=== PATIENT | male | born 1945 | race Caucasian/White ===

== ENCOUNTER 2017-06-04 15:58 | Observation (INO) | payer MEDICARE ==
[2017-06-04 16:47] LABS: BASOPHIL % 0.9 % (0.0-0.4); Basophil (Absolute #) 0.07 (0-0.4); Eosinophil % 4.4 % (0.00-5.0); Eosinophil (Absolute #) 0.35 (0-0.5); Granulocyte Absolute (ANC) 4.97 (1.4-6.9); Granulocytes % 62.7 % (36.0-66.0); Hematocrit 38.2 % (42-50); Hemoglobin 12.8 gm/dl (12.5-18.0); Lymphocyte (Absolute #) 1.68 (1.0-4.6); Lymphocytes % 21.2 % (24.0-44.0); Mean Cell Volume 93.2 fl (78-100); Mean Corpuscular Hemoglobin 31.2 pg (26-32); Mean Corpuscular Hgb Concent. 33.5 g/dl (32-36); Mean Platelet Volume 10.5 fl (6-9.5); Monocyte (Absolute #) 0.86 (0.0-1.3); Monocytes % 10.8 % (0.0-12.0); Platelet Count 234 K/mm3 (150-450); Red Cell Distribution Width 14.8 % (11.5-14.0); White Blood Count 7.9 K/mm3 (4.0-10.5)
--- NOTE | 2017-06-04 16:57 | XRAY ---
Indication: Left arm pain. Comparison: October 21, 2015. Portable chest unchanged again demonstrating chronic right base pleural-parenchymal opacity, CABG surgery, right-sided dual-lead pacemaker, and left sided Port-A-Cath. Remaining lungs clear. Heart is not enlarged for AP portable technique. Bony thorax intact again with mild osteopenia, degenerative changes, and old right rib fractures. Impression: Stable nonacute chest with chronic features.
[2017-06-04 17:18] LABS: ALBUMIN 3.8 g/dL (3.5-5.0); ALKALINE PHOSPHATASE 84 U/L (38-126); ANION GAP 14.5 MEQ/L (5-15); BLOOD UREA NITROGEN 22 mg/dL (9-20); CHLORIDE 104 mmol/L (98-107); Calcium 9.2 mg/dL (8.4-10.2); Carbon Dioxide 27 mmol/L (22-30); Glucose 102 mg/dL (74-106); Potassium 4.3 mmol/L (3.5-5.1); SGOT/AST 28 U/L (17-59); SGPT/ALT 18 U/L (0-50); SODIUM 141 mmol/L (137-145)
--- NOTE | 2017-06-04 17:52 | ERPHSYRPT ---
- History of Present Illness Time Seen by Provider: 06/04/17 16:18 Source: patient, family Patient Subjective Stated Complaint: PT states "I have had this ache in my left arm. It does not hurt now, but I have a really bad cardiac history. Triage Nursing Assessment: pt alert and oriented X 3, skin pwd. Pt ambulates with an upright steady gait, able to speak in clear full sentences. PT in no apparent respiratory distress. Physician History: CC: left arm pain Hx: 72 y/o patient of Dr Rogers who sees [facility] cardiology. He has hx of CABG, pacemaker, and cardiac stent remotely. Today around 11AM he noted left arm aching pain. No chest pain. No injury. It is now better, but he was worried about his heart so called Dr Rogers and came to ER for evaluation. No shortness of breath. He has some symptoms of deconditioning and does not exercise much. He had recent URI last week treated with abtx. He felt better upon arrival. He has felt tired and fatigue more than usual. Allergies/Adverse Reactions: No Known Drug Allergies Allergy (Unverified 01/27/14 19:37) Home Medications: Aspirin EC 325 mg [Ecotrin 325 MG] 325 mg PO DAILY 09/23/13 [History] Bethanechol Chloride [Urecholine] 50 mg PO TID 09/23/13 [History] Calcium Carbonate/Vitamin D2 [Calcium with Vit D Tablet] 1 tab PO DAILY [History] Dutasteride 0.5 MG [Avodart 0.5 MG] 0.5 mg PO DAILY 09/23/13 [History] Gabapentin 300 mg PO TID 09/23/13 [History] Mv-Mn/FA/Coq10/Lycopene/Lutein [Theragran-M Premier 50+ Caplet] 1 each PO DAILY 09/23/13 [History] Niacin 1,000 mg PO DAILY 09/23/13 [History] [place]-3 Fatty Acids/Vitamin E [Longs Fish Oil 1,000 mg Cap] 1,000 mg PO TID [History] Sertraline HCl 50 mg [Zoloft 50 mg Tablet] 50 mg PO DAILY 09/23/13 [History] Tamsulosin HCl 0.4 mg [Flomax 0.4 MG] 0.4 mg PO DAILY 09/23/13 [History] Ubidecarenone [Coenzyme Q10] 50 mg PO DAILY 09/23/13 [History] Hx Tetanus, Diphtheria Vaccination/Date Given: Yes Hx Influenza Vaccination/Date Given: Yes Hx Pneumococcal Vaccination/Date Given: No Immunizations Up to Date: Yes - Review of Systems Constitutional: Fatigue, Malaise, Weakness, No Fever, No Chills Eyes: No Symptoms Ears, Nose, & Throat: No Symptoms Respiratory: No Cough, No Dyspnea Cardiac: No Chest Pain, No Edema, No Syncope Abdominal/Gastrointestinal: No Abdominal Pain, No Nausea, No Vomiting Skin: No Rash Neurological: No Focal Weakness, No Headache, No Parasthesia All Other Systems: Reviewed and Negative - Past Medical History Pertinent Past Medical History: Yes Neurological History: No Pertinent History ENT History: No Pertinent History Cardiac History: Arrhythmia, Coronary Artery Disease Respiratory History: No Pertinent History Endocrine Medical History: No Pertinent History Musculoskeletal History: No Pertinent History GI Medical History: Colorectal Cancer, Hernia History: No Pertinent History Psycho-Social History: Depression Male Reproductive Disorders: Prostate Problems Other Medical History: PT WAS DIAGNOSED WITH RECTAL CANCER IN 2011. SURGERY ON MARCH 2012 WHERE HE HAD A BOWEL RESECTION ET ENDED UP WITH COLOSTOMY. Prostatic hypertrophy - Past Surgical History Past Surgical History: Yes Neuro Surgical History: No Pertinent History Cardiac: CABG, Cardiac Catheterization, Cardiac Stent Respiratory: No Pertinent History Gastrointestinal: Hernia Repair Genitourinary: No Pertinent History Musculoskeletal: No Pertinent History Male Surgical History: No Pertinent History Other Surgical History: 5 VESSEL CABG. COLON RESECTION. 2 HERNIA - Social History Smoking Status: Former smoker Exposure to second hand smoke: No Drug Use: none Patient Lives Alone: No - Nursing Vital Signs Nursing Vital Signs: Initial Vital Signs Temperature 98.3 F 06/04/17 16:12 Pulse Rate 56 L 06/04/17 16:12 Respiratory Rate 16 06/04/17 16:12 Blood Pressure 178/101 06/04/17 16:12 O2 Sat by Pulse Oximetry 97 06/04/17 16:12 Pain Scale Pain Intensity 0 - Physical Exam General Appearance: alert Eye Exam: PERRL/EOMI Ears, Nose, Throat Exam: normal ENT inspection, moist mucous membranes Neck Exam: normal inspection, non-tender, supple Respiratory Exam: normal breath sounds Cardiovascular Exam: bradycardia, irregular, No murmur Gastrointestinal/Abdomen Exam: soft, No tenderness, No distention Extremity Exam: No calf tenderness, No pedal edema Neurologic Exam: alert, oriented x 3, cooperative, sensation nml, No motor deficits Skin Exam: warm, dry, No rash SpO2 Interpretation: normal SpO2: 98 Oxygen Delivery: Room Air - Course Nursing assessment & vital signs reviewed: Yes EKG Interpreted by Me: RATE (60 pacemaker rhythm) - Radiology Exams cxr X-ray Interpretation: Teleradiologist Report (stable nonacute chest with chronic features) Ordered Tests: Active Orders 24 hr Category Date Time Status Dredge Lever Operator STAT Care 06/04/17 16:27 Active EKG-ER Only STAT Care 06/04/17 16:26 Active IV Insertion STAT Care 06/04/17 16:26 Active Pulse Oximetry (ED) STAT Care 06/04/17 16:26 Active CHEST 1 VIEW (PORTABLE) Stat Exams 06/04/17 16:26 Completed CBC W DIFF Stat Lab 06/04/17 16:47 Completed CMP Stat Lab 06/04/17 16:47 Completed TROPONIN Q3H Lab 06/04/17 16:47 Completed TROPONIN Q3H Lab 06/04/17 19:30 Ordered TROPONIN Q3H Lab 06/04/17 22:30 Ordered TROPONIN Q3H Lab 06/05/17 01:30 Ordered TROPONIN Q3H Lab 06/05/17 04:30 Ordered Lab/Rad Data: Laboratory Result Diagrams 06/04/17 16:47 06/04/17 16:47 Laboratory Results 06/04/17 06/04/17 06/04/17 Range/Units 16:47 16:47 16:47 WBC 7.9 (4.0-10.5) K/mm3 RBC 4.10 (4.1-5.6) M/mm3 Hgb 12.8 (12.5-18.0) gm/dl Hct 38.2 L (42-50) % MCV 93.2 (78-100) fl MCH 31.2 (26-32) pg MCHC 33.5 (32-36) g/dl RDW 14.8 H (11.5-14.0) % Plt Count 234 (150-450) K/mm3 MPV 10.5 H (6-9.5) fl Gran % 62.7 (36.0-66.0) % Eos # (Auto) 0.35 (0-0.5) Absolute Lymphs (auto) 1.68 (1.0-4.6) Absolute Monos (auto) 0.86 (0.0-1.3) Lymphocytes % 21.2 L (24.0-44.0) % Monocytes % 10.8 (0.0-12.0) % Eosinophils % 4.4 (0.00-5.0) % Basophils % 0.9 (0.0-0.4) % Absolute Granulocytes 4.97 (1.4-6.9) Basophils # 0.07 (0-0.4) Sodium 141 (137-145) mmol/L Potassium 4.3 (3.5-5.1) mmol/L Chloride 104 (98-107) mmol/L Carbon Dioxide 27 (22-30) mmol/L Anion Gap 14.5 (5-15) MEQ/L BUN 22 H (9-20) mg/dL Creatinine 0.90 (0.66-1.25) mg/dL Estimated GFR > 60.0 ML/MIN Glucose 102 (74-106) mg/dL Calcium 9.2 (8.4-10.2) mg/dL Total Bilirubin 0.30 (0.2-1.3) mg/dL AST 28 (17-59) U/L ALT 18 (0-50) U/L Alkaline Phosphatase 84 (38-126) U/L Troponin I < 0.012 (0.000-0.034) ng/mL Serum Total Protein 7.0 (6.3-8.2) g/dL Albumin 3.8 (3.5-5.0) g/dL - Progress Progress Note: 06/04/17 17:51 He took 2 full asa at home 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 Pain free here. Troponin negative. He has fairly strong hx. Heart Score 6. Paged Dr Rogers to discuss disposition. 06/04/17 18:[address] Moore who advised chest pain observation. Discussed with .: Kimberlee Will see patient in: hospital (observation) (Tele) Counseled pt/family regarding: lab results, diagnosis, need for follow-up, rad results - Departure Time of Disposition: 18:12 Departure Disposition: Observation (Tele Dr Rogers) Clinical Impression: Left arm pain, rule out ACS Condition: Stable Critical Care Time: No Referrals: STANLEY ROGERS MD [Primary Care Provider] -
[2017-06-04] MEDS ORDERED: Zofran 4 MG/2 ML VIAL IV PRN (20:06)
[2017-06-04] MEDS ORDERED: MILK OF MAGNESIA 30 ML PO PRN (20:06)
[2017-06-04] MEDS ORDERED: TYLENOL 325 MG PO PRN (20:06)
[2017-06-04] MEDS ORDERED: Senokot-S Tablet PO PRN (20:06)
[2017-06-04] MEDS ORDERED: MAALOX ES 30 ML UNIT DOSE PO PRN (20:06)
[2017-06-04] MEDS: Lopressor 25MG Tab PO SCH (22:30)
[2017-06-04] MEDS ORDERED: BABY ASPIRIN 81 MG CHEW PO SCH (22:30)
[2017-06-04] MEDS ORDERED: SYNTHROID 50 MCG PO SCH (22:30)
[2017-06-04] MEDS ORDERED: FISH OIL 1,000 MG CAPSULE PO SCH (22:30)
[2017-06-04] MEDS ORDERED: Calcium 500MG W/Vit D Tablet PO SCH (22:30)
[2017-06-04] MEDS ORDERED: ECOTRIN 81 MG PO ONE (22:30)
[2017-06-04] MEDS ORDERED: ZOLOFT 50 MG TABLET PO SCH (22:30)
[2017-06-04] MEDS: Zestril 10 MG PO SCH (22:48)
[2017-06-04] MEDS: Pepcid 20 MG PO SCH (22:49)
[2017-06-04] MEDS: NEURONTIN 300 MG PO SCH (22:49)
[2017-06-04] MEDS: Flomax 0.4 MG PO SCH (22:49)
[2017-06-04] MEDS: ELIQUIS 5 MG TABLET PO SCH (22:51)
[2017-06-04] MEDS ORDERED: ECOTRIN 81 MG PO SCH (23:00)
[2017-06-05 05:28] LABS: Risk Ratio 4.6
[2017-06-05] MEDS ORDERED: MEDICATION INTERVENTION MC SCH (07:15)
[2017-06-05] MEDS: Flomax 0.4 MG PO SCH (09:41)
[2017-06-05] MEDS: NEURONTIN 300 MG PO SCH (09:41)
[2017-06-05] MEDS: ELIQUIS 5 MG TABLET PO SCH (09:41)
[2017-06-05] MEDS: Pepcid 20 MG PO SCH (09:41)
[2017-06-05] MEDS ORDERED: FISH OIL 1,000 MG CAPSULE PO SCH (10:00)
[2017-06-05] MEDS ORDERED: BETHANECHOL CHLORIDE 50 MG PO SCH (10:00)
[2017-06-05] MEDS ORDERED: Ecotrin 325 MG PO SCH (10:00)
[2017-06-05] MEDS: Lopressor 25MG Tab PO SCH (11:00)
[2017-06-05] MEDS: Zestril 10 MG PO SCH (11:00)
[2017-06-05 11:05] VITALS: BP 123/76; PULSE 60; O2SAT 97
--- NOTE | 2017-06-05 11:50 | PCM.SSS ---
History of Present Illness - Chief Complaint Chief Complaint: Left arm pain, rule out ACS History of Present Illness: 72 y/o patient who sees [facility] cardiology. He has hx of CABG, pacemaker, and cardiac stent remotely. Today around 11AM he noted left arm aching pain. No chest pain. No injury. It is now better, but he was worried about his heart so called Dr Rogers and came to ER for evaluation. No shortness of breath. He has some symptoms of deconditioning and does not exercise much. He had recent URI last week treated with abtx. He felt better upon arrival. He has felt tired and fatigue more than usual - Review of Systems Constitutional: No Fever, No Chills Eyes: No Symptoms Ears, Nose, & Throat: No Symptoms Respiratory: No Cough, No Short Of Breath Cardiac: No Chest Pain, No Edema, No Syncope Abdominal/Gastrointestinal: No Abdominal Pain, No Nausea, No Vomiting, No Diarrhea Genitourinary Symptoms: No Dysuria Musculoskeletal: No Back Pain, No Neck Pain Skin: No Rash Neurological: No Dizziness, No Focal Weakness, No Sensory Changes Psychological: No Symptoms Endocrine: No Symptoms Hematologic/Lymphatic: No Symptoms Immunological/Allergic: No Symptoms Medications & Allergies Home Medications: Home Medication List Bethanechol Chloride [Urecholine] 50 mg PO TID 09/23/13 [History Confirmed 06/04] Calcium Carbonate/Vitamin D2 [Calcium with Vit D Tablet] 1 tab PO HS 09/23/13 [ History Confirmed 06/04/17] Gabapentin 300 mg PO TID 09/23/13 [History Confirmed 06/04/17] Sertraline HCl 50 mg [Zoloft 50 mg Tablet] 50 mg PO HS 09/23/13 [History Confirmed 06/04/17] Tamsulosin HCl 0.4 mg [Flomax 0.4 MG] 0.4 mg PO BID 09/23/13 [History Confirmed 06/04/17] Apixaban [Eliquis 5 mg Tablet] 5 mg PO BID 06/04/17 [History Confirmed 05/19] Aspirin EC 81 mg [Ecotrin 81 mg] 81 mg PO HS 06/04/17 [History Confirmed 06/04/17] Finasteride 5 mg PO HS 06/04/17 [History Confirmed 06/04/17] Fish Oil/Dha/Epa [Fish Oil 1,200 mg Fish Oil] 1 each PO BID 06/04/17 [History Confirmed 06/04/17] Levothyroxine Sodium 50 mcg PO HS 06/04/17 [History Confirmed 06/04/17] Ubidecarenone [Co Q-10] 100 mg PO HS 06/04/17 [History Confirmed 06/04/17] Lisinopril 10 mg [Zestril 10 MG] 10 mg PO DAILY #30 tablet 06/05/17 [Rx] Allergies/Adverse Reactions: Allergies Allergy/AdvReac Type Severity Reaction Status Date / Time No Known Drug Allergies Allergy Unverified 01/27/14 19:37 - Past Medical History Past Medical History: Yes Neurological History: No Pertinent History ENT History: No Pertinent History Cardiac History: Arrhythmia, Coronary Artery Disease Respiratory History: No Pertinent History Endocrine Medical History: No Pertinent History Musculoskelatal History: No Pertinent History GI Medical History: Colorectal Cancer, Hernia History: No Pertinent History Pyscho-Social History: Depression Male Reproductive Disorders: Prostate Problems Comment: PT WAS DIAGNOSED WITH RECTAL CANCER IN 2011. SURGERY ON MARCH 2012 WHERE HE HAD A BOWEL RESECTION ET ENDED UP WITH COLOSTOMY. Prostatic hypertrophy - Past Surgical History Past Surgical History: Yes Neuro Surgical History: No Pertinent History Cardiac History: CABG, Cardiac Catheterization, Cardiac Stent Respiratory Surgery: No Pertinent History GI Surgical History: Hernia Repair Genitourinary Surgical Hx: No Pertinent History Musculskeletal Surgical Hx: No Pertinent History, Joint Replacement Male Surgical History: No Pertinent History Other Surgical History: 5 VESSEL CABG. COLON RESECTION. 2 HERNIA. Right lower lobe of lung removed. Right hip replacement - Social History Smoking Status: Former smoker Exposure to second hand smoke: No Alcohol: Occasionally Drug Use: none - Physical Exam Vital Signs: Vital Signs - 24 hr Temp Pulse Resp BP Pulse Ox 06/05/17 11:04 97.8 F 60 20 123/76 97 06/05/17 08:00 97 06/05/17 07:26 98 F 68 20 112/62 98 06/05/17 04:00 97.9 F 60 16 109/65 95 06/05/17 00:00 98.1 F 61 17 141/88 95 06/04/17 20:19 97.8 F 63 16 185/100 96 06/04/17 18:13 98 06/04/17 17:39 97.8 F 62 16 144/97 98 06/04/17 16:42 98 06/04/17 16:12 98.3 F 56 L 16 178/101 97 General Appearance: no apparent distress, alert Neurologic Exam: alert, oriented x 3, cooperative, normal mood/affect, nml cerebellar function, nml station & gait, sensation nml, No motor deficits Eye Exam: PERRL/EOMI, eyes nml inspection Ears, Nose, Throat Exam: normal ENT inspection, TMs normal, pharynx normal, moist mucous membranes Neck Exam: normal inspection, non-tender, supple, full range of motion Respiratory Exam: normal breath sounds, lungs clear, No respiratory distress Cardiovascular Exam: regular rate/rhythm, normal heart sounds, normal peripheral pulses Gastrointestinal/Abdomen Exam: soft, normal bowel sounds, No tenderness, No mass Back Exam: normal inspection, normal range of motion, No CVA tenderness, No vertebral tenderness Extremity Exam: normal inspection, normal range of motion, pelvis stable Skin Exam: normal color, warm, dry, No rash Lymphatic Exam: No adenopathy Results - Labs Lab/Micro Results: Lab Results-Last 24 Hours 06/04/17 06/04/17 06/05/17 Range/Units 20:30 22:40 01:30 Troponin I < 0.012 < 0.012 < 0.012 (0.000-0.034) ng/mL Triglycerides (30-150) mg/dL Cholesterol (50-200) mg/dL LDL Cholesterol (30-100) mg/dL HDL Cholesterol (40-60) mg/dL Heart Disease Risk Ratio 06/05/17 06/05/17 Range/Units 04:50 04:50 Troponin I < 0.012 (0.000-0.034) ng/mL Triglycerides 109 (30-150) mg/dL Cholesterol 188 (50-200) mg/dL LDL Cholesterol 129 H (30-100) mg/dL HDL Cholesterol 41 (40-60) mg/dL Heart Disease Risk Ratio 4.6 - Other Procedures and Tests Respiratory Therapy 06/06/17 05:00 EKG ROUTINE 06/07/17 05:00 EKG ROUTINE 06/08/17 05:00 EKG ROUTINE Assessment/Plan (1) Chest pain of uncertain etiology Current Visit: Yes Status: Acute Code(s): R07.89 - OTHER CHEST PAIN (2) CAD (coronary artery disease) Current Visit: Yes Status: Chronic Qualifiers: Coronary Disease-Associated Artery/Lesion type: [place] artery Associated angina: with stable angina Code(s): I25.10 - ATHSCL HEART DISEASE OF [place] CORONARY ARTERY W/O ANG PCTRS (3) History of colon cancer Current Visit: Yes Status: Chronic Code(s): Z85.038 - PERSONAL HISTORY OF MALIGNANT NEOPLASM OF LARGE INTESTINE Hospital Summary - Hospital Course Hospital Course: Chief Complaint Diagnosis Left arm pain, rule out ACS Allergies Allergy/AdvReac Type Severity Reaction Status Date / Time No Known Drug Allergies Allergy Unverified 01/27/14 19:37 Vital Signs (Last 24 hours) Temp Pulse Resp BP Pulse Ox 06/05/17 11:04 97.8 F 60 20 123/76 97 06/05/17 08:00 97 06/05/17 07:26 98 F 68 20 112/62 98 06/05/17 04:00 97.9 F 60 16 109/65 95 06/05/17 00:00 98.1 F 61 17 141/88 95 06/04/17 20:19 97.8 F 63 16 185/100 96 06/04/17 18:13 98 06/04/17 17:39 97.8 F 62 16 144/97 98 06/04/17 16:42 98 06/04/17 16:12 98.3 F 56 L 16 178/101 97 Home Medications Medication Instructions Recorded Confirmed Last Taken Type Apixaban [Eliquis 5 mg 5 mg PO BID 06/04/17 06/04/17 06/04/17 07:00 History Tablet] Aspirin EC 81 mg [Ecotrin 81 81 mg PO HS 06/04/17 06/04/17 06/03/17 22:00 History mg] Finasteride [Finasteride] 5 mg PO HS 06/04/17 06/04/17 06/03/17 22:00 History Fish Oil/Dha/Epa [Fish Oil 1,200 1 each PO BID 06/04/17 06/04/17 06/04/17 07:00 History mg Fish Oil] Levothyroxine Sodium 50 mcg PO HS 06/04/17 06/04/17 06/03/17 22:00 History [Levothyroxine Sodium] Ubidecarenone [Co Q-10] 100 mg PO HS 06/04/17 06/04/17 06/03/17 22:00 History Current Medications Generic Name Dose Route Start Last Admin Trade Name Freq PRN Reason Stop Dose Admin Acetaminophen 650 mg 06/04/17 20:06 Tylenol 325 Mg PO 07/04/17 20:05 Q4H PRN PRN PAIN AND/OR FEVER Al Hydrox/Mg Hydrox/Simethicone 30 ml 06/04/17 20:06 Maalox Es 30 Ml Unit Dose PO 07/04/17 20:05 Q4H PRN PRN INDIGESTION Apixaban 5 mg 06/05/17 10:00 06/05/17 09:41 Eliquis 5 Mg Tablet PO 07/05/17 09:59 5 mg BID GARY Administration Aspirin 81 mg 06/04/17 23:00 06/04/17 22:50 Ecotrin 81 Mg PO 07/04/17 22:59 81 mg HS GARY Administration Calcium Carbonate 1 tab 06/04/17 22:30 06/04/17 22:49 Calcium 500mg W/Vit D Tablet PO 07/04/17 22:29 1 tab HS GARY Administration Famotidine 20 mg 06/04/17 22:00 06/05/17 09:41 Pepcid 20 Mg PO 07/04/17 21:59 20 mg BID GARY Administration Finasteride 5 mg 06/05/17 22:30 Proscar 5 Mg PO 07/05/17 22:29 HS GARY Fish Oil 1,000 mg 06/05/17 10:00 06/05/17 09:41 Fish Oil 1,000 Mg Capsule PO 07/05/17 09:59 1,000 mg BID GARY Administration Gabapentin 300 mg 06/04/17 22:30 06/05/17 09:41 Neurontin 300 Mg PO 07/04/17 22:29 300 mg TID GARY Administration Levothyroxine Sodium 50 mcg 06/04/17 22:30 06/04/17 22:49 Synthroid 50 Mcg PO 07/04/17 22:29 50 mcg HS GARY Administration Lisinopril 10 mg 06/04/17 22:00 06/05/17 11:00 Zestril 10 Mg PO 07/04/17 21:59 10 mg DAILY [facility] Administration Magnesium Hydroxide 30 - 60 ml 06/04/17 20:06 Milk Of Magnesia 30 Ml PO 07/04/17 20:05 QDP PRN CONSTIPATION Metoprolol Tartrate 25 mg 06/04/17 22:00 06/05/17 11:00 Lopressor 25mg Tab PO 07/04/17 21:59 Not Given DAILY [facility] Ondansetron HCl 4 mg 06/04/17 20:06 Zofran 4 Mg/2 Ml Vial IV 07/04/17 20:05 Q4H PRN PRN NAUSEA/VOMITING Senna/Docusate Sodium 2 udtab 06/04/17 20:06 Senokot-S Tablet PO 07/04/17 20:05 BID PRN PRN CONSTIPATION Sertraline HCl 50 mg 06/04/17 22:30 06/04/17 22:50 Zoloft 50 Mg Tablet PO 07/04/17 22:29 50 mg HS [facility] Administration Tamsulosin HCl 0.4 mg 06/04/17 22:30 06/05/17 09:41 Flomax 0.4 Mg PO 07/04/17 22:29 0.4 mg BID [facility] Administration Discontinued Medications Generic Name Dose Route Start Last Admin Trade Name Freq PRN Reason Stop Dose Admin Aspirin 325 mg 06/05/17 10:00 Ecotrin 325 Mg PO 07/05/17 09:59 DAILY [facility] Aspirin 81 mg 06/04/17 22:30 Baby Aspirin 81 Mg Chew PO 07/04/17 22:29 HS [facility] Aspirin Confirm 06/04/17 22:30 Ecotrin 81 Mg Administered 06/04/17 22:31 Dose 81 mg PO .STK-MED ONE Fish Oil 1,200 mg 06/04/17 22:30 06/04/17 23:52 Fish Oil 1,000 Mg Capsule PO 07/04/17 22:29 Not Given BID [facility] Intake & Output (Last 24 hours) 06/02/17 06/03/17 06/04/17 06/05/17 11:59 11:59 11:59 11:59 Intake Total 840 Output Total 825 Balance 15 Weight 89.6 kg Laboratory Results (Last 24 hours) 06/05/17 06/05/17 06/05/17 04:50 04:50 01:30 WBC RBC Hgb Hct MCV MCH MCHC RDW Plt Count MPV Gran % Eos # (Auto) Absolute Lymphs (auto) Absolute Monos (auto) Lymphocytes % Monocytes % Eosinophils % Basophils % Absolute Granulocytes Basophils # Sodium Potassium Chloride Carbon Dioxide Anion Gap BUN Creatinine Estimated GFR Glucose Calcium Total Bilirubin AST ALT Alkaline Phosphatase Troponin I < 0.012 < 0.012 Serum Total Protein Albumin Triglycerides 109 Cholesterol 188 LDL Cholesterol 129 H HDL Cholesterol 41 Heart Disease Risk Ratio 4.6 06/04/17 06/04/17 06/04/17 22:40 20:30 16:47 WBC RBC Hgb Hct MCV MCH MCHC RDW Plt Count MPV Gran % Eos # (Auto) Absolute Lymphs (auto) Absolute Monos (auto) Lymphocytes % Monocytes % Eosinophils % Basophils % Absolute Granulocytes Basophils # Sodium Potassium Chloride Carbon Dioxide Anion Gap BUN Creatinine Estimated GFR Glucose Calcium Total Bilirubin AST ALT Alkaline Phosphatase Troponin I < 0.012 < 0.012 < 0.012 Serum Total Protein Albumin Triglycerides Cholesterol LDL Cholesterol HDL Cholesterol Heart Disease Risk Ratio 06/04/17 06/04/17 16:47 16:47 WBC 7.9 RBC 4.10 Hgb 12.8 Hct 38.2 L MCV 93.2 MCH 31.2 MCHC 33.5 RDW 14.8 H Plt Count 234 MPV 10.5 H Gran % 62.7 Eos # (Auto) 0.35 Absolute Lymphs (auto) 1.68 Absolute Monos (auto) 0.86 Lymphocytes % 21.2 L Monocytes % 10.8 Eosinophils % 4.4 Basophils % 0.9 Absolute Granulocytes 4.97 Basophils # 0.07 Sodium 141 Potassium 4.3 Chloride 104 Carbon Dioxide 27 Anion Gap 14.5 BUN 22 H Creatinine 0.90 Estimated GFR > 60.0 Glucose 102 Calcium 9.2 Total Bilirubin 0.30 AST 28 ALT 18 Alkaline Phosphatase 84 Troponin I Serum Total Protein 7.0 Albumin 3.8 Triglycerides Cholesterol LDL Cholesterol HDL Cholesterol Heart Disease Risk Ratio Orders (Last 24 hours) Category Date Time Status Bedrest with BRP/BSC ROUTINE Activity 06/04/17 20:06 Active Call Admit Doctor for Orders ROUTINE Care 06/04/17 20:06 Active Balance Clerk STAT Care 06/04/17 16:27 Completed Code Status Order ROUTINE Care 06/04/17 20:06 Active EKG-ER Only STAT Care 06/04/17 16:26 Completed IV Care Q6H Care 06/04/17 20:06 Active IV Insertion STAT Care 06/04/17 16:26 Completed Implement Chest Pain Pathway ROUTINE Care 06/04/17 20:[address] in Observation ROUTINE Care 06/04/17 20:06 Active Pulse Oximetry (ED) STAT Care 06/04/17 16:26 Completed Gloria Pan ROUTINE Care 06/04/17 20:06 Active Telemetry ROUTINE Care 06/04/17 20:06 Active Weight,Daily 0600 Care 06/04/17 20:06 Active Cardiac Diet Diet 06/04/17 Dinner Active CHEST 1 VIEW (PORTABLE) Stat Exams 06/04/17 16:26 Completed CBC W DIFF Stat Lab 06/04/17 16:47 Completed CMP Stat Lab 06/04/17 16:47 Completed LIPID PROFILE AM.LAB Lab 06/05/17 04:50 Completed TROPONIN Q3H Lab 06/04/17 16:47 Completed TROPONIN Q3H Lab 06/04/17 20:30 Completed TROPONIN Q3H Lab 06/04/17 22:40 Completed TROPONIN Q3H Lab 06/05/17 01:30 Completed TROPONIN Q3H Lab 06/05/17 04:50 Completed Acetaminophen 325 mg [Tylenol 325 mg] Med 06/04/17 20:06 Active 650 mg PO Q4H PRN PRN Apixaban [Eliquis 5 mg Tablet] Med 06/05/17 10:00 Active 5 mg PO BID Aspirin 81 gm Chew [Baby Aspirin 81 mg Chew] Med 06/04/17 22:30 Discontinued 81 mg PO HS Aspirin EC 325 mg [Ecotrin 325 MG] Med 06/05/17 10:00 Discontinued 325 mg PO DAILY Aspirin EC 81 mg [Ecotrin 81 mg] Med 06/04/17 22:30 Discontinued 81 mg PO .STK-MED ONE Aspirin EC 81 mg [Ecotrin 81 mg] Med 06/04/17 23:00 Active 81 mg PO HS Calcium Carb/Vitamin D 500 mg* [Calcium 500MG W/Vit D Med 06/04/17 22:30 Active Tablet] 1 tab PO HS Famotidine 20 mg [Pepcid 20 MG] Med 06/04/17 22:00 Active 20 mg PO BID Finasteride 5 mg [Proscar 5 MG] Med 06/05/17 22:30 Active 5 mg PO HS Gabapentin 300 mg [Neurontin 300 mg] Med 06/04/17 22:30 Active 300 mg PO TID Levothyroxine Sodium 50 Mcg [Synthroid 50 Mcg] Med 06/04/17 22:30 Active 50 mcg PO HS Lisinopril 10 mg [Zestril 10 MG] Med 06/04/17 22:00 Active 10 mg PO DAILY Mag Hydrox/Al Hydrox/Simeth [Maalox Es 30 ml Unit Med 06/04/17 20:06 Active Dose] 30 ml PO Q4H PRN PRN Magnesium Hydroxide 30 ml [Milk of Magnesia 30 ml Med 06/04/17 20:06 Active ] 30 - 60 ml PO QDP PRN Medication Intervention Med 06/05/17 07:15 Active 1 each MC .RN TO CHECK WITH PT Metoprolol Tartrate 25 mg [Lopressor 25MG Tab] Med 06/04/17 22:00 Active 25 mg PO DAILY [place]-3 Fatty Acids/Fish Oil [Fish Oil 1,000 mg Med 06/05/17 10:00 Active Capsule] 1,000 mg PO BID [place]-3 Fatty Acids/Fish Oil [Fish Oil 1,000 mg Med 06/04/17 22:30 Discontinued Capsule] 1,200 mg PO BID Ondansetron HCl 4 mg/2 ml [Zofran 4 MG/2 ML VIAL] Med 06/04/17 20:06 Active 4 mg IV Q4H PRN PRN Senna/Docusate Sodium Tab [Senokot-S Tablet] Med 06/04/17 20:06 Active 2 udtab PO BID PRN PRN Sertraline HCl 50 mg [Zoloft 50 mg Tablet] Med 06/04/17 22:30 Active 50 mg PO HS Tamsulosin HCl 0.4 mg [Flomax 0.4 MG] Med 06/04/17 22:30 Active 0.4 mg PO BID EKG ROUTINE RT 06/05/17 00:23 Completed EKG ROUTINE RT 06/06/17 05:00 Active EKG ROUTINE RT 06/07/17 05:00 Active EKG ROUTINE RT 06/08/17 05:00 Active Pulse Oximetry Q4H RT 06/04/17 20:06 Active - Vitals & Intake/Output Vital Signs: Vital Signs Temperature 97.8 F 06/05/17 11:04 Pulse Rate 60 06/05/17 11:04 Respiratory Rate 20 06/05/17 11:04 Blood Pressure 123/76 06/05/17 11:04 O2 Sat by Pulse Oximetry 97 06/05/17 11:04 Intake & Output: Intake & Output 06/02/17 06/03/17 06/04/17 06/05/17 11:59 11:59 11:59 11:59 Intake Total 840 Output Total 825 Balance 15 Weight 89.6 kg - Lab Result Diagrams: 06/04/17 16:47 06/04/17 16:47 Lab Results-Last 24 Hrs: Lab Results-Last 24 Hours 06/04/17 06/04/17 06/05/17 Range/Units 20:30 22:40 01:30 Troponin I < 0.012 < 0.012 < 0.012 (0.000-0.034) ng/mL Triglycerides (30-150) mg/dL Cholesterol (50-200) mg/dL LDL Cholesterol (30-100) mg/dL HDL Cholesterol (40-60) mg/dL Heart Disease Risk Ratio 06/05/17 06/05/17 Range/Units 04:50 04:50 Troponin I < 0.012 (0.000-0.034) ng/mL Triglycerides 109 (30-150) mg/dL Cholesterol 188 (50-200) mg/dL LDL Cholesterol 129 H (30-100) mg/dL HDL Cholesterol 41 (40-60) mg/dL Heart Disease Risk Ratio 4.6 - Procedures and Test Procedures and Tests throughout Hospitalization: Therapy Orders & Screens 06/05/17 00:23 EKG ROUTINE Comment: Diagnosis: Left arm pain, rule out ACS 06/06/17 05:00 EKG ROUTINE Comment: Diagnosis: Left arm pain, rule out ACS 06/07/17 05:00 EKG ROUTINE Comment: Diagnosis: Left arm pain, rule out ACS 06/08/17 05:00 EKG ROUTINE Comment: Diagnosis: Left arm pain, rule out ACS - Discharge Discharge Date: 06/05/17 Disposition: Home, Self-Care Condition: Stable Prescriptions: New Lisinopril 10 mg [Zestril 10 MG] 10 mg PO DAILY #30 tablet Continue Calcium Carbonate/Vitamin D2 [Calcium with Vit D Tablet] 1 tab PO HS Bethanechol Chloride [Urecholine] 50 mg PO TID Gabapentin 300 mg PO TID Tamsulosin HCl 0.4 mg [Flomax 0.4 MG] 0.4 mg PO BID Sertraline HCl 50 mg [Zoloft 50 mg Tablet] 50 mg PO HS Apixaban [Eliquis 5 mg Tablet] 5 mg PO BID Finasteride 5 mg PO HS Levothyroxine Sodium 50 mcg PO HS Ubidecarenone [Co Q-10] 100 mg PO HS Aspirin EC 81 mg [Ecotrin 81 mg] 81 mg PO HS Fish Oil/Dha/Epa [Fish Oil 1,200 mg Fish Oil] 1 each PO BID Follow up with: STANLEY ROGERS MD [Primary Care Provider] - 1 Week
[2017-06-05] MEDS ORDERED: Proscar 5 MG PO SCH (22:30)
== END 2017-06-05 12:45 | disposition home or self-care (01) ==
LOC: ED 15:58 → MED SURG 19:59
PROVIDERS: ADMIT General Practice; ATTEND General Practice
DX: R07.89 Other chest pain (principal); I25.810 Atherosclerosis of coronary artery bypass graft(s) without angina pectoris; F32.9 Major depressive disorder, single episode, unspecified; Z95.0 Presence of cardiac pacemaker; Z79.01 Long term (current) use of anticoagulants; Z79.899 Other long term (current) drug therapy; Z85.038 Personal history of other malignant neoplasm of large intestine; Z90.49 Acquired absence of other specified parts of digestive tract
CPT/HCPCS: 36000; 36415; 71045; 80053; 80061; 83721; 84484; 85025; 93005; 93041; 93268; 99285; A9270-GY; G0378

== ENCOUNTER 2018-01-08 11:09 | Observation (INO) | payer MEDICARE ==
[2018-01-08] MEDS ORDERED: Sodium Chloride 0.9% 1000 ML 1,000 ML IV STA (11:56)
[2018-01-08 12:22] LABS: Hematocrit 41.5 % (42-50); Hemoglobin 13.6 gm/dl (12.5-18.0); Mean Cell Volume 88.7 fl (78-100); Mean Corpuscular Hemoglobin 29.1 pg (26-32); Mean Corpuscular Hgb Concent. 32.8 g/dl (32-36); Mean Platelet Volume 9.8 fl (6-9.5); Platelet Count 342 K/mm3 (150-450); Red Blood Count 4.68 M/mm3 (4.1-5.6); Red Cell Distribution Width 17.4 % (11.5-14.0); White Blood Count 4.1 K/mm3 (4.0-10.5)
[2018-01-08 12:49] LABS: ALBUMIN 4.7 g/dL (3.5-5.0); ANION GAP 20.3 MEQ/L (5-15); BILIRUBIN,TOTAL 0.9 mg/dL (0.2-1.3); Calcium 9.6 mg/dL (8.4-10.2); Creatinine 1 2.07 mg/dL (0.66-1.25); Potassium 3.5 mmol/L (3.5-5.1); Total Protein 8.4 g/dL (6.3-8.2)
[2018-01-08] MEDS: Sodium Chloride 0.9% 1000 ML 1,000 ML IV SCH (14:09)
--- NOTE | 2018-01-08 14:49 | XRAY ---
Indication: Possible obstruction. History colon cancer with colostomy. Multiple contiguous axial images obtained through the abdomen and pelvis without contrast as ordered. Comparison: November 13, 2011. Lung bases again demonstrates bilateral fibrosis/scarring. No new right posterior medial peripheral cystic changes. No infiltrate or effusion. Heart is not enlarged. Images through the abdomen slightly degraded by respiration artifact. Noncontrasted stomach unremarkable. New abnormal fluid distended small bowel loops up to 4 cm in diameter with asynchronous fluid leveling favoring partial small bowel obstruction, somewhere left mid abdomen. Distal jejunal and ileal bowel loops are decompressed with little bowel gas. New colon resection with left lower quadrant ostomy/mesh graft. Knuckle of small bowel slightly herniates through the ostomy abdominal wall defect. No free fluid/air. There remains 2 gallstones, largest 1.4 cm. Minimally enlarging 2.4 cm right mid renal cortical cyst, previously 1.5 cm. Remaining liver, pancreas, spleen, adrenal glands, kidneys, ureters, and bladder are unremarkable for noncontrast exam. Increasing mild scattered aortoiliac calcifications without AAA. Osseous structures demonstrate progressive worsening moderate/advanced L2-S1 degenerative disc disease. Interval total right hip arthroplasty. Impression: 1. New CT findings favoring small bowel obstruction as detailed. 2. Interval colon resection with new left lower quadrant ostomy/mesh graft. 3. Enlarging right renal cortical cyst. 4. Stable gallstones. CT DI 17.85
[2018-01-08 15:31] LABS: BAND 23 % (0.0-2.0); Eosinophil 2 % (0.00-3.0); Lymphocytes 42 % (24-44); Monocyte 2 % (0.0-12.0); Neutrophils 31 % (36.-66.); Total Cells Counted 100
[2018-01-08 15:32] LABS: ANISOCYTOSIS 2+; Platelet Estimate NORMAL (NORMAL); Poikilocytosis 1+; Toxic Granulation 2+
[2018-01-08] MEDS: FLAGYL 500 MG IVPB 500 MG/100 ML BAG IV SCH ×2 (17:04→21:49)
[2018-01-08 20:52] LABS: 027 TOX PROD PRESUMPTIVE NEGATIVE (NEGATIVE); TOXIGENIC C. DIFF ORG NEGATIVE (NEGATIVE)
[2018-01-09] MEDS: Sodium Chloride 0.9% 1000 ML 1,000 ML IV SCH (01:11)
[2018-01-09] MEDS: FLAGYL 500 MG IVPB 500 MG/100 ML BAG IV SCH (06:20)
[2018-01-09 07:36] VITALS: O2SAT 96
--- NOTE | 2018-01-09 07:57 | CONS ---
CONSULT DATE: 01/08/2018 The patient seen on a day when Dr. Crawford is occupational hygienist. HISTORY: The patient is a 72 year-old gentleman who has history of rectal cancer and ended up having resection in [place] and permanent endostomy left side of his abdomen. He had some nausea and vomiting for a couple of days. He was having diarrheal stools. The nausea and vomiting resolved. He got admitted by his medical doctor today for a CT scan that showed some fluid-filled bowel loops across the abdomen possible partial obstruction. He reports he is feeling much better today. No nausea or vomiting. He is having gas and liquidy stool out his ostomy. His abdomen is quite soft. No peritoneal signs. PAST MEDICAL HISTORY: As mentioned above he had the rectal cancer. He has some heart disease. PAST SURGICAL HISTORY: He had hernia repairs in the past. He had a coronary artery bypass graft, heart cath, cardiac stents, colonoscopy, pacemaker, right hip surgery as well as lobe surgery removed. He had resection for his rectal cancer and then permanent end colostomy. MEDICATIONS: He has been on famotidine, aspirin, gabapentin, fish oil, calcium, levothyroxine for some hypothyroidism, Tamsulosin, multivitamin, Zoloft, Atorvastatin, hydrocodone, ibuprofen. ALLERGIES: NKDA. FAMILY HISTORY: Leukemia, breast cancer. SOCIAL HISTORY: Former smoker quit a few years ago. REVIEW OF SYSTEMS: Twelve systems reviewed. Again, he had nausea, vomiting, diarrhea. His nausea and vomiting resolved. He reports he is more comfortable. No significant pain right now. No chest pain or palpitations. PHYSICAL EXAMINATION: GENERAL: No acute distress. HEENT: Sclera nonicteric. NECK: No JVD. CHEST: Equal excursion, nonlabored breathing. ABDOMEN: Soft, mild distention but no rebound, no guarding. Minimal tenderness. He has had a large amount of liquidy stool and gas in his ostomy. Again no rebound or guarding. EXTREMITIES: No significant edema. NEURO: Alert, moving extremities grossly symmetrically. No gross motor deficits noted. LAB DATA AND TESTS: Again CT scan showed some fluid-filled small bowel loops a little more decompressed distally, degenerative disc disease. He does have some gallstones that are unchanged from previous studies back in 2012. White blood cell count 4.1, hemoglobin 13.6. Lactic acid is normal. Liver function test unremarkable. IMPRESSION: Nausea and vomiting resolved. He has had some diarrheal episodes, some fluid-filled small bowel loops on CT scan could be anything from ileus, gastroenteritis, viral syndrome versus partial obstruction. Either way he said he is feeling better. He has had a large amount of liquidy stool and gas out his stoma. I recommend checking stool study for Clostridium difficile, ova and parasite to evaluate other etiology that might need other intervention. Otherwise no emergent surgical intervention necessary at this time as he is having quite a bit of stool out his ostomy, definitely no complete obstruction at this point. Hopefully this will continue to resolve on its own. As he reported he is feeling much better and denied any nausea or vomiting. He declined any NG tube at this time. Should he develop some recurrence, increasing distention, pain, recurrent nausea and vomiting could consider EGD compression but otherwise rest his bowels tonight, check some repeat films tomorrow. Dr. Perez will be here and can re-evaluate. Again, this patient is seen on Dr. Crawford's call day who asked that I come down and check on the patient. No emergent surgery necessary, continue conservative management, consider some empiric Cipro and Flagyl to treat his enteritis.
--- NOTE | 2018-01-09 08:39 | XRAY ---
Indication: Follow-up small bowel obstruction. Comparison: CT abdomen/pelvis one day earlier. 2 views of the abdomen demonstrates continued small bowel distention with asynchronous fluid leveling favoring obstruction again without free air. Stable gallstones, left lower quadrant ostomy, and left abdomen hernia mesh graft. Osseous structures intact again with osteopenia, degenerative changes, and right hip arthroplasty. Impression: Stable distal small bowel obstruction and gallstones.
[2018-01-09 11:42] VITALS: BP 125/75; PULSE 78
--- NOTE | 2018-01-09 12:39 | PCM.SSS ---
History of Present Illness - Chief Complaint Chief Complaint: ABDOMINAL PAIN nause and vomiting for 3 days History of Present Illness: see H&P - Review of Systems Constitutional: No Fever, No Chills Eyes: No Symptoms Ears, Nose, & Throat: No Symptoms Respiratory: No Cough, No Short Of Breath Cardiac: No Chest Pain, No Edema, No Syncope Abdominal/Gastrointestinal: Abdominal Pain, Nausea, Vomiting, No Diarrhea Genitourinary Symptoms: No Dysuria Musculoskeletal: No Back Pain, No Neck Pain Skin: No Rash Neurological: No Dizziness, No Focal Weakness, No Sensory Changes Psychological: No Symptoms Endocrine: No Symptoms Hematologic/Lymphatic: No Symptoms Immunological/Allergic: No Symptoms Medications & Allergies Home Medications: Home Medication List Calcium Carbonate/Vitamin D2 [Calcium with Vit D Tablet] 1 tab PO HS 09/23/13 [ History Confirmed 01/08/18] Gabapentin 300 mg PO TID 09/23/13 [History Confirmed 01/08/18] Sertraline HCl 50 mg [Zoloft 50 mg Tablet] 50 mg PO HS 09/23/13 [History Confirmed 01/08/18] Tamsulosin HCl 0.4 mg [Flomax 0.4 MG] 0.4 mg PO BID 09/23/13 [History Confirmed 01/08/18] Apixaban [Eliquis 5 mg Tablet] 5 mg PO BID 06/04/17 [History Confirmed 09/18] Fish Oil/Dha/Epa [Fish Oil 1,200 mg Fish Oil] 1 each PO BID 06/04/17 [History Confirmed 01/08/18] Levothyroxine Sodium 50 mcg PO HS 06/04/17 [History Confirmed 01/08/18] Aspirin EC 325 mg [Ecotrin 325 MG] 325 mg PO DAILY 01/08/18 [History Confirmed 01/08/18] Atorvastatin Calcium 10 mg PO DAILY 01/08/18 [History Confirmed 01/08/18] Famotidine 20 mg [Pepcid 20 MG] 20 mg PO DAILY 01/08/18 [History Confirmed 01/08/18] Ferrous Sulfate [Iron] 325 mg PO DAILY 01/08/18 [History Confirmed 01/08/18] Hydrocodone/Ibuprofen [Hydrocodone-Ibuprofen 10-200] 1 each PO TID 01/08/18 [ History Confirmed 01/08/18] Multivitamin [Multivitamins] 1 each PO DAILY 01/08/18 [History Confirmed ] Allergies/Adverse Reactions: Allergies Allergy/AdvReac Type Severity Reaction Status Date / Time No Known Drug Allergies Allergy Unverified 01/27/14 19:37 - Past Medical History Past Medical History: Yes Neurological History: Peripheral Neuropathy ENT History: No Pertinent History Cardiac History: Arrhythmia, Coronary Artery Disease, Hypertension Respiratory History: No Pertinent History Endocrine Medical History: No Pertinent History Musculoskelatal History: Arthritis GI Medical History: Colorectal Cancer, Hernia History: No Pertinent History Pyscho-Social History: Depression Male Reproductive Disorders: Prostate Problems Comment: Pacemaker - Past Surgical History Past Surgical History: Yes Neuro Surgical History: No Pertinent History Cardiac History: CABG, Cardiac Catheterization, Cardiac Stent Respiratory Surgery: No Pertinent History GI Surgical History: Hernia Repair Genitourinary Surgical Hx: No Pertinent History Musculskeletal Surgical Hx: Joint Replacement Male Surgical History: No Pertinent History Other Surgical History: 5 VESSEL CABG. COLON RESECTION. 2 HERNIA. Right lower lobe of lung removed. Right hip replacement\. COLO ANAL RESECTION, STAGE [address] LORENA BRENNER. LEFT KNEE REPLACEMENT. COLOSTOMY STOMA RPTURE REPAIR X 2 - Social History Smoking Status: Former smoker Exposure to second hand smoke: No Alcohol: Occasionally Drug Use: none - Physical Exam Vital Signs: Vital Signs - 24 hr Temp Pulse Resp BP Pulse Ox 01/09/18 11:42 97.2 F 78 18 125/75 96 01/09/18 07:35 97.1 F 76 18 128/72 96 01/09/18 03:53 98.1 F 64 18 120/66 95 01/09/18 00:00 98.4 F 58 L 18 97/56 94 L 01/08/18 19:54 97.4 F 84 18 97/55 94 L 01/08/18 16:00 98 F 79 18 107/73 95 01/08/18 12:55 97.8 F 94 H 20 124/81 95 General Appearance: no apparent distress, alert Neurologic Exam: alert, oriented x 3, cooperative, normal mood/affect, nml cerebellar function, nml station & gait, sensation nml, No motor deficits Eye Exam: PERRL/EOMI, eyes nml inspection Ears, Nose, Throat Exam: normal ENT inspection, TMs normal, pharynx normal, moist mucous membranes Neck Exam: normal inspection, non-tender, supple, full range of motion Respiratory Exam: normal breath sounds, lungs clear, No respiratory distress Cardiovascular Exam: regular rate/rhythm, normal heart sounds, normal peripheral pulses Gastrointestinal/Abdomen Exam: soft, normal bowel sounds, No tenderness, No mass Back Exam: normal inspection, normal range of motion, No CVA tenderness, No vertebral tenderness Extremity Exam: normal inspection, normal range of motion, pelvis stable Skin Exam: normal color, warm, dry, No rash Lymphatic Exam: No adenopathy Results - Labs Lab/Micro Results: Lab Results-Last 24 Hours 01/08/18 01/08/18 01/08/18 Range/Units 12:15 12:15 16:30 WBC 4.1 (4.0-10.5) K/mm3 RBC 4.68 (4.1-5.6) M/mm3 Hgb 13.6 (12.5-18.0) gm/dl Hct 41.5 L (42-50) % MCV 88.7 (78-100) fl MCH 29.1 (26-32) pg MCHC 32.8 (32-36) g/dl RDW 17.4 H (11.5-14.0) % Plt Count 342 (150-450) K/mm3 MPV 9.8 H (6-9.5) fl Segmented Neutrophils 31 L (36.-66.) % Band Neutrophils 23 H (0.0-2.0) % Lymphocytes (Manual) 42 (24-44) % Monocytes (Manual) 2 (0.0-12.0) % Eosinophils (Manual) 2 (0.00-3.0) % Toxic Granulation 2+ Platelet Estimate NORMAL (NORMAL) RBC Morphology ABNORMAL Poikilocytosis 1+ Anisocytosis 2+ Smear Path Review Sodium 138 (137-145) mmol/L Potassium 3.5 (3.5-5.1) mmol/L Chloride 99 (98-107) mmol/L Carbon Dioxide 22 (22-30) mmol/L Anion Gap 20.3 H (5-15) MEQ/L BUN 76 H (9-20) mg/dL Creatinine 2.07 H (0.66-1.25) mg/dL Estimated GFR 33.6 ML/MIN Glucose 132 H (74-106) mg/dL Calcium 9.6 (8.4-10.2) mg/dL Total Bilirubin 0.90 (0.2-1.3) mg/dL AST 30 (17-59) U/L ALT 23 (0-50) U/L Alkaline Phosphatase 108 (38-126) U/L Serum Total Protein 8.4 H (6.3-8.2) g/dL Albumin 4.7 (3.5-5.0) g/dL Amylase 52 (30-110) U/L Lipase 18 L (23-300) U/L Stl C. diff Tox B Gene NEGATIVE (NEGATIVE) C.difficile 027-NAP1-B1 PRESUMPTIVE NEGATIVE (NEGATIVE) - Radiology Impressions Radiology Exams & Impressions: Radiology Procedures Category Date Time Status ABDOMEN 2 VIEW Routine Exams 01/09/18 07:00 Completed ABDOMEN AND PELVIS W/0 CONTRAS [CT] Stat Exams 01/08/18 11:56 Completed Assessment/Plan (1) Paralytic ileus Current Visit: Yes Status: Acute Assessment & Plan: Last Vital Signs Temp 97.2 F 01/09/18 11:42 Pulse 78 01/09/18 11:42 Resp 18 01/09/18 11:42 BP 125/75 01/09/18 11:42 Pulse Ox 96 01/09/18 11:42 Allergies No Known Drug Allergies Allergy (Unverified 01/27/14 19:37) Active Medications Sodium Chloride (Sodium Chloride 0.9% 1000 Ml) 1,000 mls @ 100 mls/hr IV .Q10H GARY Stop: 02/07/18 11:59 Last Admin: 01/09/18 01:11 Dose: 100 mls/hr Metronidazole (Flagyl 500 Mg Ivpb) 500 mg in 100 mls @ 100 mls/hr IV Q8HT GARY Stop: 02/07/18 16:29 Last Admin: 01/09/18 06:20 Dose: 100 mls/hr Intake & Output 01/09/18 01/10/18 11:59 11:59 Intake Total 2446 480 Output Total 2100 700 Balance 346 -220 Weight 77 kg Orders 01/08/18 11:56 Code Status Order ROUTINE Place in Observation ROUTINE 01/08/18 12:00 NaCl 0.9% 1000 ml [Sodium Chloride 0.9% 1000 ML] 1,000 ml IV 100 mls/hr 01/08/18 15:10 Consult Surgery ROUTINE Lab Tests 01/08/18 01/08/18 01/08/18 12:15 12:15 16:30 WBC 4.1 RBC 4.68 Hgb 13.6 Hct 41.5 L MCV 88.7 MCH 29.1 MCHC 32.8 RDW 17.4 H Plt Count 342 MPV 9.8 H Segmented Neutrophils 31 L Band Neutrophils 23 H Lymphocytes (Manual) 42 Monocytes (Manual) 2 Eosinophils (Manual) 2 Toxic Granulation 2+ Platelet Estimate NORMAL RBC Morphology ABNORMAL Poikilocytosis 1+ Anisocytosis 2+ Smear Path Review Sodium 138 Potassium 3.5 Chloride 99 Carbon Dioxide 22 Anion Gap 20.3 H BUN 76 H Creatinine 2.07 H Estimated GFR 33.6 Glucose 132 H Calcium 9.6 Total Bilirubin 0.90 AST 30 ALT 23 Alkaline Phosphatase 108 Serum Total Protein 8.4 H Albumin 4.7 Amylase 52 Lipase 18 L Stl C. diff Tox B Gene NEGATIVE C.difficile 027-NAP1-B1 PRESUMPTIVE NEGATIVE Code(s): K56.0 - PARALYTIC ILEUS (2) Abdominal pain Current Visit: Yes Status: Resolved Onset Date: ~01/08/18 Qualifiers: Abdominal location: lower abdomen, unspecified Qualified Code(s): R10.30 - Lower abdominal pain, unspecified Code(s): R10.9 - UNSPECIFIED ABDOMINAL PAIN (3) Diarrhea Current Visit: Yes Status: Acute Onset Date: ~01/08/18 Qualifiers: Diarrhea type: unspecified type Qualified Code(s): R19.7 - Diarrhea, unspecified Code(s): R19.7 - DIARRHEA, UNSPECIFIED Hospital Summary - Hospital Course Hospital Course: Chief Complaint Diagnosis ABDOMINAL PAIN Allergies Allergy/AdvReac Type Severity Reaction Status Date / Time No Known Drug Allergies Allergy Unverified 01/27/14 19:37 Vital Signs (Last 24 hours) Temp Pulse Resp BP Pulse Ox 01/09/18 11:42 97.2 F 78 18 125/75 96 01/09/18 07:35 97.1 F 76 18 128/72 96 01/09/18 03:53 98.1 F 64 18 120/66 95 01/09/18 00:00 98.4 F 58 L 18 97/56 94 L 01/08/18 19:54 97.4 F 84 18 97/55 94 L 01/08/18 16:00 98 F 79 18 107/73 95 01/08/18 12:55 97.8 F 94 H 20 124/81 95 Home Medications Medication Instructions Recorded Confirmed Last Taken Type Aspirin EC 325 mg [Ecotrin 325 325 mg PO DAILY 01/08/18 01/08/18 01/08/18 History MG] Atorvastatin Calcium 10 mg PO DAILY 01/08/18 01/08/18 Unknown History Famotidine 20 mg [Pepcid 20 20 mg PO DAILY 01/08/18 01/08/18 01/08/18 History MG] Ferrous Sulfate [Iron] 325 mg PO DAILY 01/08/18 01/08/18 Unknown History Hydrocodone/Ibuprofen 1 each PO TID 01/08/18 01/08/18 Unknown History [Hydrocodone-Ibuprofen 10-200] Multivitamin [Multivitamins] 1 each PO DAILY 01/08/18 01/08/18 Unknown History Current Medications Generic Name Dose Route Start Last Admin Trade Name Rodney PRN Reason Stop Dose Admin Sodium Chloride 1,000 mls @ 100 mls/hr 01/08/18 12:00 01/09/18 01:11 Sodium Chloride 0.9% 1000 Ml IV 02/07/18 11:59 100 mls/hr .Q10H GARY Administration Metronidazole 500 mg in 100 mls @ 100 mls/hr 01/08/18 16:30 01/09/18 06:20 Flagyl 500 Mg Ivpb IV 02/07/18 16:29 100 mls/hr Q8HT GARY Administration Discontinued Medications Generic Name Dose Route Start Last Admin Trade Name Rodney PRN Reason Stop Dose Admin Sodium Chloride 1,000 mls @ 999 mls/hr 01/08/18 11:56 01/08/18 13:12 Sodium Chloride 0.9% 1000 Ml IV 01/08/18 12:56 999 mls/hr .Q1H1M STA Administration Intake & Output (Last 24 hours) 01/07/18 01/08/18 01/09/18 01/10/18 11:59 11:59 11:59 11:59 Intake Total 2446 480 Output Total 2100 700 Balance 346 -220 Weight 77 kg Laboratory Results (Last 24 hours) 01/08/18 01/08/18 01/08/18 16:30 12:15 12:15 WBC 4.1 RBC 4.68 Hgb 13.6 Hct 41.5 L MCV 88.7 MCH 29.1 MCHC 32.8 RDW 17.4 H Plt Count 342 MPV 9.8 H Segmented Neutrophils 31 L Band Neutrophils 23 H Lymphocytes (Manual) 42 Monocytes (Manual) 2 Eosinophils (Manual) 2 Toxic Granulation 2+ Platelet Estimate NORMAL RBC Morphology ABNORMAL Poikilocytosis 1+ Anisocytosis 2+ Smear Path Review Sodium 138 Potassium 3.5 Chloride 99 Carbon Dioxide 22 Anion Gap 20.3 H BUN 76 H Creatinine 2.07 H Estimated GFR 33.6 Glucose 132 H Calcium 9.6 Total Bilirubin 0.90 AST 30 ALT 23 Alkaline Phosphatase 108 Serum Total Protein 8.4 H Albumin 4.7 Amylase 52 Lipase 18 L Stl C. diff Tox B Gene NEGATIVE C.difficile 027-NAP1-B1 PRESUMPTIVE NEGATIVE Orders (Last 24 hours) Category Date Time Status Code Status Order ROUTINE Care 01/08/18 11:56 Active Miscellaneous Nursing Order ROUTINE Care 01/08/18 16:[address] in Observation ROUTINE Care 01/08/18 11:56 Active Consult Surgery ROUTINE Cons 01/08/18 15:10 Active NPO Diet 01/08/18 16:44 Completed Regular Diet Diet 01/09/18 Lunch Active ABDOMEN 2 VIEW Routine Exams 01/09/18 07:00 Completed ABDOMEN AND PELVIS W/0 CONTRAS [CT] Stat Exams 01/08/18 11:56 Completed AMYLASE Stat Lab 01/08/18 12:15 Completed CBC W DIFF Stat Lab 01/08/18 12:15 Completed CDIFF (INHOUSE) [C.Difficile by PCR] Urgent Lab 01/08/18 16:30 Completed CMP Stat Lab 01/08/18 12:15 Completed LIPASE Stat Lab 01/08/18 12:15 Completed Lactic Acid Stat Lab 01/08/18 11:56 Completed Manual Differential NC Stat Lab 01/08/18 12:15 Completed Pathologist Review Stat Lab 01/08/18 12:15 Completed Metronidazole 500 mg Premix [Flagyl 500 mg Ivpb] Med 01/08/18 16:30 Active 500 mg in 100 ml IV Q8HT NaCl 0.9% 1000 ml [Sodium Chloride 0.9% 1000 ML] 1,000 Med 01/08/18 12:00 Active ml IV 100 mls/hr NaCl 0.9% 1000 ml [Sodium Chloride 0.9% 1000 ML] 1,000 Med 01/08/18 11:56 Discontinued ml IV 999 mls/hr Patient Care Notes (Last 24 hours) 01/09/18 11:10 (created 01/09/18 11:22) Case Management Note by Shima Porter ROUNDED WITH DR. Fidencio MARIANO, DR. Fidencio MARIANO EVALUATED PT, REPORTS THAT PT MAY HAVE A REGULAR DIET, IF ABLE TO TOLERATE MAY DC HOME FROM SURGE[facility]. PT REPORTS THAT HE IS FEELING WELL TODAY, VERBALIZED UNDERSTANDING TO ALL INFORMATION PROVIDED BY DR. Fidencio MARIANO AND ABLE TO REPEAT INFORMATION BACK. Initialized on 01/09/18 11:22 - END OF NOTE 01/09/18 09:55 (created 01/09/18 10:58) Case Management Note by Shima Porter SPOKE WITH PT, REPORTS THAT HIS SURGEON FOR THE COLON SURGERY WAS IN [facility] IN,-- DR. CHIDI BRENNER. @ [facility]. Initialized on 01/09/18 10:58 - END OF NOTE 01/09/18 09:25 (created 01/09/18 10:56) Case Management Note by Shima Porter ATTEMPTED TO REACH DR. WARNER, SPOKE WITH OFFICE, REPORTS THAT HE IS IN SURGERY TODAY @ [facility]. REPORTS THAT HAMILTON MARIANO NUCLEAR CONTROL ROOM OPERATOR FOR COUNTS INCLUDE 234 BEDS AT THE [facility] TODAY, BUT DR. VINOD MARIANO BACK IN [facility]GERY [facility] HE MAY SEE PTS WHILE HE IS AT COUNTS INCLUDE 234 BEDS AT THE [facility]. WILL FOLLOW. Initialized on 01/09/18 10:56 - END OF NOTE 01/09/18 09:15 (created 01/09/18 10:56) Case Management Note by Shima Porter RESULTS OF ABD [address] ROGERS, WILL CALL TO DR. WARNER. Initialized on 01/09/18 10:56 - END OF NOTE 01/08/18 15:00 (created 01/08/18 15:14) Case Management Note by Shima Porter CALL TO DR. WARNER OFFICE, SPOKE WITH DR. WARNER NURSE. NURSE REPORTS THAT DR. WARNER WILL BE HERE SOON FOR ANOTHER PROCEDURE AND WILL SEE PT THEN. PROVIDED DR. WARNER NURSE WITH HX, LABS. Initialized on 01/08/18 15:14 - END OF NOTE 01/08/18 14:55 (created 01/08/18 15:24) Case Management Note by Shima Porter CALLED CT RESULTS TO DR. ROGERS N/O RECEIVED. Initialized on 01/08/18 15:24 - END OF NOTE 01/08/18 12:50 (created 01/08/18 12:55) Case Management Note by Shima Porter DR. ROUNDED AND EVALUATED, DISCUSSED DX AND PLAN OF CARE WITH PT/. BOTH VERBALIZED UNDERSTANDING AND ABLE TO REPEAT INFORMATION BACK. ALL QUESTIONS ANSWERED BY DR. ROGERS AT THIS TIME. PLAN FOR CT ABD/PELVIS AND ORDERS TO CALL RESULTS TO DR. ROGERS. PT/ IN AGREEMENT WITH PLAN OF CARE. DENIES ADDNL NEEDS AT PRESENT TIME. WILL CONTINUE TO FOLLOW AND ASSESS FOR ALL DC NEEDS. Initialized on 01/08/18 12:55 - END OF NOTE - Vitals & Intake/Output Vital Signs: Vital Signs Temperature 97.2 F 01/09/18 11:42 Pulse Rate 78 01/09/18 11:42 Respiratory Rate 18 01/09/18 11:42 Blood Pressure 125/75 01/09/18 11:42 O2 Sat by Pulse Oximetry 96 01/09/18 11:42 Intake & Output: Intake & Output 01/07/18 01/08/18 01/09/18 01/10/18 11:59 11:59 11:59 11:59 Intake Total 2446 480 Output Total 2100 700 Balance 346 -220 Weight 77 kg - Lab Result Diagrams: 01/08/18 12:15 01/08/18 12:15 Lab Results-Last 24 Hrs: Lab Results-Last 24 Hours 01/08/18 01/08/18 01/08/18 Range/Units 12:15 12:15 16:30 WBC 4.1 (4.0-10.5) K/mm3 RBC 4.68 (4.1-5.6) M/mm3 Hgb 13.6 (12.5-18.0) gm/dl Hct 41.5 L (42-50) % MCV 88.7 (78-100) fl MCH 29.1 (26-32) pg MCHC 32.8 (32-36) g/dl RDW 17.4 H (11.5-14.0) % Plt Count 342 (150-450) K/mm3 MPV 9.8 H (6-9.5) fl Segmented Neutrophils 31 L (36.-66.) % Band Neutrophils 23 H (0.0-2.0) % Lymphocytes (Manual) 42 (24-44) % Monocytes (Manual) 2 (0.0-12.0) % Eosinophils (Manual) 2 (0.00-3.0) % Toxic Granulation 2+ Platelet Estimate NORMAL (NORMAL) RBC Morphology ABNORMAL Poikilocytosis 1+ Anisocytosis 2+ Smear Path Review Sodium 138 (137-145) mmol/L Potassium 3.5 (3.5-5.1) mmol/L Chloride 99 (98-107) mmol/L Carbon Dioxide 22 (22-30) mmol/L Anion Gap 20.3 H (5-15) MEQ/L BUN 76 H (9-20) mg/dL Creatinine 2.07 H (0.66-1.25) mg/dL Estimated GFR 33.6 ML/MIN Glucose 132 H (74-106) mg/dL Calcium 9.6 (8.4-10.2) mg/dL Total Bilirubin 0.90 (0.2-1.3) mg/dL AST 30 (17-59) U/L ALT 23 (0-50) U/L Alkaline Phosphatase 108 (38-126) U/L Serum Total Protein 8.4 H (6.3-8.2) g/dL Albumin 4.7 (3.5-5.0) g/dL Amylase 52 (30-110) U/L Lipase 18 L (23-300) U/L Stl C. diff Tox B Gene NEGATIVE (NEGATIVE) C.difficile 027-NAP1-B1 PRESUMPTIVE NEGATIVE (NEGATIVE) - Radiology Exams Ordered Rad Exams-Entire Visit: Radiology Procedures Category Date Time Status ABDOMEN 2 VIEW Routine Exams 01/09/18 07:00 Completed ABDOMEN AND PELVIS W/0 CONTRAS [CT] Stat Exams 01/08/18 11:56 Completed - Discharge Discharge Date: 01/09/18 Disposition: Home, Self-Care Condition: Stable Prescriptions: Continue Calcium Carbonate/Vitamin D2 [Calcium with Vit D Tablet] 1 tab PO HS Gabapentin 300 mg PO TID Tamsulosin HCl 0.4 mg [Flomax 0.4 MG] 0.4 mg PO BID Sertraline HCl 50 mg [Zoloft 50 mg Tablet] 50 mg PO HS Apixaban [Eliquis 5 mg Tablet] 5 mg PO BID Levothyroxine Sodium 50 mcg PO HS Fish Oil/Dha/Epa [Fish Oil 1,200 mg Fish Oil] 1 each PO BID Hydrocodone/Ibuprofen [Hydrocodone-Ibuprofen 10-200] 1 each PO TID Atorvastatin Calcium 10 mg PO DAILY Ferrous Sulfate [Iron] 325 mg PO DAILY Famotidine 20 mg [Pepcid 20 MG] 20 mg PO DAILY Multivitamin [Multivitamins] 1 each PO DAILY Aspirin EC 325 mg [Ecotrin 325 MG] 325 mg PO DAILY Follow up with: STANLEY ROGERS MD [Primary Care Provider] - 1 Week
== END 2018-01-09 13:45 | disposition home or self-care (01) ==
LOC: MED SURG 11:47
PROVIDERS: ADMIT General Practice; ATTEND General Practice
DX: K56.0 Paralytic ileus (principal); I25.810 Atherosclerosis of coronary artery bypass graft(s) without angina pectoris; R10.30 Lower abdominal pain, unspecified; Z79.01 Long term (current) use of anticoagulants; Z79.899 Other long term (current) drug therapy; I10 Essential (primary) hypertension; F32.9 Major depressive disorder, single episode, unspecified; R19.7 Diarrhea, unspecified; E03.9 Hypothyroidism, unspecified; Z85.038 Personal history of other malignant neoplasm of large intestine; Z95.0 Presence of cardiac pacemaker; Z93.3 Colostomy status
CPT/HCPCS: 36415; 74021; 74176; 80053; 82150; 83605; 83690; 85025; 87493; G0378

== ENCOUNTER 2018-01-09 19:04 | Emergency (ER) | payer MEDICARE ==
[2018-01-09] MEDS ORDERED: Hydromorphone 1 mg/ml Ampule IV ONE ×2 (20:08→23:24)
[2018-01-09] MEDS ORDERED: Sodium Chloride 0.9% 1000 ML 1,000 ML IV STA (20:08)
[2018-01-09] MEDS ORDERED: MORPHINE SULFATE 4 MG INJ IV ONE (20:08)
--- NOTE | 2018-01-09 20:08 | ERPHSYRPT ---
- History of Present Illness Time Seen by Provider: 01/09/18 19:45 Historian: patient, family Patient Subjective Stated Complaint: abdominal pain that started at approx 1600 today. was released form the hospital today for SBO. was evaluated by surgeon and was released but was feeling good at discharge. ate a cheeseburger and al[place]ian fries prior to d/c Triage Nursing Assessment: alert and awake.. states severe pain in low abdomen that started at 1600.. was released from hospital earlier today. abdomen soft but painful to palpation. has a colostomy. states he needs to self cath. 5 11 Physician History: 72 y/o white male with h/o permanent colostomy secondary to resection for colon cancer in 2012, presents with recurrent n/v and abd pain. pt was discharged today at 1400 after a 24 hour hospital stay for nonoperative tx of a sbo. at time of discharge pts colostomy was putting out air. pt went home after he ate and thought to have tolerated hamburger and fries. a few hours later, at home, he began having abd distension, abd pain and vomiting. Timing/Duration: today Activities at Onset: other (ate hamburger and fries) Quality: cramping, pressure Abdominal Pain Onset Location: generalized abdomen Pain Radiation: periumbilical Severity of Pain-Max: moderate Severity of Pain-Current: mild Associated Symptoms: loss of appetite, nausea, vomiting, No chest pain, No diaphoresis, No diarrhea Previous symptoms: same symptoms as today Allergies/Adverse Reactions: No Known Drug Allergies Allergy (Unverified 01/09/18 19:30) Home Medications: Calcium Carbonate/Vitamin D2 [Calcium with Vit D Tablet] 1 tab PO HS 09/23/13 [ History] Gabapentin 300 mg PO TID 09/23/13 [History] Sertraline HCl 50 mg [Zoloft 50 mg Tablet] 50 mg PO HS 09/23/13 [History] Tamsulosin HCl 0.4 mg [Flomax 0.4 MG] 0.4 mg PO BID 09/23/13 [History] Apixaban [Eliquis 5 mg Tablet] 5 mg PO BID 06/04/17 [History] Fish Oil/Dha/Epa [Fish Oil 1,200 mg Fish Oil] 1 each PO BID 06/04/17 [History] Levothyroxine Sodium 50 mcg PO HS 06/04/17 [History] Aspirin EC 325 mg [Ecotrin 325 MG] 325 mg PO DAILY 01/08/18 [History] Atorvastatin Calcium 10 mg PO DAILY 01/08/18 [History] Famotidine 20 mg [Pepcid 20 MG] 20 mg PO DAILY 01/08/18 [History] Ferrous Sulfate [Iron] 325 mg PO DAILY 01/08/18 [History] Hydrocodone/Ibuprofen [Hydrocodone-Ibuprofen 10-200] 1 each PO TID 01/08/18 [ History] Multivitamin [Multivitamins] 1 each PO DAILY 01/08/18 [History] Hx Tetanus, Diphtheria Vaccination/Date Given: Yes Hx Influenza Vaccination/Date Given: Yes Hx Pneumococcal Vaccination/Date Given: No - Review of Systems Constitutional: No Symptoms Eyes: No Symptoms Ears, Nose, & Throat: No Symptoms Respiratory: No Symptoms, No Cough, No Dyspnea, No Stridor, No Wheezing Cardiac: No Symptoms, No Chest Pain, No Palpitations, No Syncope Abdominal/Gastrointestinal: Abdominal Pain, Nausea, Vomiting, No Diarrhea Genitourinary Symptoms: No Symptoms, No Dysuria, No Frequency, No Hematuria Musculoskeletal: No Symptoms Skin: No Symptoms Neurological: No Symptoms Psychological: No Symptoms Endocrine: No Symptoms Hematologic/Lymphatic: No Symptoms Immunological/Allergic: No Symptoms All Other Systems: Reviewed and Negative - Past Medical History Pertinent Past Medical History: Yes Neurological History: Peripheral Neuropathy ENT History: No Pertinent History Cardiac History: Arrhythmia, Coronary Artery Disease, Hypertension Respiratory History: No Pertinent History Endocrine Medical History: No Pertinent History Musculoskeletal History: Arthritis GI Medical History: Colorectal Cancer, Hernia History: No Pertinent History Psycho-Social History: Depression Male Reproductive Disorders: Prostate Problems Other Medical History: Pacemaker - Past Surgical History Past Surgical History: Yes Neuro Surgical History: No Pertinent History Cardiac: CABG, Cardiac Catheterization, Cardiac Stent Respiratory: No Pertinent History Gastrointestinal: Hernia Repair Genitourinary: No Pertinent History Musculoskeletal: Joint Replacement Male Surgical History: No Pertinent History Other Surgical History: 5 VESSEL CABG. COLON RESECTION. 2 HERNIA. Right lower lobe of lung removed. Right hip replacement\. COLO ANAL RESECTION, STAGE [address] LORENA BRENNER. LEFT KNEE REPLACEMENT. COLOSTOMY STOMA RPTURE REPAIR X 2 - Social History Smoking Status: Never smoker Exposure to second hand smoke: No Drug Use: none Patient Lives Alone: No - Nursing Vital Signs Nursing Vital Signs: Initial Vital Signs Temperature 97.8 F 01/09/18 19:20 Pulse Rate 92 H 01/09/18 19:20 Respiratory Rate 18 01/09/18 19:20 Blood Pressure 141/112 01/09/18 19:20 O2 Sat by Pulse Oximetry 97 01/09/18 19:20 Pain Scale Pain Intensity 6 - Physical Exam General Appearance: mild distress, alert, anxiety Eye Exam: PERRL/EOMI Ears, Nose, Throat Exam: normal ENT inspection, dry mucous membranes Neck Exam: normal inspection, non-tender, supple, full range of motion Respiratory Exam: normal breath sounds, lungs clear, airway intact, No chest tenderness, No respiratory distress, No accessory muscle use, No rhonchi, No wheezing, No stridor Cardiovascular Exam: regular rate/rhythm, normal heart sounds, normal peripheral pulses Gastrointestinal/Abdomen Exam: tenderness, distention, other (air in left lower quadrant ostomy bag. ostomy pink) Rectal Exam: not done Back Exam: normal inspection, normal range of motion, No CVA tenderness, No vertebral tenderness Extremity Exam: normal inspection, normal range of motion, pelvis stable Neurologic Exam: alert, oriented x 3, cooperative, lieutenant ballistics II-XII nml as tested Skin Exam: normal color, warm, dry Lymphatic Exam: No adenopathy SpO2 Interpretation: normal SpO2: 97 Oxygen Delivery: Room Air - Course Nursing assessment & vital signs reviewed: Yes Ordered Tests: Active Orders 24 hr Category Date Time Status IV Insertion STAT Care 01/09/18 20:08 Active NPO (ED) STAT Care 01/09/18 20:08 Active OBSTR/ACUTE ABDOMEN SERIES Stat Exams 01/09/18 20:55 Taken AMYLASE Stat Lab 01/09/18 20:20 Completed CBC W DIFF Stat Lab 01/09/18 20:20 Completed CMP Stat Lab 01/09/18 20:20 Completed LIPASE Stat Lab 01/09/18 20:20 Completed Lactic Acid Stat Lab 01/09/18 20:15 Completed UA W/RFX UR CULTURE Stat Lab 01/09/18 20:08 Uncollected Medication Summary Discontinued Medications Generic Name Dose Route Start Last Admin Trade Name Freq PRN Reason Stop Dose Admin Hydromorphone HCl 1 mg 01/09/18 20:08 01/09/18 20:54 Hydromorphone 1 Mg/Ml Ampule IV 01/09/18 20:09 1 mg STAT ONE Administration Hydromorphone HCl Confirm 01/09/18 20:31 Hydromorphone 1 Mg/Ml Ampule Administered 01/09/18 20:32 Dose 1 mg .ROUTE .STK-MED ONE Hydromorphone HCl 1 mg 01/09/18 23:24 01/09/18 23:31 Hydromorphone 1 Mg/Ml Ampule IV 01/09/18 23:25 1 mg STAT ONE Administration Hydromorphone HCl Confirm 01/09/18 23:29 Hydromorphone 1 Mg/Ml Ampule Administered 01/09/18 23:30 Dose 1 mg .ROUTE .STK-MED ONE Sodium Chloride 1,000 mls @ 999 mls/hr 01/09/18 20:08 01/09/18 20:54 Sodium Chloride 0.9% 1000 Ml IV 01/09/18 21:08 999 mls/hr .Q1H1M STA Administration Sodium Chloride Confirm 01/09/18 20:31 Sodium Chloride 0.9% 1000 Ml Administered 01/09/18 20:32 Dose 1,000 mls @ ud .ROUTE .STK-MED ONE Morphine Sulfate 4 mg 01/09/18 20:08 01/09/18 20:42 Morphine Sulfate 4 Mg Inj IV 01/09/18 20:09 Not Given STAT ONE Morphine Sulfate Confirm 01/09/18 20:31 Morphine Sulfate 4 Mg Inj Administered 01/09/18 20:32 Dose 4 mg .ROUTE .STK-MED ONE Ondansetron HCl 4 mg 01/09/18 20:33 01/09/18 20:39 Zofran 4 Mg/2 Ml Vial IV 01/09/18 20:34 4 mg STAT ONE Administration Ondansetron HCl Confirm 01/09/18 20:34 Zofran 4 Mg/2 Ml Vial Administered 01/09/18 20:35 Dose 4 mg .ROUTE .STK-MED ONE Ondansetron HCl 4 mg 01/09/18 23:24 01/09/18 23:32 Zofran 4 Mg/2 Ml Vial IV 01/09/18 23:25 4 mg STAT ONE Administration Ondansetron HCl Confirm 01/09/18 23:29 Zofran 4 Mg/2 Ml Vial Administered 01/09/18 23:30 Dose 4 mg .ROUTE .STK-MED ONE Lab/Rad Data: Laboratory Result Diagrams 01/09/18 20:20 01/09/18 20:20 Laboratory Results 01/09/18 01/09/18 01/09/18 Range/Units 20:20 20:20 20:15 WBC 6.3 (4.0-10.5) K/mm3 RBC 4.69 (4.1-5.6) M/mm3 Hgb 13.8 (12.5-18.0) gm/dl Hct 41.8 L (42-50) % MCV 89.1 (78-100) fl MCH 29.4 (26-32) pg MCHC 33.0 (32-36) g/dl RDW 16.9 H (11.5-14.0) % Plt Count 362 (150-450) K/mm3 MPV 10.1 H (6-9.5) fl Gran % 63.4 (36.0-66.0) % Eos # (Auto) 0.05 (0-0.5) Absolute Lymphs (auto) 0.99 L (1.0-4.6) Absolute Monos (auto) 1.24 (0.0-1.3) Lymphocytes % 15.8 L (24.0-44.0) % Monocytes % 19.8 H (0.0-12.0) % Eosinophils % 0.8 (0.00-5.0) % Basophils % 0.2 (0.0-0.4) % Absolute Granulocytes 3.97 (1.4-6.9) Basophils # 0.01 (0-0.4) Sodium 144 (137-145) mmol/L Potassium 4.1 (3.5-5.1) mmol/L Chloride 106 (98-107) mmol/L Carbon Dioxide 27 (22-30) mmol/L Anion Gap 15.3 H (5-15) MEQ/L BUN 54 H (9-20) mg/dL Creatinine 1.08 (0.66-1.25) mg/dL Estimated GFR > 60.0 ML/MIN Glucose 143 H (74-106) mg/dL Lactic Acid 1.4 (0.4-2.0) Calcium 9.7 (8.4-10.2) mg/dL Total Bilirubin 0.50 (0.2-1.3) mg/dL AST 26 (17-59) U/L ALT 20 (0-50) U/L Alkaline Phosphatase 102 (38-126) U/L Serum Total Protein 7.8 (6.3-8.2) g/dL Albumin 4.4 (3.5-5.0) g/dL Amylase 46 (30-110) U/L Lipase 14 L (23-300) U/L - Progress Progress: improved, re-examined Progress Note: 01/09/18 20:28 at [address] caballero. he wants me to contact pts colorectal surgeon , Dr. Kael Brenner at [facility], for transfer and further managment 01/09/18 23:[address] HOLDEN at [facility] covering for dr. Brenner. I reviewed pt hx, condition, lab and xray results with him. he will see pt in consult but asked me to contact [facility] transfer [place] [phone]. spoke to sivakumar at transfer center at [phone] . she is to contact hospitalist and will call back. either dr. ornelas or ethel will call back. she wants facesheet faxed to [phone] and upload appropriate xray images to [employer] 01/09/18 23:45 [id number] Apoorva Quiroz CLERICAL AIDE for DR. Liu/[facility] hospitalist group accepts pt in transfer. i reviewed pt hx, condition, lab and xray results with her. Counseled pt/family regarding: lab results, diagnosis, rad results - Departure Time of Disposition: 23:46 Departure Disposition: Transfer Clinical Impression: Bowel obstruction Condition: Stable Critical Care Time: No Referrals: STANLEY CABALLERO MD [Primary Care Provider] -
[2018-01-09 20:23] LABS: BASOPHIL % 0.2 % (0.0-0.4); Basophil (Absolute #) 0.01 (0-0.4); Eosinophil % 0.8 % (0.00-5.0); Eosinophil (Absolute #) 0.05 (0-0.5); Granulocyte Absolute (ANC) 3.97 (1.4-6.9); Granulocytes % 63.4 % (36.0-66.0); Hematocrit 41.8 % (42-50); Hemoglobin 13.8 gm/dl (12.5-18.0); Lymphocyte (Absolute #) 0.99 (1.0-4.6); Lymphocytes % 15.8 % (24.0-44.0); Mean Cell Volume 89.1 fl (78-100); Mean Corpuscular Hemoglobin 29.4 pg (26-32); Mean Platelet Volume 10.1 fl (6-9.5); Monocyte (Absolute #) 1.24 (0.0-1.3); Monocytes % 19.8 % (0.0-12.0); Platelet Count 362 K/mm3 (150-450); Red Blood Count 4.69 M/mm3 (4.1-5.6); Red Cell Distribution Width 16.9 % (11.5-14.0); White Blood Count 6.3 K/mm3 (4.0-10.5)
[2018-01-09] MEDS ORDERED: Sodium Chloride 0.9% 1000 ML 1,000 ML ONE (20:31)
[2018-01-09] MEDS ORDERED: MORPHINE SULFATE 4 MG INJ ONE (20:31)
[2018-01-09] MEDS ORDERED: Hydromorphone 1 mg/ml Ampule ONE ×2 (20:31→23:29)
[2018-01-09] MEDS ORDERED: Zofran 4 MG/2 ML VIAL IV ONE ×2 (20:33→23:24)
[2018-01-09] MEDS ORDERED: Zofran 4 MG/2 ML VIAL ONE ×2 (20:34→23:29)
[2018-01-09 20:47] LABS: ALBUMIN 4.4 g/dL (3.5-5.0); ALKALINE PHOSPHATASE 102 U/L (38-126); AMYLASE 46 U/L (30-110); ANION GAP 15.3 MEQ/L (5-15); BLOOD UREA NITROGEN 54 mg/dL (9-20); CHLORIDE 106 mmol/L (98-107); Calcium 9.7 mg/dL (8.4-10.2); Carbon Dioxide 27 mmol/L (22-30); Creatinine 1 1.08 mg/dL (0.66-1.25); Glucose 143 mg/dL (74-106); LIPASE 14 U/L (23-300); Potassium 4.1 mmol/L (3.5-5.1); SGOT/AST 26 U/L (17-59); SGPT/ALT 20 U/L (0-50); SODIUM 144 mmol/L (137-145); Total Protein 7.8 g/dL (6.3-8.2)
[2018-01-09 23:19] VITALS: BP 177/116; PULSE 87
[2018-01-09 23:20] VITALS: O2SAT 97
--- NOTE | 2018-01-10 09:03 | XRAY ---
Indication: Nausea and vomiting. Small bowel obstruction. Comparison: Abdomen exam taken earlier in the day and chest exam June 04, 2017. 2 views of the abdomen demonstrates increasing air distended small bowel loops up to 6 cm in diameter again with asynchronous fluid leveling favoring obstruction. No free air. Stable gallstones, left lower quadrant ostomy, and left abdomen hernia mesh graft. Osseous structures intact again with osteopenia, degenerative changes, and right hip arthroplasty. Single frontal chest remains clear again with chronic blunting of the right costophrenic angle. Heart is not enlarged again demonstrating CABG surgery, right-sided dual-lead pacemaker, and left Port-A-Cath. Bony thorax intact again with mild osteopenia and degenerative changes. Impression: 1. Interval worsening distal small bowel obstruction with stable gallstones. 2. Stable nonacute chest with chronic features.
== END 2018-01-10 00:36 | disposition short-term general hospital (02) ==
LOC: ED 19:04
DX: K56.609 Unspecified intestinal obstruction, unspecified as to partial versus complete obstruction (principal); R11.2 Nausea with vomiting, unspecified; Z93.3 Colostomy status; Z85.038 Personal history of other malignant neoplasm of large intestine; Z79.899 Other long term (current) drug therapy
CPT/HCPCS: 36000; 36415; 74022; 80053; 82150; 83605; 83690; 85025; 96360; 96365; 96374; 96375; 96376; 99285; J1170; J2270; J2405

== ENCOUNTER 2018-06-04 19:16 | Emergency (ER) | payer MEDICARE ==
[2018-06-04] MEDS ORDERED: TYLENOL 325 MG PO ONE (19:47)
[2018-06-04] MEDS ORDERED: Sodium Chloride 0.9% 1000 ML 1,000 ML IV STA ×3 (19:47→22:40)
[2018-06-04] MEDS ORDERED: TYLENOL 325 MG ONE (19:51)
[2018-06-04] MEDS ORDERED: Sodium Chloride 0.9% 1000 ML 1,000 ML ONE ×3 (19:53→22:41)
--- NOTE | 2018-06-04 19:55 | ERPHSYRPT ---
- History of Present Illness Time Seen by Provider: 06/04/18 19:50 Source: patient Exam Limitations: no limitations Patient Subjective Stated Complaint: freezing cold, shaking. headache earlier today. cough, non-prod. Triage Nursing Assessment: lungs clear, heart tones normal, no distress noted, colostomy bag in place with stoma pink and soft brown stool noted in bag. Physician History: 73-year-old white male with history of peripheral neuropathy, arrhythmia, coronary artery disease, high blood pressure, arthritis, colorectal cancer, depression, prostate problems, cardiac pacemaker. Patient arrives with complaint of feeling weak fever cold shaking chills symptoms since approximately an hour ago no vomiting denies shortness of breath no cough no pain Past medical history includes peripheral neuropathy, arrhythmia, coronary artery disease, high blood pressure, arthritis, colorectal cancer, hernia, depression, prostate problems, pacemaker Past surgical history includes CABG, colon resection, hernia, right lower lung removed, right hip replacement, coloanal reconstruction, stage IV cancer, left knee replacement, colostomy with stoma rupture Social history denies tobacco alcohol or illicit drug use. Timing/Duration: today (1 hour ago) Severity: moderate Modifying Factors: Improves With: nothing Associated Symptoms: diaphoresis, chills, fever, headaches, malaise, weakness, No nausea, No vomiting, No abdominal pain, No shortness of breath, No heartburn , No cough, No chest pain, No loss of appetite, No rash, No syncope, No seizure Allergies/Adverse Reactions: No Known Drug Allergies Allergy (Unverified 01/09/18 19:30) Home Medications: Calcium Carbonate/Vitamin D2 [Calcium with Vit D Tablet] 1 tab PO HS 09/23/13 [ History] Gabapentin 300 mg PO TID 09/23/13 [History] Sertraline HCl 50 mg [Zoloft 50 mg Tablet] 50 mg PO HS 09/23/13 [History] Tamsulosin HCl 0.4 mg [Flomax 0.4 MG] 0.4 mg PO BID 09/23/13 [History] Apixaban [Eliquis 5 mg Tablet] 5 mg PO BID 06/04/17 [History] Fish Oil/Dha/Epa [Fish Oil 1,200 mg Fish Oil] 1 each PO BID 06/04/17 [History] Levothyroxine Sodium 50 mcg PO HS 06/04/17 [History] Aspirin EC 325 mg [Ecotrin 325 MG] 325 mg PO DAILY 01/08/18 [History] Atorvastatin Calcium 10 mg PO DAILY 01/08/18 [History] Famotidine 20 mg [Pepcid 20 MG] 20 mg PO DAILY 01/08/18 [History] Ferrous Sulfate [Iron] 325 mg PO DAILY 01/08/18 [History] Hydrocodone/Ibuprofen [Hydrocodone-Ibuprofen 10-200] 1 each PO TID 01/08/18 [ History] Multivitamin [Multivitamins] 1 each PO DAILY 01/08/18 [History] Hx Tetanus, Diphtheria Vaccination/Date Given: Yes Hx Influenza Vaccination/Date Given: Yes (nov, 2017) Hx Pneumococcal Vaccination/Date Given: Yes (unknown) Immunizations Up to Date: Yes - Review of Systems Constitutional: Fever, Chills, Fatigue, Malaise, No Lethargy, No Night Sweats, No Weakness, No Weight Loss Eyes: No Symptoms Ears, Nose, & Throat: No Symptoms Respiratory: No Cough, No Dyspnea Cardiac: No Chest Pain, No Edema, No Syncope Abdominal/Gastrointestinal: No Abdominal Pain, No Nausea, No Vomiting, No Diarrhea Genitourinary Symptoms: No Dysuria Musculoskeletal: No Back Pain, No Neck Pain Skin: No Rash Neurological: Headache, No Dizziness, No Focal Weakness, No Sensory Changes Psychological: No Symptoms Endocrine: No Symptoms All Other Systems: Reviewed and Negative - Past Medical History Pertinent Past Medical History: Yes Neurological History: No Pertinent History ENT History: No Pertinent History Cardiac History: Coronary Artery Disease, High Cholesterol Respiratory History: No Pertinent History Endocrine Medical History: Hypothyroidism Musculoskeletal History: Arthritis GI Medical History: Colorectal Cancer, Hernia History: No Pertinent History Psycho-Social History: Depression Male Reproductive Disorders: Prostate Problems Other Medical History: Pacemaker - Past Surgical History Past Surgical History: Yes Neuro Surgical History: No Pertinent History Cardiac: CABG, Cardiac Catheterization, Cardiac Stent Respiratory: No Pertinent History Gastrointestinal: Hernia Repair Genitourinary: No Pertinent History Musculoskeletal: Joint Replacement Male Surgical History: No Pertinent History Other Surgical History: 5 VESSEL CABG. COLON RESECTION with colostomy, repair to 2 lower bowel blockages. 2 HERNIA. Right lower lobe of lung removed. Right hip replacement. COLO ANAL RESECTION, STAGE [address] LORENA BRENNER. LEFT KNEE REPLACEMENT. COLOSTOMY STOMA RPTURE REPAIR X 2 - Social History Smoking Status: Former smoker Exposure to second hand smoke: No Drug Use: none Patient Lives Alone: No - Nursing Vital Signs Nursing Vital Signs: Initial Vital Signs Temperature 102.4 F 06/04/18 19:25 Pulse Rate 74 06/04/18 19:25 Respiratory Rate 22 06/04/18 19:25 Blood Pressure 135/65 06/04/18 19:25 O2 Sat by Pulse Oximetry 96 06/04/18 19:25 Pain Scale Pain Intensity 0 - Physical Exam General Appearance: mild distress Eye Exam: PERRL/EOMI, eyes nml inspection Ears, Nose, Throat Exam: normal ENT inspection, TMs normal, pharynx normal, moist mucous membranes Neck Exam: normal inspection, non-tender, supple, full range of motion Respiratory Exam: normal breath sounds, lungs clear, No respiratory distress Cardiovascular Exam: regular rate/rhythm, normal heart sounds, normal peripheral pulses, capillary refill <2 sec Gastrointestinal/Abdomen Exam: soft, normal bowel sounds, other (colostomy in place), No tenderness, No mass Back Exam: normal inspection, normal range of motion, No CVA tenderness, No vertebral tenderness Extremity Exam: normal inspection, normal range of motion, pelvis stable Neurologic Exam: alert, oriented x 3, cooperative, clinical support nurse II-XII nml as tested, normal mood/affect, nml cerebellar function, nml station & gait, sensation nml, No motor deficits Skin Exam: normal color, warm, dry, No rash Lymphatic Exam: No adenopathy SpO2 Interpretation: normal (96%) SpO2: 96 - Course Nursing assessment & vital signs reviewed: Yes EKG Interpreted by Me: RATE (84 bpm), NORMAL AXIS, Other (EKG: Paced rhythm with unde sinus rhythm normal axis no acute ST or T wave changes) - Radiology Exams Chest X-ray Interpretation: Interpreted by me (chest x-ray: Pacer in place right chest otherwise no acute disease noted) Ordered Tests: Active Orders 24 hr Category Date Time Status EKG-ER Only STAT Care 06/04/18 19:47 Active IV Insertion STAT Care 06/04/18 19:47 Active CHEST 1 VIEW (PORTABLE) Stat Exams 06/04/18 19:48 Taken AMYLASE Stat Lab 06/04/18 19:45 Completed BLOOD CULTURE Stat Lab 06/04/18 20:15 Received CBC W DIFF Stat Lab 06/04/18 19:45 Completed CMP Stat Lab 06/04/18 19:45 Completed CULTURE,URINE Stat Lab 06/04/18 21:22 Received LIPASE Stat Lab 06/04/18 19:45 Completed Lactic Acid Stat Lab 06/04/18 19:47 Completed Lactic Acid Stat Lab 06/04/18 22:38 Completed UA W/RFX UR CULTURE Stat Lab 06/04/18 21:22 Completed Medication Summary Generic Name Dose Route Start Last Admin Trade Name Freq PRN Reason Stop Dose Admin Sodium Chloride 1,000 mls @ 999 mls/hr 06/04/18 22:40 06/04/18 22:41 Sodium Chloride 0.9% 1000 Ml IV 06/04/18 23:40 999 mls/hr .Q1H1M STA Administration Discontinued Medications Generic Name Dose Route Start Last Admin Trade Name Freq PRN Reason Stop Dose Admin Acetaminophen 975 mg 06/04/18 19:47 06/04/18 19:55 Tylenol 325 Mg PO 06/04/18 19:48 975 mg STAT ONE Administration Acetaminophen Confirm 06/04/18 19:51 Tylenol 325 Mg Administered 06/04/18 19:52 Dose 975 mg .ROUTE .STK-MED ONE Sodium Chloride 1,000 mls @ 999 mls/hr 06/04/18 19:47 06/04/18 19:55 Sodium Chloride 0.9% 1000 Ml IV 06/04/18 20:47 999 mls/hr .Q1H1M STA Administration Sodium Chloride Confirm 06/04/18 19:53 Sodium Chloride 0.9% 1000 Ml Administered 06/04/18 19:54 Dose 1,000 mls @ ud .ROUTE .STK-MED ONE Sodium Chloride 1,000 mls @ 999 mls/hr 06/04/18 21:28 06/04/18 21:29 Sodium Chloride 0.9% 1000 Ml IV 06/04/18 22:28 999 mls/hr .Q1H1M STA Administration Sodium Chloride Confirm 06/04/18 21:27 Sodium Chloride 0.9% 1000 Ml Administered 06/04/18 21:28 Dose 1,000 mls @ ud .ROUTE .STK-MED ONE Ceftriaxone Sodium/Dextrose 1 g in 50 mls @ 100 mls/hr 06/04/18 21:38 22:13 Rocephin 1 Gm-D5w 50 Ml Bag IV 06/04/18 22:07 100 ml/hr STAT STA 100 mls/hr Administration Ceftriaxone Sodium/Dextrose Confirm 06/04/18 22:12 Rocephin 1 Gm-D5w 50 Ml Bag Administered 06/04/18 22:13 Dose 1 g in 50 mls @ ud IV .STK-MED ONE Sodium Chloride Confirm 06/04/18 22:41 Sodium Chloride 0.9% 1000 Ml Administered 06/04/18 22:42 Dose 1,000 mls @ ud .ROUTE .STK-MED ONE Lab/Rad Data: Laboratory Result Diagrams 06/04/18 19:45 06/04/18 19:45 Laboratory Results 06/04/18 06/04/18 06/04/18 Range/Units 22:38 21:22 20:00 WBC (4.0-10.5) K/mm3 RBC (4.1-5.6) M/mm3 Hgb (12.5-18.0) gm/dl Hct (42-50) % MCV (78-100) fl MCH (26-32) pg MCHC (32-36) g/dl RDW (11.5-14.0) % Plt Count (150-450) K/mm3 MPV (6-9.5) fl Gran % (36.0-66.0) % Eos # (Auto) (0-0.5) Absolute Lymphs (auto) (1.0-4.6) Absolute Monos (auto) (0.0-1.3) Lymphocytes % (24.0-44.0) % Monocytes % (0.0-12.0) % Eosinophils % (0.00-5.0) % Basophils % (0.0-0.4) % Absolute Granulocytes (1.4-6.9) Basophils # (0-0.4) Sodium (137-145) mmol/L Potassium (3.5-5.1) mmol/L Chloride (98-107) mmol/L Carbon Dioxide (22-30) mmol/L Anion Gap (5-15) MEQ/L BUN (9-20) mg/dL Creatinine (0.66-1.25) mg/dL Estimated GFR ML/MIN Glucose (74-106) mg/dL Lactic Acid 1.4 (0.4-2.0) Calcium (8.4-10.2) mg/dL Total Bilirubin (0.2-1.3) mg/dL AST (17-59) U/L ALT (0-50) U/L Alkaline Phosphatase (38-126) U/L Serum Total Protein (6.3-8.2) g/dL Albumin (3.5-5.0) g/dL Amylase (30-110) U/L Lipase (23-300) U/L Urine Color YELLOW (YELLOW) Urine Appearance SLIGHTLY CLOUDY (CLEAR) Urine pH 5.0 (5-6) Ur Specific [place] 1.015 (1.005-1.025) Urine Protein NEGATIVE (Negative) Urine Ketones NEGATIVE (NEGATIVE) Urine Blood SMALL (0-5) Rajeev/ul Urine Nitrite NEGATIVE (NEGATIVE) Urine Bilirubin NEGATIVE (NEGATIVE) Urine Urobilinogen NEGATIVE (0-1) mg/dL Ur Leukocyte Esterase TRACE (NEGATIVE) Urine WBC (Auto) 16-25 (0-5) /HPF Urine RBC (Auto) 0-2 (0-2) /HPF U Epithel Cells (Auto) NONE (FEW) /HPF Urine Bacteria (Auto) RARE (NEGATIVE) /HPF Urine Mucus (Auto) SLIGHT (NEGATIVE) /HPF Urine Culture Reflexed YES (NO) Urine Glucose NEGATIVE (NEGATIVE) mg/dL Influenza Type A Ag NEGATIVE (NEGATIVE) Influenza Type B Ag NEGATIVE (NEGATIVE) RSV (PCR) NEGATIVE (Negative) Group A Strep Antibody NEGATIVE (NEGATIVE) 06/04/18 06/04/18 06/04/18 Range/Units 19:47 19:45 19:45 WBC 10.6 H (4.0-10.5) K/mm3 RBC 4.12 (4.1-5.6) M/mm3 Hgb 12.2 L (12.5-18.0) gm/dl Hct 38.1 L (42-50) % MCV 92.5 (78-100) fl MCH 29.6 (26-32) pg MCHC 32.0 (32-36) g/dl RDW 15.0 H (11.5-14.0) % Plt Count 307 (150-450) K/mm3 MPV 10.0 H (6-9.5) fl Gran % 95.8 H (36.0-66.0) % Eos # (Auto) 0.03 (0-0.5) Absolute Lymphs (auto) 0.29 L (1.0-4.6) Absolute Monos (auto) 0.12 (0.0-1.3) Lymphocytes % 2.7 L (24.0-44.0) % Monocytes % 1.1 (0.0-12.0) % Eosinophils % 0.3 (0.00-5.0) % Basophils % 0.1 (0.0-0.4) % Absolute Granulocytes 10.17 H (1.4-6.9) Basophils # 0.01 (0-0.4) Sodium 138 (137-145) mmol/L Potassium 3.8 (3.5-5.1) mmol/L Chloride 102 (98-107) mmol/L Carbon Dioxide 26 (22-30) mmol/L Anion Gap 13.0 (5-15) MEQ/L BUN 28 H (9-20) mg/dL Creatinine 1.06 (0.66-1.25) mg/dL Estimated GFR > 60.0 ML/MIN Glucose 157 H (74-106) mg/dL Lactic Acid 2.8 H (0.4-2.0) Calcium 9.5 (8.4-10.2) mg/dL Total Bilirubin 0.60 (0.2-1.3) mg/dL AST 80 H (17-59) U/L ALT 47 (0-50) U/L Alkaline Phosphatase 155 H (38-126) U/L Serum Total Protein 7.5 (6.3-8.2) g/dL Albumin 3.8 (3.5-5.0) g/dL Amylase 52 (30-110) U/L Lipase 11 L (23-300) U/L Urine Color (YELLOW) Urine Appearance (CLEAR) Urine pH (5-6) Ur Specific [place] (1.005-1.025) Urine Protein (Negative) Urine Ketones (NEGATIVE) Urine Blood (0-5) Rajeev/ul Urine Nitrite (NEGATIVE) Urine Bilirubin (NEGATIVE) Urine Urobilinogen (0-1) mg/dL Ur Leukocyte Esterase (NEGATIVE) Urine WBC (Auto) (0-5) /HPF Urine RBC (Auto) (0-2) /HPF U Epithel Cells (Auto) (FEW) /HPF Urine Bacteria (Auto) (NEGATIVE) /HPF Urine Mucus (Auto) (NEGATIVE) /HPF Urine Culture Reflexed (NO) Urine Glucose (NEGATIVE) mg/dL Influenza Type A Ag (NEGATIVE) Influenza Type B Ag (NEGATIVE) RSV (PCR) (Negative) Group A Strep Antibody (NEGATIVE) - Progress Progress: improved Progress Note: 06/04/18 23:17 This is a 73-year-old white male with history of peripheral neuropathy, arrhythmia, coronary disease, high blood pressure, arthritis, colorectal cancer , depression, prostate problems and a pacemaker Patient arrives with complaint of chills which were shaking fever symptoms since approximately hour and half prior to arrival. Patient was noted to have a temperature of 102 on arrival. Patient was alert oriented he did not have any focal symptoms. Patient's lungs were clear heart was regular Abdomen was nontender. Patient with good perfusion to all extremities. Patient's EKG paced rhythm with underlying sinus rhythm [address] or T wave changes patient's lactate was elevated at 2.8 Patient's chest x-ray pacer in place right chest no infiltrates or congestive heart failure noted no pneumothorax Patient's labs CBC White blood cell 10.6 hemoglobin 12.2 hematocrit 38.1 platelets 307 Patient's chemistry sodium 138 potassium 3.8 chloride 102 bicarbonate 26 BUN 28 creatinine 1.06 glucose 157 amylase and lipase within normal limits. Patient did have 10-25 white cells per high-power field Despite patient's elevated lactate he did not appear to be septic however he was given IV normal saline bolus total of 2400 mL (30 mL/kg) patient was given 950 mg orally. And Rocephin 1 g IV. Patient is much improved patient with a blood pressure 105/55 with saturation 95 % heart rate 90. Patient with good perfusion all extremities he is in improved condition he is asking to go home. I've discussed the patient's case with Dr. Mohan. He feels that the patient can be sent home Will place him on Bactrim DS one orally twice a day for 10 days he is to drink plenty of fluids. Tylenol every 4 hours as needed for fever. He is to follow-up with Dr. Mohan on Saturday. Will give patient a work slip for tomorrow. He is to return for acute distress or for severe symptoms. Or for any problems. - Departure Departure Disposition: Home Clinical Impression: Urinary tract infection Qualifiers: Urinary tract infection type: site unspecified Hematuria presence: without hematuria Qualified Code(s): N39.0 - Urinary tract infection, site not specified Fever Qualifiers: Fever type: unspecified Qualified Code(s): R50.9 - Fever, unspecified Condition: Fair Critical Care Time: No Referrals: [facility] [LOCATION] - Instructions: Fever, Adult (DC) Additional Instructions: Return home. Plenty of fluids, rest. Tylenol every 4 hours as needed for temperature greater than 100.5. Bactrim DS as prescribed. Follow-up with Dr. Mohan Saturday. Return for acute distress or for severe symptoms or for any problems. Prescriptions: Smz/Tmp Ds Tablet [Bactrim Ds Tablet] 1 tab PO BID #20 tablet
[2018-06-04 20:00] LABS: Lactic Acid 2.8 (0.4-2.0)
[2018-06-04 20:25] LABS: BASOPHIL % 0.1 % (0.0-0.4); Basophil (Absolute #) 0.01 (0-0.4); Eosinophil % 0.3 % (0.00-5.0); Eosinophil (Absolute #) 0.03 (0-0.5); Granulocyte Absolute (ANC) 10.17 (1.4-6.9); Granulocytes % 95.8 % (36.0-66.0); Hematocrit 38.1 % (42-50); Hemoglobin 12.2 gm/dl (12.5-18.0); Lymphocyte (Absolute #) 0.29 (1.0-4.6); Lymphocytes % 2.7 % (24.0-44.0); Mean Cell Volume 92.5 fl (78-100); Mean Corpuscular Hemoglobin 29.6 pg (26-32); Monocyte (Absolute #) 0.12 (0.0-1.3); Monocytes % 1.1 % (0.0-12.0); Platelet Count 307 K/mm3 (150-450); Red Blood Count 4.12 M/mm3 (4.1-5.6); White Blood Count 10.6 K/mm3 (4.0-10.5)
[2018-06-04 20:37] LABS: ALBUMIN 3.8 g/dL (3.5-5.0); ALKALINE PHOSPHATASE 155 U/L (38-126); AMYLASE 52 U/L (30-110); BLOOD UREA NITROGEN 28 mg/dL (9-20); CHLORIDE 102 mmol/L (98-107); Calcium 9.5 mg/dL (8.4-10.2); Carbon Dioxide 26 mmol/L (22-30); Creatinine 1 1.06 mg/dL (0.66-1.25); Glucose 157 mg/dL (74-106); LIPASE 11 U/L (23-300); Potassium 3.8 mmol/L (3.5-5.1); SGOT/AST 80 U/L (17-59); SGPT/ALT 47 U/L (0-50); SODIUM 138 mmol/L (137-145); Total Protein 7.5 g/dL (6.3-8.2)
[2018-06-04 20:55] LABS: Group A Strep NEGATIVE (NEGATIVE); INFLUENZA A NEGATIVE (NEGATIVE); INFLUENZA B NEGATIVE (NEGATIVE); RESPIRATORY SYNCTIAL VIRUS NEGATIVE (Negative)
[2018-06-04] MEDS ORDERED: ROCEPHIN 1 Gm-D5w 50 ml Bag** 1 G/50 ML IVPB IV STA (21:38)
[2018-06-04 22:02] LABS: Appearance SLIGHTLY CLOUDY (CLEAR); Bacteria RARE /HPF (NEGATIVE); Bilirubin NEGATIVE (NEGATIVE); Blood SMALL Ery/ul (0-5); Glucose NEGATIVE (NEGATIVE); Ketones NEGATIVE (NEGATIVE); Leukocyte Esterase TRACE (NEGATIVE); Mucus SLIGHT /HPF (NEGATIVE); Nitrite NEGATIVE (NEGATIVE); Protein,Urine Dip NEGATIVE (Negative); RBC 0-2 /HPF (0-2); Specific Gravity 1.015 (1.005-1.025); Urobilinogen NEGATIVE mg/dL (0-1)
[2018-06-04] MEDS ORDERED: ROCEPHIN 1 Gm-D5w 50 ml Bag** 1 G/50 ML IVPB IV ONE (22:12)
[2018-06-04 23:48] VITALS: BP 106/55; PULSE 86; O2SAT 95
[2018-06-05 02:49] LABS: Slide Review 1 YES
--- NOTE | 2018-06-05 08:53 | XRAY ---
Indication: Chest pain. Comparison: January 09, 2018. Portable chest demonstrates chronic right hemidiaphragm elevation with right costophrenic angle blunting. No focal infiltrate, consolidation, or large effusion. Heart is not enlarged again with right-sided dual-lead pacemaker and left Port-A-Cath. Bony thorax intact again with osteopenia and degenerative changes. Impression: Nonacute chest with chronic features.
== END 2018-06-04 23:54 | disposition home or self-care (01) ==
LOC: ED 19:16
DX: N39.0 Urinary tract infection, site not specified (principal); R50.9 Fever, unspecified; G62.9 Polyneuropathy, unspecified; I25.810 Atherosclerosis of coronary artery bypass graft(s) without angina pectoris; I10 Essential (primary) hypertension; Z85.038 Personal history of other malignant neoplasm of large intestine; F32.9 Major depressive disorder, single episode, unspecified; Z95.0 Presence of cardiac pacemaker; E78.00 Pure hypercholesterolemia, unspecified; Z79.899 Other long term (current) drug therapy; I25.10 Atherosclerotic heart disease of native coronary artery without angina pectoris; M19.90 Unspecified osteoarthritis, unspecified site; R05 Cough
CPT/HCPCS: 36000; 36415; 71045; 80053; 81001; 82150; 83605; 83690; 85025; 87040; 87077; 87086; 87186; 87631; 87651; 93005; 96360; 96361; 96365; 99285; J0696; A9270-GY

== ENCOUNTER 2018-06-19 16:59 | Observation (INO) | payer MEDICARE ==
[2018-06-19] MEDS ORDERED: Phenergan 25 MG INJ IV PRN (18:13)
[2018-06-19] MEDS ORDERED: Sodium Chloride 0.9% 1000 ML 1,000 ML IV STA (18:13)
[2018-06-19] MEDS ORDERED: TYLENOL 325 MG PO PRN (18:13)
--- NOTE | 2018-06-19 18:16 | PCM.HP.ADD ---
Addendum to History & Physical - History & Physical Addendum Addendum to History & Physical: This certifies that the History & Physical in the electronic chart reflects the current health status of the patient. If there are changes in the H&P these changes/exceptions are listed as follows.
[2018-06-19 19:12] LABS: ANION GAP 17.4 MEQ/L (5-15); BILIRUBIN,TOTAL 0.6 mg/dL (0.2-1.3); Calcium 9.6 mg/dL (8.4-10.2); Creatinine 1 1.79 mg/dL (0.66-1.25); Potassium 3.8 mmol/L (3.5-5.1); Total Protein 7.8 g/dL (6.3-8.2)
[2018-06-19 19:13] LABS: BILIRUBIN,TOTAL 0.7 mg/dL (0.2-1.3); Direct Bilirubin 0.2 mg/dL (0.0-0.4); Total Protein 7.9 g/dL (6.3-8.2)
[2018-06-19 19:32] LABS: BASOPHIL % 0.2 % (0.0-0.4); Basophil (Absolute #) 0.01 (0-0.4); Eosinophil % 0.2 % (0.00-5.0); Eosinophil (Absolute #) 0.01 (0-0.5); Granulocytes % 81.8 % (36.0-66.0); Hematocrit 36.3 % (42-50); Hemoglobin 11.9 gm/dl (12.5-18.0); Lymphocyte (Absolute #) 0.63 (1.0-4.6); Lymphocytes % 9.6 % (24.0-44.0); Mean Cell Volume 90.1 fl (78-100); Mean Corpuscular Hemoglobin 29.5 pg (26-32); Mean Corpuscular Hgb Concent. 32.8 g/dl (32-36); Mean Platelet Volume 9.9 fl (6-9.5); Monocyte (Absolute #) 0.54 (0.0-1.3); Monocytes % 8.2 % (0.0-12.0); Platelet Count 296 K/mm3 (150-450); Red Blood Count 4.03 M/mm3 (4.1-5.6); Red Cell Distribution Width 15.2 % (11.5-14.0); White Blood Count 6.6 K/mm3 (4.0-10.5)
[2018-06-19] MEDS ORDERED: Sodium Chloride 0.9% 1000 ML 1,000 ML ONE (20:34)
[2018-06-19] MEDS: Sodium Chloride 0.9% 1000 ML 1,000 ML IV SCH (20:38)
[2018-06-19] MEDS: NEURONTIN 300 MG PO SCH (21:22)
[2018-06-19] MEDS ORDERED: ELAVIL 10 MG PO SCH (22:00)
[2018-06-19] MEDS ORDERED: Abilify 10 MG PO SCH (22:00)
[2018-06-19] MEDS ORDERED: NAPROSYN 375 MG PO SCH (22:00)
[2018-06-19] MEDS ORDERED: ZOLOFT 50 MG TABLET PO SCH (22:00)
[2018-06-19] MEDS ORDERED: SYNTHROID 50 MCG PO SCH (22:00)
[2018-06-19] MEDS ORDERED: NAPROSYN 375 MG PO PRN (22:01)
[2018-06-20] MEDS ORDERED: Sodium Chloride 0.9% 1000 ML 1,000 ML ONE (03:37)
[2018-06-20] MEDS: Sodium Chloride 0.9% 1000 ML 1,000 ML IV SCH ×2 (05:48→15:47)
[2018-06-20] MEDS ORDERED: MEDICATION INTERVENTION MC SCH (07:30)
--- NOTE | 2018-06-20 08:51 | XRAY ---
Indication: Abdominal pain. History stage IV colorectal carcinoma. Multiple contiguous axial images obtained through the abdomen and pelvis without contrast as ordered. Comparison: January 08, 2018. Lung bases demonstrate stable bilateral fibrosis/scarring and right posterior medial subpleural cystic changes. No infiltrate or effusion. Heart is not enlarged. Right total hip arthroplasty with prosthesis producing beam artifact again limits this level. Again there has been colectomy with left lower quadrant ostomy/mesh graft. Noncontrasted stomach unremarkable. Small bowel loops are again fluid distended slightly less than before up to 3.5 cm with synchronous fluid leveling, ileus versus enteritis. Partial or mild obstruction not completely excluded. New bowel anastomosis at the level of the pelvic inlet appears intact. No free fluid/air. Gallbladder again distended with 2 gallstones. Stable bilateral renal cysts. Remaining liver, pancreas, spleen, adrenal glands, kidneys, ureters, and bladder appear unremarkable for noncontrast exam. Stable mild aortoiliac calcifications without AAA. Osseous structures intact again with moderate degenerative changes throughout the spine and old right lower rib fractures. Impression: 1. Fluid distended bowel loops with fluid leveling as detailed, ileus versus enteritis. Partial/mild obstruction not completely excluded in the right clinical setting. 2. Again colectomy with left lower quadrant ostomy/mesh graft. 3. Stable gallstones and bilateral renal cysts. CT DI 17.08
[2018-06-20] MEDS ORDERED: BUMEX 1 MG PO SCH (10:00)
[2018-06-20] MEDS ORDERED: THERAGRAN MULTIVITAMIN PO SCH (10:00)
[2018-06-20] MEDS ORDERED: NON-FORMULARY ITEM (Multivitamin [Multivitamins] 1 EACH) PO SCH (10:00)
[2018-06-20] MEDS ORDERED: Ecotrin 325 MG PO SCH (10:00)
[2018-06-20] MEDS ORDERED: FISH OIL PO SCH (10:00)
[2018-06-20] MEDS ORDERED: Zocor 10MG PO SCH (10:00)
[2018-06-20] MEDS ORDERED: Pepcid 20 MG PO SCH (10:00)
[2018-06-20] MEDS ORDERED: FISH OIL 1,000 MG CAPSULE PO SCH (10:00)
[2018-06-20] MEDS ORDERED: EPA PO SCH (10:00)
[2018-06-20] MEDS ORDERED: Flomax 0.4 MG PO SCH (10:00)
[2018-06-20] MEDS ORDERED: FEOSOL 325 MG PO SCH (10:00)
[2018-06-20] MEDS ORDERED: DHA PO SCH (10:00)
[2018-06-20] MEDS: NEURONTIN 300 MG PO SCH (10:18)
[2018-06-20 11:22] LABS: Appearance CLOUDY (CLEAR); Bacteria PACKED /HPF (NEGATIVE); Bilirubin NEGATIVE (NEGATIVE); Blood MODERATE Ery/ul (0-5); Glucose NEGATIVE (NEGATIVE); Ketones TRACE (NEGATIVE); Leukocyte Esterase MODERATE (NEGATIVE); Mucus MANY /HPF (NEGATIVE); Nitrite POSITIVE (NEGATIVE); Non-Squamous Epithelial Cells RARE /HPF (FEW); Protein,Urine Dip NEGATIVE (Negative); Urobilinogen NEGATIVE mg/dL (0-1); WBC 51-100 /HPF (0-5)
--- NOTE | 2018-06-20 13:45 | PCM.NOTE ---
Date and Time: 06/20/18 1332 Subjective Assessment: doing better - Review of Systems Constitutional: No Fever, No Chills Eyes: No Symptoms Ears, Nose, & Throat: No Symptoms Respiratory: No Cough, No Short Of Breath Cardiac: No Chest Pain, No Edema, No Syncope Abdominal/Gastrointestinal: No Abdominal Pain, No Nausea, No Vomiting, No Diarrhea Genitourinary Symptoms: No Dysuria Musculoskeletal: No Back Pain, No Neck Pain Skin: No Rash Neurological: No Dizziness, No Focal Weakness, No Sensory Changes Psychological: No Symptoms Endocrine: No Symptoms Hematologic/Lymphatic: No Symptoms Immunological/Allergic: No Symptoms Objective Exam General Appearance: no apparent distress, alert Neurologic Exam: alert, oriented x 3, cooperative, normal mood/affect, nml cerebellar function, sensation nml, No motor deficits Skin Exam: normal color, warm, dry Eye Exam: PERRL, EOMI, eyes nml inspection Ears, Nose, Throat Exam: normal ENT inspection, pharynx normal, moist mucous membranes Neck Exam: normal inspection, non-tender, supple, full range of motion Respiratory Exam: normal breath sounds, lungs clear, No respiratory distress Cardiovascular Exam: regular rate/rhythm, normal heart sounds Gastrointestinal/Abdomen Exam: soft, No tenderness, No mass Extremity Exam: normal inspection, normal range of motion Back Exam: normal inspection, normal range of motion, No CVA tenderness, No vertebral tenderness Male Genitalia Exam: deferred Rectal Exam: deferred OBJECTIVE DATA Vital Signs: Vital Signs - 24 hr Temp Pulse Resp BP Pulse Ox 06/20/18 11:00 98.5 F 81 18 118/70 95 06/20/18 07:00 99.2 F 77 18 109/64 94 L 06/20/18 03:00 98.5 F 70 17 97/59 95 06/19/18 23:00 98.5 F 68 16 106/70 95 06/19/18 19:49 97.9 F 69 20 102/56 92 L 06/19/18 17:45 97.9 F 69 20 102/56 92 L 06/19/18 17:18 97.9 F 69 20 102/56 92 L Pain Assessment - Last Documented Pain Intensity 4 [facility] Intake and Output: Intake & Output 06/18/18 06/19/18 06/20/18 06/21/18 11:59 11:59 11:59 11:59 Intake Total 5226 109 Balance 2124 240 Weight 73.5 kg Lab Results: Lab Results-Last 24 Hours 06/19/18 06/19/18 06/19/18 Range/Units 17:40 17:40 17:40 WBC (4.0-10.5) K/mm3 RBC (4.1-5.6) M/mm3 Hgb (12.5-18.0) gm/dl Hct (42-50) % MCV (78-100) fl MCH (26-32) pg MCHC (32-36) g/dl RDW (11.5-14.0) % Plt Count (150-450) K/mm3 MPV (6-9.5) fl Gran % (36.0-66.0) % Eos # (Auto) (0-0.5) Absolute Lymphs (auto) (1.0-4.6) Absolute Monos (auto) (0.0-1.3) Lymphocytes % (24.0-44.0) % Monocytes % (0.0-12.0) % Eosinophils % (0.00-5.0) % Basophils % (0.0-0.4) % Absolute Granulocytes (1.4-6.9) Basophils # (0-0.4) Sodium 135 L (137-145) mmol/L Potassium 3.8 (3.5-5.1) mmol/L Chloride 100 (98-107) mmol/L Carbon Dioxide 21 L (22-30) mmol/L Anion Gap 17.4 H (5-15) MEQ/L BUN 37 H (9-20) mg/dL Creatinine 1.79 H (0.66-1.25) mg/dL Estimated GFR 39.7 ML/MIN Glucose 93 (74-106) mg/dL Lactic Acid (0.4-2.0) Calcium 9.6 (8.4-10.2) mg/dL Total Bilirubin 0.70 0.60 (0.2-1.3) mg/dL Direct Bilirubin 0.2 (0.0-0.4) mg/dL AST 62 H 61 H (17-59) U/L ALT 51 H 51 H (0-50) U/L Alkaline Phosphatase 109 110 (38-126) U/L Troponin I 0.019 (0.000-0.034) ng/mL Serum Total Protein 7.9 7.8 (6.3-8.2) g/dL Albumin 4.0 4.0 (3.5-5.0) g/dL Amylase 74 (30-110) U/L Lipase 17 L (23-300) U/L Urine Color (YELLOW) Urine Appearance (CLEAR) Urine pH (5-6) Ur Specific [place] (1.005-1.025) Urine Protein (Negative) Urine Ketones (NEGATIVE) Urine Blood (0-5) Rajeev/ul Urine Nitrite (NEGATIVE) Urine Bilirubin (NEGATIVE) Urine Urobilinogen (0-1) mg/dL Ur Leukocyte Esterase (NEGATIVE) Urine WBC (Auto) (0-5) /HPF Urine RBC (Auto) (0-2) /HPF U Hyaline Cast (Auto) (0-2) /LPF U Epithel Cells (Auto) (FEW) /HPF Urine Bacteria (Auto) (NEGATIVE) /HPF U Non-Squamous Epi Cells (FEW) /HPF Unidentified Crystals (NEGATIVE) /HPF Other Casts (Auto) (NEGATIVE) /LPF Urine Mucus (Auto) (NEGATIVE) /HPF Urine Culture Reflexed (NO) Urine Glucose (NEGATIVE) mg/dL 06/19/18 06/19/18 06/20/18 Range/Units 19:20 21:04 11:00 WBC 6.6 (4.0-10.5) K/mm3 RBC 4.03 L (4.1-5.6) M/mm3 Hgb 11.9 L (12.5-18.0) gm/dl Hct 36.3 L (42-50) % MCV 90.1 (78-100) fl MCH 29.5 (26-32) pg MCHC 32.8 (32-36) g/dl RDW 15.2 H (11.5-14.0) % Plt Count 296 (150-450) K/mm3 MPV 9.9 H (6-9.5) fl Gran % 81.8 H (36.0-66.0) % Eos # (Auto) 0.01 (0-0.5) Absolute Lymphs (auto) 0.63 L (1.0-4.6) Absolute Monos (auto) 0.54 (0.0-1.3) Lymphocytes % 9.6 L (24.0-44.0) % Monocytes % 8.2 (0.0-12.0) % Eosinophils % 0.2 (0.00-5.0) % Basophils % 0.2 (0.0-0.4) % Absolute Granulocytes 5.40 (1.4-6.9) Basophils # 0.01 (0-0.4) Sodium (137-145) mmol/L Potassium (3.5-5.1) mmol/L Chloride (98-107) mmol/L Carbon Dioxide (22-30) mmol/L Anion Gap (5-15) MEQ/L BUN (9-20) mg/dL Creatinine (0.66-1.25) mg/dL Estimated GFR ML/MIN Glucose (74-106) mg/dL Lactic Acid 0.8 (0.4-2.0) Calcium (8.4-10.2) mg/dL Total Bilirubin (0.2-1.3) mg/dL Direct Bilirubin (0.0-0.4) mg/dL AST (17-59) U/L ALT (0-50) U/L Alkaline Phosphatase (38-126) U/L Troponin I (0.000-0.034) ng/mL Serum Total Protein (6.3-8.2) g/dL Albumin (3.5-5.0) g/dL Amylase (30-110) U/L Lipase (23-300) U/L Urine Color [place] (YELLOW) Urine Appearance CLOUDY (CLEAR) Urine pH 5.0 (5-6) Ur Specific [place] 1.020 (1.005-1.025) Urine Protein NEGATIVE (Negative) Urine Ketones TRACE (NEGATIVE) Urine Blood MODERATE (0-5) Rajeev/ul Urine Nitrite POSITIVE (NEGATIVE) Urine Bilirubin NEGATIVE (NEGATIVE) Urine Urobilinogen NEGATIVE (0-1) mg/dL Ur Leukocyte Esterase MODERATE (NEGATIVE) Urine WBC (Auto) 51-100 (0-5) /HPF Urine RBC (Auto) 16-25 (0-2) /HPF U Hyaline Cast (Auto) 11-25 (0-2) /LPF U Epithel Cells (Auto) NONE (FEW) /HPF Urine Bacteria (Auto) PACKED (NEGATIVE) /HPF U Non-Squamous Epi Cells RARE (FEW) /HPF Unidentified Crystals 2-5 (NEGATIVE) /HPF Other Casts (Auto) 5-10 (NEGATIVE) /LPF Urine Mucus (Auto) MANY (NEGATIVE) /HPF Urine Culture Reflexed YES (NO) Urine Glucose NEGATIVE (NEGATIVE) mg/dL Radiology Exams: Radiology Procedures Category Date Time Status ABDOMEN AND PELVIS W/0 CONTRAS [CT] Stat Exams 06/19/18 18:13 Completed Assessment/Plan (1) Urinary tract infection Current Visit: Yes Status: Acute Qualifiers: Urinary tract infection type: acute pyelonephritis Qualified Code(s): N10 - Acute pyelonephritis Code(s): N39.0 - URINARY TRACT INFECTION, SITE NOT SPECIFIED (2) Paralytic ileus Current Visit: No Status: Acute Assessment & Plan: improving Code(s): K56.0 - PARALYTIC ILEUS (3) History of colon cancer Current Visit: No Status: Chronic Code(s): Z85.038 - PERSONAL HISTORY OF MALIGNANT NEOPLASM OF LARGE INTESTINE (4) Abdominal pain Current Visit: No Status: Resolved Onset Date: ~01/08/18 Qualifiers: Abdominal location: generalized Qualified Code(s): R10.84 - Generalized abdominal pain Code(s): R10.9 - UNSPECIFIED ABDOMINAL PAIN (5) Cholecystitis Current Visit: Yes Status: Acute Assessment & Plan: Dr Steve Perez on surgery consult. Code(s): K81.9 - CHOLECYSTITIS, UNSPECIFIED
[2018-06-20] MEDS ORDERED: Levaquin 250MG/50ML D5W 250 MG/50 ML BAG IV SCH (14:15)
[2018-06-20 16:18] LABS: 027 TOX PROD PRESUMPTIVE NEGATIVE (NEGATIVE); TOXIGENIC C. DIFF ORG NEGATIVE (NEGATIVE)
[2018-06-20 19:14] VITALS: BP 97/57; PULSE 60; O2SAT 97
[2018-06-20] MEDS ORDERED: SUVOREXANT 10 MG PO SCH (22:00)
[2018-06-20] MEDS ORDERED: VIT D PO SCH (22:00)
[2018-06-20] MEDS ORDERED: VITAMIN D2 PO SCH (22:00)
[2018-06-20] MEDS ORDERED: Calcium 500MG W/Vit D Tablet PO SCH (22:00)
[2018-06-20] MEDS ORDERED: CALCIUM CARBONATE PO SCH (22:00)
--- NOTE | 2018-06-21 19:13 | PCM.DS ---
Discharge Summary Date of Admission: 06/19/18 17:00 Admitting Physician: STANLEY ROGERS Consults: Consults on Case 06/20/18 09:00 Consult Surgery ROUTINE Primary Care Provider: STANLEY ROGERS Allergies Allergies No Known Drug Allergies Allergy (Unverified 01/09/18 19:30) Hospital Summary - Hospital Course Hospital Course: Chief Complaint Diagnosis Abdominal Pain Allergies Allergy/AdvReac Type Severity Reaction Status Date / Time No Known Drug Allergies Allergy Unverified 01/09/18 19:30 Home Medications Medication Instructions Recorded Confirmed Last Taken Type ARIPiprazole [Aripiprazole] 10 mg PO HS 06/19/18 06/19/18 06/17/18 History Amitriptyline HCl 10 mg PO HS 06/19/18 06/19/18 06/17/18 History Atorvastatin Calcium 10 mg PO DAILY 06/19/18 06/19/18 06/17/18 History Bumetanide 1 mg [Bumex 1 mg] 1 mg PO DAILY 06/19/18 06/19/18 06/17/18 History Suvorexant [Belsomra] 10 mg PO HS 06/19/18 06/19/18 06/17/18 History Current Medications Discontinued Medications Generic Name Dose Route Start Last Admin Trade Name Freq PRN Reason Stop Dose Admin Acetaminophen 650 mg 06/19/18 18:13 06/19/18 21:29 Tylenol 325 Mg PO 07/19/18 18:12 650 mg Q4H PRN PRN Administration PAIN AND/OR FEVER Amitriptyline HCl 10 mg 06/19/18 22:00 06/19/18 21:23 Elavil 10 Mg PO 07/19/18 21:59 10 mg HS GARY Administration Aripiprazole 10 mg 06/19/18 22:00 06/19/18 21:23 Abilify 10 Mg PO 07/19/18 21:59 10 mg HS GARY Administration Aspirin 325 mg 06/20/18 10:00 Ecotrin 325 Mg PO 07/20/18 09:59 DAILY GARY Bumetanide 1 mg 06/20/18 10:00 06/20/18 10:18 Bumex 1 Mg PO 07/20/18 09:59 1 mg DAILY GARY Administration Calcium Carbonate 1 tab 06/20/18 22:00 Calcium 500mg W/Vit D Tablet PO 07/20/18 21:59 HS GARY Famotidine 20 mg 06/20/18 10:00 06/20/18 10:18 Pepcid 20 Mg PO 07/20/18 09:59 20 mg DAILY GARY Administration Ferrous Sulfate 325 mg 06/20/18 10:00 06/20/18 10:18 Feosol 325 Mg PO 07/20/18 09:59 325 mg DAILY GARY Administration Fish Oil 1,000 mg 06/20/18 10:00 06/20/18 10:18 Fish Oil 1,000 Mg Capsule PO 07/20/18 09:59 1,000 mg BID GARY Administration Gabapentin 300 mg 06/19/18 22:00 06/20/18 10:18 Neurontin 300 Mg PO 07/19/18 21:59 300 mg BID GARY Administration Heparin Sodium (Beef Lung) 500 units 06/20/18 19:53 06/20/18 20:17 Heparin Lock Flush 100 Units/Ml 5ml Syringe PORT FLUSH 07/20/18 19:52 500 units PRN PRN Administration IV PORT FLUSH Heparin Sodium (Beef Lung) Confirm 06/20/18 20:08 Heparin Lock Flush 100 Units/Ml 5ml Syringe Administered 06/20/18 20:09 Dose 500 units .ROUTE .STK-MED ONE Sodium Chloride 1,000 mls @ 999 mls/hr 06/19/18 18:13 06/19/18 19:28 Sodium Chloride 0.9% 1000 Ml IV 06/19/18 19:13 999 mls/hr .Q1H1M STA Administration Sodium Chloride 1,000 mls @ 100 mls/hr 06/19/18 18:15 06/20/18 15:47 Sodium Chloride 0.9% 1000 Ml IV 07/19/18 18:14 100 mls/hr .Q10H GARY Administration Sodium Chloride Confirm 06/19/18 20:34 Sodium Chloride 0.9% 1000 Ml Administered 06/19/18 20:35 Dose 1,000 mls @ ud .ROUTE .STK-MED ONE Sodium Chloride Confirm 06/20/18 03:37 Sodium Chloride 0.9% 1000 Ml Administered 06/20/18 03:38 Dose 1,000 mls @ ud .ROUTE .STK-MED ONE Levofloxacin/Dextrose 250 mg in 50 mls @ 50 mls/hr 06/20/18 14:15 06/20/18 15 :48 Levaquin 250mg/50ml D5w IV 07/20/18 14:14 50 mls/hr Q24H10 GARY Administration Levothyroxine Sodium 50 mcg 06/19/18 22:00 06/19/18 21:23 Synthroid 50 Mcg PO 07/19/18 21:59 50 mcg HS GARY Administration Miscellaneous Information 1 each 06/20/18 07:30 Medication Intervention 07/20/18 07:29 .RN TO CHECK WITH PT [facility] Multivitamins Therapeutic 1 tab 06/20/18 10:00 06/20/18 10:18 Theragran Multivitamin PO 07/20/18 09:59 1 tab DAILY GARY Administration Naproxen 375 mg 06/19/18 22:00 Naprosyn 375 Mg PO 07/19/18 21:59 BID GARY Naproxen 375 mg 06/19/18 22:01 06/20/18 07:44 Naprosyn 375 Mg PO 07/19/18 21:59 375 mg BID PRN PRN Administration PAIN Promethazine HCl 12.5 mg 06/19/18 18:13 Phenergan 25 Mg Inj IV 07/19/18 18:12 Q4H PRN PRN NAUSEA/VOMITING Sertraline HCl 50 mg 06/19/18 22:00 06/19/18 21:24 Zoloft 50 Mg Tablet PO 07/19/18 21:59 50 mg HS GARY Administration Simvastatin 10 mg 06/20/18 10:00 06/20/18 10:18 Zocor 10mg PO 07/20/18 09:59 10 mg DAILY GARY Administration Tamsulosin HCl 0.4 mg 06/20/18 10:00 06/20/18 10:18 Flomax 0.4 Mg PO 07/20/18 09:59 0.4 mg DAILY GARY Administration Intake & Output (Last 24 hours) 06/19/18 06/20/18 06/21/18 06/22/18 11:59 11:59 11:59 11:59 Intake Total 2125 480 Output Total 200 Balance 2125 280 Weight 73.5 kg Microbiology Results (Last 24 hours) 06/20/18 11:00 Urine, Void Urine Culture - Preliminary GRAM NEGATIVE ID AND SENSITIVITY PENDING 06/20/18 15:05 Stool Stool Culture - Pending Orders (Last 24 hours) Category Date Time Status Calcium Carb/Vitamin D 500 mg* [Calcium 500MG W/Vit D Med 06/20/18 22:00 Discontinued Tablet] 1 tab PO HS Heparin Flush 500 units/5 ml [Heparin Lock Flush 100 Med 06/20/18 20:08 Discontinued Units/ml 5ml Syringe] 500 units .ROUTE .STK-MED ONE Heparin Flush 500 units/5 ml [Heparin Lock Flush 100 Med 06/20/18 19:53 Discontinued Units/ml 5ml Syringe] 500 units PORT FLUSH PRN PRN Patient Care Notes (Last 24 hours) 06/20/18 19:29 Nursing Note by Erasto Shabazz Pt c/o wanting to go home if Dr Perez was not coming to see him bc he was told he would be here around 1800. Dr Rogers called here, I informed him of pt concern. He ordered to DC pt, Dr Rogers will talk to Dr Agapito Tidwell from [facility] in [place]- surgeon who the pt knows and who he would like to f/u with. Dr Rogers ordered pt to go home on full liquid diet and advance as tolerated. Called Dr Perez answering service to page him to inform him he does not need to come see pt Dr Chon Perez called back and informed he said ok Initialized on 06/20/18 19:29 - END OF NOTE - Vitals & Intake/Output Vital Signs: Vital Signs Temperature 97.9 F 06/20/18 19:00 Pulse Rate 60 06/20/18 19:00 Respiratory Rate 16 06/20/18 19:00 Blood Pressure 97/57 06/20/18 19:00 O2 Sat by Pulse Oximetry 97 06/20/18 19:00 Intake & Output: Intake & Output 06/19/18 06/20/18 06/21/18 06/22/18 11:59 11:59 11:59 11:59 Intake Total 2125 480 Output Total 200 Balance 2125 280 Weight 73.5 kg - Lab Result Diagrams: 06/19/18 19:20 06/19/18 17:40 Micro Results-Entire Visit: Microbiology 06/20/18 11:00 Urine Culture - Preliminary Urine, Void GRAM NEGATIVE ID AND SENSITIVITY PENDING - Radiology Exams Ordered Rad Exams-Entire Visit: Radiology Procedures Category Date Time Status ABDOMEN AND PELVIS W/0 CONTRAS [CT] Stat Exams 06/19/18 18:13 Completed Discharge Exam General Appearance: no apparent distress, alert Neurologic Exam: alert, oriented x 3, cooperative, normal mood/affect, nml cerebellar function, sensation nml, No motor deficits Skin Exam: normal color, warm, dry Eye Exam: PERRL, EOMI, eyes nml inspection Ears, Nose, Throat Exam: normal ENT inspection, pharynx normal, moist mucous membranes Neck Exam: normal inspection, non-tender, supple, full range of motion Respiratory Exam: normal breath sounds, lungs clear, No respiratory distress Cardiovascular Exam: regular rate/rhythm, normal heart sounds Gastrointestinal/Abdomen Exam: soft, No tenderness, No mass Extremity Exam: normal inspection, normal range of motion Back Exam: normal inspection, normal range of motion, No CVA tenderness, No vertebral tenderness Male Genitalia Exam: deferred Rectal Exam: deferred Final Diagnosis/Problem List - Final Discharge Diagnosis/Problem (1) Urinary tract infection Status: Acute Code(s): N39.0 - URINARY TRACT INFECTION, SITE NOT SPECIFIED (2) Paralytic ileus Status: Resolved Code(s): K56.0 - PARALYTIC ILEUS (3) History of colon cancer Status: Chronic Code(s): Z85.038 - PERSONAL HISTORY OF MALIGNANT NEOPLASM OF LARGE INTESTINE (4) Abdominal pain Status: Resolved Onset Date: ~01/08/18 Code(s): R10.9 - UNSPECIFIED ABDOMINAL PAIN (5) Cholecystitis Status: Chronic Code(s): K81.9 - CHOLECYSTITIS, UNSPECIFIED - Discharge Discharge Date: 06/20/18 Disposition: Home, Self-Care Condition: Good Prescriptions: No Action Calcium Carbonate/Vitamin D2 [Calcium with Vit D Tablet] 1 tab PO HS Gabapentin 300 mg PO BID Tamsulosin HCl 0.4 mg [Flomax 0.4 MG] 0.4 mg PO DAILY Sertraline HCl 50 mg [Zoloft 50 mg Tablet] 50 mg PO HS Levothyroxine Sodium 50 mcg PO HS Fish Oil/Dha/Epa [Fish Oil 1,200 mg Fish Oil] 1 each PO BID Ferrous Sulfate [Iron] 325 mg PO DAILY Famotidine 20 mg [Pepcid 20 MG] 20 mg PO DAILY Multivitamin [Multivitamins] 1 each PO DAILY Aspirin EC 325 mg [Ecotrin 325 MG] 325 mg PO DAILY Suvorexant [Belsomra] 10 mg PO HS Bumetanide 1 mg [Bumex 1 mg] 1 mg PO DAILY Atorvastatin Calcium 10 mg PO DAILY Amitriptyline HCl 10 mg PO HS ARIPiprazole [Aripiprazole] 10 mg PO HS Instructions: Diarrhea in Adolescents and Adults, Full Liquid Diet Follow up with: STANLEY ROGERS MD [Primary Care Provider] - 06/26/18 3:00 pm (at [facility])
== END 2018-06-20 21:44 | disposition home or self-care (01) ==
LOC: MED SURG 17:00
PROVIDERS: ADMIT General Practice; ATTEND General Practice
DX: N39.0 Urinary tract infection, site not specified (principal); K56.0 Paralytic ileus; Z85.038 Personal history of other malignant neoplasm of large intestine; R10.9 Unspecified abdominal pain; K81.9 Cholecystitis, unspecified; Z79.899 Other long term (current) drug therapy
CPT/HCPCS: 36415; 74176; 80053; 80076; 81001; 82150; 83605; 83690; 84484; 85025; 87045; 87046; 87077; 87086; 87186; 87335; 87493; G0378; J1642; J1956; A9270-GY

== ENCOUNTER 2018-08-05 14:12 | Observation (INO) | payer MEDICARE ==
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
[2018-08-05] MEDS ORDERED: Sodium Chloride 0.9% 1000 ML 1,000 ML IV SCH ×2 (14:45→16:55)
[2018-08-05 15:00] LABS: Lactic Acid 1.9 (0.4-2.0)
[2018-08-05 15:05] LABS: Hematocrit 36.1 % (42-50); Hemoglobin 11.8 gm/dl (12.5-18.0); Mean Cell Volume 91.2 fl (78-100); Mean Corpuscular Hgb Concent. 32.7 g/dl (32-36); Mean Platelet Volume 10.1 fl (6-9.5); Platelet Count 264 K/mm3 (150-450); Red Blood Count 3.96 M/mm3 (4.1-5.6); Red Cell Distribution Width 15.8 % (11.5-14.0); White Blood Count 6.7 K/mm3 (4.0-10.5)
[2018-08-05 15:08] LABS: Mean Corpuscular Hemoglobin 29.7 pg (26-32)
[2018-08-05 15:10] LABS: ALBUMIN 3.8 g/dL (3.5-5.0); ALKALINE PHOSPHATASE 104 U/L (38-126); ANION GAP 15.4 MEQ/L (5-15); BLOOD UREA NITROGEN 36 mg/dL (9-20); CHLORIDE 104 mmol/L (98-107); Calcium 9.3 mg/dL (8.4-10.2); Carbon Dioxide 26 mmol/L (22-30); Creatinine 1 0.96 mg/dL (0.66-1.25); Glucose 96 mg/dL (74-106); SGOT/AST 47 U/L (17-59); SGPT/ALT 36 U/L (0-50); SODIUM 142 mmol/L (137-145); Total Protein 7.5 g/dL (6.3-8.2)
--- NOTE | 2018-08-05 15:25 | XRAY ---
Indication: Hypersomnolence. Weakness. Multiple contiguous axial images obtained through the head without contrast. Comparison: None Age-appropriate global atrophy and minimal periventricular degenerative micro-ischemia bilaterally. No acute intracranial hemorrhage, abnormal extra-axial fluid collection, or mass effect. Fourth ventricle is midline without hydrocephalus. Bony calvarium intact. Visualized paranasal sinuses and mastoid air cells are clear. Impression: Normal aging brain including atrophy and degenerative micro-ischemia. No acute intracranial abnormalities. CT DI 69.90
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
[2018-08-05 15:59] LABS: Appearance CLEAR (CLEAR); Bacteria MODERATE /HPF (NEGATIVE); Bilirubin NEGATIVE (NEGATIVE); Blood NEGATIVE Ery/ul (0-5); Glucose NEGATIVE (NEGATIVE); Ketones NEGATIVE (NEGATIVE); Leukocyte Esterase TRACE (NEGATIVE); Nitrite POSITIVE (NEGATIVE); Protein,Urine Dip NEGATIVE (Negative); Urobilinogen NEGATIVE mg/dL (0-1)
[2018-08-05 16:09] LABS: Eosinophil 3 % (0.00-3.0); Granulocyte Absolute (ANC) 3.95 (1.4-6.9); Lymphocytes 31 % (24-44); Monocyte 7 % (0.0-12.0); Neutrophils 59 % (36.-66.); Platelet Estimate NORMAL (NORMAL); Total Cells Counted 100
[2018-08-05 16:10] LABS: VBG BASE EXCESS 3.9 (-2.0-2.0); VBG CARBOXYHEMOGLOBIN 2.4 % T HGB (0.0-6.9); VBG HCO3- 29.2 meq/L (22-28); VBG HEMOGLOBIN 11.7; VBG O2 SATURATION 61.5 (95-100); VBG POTASSIUM 3.5 (3.5-5.1); VBG pH 7.41 (7.32-7.42)
[2018-08-05] MEDS: ROCEPHIN 1 Gm-D5w 50 ml Bag** 1 G/50 ML IVPB IV SCH (19:35)
[2018-08-05] MEDS: ELIQUIS 2.5 MG TABLET PO SCH (21:21)
[2018-08-05] MEDS: NEURONTIN 300 MG PO SCH (21:21)
[2018-08-05] MEDS ORDERED: Calcium 500MG W/Vit D Tablet PO SCH (22:00)
[2018-08-05] MEDS ORDERED: SYNTHROID 50 MCG PO SCH (22:00)
[2018-08-05] MEDS ORDERED: FISH OIL 1,000 MG CAPSULE PO SCH (22:00)
[2018-08-05] MEDS ORDERED: Abilify 10 MG PO SCH (22:00)
[2018-08-05] MEDS ORDERED: ELAVIL 10 MG PO SCH (22:00)
[2018-08-06 05:59] LABS: Hematocrit 35.1 % (42-50); Hemoglobin 11.5 gm/dl (12.5-18.0); Mean Cell Volume 91.9 fl (78-100); Mean Corpuscular Hemoglobin 30.1 pg (26-32); Mean Corpuscular Hgb Concent. 32.8 g/dl (32-36); Mean Platelet Volume 9.9 fl (6-9.5); Platelet Count 253 K/mm3 (150-450); Red Blood Count 3.82 M/mm3 (4.1-5.6); Red Cell Distribution Width 15.9 % (11.5-14.0); White Blood Count 13.9 K/mm3 (4.0-10.5)
[2018-08-06 06:22] LABS: ALBUMIN 3.2 g/dL (3.5-5.0); ALKALINE PHOSPHATASE 103 U/L (38-126); ANION GAP 12.5 MEQ/L (5-15); BLOOD UREA NITROGEN 31 mg/dL (9-20); CHLORIDE 108 mmol/L (98-107); Calcium 9.1 mg/dL (8.4-10.2); Carbon Dioxide 25 mmol/L (22-30); Creatinine 1 0.94 mg/dL (0.66-1.25); Glucose 99 mg/dL (74-106); Potassium 3.8 mmol/L (3.5-5.1); SGOT/AST 31 U/L (17-59); SGPT/ALT 29 U/L (0-50); SODIUM 142 mmol/L (137-145); Total Protein 6.5 g/dL (6.3-8.2)
[2018-08-06] MEDS: NEURONTIN 300 MG PO SCH (09:26)
[2018-08-06] MEDS: ROCEPHIN 1 Gm-D5w 50 ml Bag** 1 G/50 ML IVPB IV SCH (09:26)
[2018-08-06] MEDS: ELIQUIS 2.5 MG TABLET PO SCH (09:27)
[2018-08-06] MEDS ORDERED: ECOTRIN 81 MG PO SCH (10:00)
[2018-08-06] MEDS ORDERED: THERAGRAN MULTIVITAMIN PO SCH (10:00)
[2018-08-06] MEDS ORDERED: Proscar 5 MG PO SCH (10:00)
[2018-08-06] MEDS ORDERED: Flomax 0.4 MG PO SCH (10:00)
[2018-08-06] MEDS ORDERED: NON-FORMULARY ITEM (Multivitamin [Multivitamins] 1 EACH) PO SCH (10:00)
[2018-08-06] MEDS ORDERED: BUMEX 1 MG PO SCH (10:00)
[2018-08-06] MEDS ORDERED: ZOLOFT 50 MG TABLET PO SCH (10:00)
[2018-08-06] MEDS ORDERED: FISH OIL 1,000 MG CAPSULE PO SCH (10:00)
[2018-08-06] MEDS ORDERED: Zocor 10MG PO SCH (10:00)
[2018-08-06 10:47] LABS: BAND 2 % (0.0-2.0); Eosinophil 1 % (0.00-3.0); Lymphocytes 7 % (24-44); Monocyte 3 % (0.0-12.0); Neutrophils 87 % (36.-66.); Platelet Estimate NORMAL (NORMAL); Total Cells Counted 100; Toxic Granulation 1+
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
--- NOTE | 2018-08-06 13:21 | PCM.DS ---
Discharge Summary Date of Admission: 08/05/18 16:50 Admitting Physician: STANLEY ROGERS Primary Care Provider: STANLEY ROGERS Allergies Allergies No Known Drug Allergies Allergy (Verified 08/05/18 14:22) Hospital Summary - Hospital Course Hospital Course: Chief Complaint Diagnosis uncontrolable somnulance Allergies Allergy/AdvReac Type Severity Reaction Status Date / Time No Known Drug Allergies Allergy Verified 08/05/18 14:22 Vital Signs (Last 24 hours) Temp Pulse Resp BP Pulse Ox 08/06/18 07:58 98.2 F 86 18 131/66 93 L 08/06/18 06:40 93 L 08/06/18 03:55 98.1 F 74 21 145/83 95 08/06/18 00:00 98.1 F 59 L 18 151/79 96 08/05/18 20:26 96 08/05/18 20:00 97.4 F 70 18 114/61 97 08/05/18 19:49 97 08/05/18 17:37 98.0 F 62 16 157/78 97 08/05/18 17:28 97 08/05/18 16:55 97 08/05/18 16:30 98.2 F 53 L 16 137/72 98 08/05/18 15:17 98.2 F 72 16 110/69 98 08/05/18 14:13 98.8 F 70 16 106/76 97 Home Medications Medication Instructions Recorded Confirmed Last Taken Type Apixaban [Eliquis] 5 mg PO BID 08/05/18 08/05/18 08/05/18 History Aspirin EC 81 mg [Ecotrin 81 81 mg PO DAILY 08/05/18 08/05/18 08/05/18 History mg] Finasteride 5 mg PO DAILY 08/05/18 08/05/18 08/05/18 History Current Medications Generic Name Dose Route Start Last Admin Trade Name Freq PRN Reason Stop Dose Admin Amitriptyline HCl 10 mg 08/05/18 22:00 08/05/18 21:21 Elavil 10 Mg PO 09/04/18 21:59 10 mg HS GARY Administration Apixaban 5 mg 08/05/18 22:00 08/06/18 09:27 Eliquis 2.5 Mg Tablet PO 09/04/18 21:59 5 mg BID GARY Administration Aripiprazole 10 mg 08/05/18 22:00 08/05/18 21:21 Abilify 10 Mg PO 09/04/18 21:59 10 mg HS GARY Administration Aspirin 81 mg 08/06/18 10:00 08/06/18 09:26 Ecotrin 81 Mg PO 09/05/18 09:59 81 mg DAILY GARY Administration Bumetanide 1 mg 08/06/18 10:00 08/06/18 09:26 Bumex 1 Mg PO 09/05/18 09:59 1 mg DAILY GARY Administration Calcium Carbonate 1 tab 08/05/18 22:00 08/05/18 21:21 Calcium 500mg W/Vit D Tablet PO 09/04/18 21:59 1 tab HS GARY Administration Finasteride 5 mg 08/06/18 10:00 08/06/18 09:27 Proscar 5 Mg PO 09/05/18 09:59 5 mg DAILY GARY Administration Fish Oil 1,000 mg 08/06/18 10:00 08/06/18 09:26 Fish Oil 1,000 Mg Capsule PO 09/05/18 09:59 1,000 mg BID GARY Administration Gabapentin 300 mg 08/05/18 22:00 08/06/18 09:26 Neurontin 300 Mg PO 09/04/18 21:59 300 mg BID GARY Administration Sodium Chloride 1,000 mls @ 100 mls/hr 08/05/18 16:55 08/06/18 02:24 Sodium Chloride 0.9% 1000 Ml IV 09/04/18 16:54 100 mls/hr .Q10H GARY Administration Ceftriaxone Sodium/Dextrose 1 g in 50 mls @ 100 mls/hr 08/05/18 18:30 09:26 Rocephin 1 Gm-D5w 50 Ml Bag IV 09/04/18 18:29 100 mls/hr Q24H10 GARY Administration Levothyroxine Sodium 50 mcg 08/05/18 22:00 08/05/18 21:21 Synthroid 50 Mcg PO 09/04/18 21:59 50 mcg HS GARY Administration Multivitamins Therapeutic 1 tab 08/06/18 10:00 08/06/18 09:27 Theragran Multivitamin PO 09/05/18 09:59 1 tab DAILY GARY Administration Sertraline HCl 50 mg 08/06/18 10:00 08/06/18 09:27 Zoloft 50 Mg Tablet PO 09/05/18 09:59 50 mg DAILY GARY Administration Simvastatin 10 mg 08/06/18 10:00 08/06/18 09:27 Zocor 10mg PO 09/05/18 09:59 10 mg DAILY GARY Administration Tamsulosin HCl 0.4 mg 08/06/18 10:00 08/06/18 09:27 Flomax 0.4 Mg PO 09/05/18 09:59 0.4 mg DAILY GARY Administration Discontinued Medications Generic Name Dose Route Start Last Admin Trade Name Bhargavq PRN Reason Stop Dose Admin Fish Oil 1,200 mg 08/05/18 22:00 08/05/18 21:22 Fish Oil 1,000 Mg Capsule PO 09/04/18 21:59 1,000 mg DAILY GARY Administration Sodium Chloride 1,000 mls @ 100 mls/hr 08/05/18 14:45 08/05/18 15:12 Sodium Chloride 0.9% 1000 Ml IV 09/04/18 14:44 100 mls/hr .Q10H GARY Administration Intake & Output (Last 24 hours) 08/04/18 08/05/18 08/06/18 08/07/18 11:59 11:59 11:59 11:59 Intake Total 2845 240 Balance 2845 240 Weight 79.4 kg Microbiology Results (Last 24 hours) 08/05/18 15:30 Catherized Urine Culture - Preliminary GRAM NEGATIVE ID AND SENSITIVITY PENDING Laboratory Results (Last 24 hours) 08/06/18 08/06/18 08/05/18 05:28 05:28 15:30 WBC 13.9 H RBC 3.82 L Hgb 11.5 L Hct 35.1 L MCV 91.9 MCH 30.1 MCHC 32.8 RDW 15.9 H Plt Count 253 MPV 9.9 H Absolute Granulocytes Segmented Neutrophils 87 H Band Neutrophils 2 Lymphocytes (Manual) 7 L Monocytes (Manual) 3 Eosinophils (Manual) 1 Toxic Granulation 1+ Platelet Estimate NORMAL RBC Morphology NORMAL pO2/FiO2 Ratio VBG pH VBG pCO2 at Pat Temp VBG pO2 at Pat Temp VBG HCO3 VBG O2 Sat (Javi) VBG Base Excess VBG Hemoglobin VBG Carboxyhemoglobin POC Potassium Sodium 142 Potassium 3.8 Chloride 108 H Carbon Dioxide 25 Anion Gap 12.5 BUN 31 H Creatinine 0.94 Estimated GFR > 60.0 Glucose 99 Lactic Acid Calcium 9.1 Total Bilirubin 0.40 AST 31 ALT 29 Alkaline Phosphatase 103 Troponin I Serum Total Protein 6.5 Albumin 3.2 L Urine Color YELLOW Urine Appearance CLEAR Urine pH 5.0 Ur Specific [place] 1.010 Urine Protein NEGATIVE Urine Ketones NEGATIVE Urine Blood NEGATIVE Urine Nitrite POSITIVE Urine Bilirubin NEGATIVE Urine Urobilinogen NEGATIVE Ur Leukocyte Esterase TRACE Urine WBC (Auto) 11-15 Urine RBC (Auto) NONE U Epithel Cells (Auto) NONE Urine Bacteria (Auto) MODERATE Urine Culture Reflexed ORDERED SEPARATELY Urine Glucose NEGATIVE 08/05/18 08/05/18 08/05/18 15:27 14:57 14:57 WBC RBC Hgb Hct MCV MCH MCHC RDW Plt Count MPV Absolute Granulocytes Segmented Neutrophils Band Neutrophils Lymphocytes (Manual) Monocytes (Manual) Eosinophils (Manual) Toxic Granulation Platelet Estimate RBC Morphology pO2/FiO2 Ratio 21.0 VBG pH 7.41 VBG pCO2 at Pat Temp 46 VBG pO2 at Pat Temp 29 VBG HCO3 29.2 H* VBG O2 Sat (Javi) 61.5 L VBG Base Excess 3.9 H VBG Hemoglobin 11.7 VBG Carboxyhemoglobin 2.4 POC Potassium 3.5 Sodium 142 Potassium 4.0 Chloride 104 Carbon Dioxide 26 Anion Gap 15.4 H BUN 36 H Creatinine 0.96 Estimated GFR > 60.0 Glucose 96 Lactic Acid Calcium 9.3 Total Bilirubin 0.60 AST 47 ALT 36 Alkaline Phosphatase 104 Troponin I < 0.012 Serum Total Protein 7.5 Albumin 3.8 Urine Color Urine Appearance Urine pH Ur Specific [place] Urine Protein Urine Ketones Urine Blood Urine Nitrite Urine Bilirubin Urine Urobilinogen Ur Leukocyte Esterase Urine WBC (Auto) Urine RBC (Auto) U Epithel Cells (Auto) Urine Bacteria (Auto) Urine Culture Reflexed Urine Glucose 08/05/18 08/05/18 14:57 14:50 WBC 6.7 RBC 3.96 L Hgb 11.8 L Hct 36.1 L MCV 91.2 MCH 29.7 MCHC 32.7 RDW 15.8 H Plt Count 264 MPV 10.1 H Absolute Granulocytes 3.95 Segmented Neutrophils 59 Band Neutrophils Lymphocytes (Manual) 31 Monocytes (Manual) 7 Eosinophils (Manual) 3 Toxic Granulation Platelet Estimate NORMAL RBC Morphology NORMAL pO2/FiO2 Ratio VBG pH VBG pCO2 at Pat Temp VBG pO2 at Pat Temp VBG HCO3 VBG O2 Sat (Javi) VBG Base Excess VBG Hemoglobin VBG Carboxyhemoglobin POC Potassium Sodium Potassium Chloride Carbon Dioxide Anion Gap BUN Creatinine Estimated GFR Glucose Lactic Acid 1.9 Calcium Total Bilirubin AST ALT Alkaline Phosphatase Troponin I Serum Total Protein Albumin Urine Color Urine Appearance Urine pH Ur Specific [place] Urine Protein Urine Ketones Urine Blood Urine Nitrite Urine Bilirubin Urine Urobilinogen Ur Leukocyte Esterase Urine WBC (Auto) Urine RBC (Auto) U Epithel Cells (Auto) Urine Bacteria (Auto) Urine Culture Reflexed Urine Glucose Orders (Last 24 hours) Category Date Time Status Bedrest with BRP/BSC ROUTINE Activity 08/05/18 16:55 Active Accucheck STAT Care 08/05/18 14:35 Completed Call Admit Doctor for Orders ON ADMISSION Care 08/05/18 16:55 Active Code Status Order ROUTINE Care 08/05/18 16:55 Active EKG-ER Only STAT Care 08/05/18 14:34 Completed IV Care Q6H Care 08/05/18 16:55 Active IV Insertion STAT Care 08/05/18 14:34 Completed Neuro Checks Q4H Care 08/05/18 16:[address] in Observation ROUTINE Care 08/05/18 16:55 Active Telemetry q6h Care 08/05/18 16:55 Active Weight,Daily 0600 Care 08/05/18 16:55 Active Regular Diet Diet 08/05/18 Dinner Active CHEST 1 VIEW (PORTABLE) Stat Exams 08/05/18 14:34 Completed HEAD WITHOUT CONTRAST [CT] Stat Exams 08/05/18 14:36 Completed CBC W DIFF AM.LAB Lab 08/06/18 05:28 Completed CBC W DIFF Stat Lab 08/05/18 14:57 Completed CMP AM.LAB Lab 08/06/18 05:28 Completed CMP Stat Lab 08/05/18 14:57 Completed CULTURE,URINE Stat Lab 08/05/18 15:30 Results Lactic Acid Stat Lab 08/05/18 14:50 Completed Manual Differential NC Routine Lab 08/06/18 05:28 Completed Manual Differential NC Stat Lab 08/05/18 14:57 Completed TROPONIN Q3H Lab 08/05/18 14:57 Completed UA W/RFX UR CULTURE Stat Lab 08/05/18 15:30 Completed VENOUS BLOOD GAS Stat Lab 08/05/18 15:27 Completed Amitriptyline HCl 10 mg [Elavil 10 mg] Med 08/05/18 22:00 Active 10 mg PO HS Apixaban [Eliquis 2.5 mg Tablet] Med 08/05/18 22:00 Active 5 mg PO BID Aripiprazole 10 mg [Abilify 10 MG] Med 08/05/18 22:00 Active 10 mg PO HS Aspirin EC 81 mg [Ecotrin 81 mg] Med 08/06/18 10:00 Active 81 mg PO DAILY Bumetanide 1 mg [Bumex 1 mg] Med 08/06/18 10:00 Active 1 mg PO DAILY Calcium Carb/Vitamin D 500 mg* [Calcium 500MG W/Vit D Med 08/05/18 22:00 Active Tablet] 1 tab PO HS Ceftriaxone 1 GM/50 ML PREMIX* [ROCEPHIN 1 Gm-D5w 50 ml Med 08/05/18 18:30 Active Bag] 1 g in 50 ml IV Q24H10 Finasteride 5 mg [Proscar 5 MG] Med 08/06/18 10:00 Active 5 mg PO DAILY Gabapentin 300 mg [Neurontin 300 mg] Med 08/05/18 22:00 Active 300 mg PO BID Levothyroxine Sodium 50 Mcg [Synthroid 50 Mcg] Med 08/05/18 22:00 Active 50 mcg PO HS Multivitamins,Therapeutic Tab* [Theragran Multivitamin* Med 08/06/18 10:00 Active ] 1 tab PO DAILY NaCl 0.9% 1000 ml [Sodium Chloride 0.9% 1000 ML] 1,000 Med 08/05/18 14:45 Discontinued ml IV 100 mls/hr NaCl 0.9% 1000 ml [Sodium Chloride 0.9% 1000 ML] 1,000 Med 08/05/18 16:55 Active ml IV 100 mls/hr [place]-3 Fatty Acids/Fish Oil [Fish Oil 1,000 mg Med 08/06/18 10:00 Active Capsule] 1,000 mg PO BID [place]-3 Fatty Acids/Fish Oil [Fish Oil 1,000 mg Med 08/05/18 22:00 Discontinued Capsule] 1,200 mg PO DAILY Sertraline HCl 50 mg [Zoloft 50 mg Tablet] Med 08/06/18 10:00 Active 50 mg PO DAILY Simvastatin 10 mg [Zocor 10MG] Med 08/06/18 10:00 Active 10 mg PO DAILY Tamsulosin HCl 0.4 mg [Flomax 0.4 MG] Med 08/06/18 10:00 Active 0.4 mg PO DAILY Pulse Oximetry CONTINUOUS RT 08/05/18 16:55 Active - Vitals & Intake/Output Vital Signs: Vital Signs Temperature 98.2 F 08/06/18 07:58 Pulse Rate 86 08/06/18 07:58 Respiratory Rate 18 08/06/18 07:58 Blood Pressure 131/66 08/06/18 07:58 O2 Sat by Pulse Oximetry 93 L 08/06/18 07:58 Intake & Output: Intake & Output 08/04/18 08/05/18 08/06/18 08/07/18 11:59 11:59 11:59 11:59 Intake Total 2845 240 Balance 2845 240 Weight 79.4 kg - Lab Result Diagrams: 08/06/18 05:28 08/06/18 05:28 Lab Results-Last 24 Hrs: Lab Results-Last 24 Hours 08/05/18 08/05/18 08/05/18 Range/Units 14:50 14:57 14:57 WBC 6.7 (4.0-10.5) K/mm3 RBC 3.96 L (4.1-5.6) M/mm3 Hgb 11.8 L (12.5-18.0) gm/dl Hct 36.1 L (42-50) % MCV 91.2 (78-100) fl MCH 29.7 (26-32) pg MCHC 32.7 (32-36) g/dl RDW 15.8 H (11.5-14.0) % Plt Count 264 (150-450) K/mm3 MPV 10.1 H (6-9.5) fl Absolute Granulocytes 3.95 (1.4-6.9) Segmented Neutrophils 59 (36.-66.) % Band Neutrophils (0.0-2.0) % Lymphocytes (Manual) 31 (24-44) % Monocytes (Manual) 7 (0.0-12.0) % Eosinophils (Manual) 3 (0.00-3.0) % Toxic Granulation Platelet Estimate NORMAL (NORMAL) RBC Morphology NORMAL pO2/FiO2 Ratio % VBG pH (7.32-7.42) VBG pCO2 at Pat Temp (42-55) mm/Hg VBG pO2 at Pat Temp (25-40) mm/Hg VBG HCO3 (22-28) meq/L VBG O2 Sat (Javi) (95-100) VBG Base Excess (-2.0-2.0) VBG Hemoglobin VBG Carboxyhemoglobin (0.0-6.9) % T HGB POC Potassium (3.5-5.1) Sodium 142 (137-145) mmol/L Potassium 4.0 (3.5-5.1) mmol/L Chloride 104 (98-107) mmol/L Carbon Dioxide 26 (22-30) mmol/L Anion Gap 15.4 H (5-15) MEQ/L BUN 36 H (9-20) mg/dL Creatinine 0.96 (0.66-1.25) mg/dL Estimated GFR > 60.0 ML/MIN Glucose 96 (74-106) mg/dL Lactic Acid 1.9 (0.4-2.0) Calcium 9.3 (8.4-10.2) mg/dL Total Bilirubin 0.60 (0.2-1.3) mg/dL AST 47 (17-59) U/L ALT 36 (0-50) U/L Alkaline Phosphatase 104 (38-126) U/L Troponin I (0.000-0.034) ng/mL Serum Total Protein 7.5 (6.3-8.2) g/dL Albumin 3.8 (3.5-5.0) g/dL Urine Color (YELLOW) Urine Appearance (CLEAR) Urine pH (5-6) Ur Specific [place] (1.005-1.025) Urine Protein (Negative) Urine Ketones (NEGATIVE) Urine Blood (0-5) Rajeev/ul Urine Nitrite (NEGATIVE) Urine Bilirubin (NEGATIVE) Urine Urobilinogen (0-1) mg/dL Ur Leukocyte Esterase (NEGATIVE) Urine WBC (Auto) (0-5) /HPF Urine RBC (Auto) (0-2) /HPF U Epithel Cells (Auto) (FEW) /HPF Urine Bacteria (Auto) (NEGATIVE) /HPF Urine Culture Reflexed (NO) Urine Glucose (NEGATIVE) mg/dL 08/05/18 08/05/18 08/05/18 Range/Units 14:57 15:27 15:30 WBC (4.0-10.5) K/mm3 RBC (4.1-5.6) M/mm3 Hgb (12.5-18.0) gm/dl Hct (42-50) % MCV (78-100) fl MCH (26-32) pg MCHC (32-36) g/dl RDW (11.5-14.0) % Plt Count (150-450) K/mm3 MPV (6-9.5) fl Absolute Granulocytes (1.4-6.9) Segmented Neutrophils (36.-66.) % Band Neutrophils (0.0-2.0) % Lymphocytes (Manual) (24-44) % Monocytes (Manual) (0.0-12.0) % Eosinophils (Manual) (0.00-3.0) % Toxic Granulation Platelet Estimate (NORMAL) RBC Morphology pO2/FiO2 Ratio 21.0 % VBG pH 7.41 (7.32-7.42) VBG pCO2 at Pat Temp 46 (42-55) mm/Hg VBG pO2 at Pat Temp 29 (25-40) mm/Hg VBG HCO3 29.2 H* (22-28) meq/L VBG O2 Sat (Javi) 61.5 L (95-100) VBG Base Excess 3.9 H (-2.0-2.0) VBG Hemoglobin 11.7 VBG Carboxyhemoglobin 2.4 (0.0-6.9) % T HGB POC Potassium 3.5 (3.5-5.1) Sodium (137-145) mmol/L Potassium (3.5-5.1) mmol/L Chloride (98-107) mmol/L Carbon Dioxide (22-30) mmol/L Anion Gap (5-15) MEQ/L BUN (9-20) mg/dL Creatinine (0.66-1.25) mg/dL Estimated GFR ML/MIN Glucose (74-106) mg/dL Lactic Acid (0.4-2.0) Calcium (8.4-10.2) mg/dL Total Bilirubin (0.2-1.3) mg/dL AST (17-59) U/L ALT (0-50) U/L Alkaline Phosphatase (38-126) U/L Troponin I < 0.012 (0.000-0.034) ng/mL Serum Total Protein (6.3-8.2) g/dL Albumin (3.5-5.0) g/dL Urine Color YELLOW (YELLOW) Urine Appearance CLEAR (CLEAR) Urine pH 5.0 (5-6) Ur Specific [place] 1.010 (1.005-1.025) Urine Protein NEGATIVE (Negative) Urine Ketones NEGATIVE (NEGATIVE) Urine Blood NEGATIVE (0-5) Rajeev/ul Urine Nitrite POSITIVE (NEGATIVE) Urine Bilirubin NEGATIVE (NEGATIVE) Urine Urobilinogen NEGATIVE (0-1) mg/dL Ur Leukocyte Esterase TRACE (NEGATIVE) Urine WBC (Auto) 11-15 (0-5) /HPF Urine RBC (Auto) NONE (0-2) /HPF U Epithel Cells (Auto) NONE (FEW) /HPF Urine Bacteria (Auto) MODERATE (NEGATIVE) /HPF Urine Culture Reflexed ORDERED SEPARATELY (NO) Urine Glucose NEGATIVE (NEGATIVE) mg/dL 08/06/18 08/06/18 Range/Units 05:28 05:28 WBC 13.9 H (4.0-10.5) K/mm3 RBC 3.82 L (4.1-5.6) M/mm3 Hgb 11.5 L (12.5-18.0) gm/dl Hct 35.1 L (42-50) % MCV 91.9 (78-100) fl MCH 30.1 (26-32) pg MCHC 32.8 (32-36) g/dl RDW 15.9 H (11.5-14.0) % Plt Count 253 (150-450) K/mm3 MPV 9.9 H (6-9.5) fl Absolute Granulocytes (1.4-6.9) Segmented Neutrophils 87 H (36.-66.) % Band Neutrophils 2 (0.0-2.0) % Lymphocytes (Manual) 7 L (24-44) % Monocytes (Manual) 3 (0.0-12.0) % Eosinophils (Manual) 1 (0.00-3.0) % Toxic Granulation 1+ Platelet Estimate NORMAL (NORMAL) RBC Morphology NORMAL pO2/FiO2 Ratio % VBG pH (7.32-7.42) VBG pCO2 at Pat Temp (42-55) mm/Hg VBG pO2 at Pat Temp (25-40) mm/Hg VBG HCO3 (22-28) meq/L VBG O2 Sat (Javi) (95-100) VBG Base Excess (-2.0-2.0) VBG Hemoglobin VBG Carboxyhemoglobin (0.0-6.9) % T HGB POC Potassium (3.5-5.1) Sodium 142 (137-145) mmol/L Potassium 3.8 (3.5-5.1) mmol/L Chloride 108 H (98-107) mmol/L Carbon Dioxide 25 (22-30) mmol/L Anion Gap 12.5 (5-15) MEQ/L BUN 31 H (9-20) mg/dL Creatinine 0.94 (0.66-1.25) mg/dL Estimated GFR > 60.0 ML/MIN Glucose 99 (74-106) mg/dL Lactic Acid (0.4-2.0) Calcium 9.1 (8.4-10.2) mg/dL Total Bilirubin 0.40 (0.2-1.3) mg/dL AST 31 (17-59) U/L ALT 29 (0-50) U/L Alkaline Phosphatase 103 (38-126) U/L Troponin I (0.000-0.034) ng/mL Serum Total Protein 6.5 (6.3-8.2) g/dL Albumin 3.2 L (3.5-5.0) g/dL Urine Color (YELLOW) Urine Appearance (CLEAR) Urine pH (5-6) Ur Specific [place] (1.005-1.025) Urine Protein (Negative) Urine Ketones (NEGATIVE) Urine Blood (0-5) Rajeev/ul Urine Nitrite (NEGATIVE) Urine Bilirubin (NEGATIVE) Urine Urobilinogen (0-1) mg/dL Ur Leukocyte Esterase (NEGATIVE) Urine WBC (Auto) (0-5) /HPF Urine RBC (Auto) (0-2) /HPF U Epithel Cells (Auto) (FEW) /HPF Urine Bacteria (Auto) (NEGATIVE) /HPF Urine Culture Reflexed (NO) Urine Glucose (NEGATIVE) mg/dL Micro Results-Entire Visit: Microbiology 08/05/18 15:30 Urine Culture - Preliminary Catherized GRAM NEGATIVE ID AND SENSITIVITY PENDING - Radiology Exams Ordered Rad Exams-Entire Visit: Radiology Procedures Category Date Time Status CHEST 1 VIEW (PORTABLE) Stat Exams 08/05/18 14:34 Completed HEAD WITHOUT CONTRAST [CT] Stat Exams 08/05/18 14:36 Completed Discharge Exam General Appearance: no apparent distress, alert Neurologic Exam: alert, oriented x 3, cooperative, normal mood/affect, nml cerebellar function, sensation nml, No motor deficits Eye Exam: PERRL, EOMI, eyes nml inspection Ears, Nose, Throat Exam: normal ENT inspection, pharynx normal, moist mucous membranes Neck Exam: normal inspection, non-tender, supple, full range of motion Respiratory Exam: normal breath sounds, lungs clear, No respiratory distress Cardiovascular Exam: regular rate/rhythm, normal heart sounds Gastrointestinal/Abdomen Exam: soft, No tenderness, No mass Male Genitalia Exam: deferred Rectal Exam: deferred Back Exam: normal inspection, normal range of motion, No CVA tenderness, No vertebral tenderness Extremity Exam: normal inspection, normal range of motion Skin Exam: normal color, warm, dry Final Diagnosis/Problem List - Final Discharge Diagnosis/Problem (1) Uncontrolled daytime somnolence Current Visit: Yes Status: Chronic Code(s): R40.0 - SOMNOLENCE (2) Urinary tract infection Current Visit: Yes Status: Acute Assessment & Plan: Medication Report Amitriptyline HCl (Elavil 10 Mg) 10 mg PO HS [facility] Stop: 09/04/18 21:59 Last Admin: 08/05/18 21:21 Dose: 10 mg Apixaban (Eliquis 2.5 Mg Tablet) 5 mg PO BID GARY Stop: 09/04/18 21:59 Last Admin: 08/06/18 09:27 Dose: 5 mg Aripiprazole (Abilify 10 Mg) 10 mg PO HS GARY Stop: 09/04/18 21:59 Last Admin: 08/05/18 21:21 Dose: 10 mg Aspirin (Ecotrin 81 Mg) 81 mg PO DAILY GARY Stop: 09/05/18 09:59 Last Admin: 08/06/18 09:26 Dose: 81 mg Bumetanide (Bumex 1 Mg) 1 mg PO DAILY GARY Stop: 09/05/18 09:59 Last Admin: 08/06/18 09:26 Dose: 1 mg Calcium Carbonate (Calcium 500mg W/Vit D Tablet) 1 tab PO HS GARY Stop: 09/04/18 21:59 Last Admin: 08/05/18 21:21 Dose: 1 tab Finasteride (Proscar 5 Mg) 5 mg PO DAILY GARY Stop: 09/05/18 09:59 Last Admin: 08/06/18 09:27 Dose: 5 mg Fish Oil (Fish Oil 1,000 Mg Capsule) 1,000 mg PO BID GARY Stop: 09/05/18 09:59 Last Admin: 08/06/18 09:26 Dose: 1,000 mg Gabapentin (Neurontin 300 Mg) 300 mg PO BID GARY Stop: 09/04/18 21:59 Last Admin: 08/06/18 09:26 Dose: 300 mg Sodium Chloride (Sodium Chloride 0.9% 1000 Ml) 1,000 mls @ 100 mls/hr IV .Q10H GARY Stop: 09/04/18 16:54 Last Admin: 08/06/18 02:24 Dose: 100 mls/hr Infusion/Titration Document 08/06/18 02:24 LB (Rec: 08/06/18 02:24 LB [id number]) Dosing & Rate IV Rate 100 Increase/Decrease Started Cumulative Dose Not Applicable IV Intake Container Volume 1,000 Volume Adjustment/Waste 0 Ceftriaxone Sodium/Dextrose (Rocephin 1 Gm-D5w 50 Ml Bag) 1 g in 50 mls @ 100 mls/hr IV Q24H10 GARY Stop: 09/04/18 18:29 Last Admin: 08/06/18 09:26 Dose: 100 mls/hr Levothyroxine Sodium (Synthroid 50 Mcg) 50 mcg PO HS GARY Stop: 09/04/18 21:59 Last Admin: 08/05/18 21:21 Dose: 50 mcg Multivitamins Therapeutic (Theragran Multivitamin) 1 tab PO DAILY GARY Stop: 09/05/18 09:59 Last Admin: 08/06/18 09:27 Dose: 1 tab Sertraline HCl (Zoloft 50 Mg Tablet) 50 mg PO DAILY [facility] Stop: 09/05/18 09:59 Last Admin: 08/06/18 09:27 Dose: 50 mg Simvastatin (Zocor 10mg) 10 mg PO DAILY [facility] Stop: 09/05/18 09:59 Last Admin: 08/06/18 09:27 Dose: 10 mg Tamsulosin HCl (Flomax 0.4 Mg) 0.4 mg PO DAILY GARY Stop: 09/05/18 09:59 Last Admin: 08/06/18 09:27 Dose: 0.4 mg Discontinued Medications Fish Oil (Fish Oil 1,000 Mg Capsule) 1,200 mg PO DAILY [facility] Stop: 09/04/18 21:59 Last Admin: 08/05/18 21:22 Dose: 1,000 mg Sodium Chloride (Sodium Chloride 0.9% 1000 Ml) 1,000 mls @ 100 mls/hr IV .Q10H [facility] Stop: 09/04/18 14:44 Last Admin: 08/05/18 15:12 Dose: 100 mls/hr Med Admininistration (IV,IVP) Document 08/05/18 15:12 NARGIS (Rec: 08/05/18 15:13 NARGIS [id number]) Type of Administration Initial IV Push Yes Infusion/Titration Document 08/05/18 15:12 NARGIS (Rec: 08/05/18 15:13 NARGIS [id number]) Dosing & Rate IV Rate 100 Increase/Decrease Started Cumulative Dose Not Applicable IV Intake Container Volume 1,000 Volume Adjustment/Waste 0 Code(s): N39.0 - URINARY TRACT INFECTION, SITE NOT SPECIFIED (3) CAD (coronary artery disease) Current Visit: No Status: Chronic Code(s): I25.10 - ATHSCL HEART DISEASE OF [place] CORONARY ARTERY W/O ANG PCTRS - Discharge Discharge Date: 08/06/18 Disposition: Home, Self-Care Condition: Stable Prescriptions: New Ciprofloxacin [Cipro 500 MG] 0 mg PO BIDAC #20 tablet Continue Calcium Carbonate/Vitamin D2 [Calcium with Vit D Tablet] 1 tab PO HS Gabapentin 300 mg PO BID Tamsulosin HCl 0.4 mg [Flomax 0.4 MG] 0.4 mg PO DAILY Sertraline HCl 50 mg [Zoloft 50 mg Tablet] 50 mg PO DAILY Levothyroxine Sodium 50 mcg PO HS Fish Oil/Dha/Epa [Fish Oil 1,200 mg Fish Oil] 1 each PO BID Multivitamin [Multivitamins] 1 each PO DAILY Bumetanide 1 mg [Bumex 1 mg] 1 mg PO DAILY Atorvastatin Calcium 10 mg PO DAILY Amitriptyline HCl 10 mg PO HS ARIPiprazole [Aripiprazole] 10 mg PO HS Aspirin EC 81 mg [Ecotrin 81 mg] 81 mg PO DAILY Finasteride 5 mg PO DAILY Apixaban [Eliquis] 5 mg PO BID Follow up with: STANLEY ROGERS MD [Primary Care Provider] - 1 Week
[2018-08-06 13:45] VITALS: BP 116/71; PULSE 79; O2SAT 94
== END 2018-08-06 14:10 | disposition home or self-care (01) ==
LOC: ED 14:12 → MED SURG 16:50
PROVIDERS: ADMIT General Practice; ATTEND General Practice
DX: R40.0 Somnolence (principal); N39.0 Urinary tract infection, site not specified; I25.10 Atherosclerotic heart disease of native coronary artery without angina pectoris; E03.9 Hypothyroidism, unspecified; E78.00 Pure hypercholesterolemia, unspecified; Z79.899 Other long term (current) drug therapy; Z79.01 Long term (current) use of anticoagulants; Z95.0 Presence of cardiac pacemaker; Z85.038 Personal history of other malignant neoplasm of large intestine; Z95.1 Presence of aortocoronary bypass graft
CPT/HCPCS: 36000; 36415; 70450; 71045; 80053; 81001; 82805; 82962; 83605; 84484; 85025; 87077; 87086; 87186; 93005; 93268; 94762; 96360; 99285; G0378; 96374; J0696; A9270-GY

== ENCOUNTER 2021-09-02 12:31 | Emergency (ER) | payer MEDICARE ==
[2021-09-02 12:49] VITALS: BP 109/70; PULSE 68; O2SAT 95
[2021-09-02] MEDS ORDERED: KEFLEX 500 MG PO ONE (13:17)
[2021-09-02] MEDS ORDERED: KEFLEX 500 MG ONE (13:19)
--- NOTE | 2021-09-02 13:23 | ERPHSYRPT ---
- History of Present Illness Time Seen by Provider: 09/02/21 12:34 Source: patient Exam Limitations: no limitations Patient Subjective Stated Complaint: pt cut left pointer finger with plant trimming gracie yesterday afternoon Triage Nursing Assessment: Pt brought to the ER by his , robert devine, denies pain at this time, 2 cm laceration to left 2nd finger pad, not bleeding at this time Physician History: 76-year-old up-to-date with tetanus on Eliquis right-handed dominant male presented in the ER with laceration left index finger distal phalanx yesterday while trimming plants. There was bleeding initially but stopped with applying pressure on. It still have little oozing since yesterday and mild dull aching pain with palpation. No difficulty movements at distal interphalangeal joint but does have arthritis with some deformity which is chronically there. Timing/Duration: yesterday, sudden Quality: painful Severity: mild Location: hands Possible Causes: other Allergies/Adverse Reactions: No Known Drug Allergies Allergy (Verified 09/02/21 12:49) Home Medications: Calcium Carbonate/Vitamin D2 [Calcium with Vit D Tablet] 1 tab PO HS 09/23/13 [History] Gabapentin 300 mg PO BID 09/23/13 [History] Sertraline HCl 50 mg [Zoloft 50 mg Tablet] 50 mg PO DAILY 09/23/13 [History] Tamsulosin HCl 0.4 mg [Flomax 0.4 MG] 0.4 mg PO DAILY 09/23/13 [History] Fish Oil/Dha/Epa [Fish Oil 1,200 mg Fish Oil] 1 each PO BID 06/04/17 [History] Levothyroxine Sodium 50 mcg PO HS 06/04/17 [History] Multivitamin [Multivitamins] 1 each PO DAILY 01/08/18 [History] ARIPiprazole [Aripiprazole] 10 mg PO HS 06/19/18 [History] Amitriptyline HCl 10 mg PO HS 06/19/18 [History] Atorvastatin Calcium 10 mg PO DAILY 06/19/18 [History] Bumetanide 1 mg [Bumex 1 mg] 1 mg PO DAILY 06/19/18 [History] Apixaban [Eliquis] 5 mg PO BID 08/05/18 [History] Finasteride 5 mg PO DAILY 08/05/18 [History] Hx Tetanus, Diphtheria Vaccination/Date Given: No Hx Influenza Vaccination/Date Given: Yes Hx Pneumococcal Vaccination/Date Given: No Travel Risk - International Travel Have you traveled outside of the country in past 3 weeks: No - Coronavirus Screening Are you exhibiting any of the following symptoms?: No Close contact with a COVID-19 positive Pt in past 14-21 Days: No - Vaccine Status Have you recieved a Covid-19 vaccination: Yes [employer]: Moderna - Vaccination Dates Date of 2cond Vaccination (if applicable): 05/2020 - Review of Systems Constitutional: No Symptoms Ears, Nose, & Throat: No Symptoms Respiratory: No Symptoms Cardiac: No Symptoms Musculoskeletal: Injury Skin: Skin Lesions Neurological: No Symptoms Endocrine: No Symptoms Hematologic/Lymphatic: No Symptoms Immunological/Allergic: No Symptoms - Past Medical History Pertinent Past Medical History: Yes Neurological History: Peripheral Neuropathy ENT History: No Pertinent History Cardiac History: Coronary Artery Disease Respiratory History: No Pertinent History Endocrine Medical History: Hypothyroidism Musculoskeletal History: Arthritis GI Medical History: Colorectal Cancer, Hernia History: Other Psycho-Social History: Depression Male Reproductive Disorders: Prostate Problems Other Medical History: Colorectal cancer - Past Surgical History Past Surgical History: Yes Neuro Surgical History: No Pertinent History Cardiac: CABG, Cardiac Catheterization, Cardiac Stent Respiratory: No Pertinent History Gastrointestinal: Hernia Repair Genitourinary: No Pertinent History Musculoskeletal: Joint Replacement Male Surgical History: No Pertinent History Other Surgical History: 5 VESSEL CABG. COLON RESECTION with colostomy, repair to 2 lower bowel blockages. 2 HERNIA. Right lower lobe of lung removed. Right hip replacement. COLO ANAL RESECTION, STAGE [address] LORENA BRENNER. LEFT KNEE REPLACEMENT. COLOSTOMY STOMA RPTURE REPAIR X 2 - Social History Smoking Status: Former smoker Exposure to second hand smoke: No Drug Use: none Patient Lives Alone: No - Nursing Vital Signs Nursing Vital Signs: Initial Vital Signs Temperature 98.0 F 09/02/21 12:38 Pulse Rate 68 09/02/21 12:38 Blood Pressure 109/70 09/02/21 12:38 O2 Sat by Pulse Oximetry 95 09/02/21 12:38 Pain Scale Pain Intensity 0 - Physical Exam General Appearance: no apparent distress, alert Eye Exam: PERRL/EOMI Neck Exam: normal inspection Respiratory Exam: normal breath sounds, lungs clear Cardiovascular Exam: regular rate/rhythm, normal heart sounds Extremity Exam: lacerations (6 3.5 cm superficial laceration with minimal oozing left index distal phalanx lateral aspect oblique.), swelling, tenderness Neurologic Exam: alert, oriented x 3, cooperative Skin Exam: normal color SpO2 Interpretation: normal SpO2: 95 O2 Delivery: Room Air Procedures - Laceration/Wound Repair Left Finger Time of Procedure: 13:20 Wound Location: Left Wound Length (cm): 3.5 Wound's Depth, Shape: superficial Wound Explored: clean Irrigated: Yes Hibiclens Prep: Yes Wound Repaired With: Steri-strips, Dermabond Sterile Dressing Applied?: Yes - Progress Progress: improved Progress Note: 09/02/21 13:21 Since patient is on Eliquis and still have some oozing, Dermabond Steri-Strips applied. We will give him a short course of antibiotics. Outpatient follow-up. Discussed signs symptoms of worsening needing return to ER which he seems understanding. Counseled pt/family regarding: diagnosis, need for follow-up - Departure Departure Disposition: Home Clinical Impression: Finger laceration Condition: Stable Critical Care Time: No Referrals: STANLEY ROGERS MD [Primary Care Provider] - Follow Up with PCP/3 days Instructions: Laceration Repair With Glue (DC) Additional Instructions: Keep it clean. Tylenol as needed for pain. Follow-up with primary care for reevaluation. Return to ER for increasing pain swelling redness discharge/fever chills etc. Prescriptions: Cephalexin Mh 500 mg [Keflex 500 mg] 500 mg PO TID #14 cap
== END 2021-09-02 13:32 | disposition home or self-care (01) ==
LOC: ED 12:31
DX: S61.211A Laceration without foreign body of left index finger without damage to nail, initial encounter (principal); W27.1XXA Contact with garden tool, initial encounter; Y93.H2 Activity, gardening and landscaping; Z79.01 Long term (current) use of anticoagulants; Z79.899 Other long term (current) drug therapy
CPT/HCPCS: 12002; 99281; A9270-GY

== ENCOUNTER 2021-11-03 15:42 | Observation (INO) | payer MEDICARE ==
--- NOTE | 2021-11-03 16:01 | XRAY ---
Indication: Patient states "not feeling right." Stroke. Multiple contiguous axial images obtained through the head without contrast. Comparison: May 27, 2020 Again age-appropriate global atrophy and mild periventricular degenerative micro-ischemia bilaterally. No acute intracranial hemorrhage, abnormal extra-axial fluid collection, or mass effect. Fourth ventricle is midline without hydrocephalus. Bony calvarium intact. Minimal mucosal thickening both ethmoid sinuses. Remaining visualized paranasal sinuses and mastoid air cells are clear. Impression: Continued nonacute senile brain. Minimal paranasal sinus disease.
--- NOTE | 2021-11-03 16:07 | XRAY ---
Indication: Patient states "not feeling right." Lethargy and gait issues. Comparison: August 05, 2018 Portable chest unchanged again hyperinflated with chronic right hemidiaphragm elevation, right costophrenic angle blunting, CABG, right pacemaker, and left Port-A-Cath. Heart not enlarged. Bony thorax intact again with osteopenia and degenerative changes. No new/acute findings.
[2021-11-03 16:18] LABS: Absolute Neutrophil Ct (ANC) 4.99 x10^3/uL (1.4-6.9); Basophil (Absolute #) 0.11 x10^3/uL (0-0.4); Hematocrit 36.6 % (42-50); Hemoglobin 11.8 g/dL (12.5-18.0); Lymphocyte (Absolute #) 1.22 x10^3/uL (1.0-4.6); Lymphocytes % 16.4 % (24.0-44.0); Mean Cell Volume 94.8 fL (78-100); Mean Corpuscular Hemoglobin 30.6 pg (26-32); Mean Corpuscular Hgb Concent. 32.2 g/dL (32-36); Mean Platelet Volume 9.9 fL (7.5-11.0); Monocyte (Absolute #) 0.79 x10^3/uL (0.0-1.3); Monocytes % 10.6 % (0.0-12.0); Neutrophil % 67.2 % (36.0-66.0); Platelet Count 258 x10^3/uL (150-450); Red Blood Count 3.86 x10^6/uL (4.1-5.6); Red Cell Distribution Width 14.6 % (11.5-14.0); White Blood Count 7.4 x10^3/uL (4.0-10.5)
--- NOTE | 2021-11-03 16:29 | ERPHSYRPT ---
- History of Present Illness Time Seen by Provider: 11/03/21 15:48 Source: patient, family, EMS, other () Exam Limitations: no limitations Physician History: 76-year-old male with multiple medical problems including colon cancer status post chemoradiation, permanent colostomy, coronary artery disease status post CABG, pacemaker placement, hypertension, hyperlipidemia, neuropathy presented in the ER from primary care office with strokelike symptoms. Patient reports he woke up this morning, has not been acting himself, slow and concentrating thinking and remembering routines, getting wobbly with ambulation despite using cane, generalized weakness without any focal numbness or tingling and some visual disturbance. This has been going on since morning. Also questionable confusion. Denies any chest pain palpitations or shortness of breath. No fever chills reported. Timing/Duration: today, constant, sudden Severity: mild, moderate Character of Deficits: general (difuse), vision problems Deficits: off balance Baseline/Normal Cognition: alert oriented x 3 Current Cognition: alert oriented x 3 Baseline Gait: uses cane Associated Symptoms: confusion, fatigue, weakness, trouble walking, vision changes, No loss of consciousness, No vomiting, No slurred speech Allergies/Adverse Reactions: No Known Drug Allergies Allergy (Verified 11/03/21 16:23) Home Medications: Gabapentin 300 mg PO BID 09/23/13 [History] Sertraline HCl 50 mg [Zoloft 50 mg Tablet] 50 mg PO DAILY 09/23/13 [History] Tamsulosin HCl 0.4 mg [Flomax 0.4 MG] 0.4 mg PO BID 09/23/13 [History] Fish Oil/Dha/Epa [Fish Oil 1,200 mg Fish Oil] 1 each PO BID 06/04/17 [History] Levothyroxine Sodium 50 mcg PO HS 06/04/17 [History] Multivitamin [Multivitamins] 1 each PO DAILY 01/08/18 [History] Atorvastatin Calcium 20 mg PO DAILY 06/19/18 [History] Finasteride 5 mg PO DAILY 08/05/18 [History] Apixaban [Eliquis 5 mg Tablet] 5 mg PO BID 11/03/21 [History] Losartan Potassium 50 mg [Cozaar 50 MG] 50 mg PO DAILY 11/03/21 [History] Trazodone HCl 50 mg [Desyrel 50 mg] 100 mg PO HS 11/03/21 [History] Hx Tetanus, Diphtheria Vaccination/Date Given: No Hx Influenza Vaccination/Date Given: Yes Hx Pneumococcal Vaccination/Date Given: No Travel Risk - Vaccine Status Have you recieved a Covid-19 vaccination: Yes Carriage Feeder: Moderna - Vaccination Dates Date of 2cond Vaccination (if applicable): 05/2020 - Review of Systems Constitutional: Fatigue, Weakness Eyes: No Symptoms Ears, Nose, & Throat: No Symptoms Respiratory: No Symptoms Cardiac: No Symptoms Abdominal/Gastrointestinal: No Symptoms Genitourinary Symptoms: No Symptoms Musculoskeletal: No Symptoms Skin: No Symptoms Neurological: Gait Changes Psychological: No Symptoms Endocrine: No Symptoms Hematologic/Lymphatic: No Symptoms Immunological/Allergic: No Symptoms - Past Medical History Pertinent Past Medical History: Yes Neurological History: Peripheral Neuropathy ENT History: No Pertinent History Cardiac History: Coronary Artery Disease Respiratory History: No Pertinent History Endocrine Medical History: Hypothyroidism Musculoskeletal History: Arthritis GI Medical History: Colorectal Cancer, Hernia History: Other Psycho-Social History: Depression Male Reproductive Disorders: Prostate Problems Other Medical History: Colorectal cancer - Past Surgical History Past Surgical History: Yes Neuro Surgical History: No Pertinent History Cardiac: CABG, Cardiac Catheterization, Cardiac Stent Respiratory: No Pertinent History Gastrointestinal: Hernia Repair Genitourinary: No Pertinent History Musculoskeletal: Joint Replacement Male Surgical History: No Pertinent History Other Surgical History: 5 VESSEL CABG. COLON RESECTION with colostomy, repair to 2 lower bowel blockages. 2 HERNIA. Right lower lobe of lung removed. Right hip replacement. COLO ANAL RESECTION, STAGE [address] LORENA BRENNER. LEFT KNEE REPLACEMENT. COLOSTOMY STOMA RPTURE REPAIR X 2 - Social History Smoking Status: Former smoker Exposure to second hand smoke: No Drug Use: none Patient Lives Alone: No - Nursing Vital Signs Nursing Vital Signs: Initial Vital Signs Temperature 97.5 F 11/03/21 16:02 Blood Pressure 77/42 11/03/21 16:02 Pain Scale Pain Intensity 0 - Asha Coma Scale Best Eye Response (Asha): (4) open spontaneously Best Verbal Response (Kanab): (5) oriented Best Motor Response (Asha): (6) obeys commands [place] Total: 15 - Physical Exam General Appearance: no apparent distress, alert, anxiety Eye Exam: bilateral eye: normal inspection, PERRL, EOMI Ears, Nose, Throat Exam: normal ENT inspection, TMs normal, pharynx normal, moist mucous membranes Neck Exam: normal inspection, non-tender, supple, full range of motion Respiratory: normal breath sounds, lungs clear Cardiovascular: regular rate/rhythm, normal heart sounds Gastrointestinal: soft, normal bowel sounds, other (Colostomy bag well applied), No tenderness Back Exam: normal inspection, normal range of motion Extremity Exam: normal inspection, normal range of motion Mental Status: alert, oriented x 3, 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 Exam: normal hearing, normal speech, PERRL Coordination/Gait: normal finger to nose, normal cerebellar function Motor/Sensory: no motor deficit, no sensory deficit, no pronator drift, negative Babinski's sign DTR: bicep (R): 2+, bicep (L): 2+, knee (R): 2+, knee (L): 2+ Skin Exam: normal color SpO2 Interpretation: normal SpO2: 97 O2 Delivery: Room Air Ordered Tests: Active Orders 24 hr Category Date Time Status EKG-ER Only STAT Care 11/03/21 15:49 Active IV Insertion STAT Care 11/03/21 15:49 Active NPO (ED) STAT Care 11/03/21 15:49 Active POCT Glucose Check STAT Care 11/03/21 15:49 Active cath [Cath for Specimen-Straight] STAT Care 11/03/21 17:41 Active Tele-Health Consult ROUTINE Cons 11/03/21 18:38 Active CHEST 1 VIEW (PORTABLE) Stat Exams 11/03/21 15:49 Completed HEAD WITHOUT CONTRAST [CT] Stat Exams 11/03/21 15:43 Completed BLOOD CULTURE Stat Lab 11/03/21 17:35 Received CBC W DIFF Stat Lab 11/03/21 16:15 Completed CMP Stat Lab 11/03/21 16:15 Completed CULTURE,URINE Stat Lab 11/03/21 17:41 Received Lactic Acid Routine Lab 11/03/21 19:40 Completed Lactic Acid Stat Lab 11/03/21 17:03 Completed POCT GLUCOSE Stat Lab 11/03/21 16:11 Completed PROCALCITONIN Stat Lab 11/03/21 17:25 Completed PROTIME WITH INR Stat Lab 11/03/21 16:15 Completed PTT Stat Lab 11/03/21 16:15 Completed TROPONIN Q3H Lab 11/03/21 16:15 Completed TROPONIN Q3H Lab 11/03/21 19:50 Received TROPONIN Q3H Lab 11/03/21 22:00 Ordered TROPONIN Q3H Lab 11/04/21 01:00 Ordered UA W/RFX CULTURE Stat Lab 11/03/21 17:41 Completed Transfer Order Routine Transfer 11/03/21 Ordered Medication Summary Generic Name Dose Route Start Last Admin Trade Name Freq PRN Reason Stop Dose Admin Sodium Chloride 1,000 mls @ 100 mls/hr 11/03/21 16:00 11/03/21 18:09 Sodium Chloride 0.9% 1000 Ml IV 12/03/21 15:59 Infused .Q10H GARY Infusion Discontinued Medications Generic Name Dose Route Start Last Admin Trade Name Freq PRN Reason Stop Dose Admin Sodium Chloride 1,000 mls @ 999 mls/hr 11/03/21 18:16 11/03/21 19:20 Sodium Chloride 0.9% 1000 Ml IV 11/03/21 19:16 Infused .Q1H1M STA Infusion Ceftriaxone Sodium/Dextrose 2 g in 50 mls @ 100 mls/hr 11/03/21 19:30 11/03/21 19:35 Rocephin 2 Gm-D5w 50ml Bag IV 11/03/21 19:59 100 ml/hr STAT STA 100 mls/hr Administration Ceftriaxone Sodium/Dextrose Confirm 11/03/21 19:34 Rocephin 2 Gm-D5w 50ml Bag Administered 11/03/21 19:35 Dose 2 g in 50 mls @ ud IV .K-MED ONE Lab/Rad Data: Laboratory Result Diagrams 11/03/21 16:15 11/03/21 16:15 Laboratory Results 11/03/21 11/03/21 11/03/21 Range/Units 19:40 18:22 17:41 WBC (4.0-10.5) x10^3/uL RBC (4.1-5.6) x10^6/uL Hgb (12.5-18.0) g/dL Hct (42-50) % MCV (78-100) fL MCH (26-32) pg MCHC (32-36) g/dL RDW (11.5-14.0) % Plt Count (150-450) x10^3/uL MPV (7.5-11.0) fL Gran % (36.0-66.0) % Immature Gran % (Auto) (0.00-0.4) % Nucleat RBC Rel Count (0.00-0.1) % Eos # (Auto) (0-0.5) x10^3/uL Immature Gran # (Auto) (0.00-0.03) x10^3u/L Absolute Lymphs (auto) (1.0-4.6) x10^3/uL Absolute Monos (auto) (0.0-1.3) x10^3/uL Absolute Nucleated RBC (0.00-0.01) x10^3u/L Lymphocytes % (24.0-44.0) % Monocytes % (0.0-12.0) % Eosinophils % (0.00-5.0) % Basophils % (0.0-0.4) % Absolute Granulocytes (1.4-6.9) x10^3/uL Basophils # (0-0.4) x10^3/uL PT (9.4-12.5) SECONDS INR (0.8-3.0) APTT (25.1-36.5) SECONDS Sodium (137-145) mmol/L Potassium (3.5-5.1) mmol/L Chloride (98-107) mmol/L Carbon Dioxide (22-30) mmol/L Anion Gap (5-15) MEQ/L BUN (9-20) mg/dL Creatinine (0.66-1.25) mg/dL Estimated GFR ML/MIN Glucose (74-106) mg/dL POC Glucometer (74 to 106) mg/dL Lactic Acid 1.0 (0.4-2.0) Calcium (8.4-10.2) mg/dL Total Bilirubin (0.2-1.3) mg/dL AST (17-59) U/L ALT (0-50) U/L Alkaline Phosphatase (38-126) U/L Troponin I (0.000-0.034) ng/mL Serum Total Protein (6.3-8.2) g/dL Albumin (3.5-5.0) g/dL Procalcitonin (0.030-0.080) ng/mL Urinalys Dipstick Clnc MAIN LAB Urine Color YELLOW (YELLOW) Urine Appearance SLIGHTLY CLOUDY (CLEAR) Urine pH 5.5 (5-6) Ur Specific [place] >=1.030 (1.005-1.025) POC Urine Protein Conf NEGATIVE (Negative) Urine Ketones TRACE (NEGATIVE) Urine Nitrite NEGATIVE (NEGATIVE) Urine Bilirubin NEGATIVE (NEGATIVE) Urine Urobilinogen 0.2 (0-1) mg/dL Urine Leukocytes SMALL (NEGATIVE) Urine WBC (Auto) 16-25 (0-5) /HPF Urine RBC (Auto) 3-5 (0-2) /HPF U Hyaline Cast (Auto) 3-5 (0-2) /LPF U Epithel Cells (Auto) RARE (FEW) /HPF Urine Bacteria (Auto) FEW (NEGATIVE) /HPF Urine RBC NEGATIVE (0-5) Rajeev/ul Urine Mucus (Auto) SLIGHT (NEGATIVE) /HPF Ur Culture Indicated? YES Urine Glucose NEGATIVE (NEGATIVE) mg/dL Influenza Type A Ag NEGATIVE (NEGATIVE) Influenza Type B Ag NEGATIVE (NEGATIVE) RSV (PCR) NEGATIVE (Negative) SARS-CoV-2 (PCR) NEGATIVE (NEGATIVE) 11/03/21 11/03/21 11/03/21 Range/Units 17:25 17:03 16:15 WBC (4.0-10.5) x10^3/uL RBC (4.1-5.6) x10^6/uL Hgb (12.5-18.0) g/dL Hct (42-50) % MCV (78-100) fL MCH (26-32) pg MCHC (32-36) g/dL RDW (11.5-14.0) % Plt Count (150-450) x10^3/uL MPV (7.5-11.0) fL Gran % (36.0-66.0) % Immature Gran % (Auto) (0.00-0.4) % Nucleat RBC Rel Count (0.00-0.1) % Eos # (Auto) (0-0.5) x10^3/uL Immature Gran # (Auto) (0.00-0.03) x10^3u/L Absolute Lymphs (auto) (1.0-4.6) x10^3/uL Absolute Monos (auto) (0.0-1.3) x10^3/uL Absolute Nucleated RBC (0.00-0.01) x10^3u/L Lymphocytes % (24.0-44.0) % Monocytes % (0.0-12.0) % Eosinophils % (0.00-5.0) % Basophils % (0.0-0.4) % Absolute Granulocytes (1.4-6.9) x10^3/uL Basophils # (0-0.4) x10^3/uL PT (9.4-12.5) SECONDS INR (0.8-3.0) APTT (25.1-36.5) SECONDS Sodium (137-145) mmol/L Potassium (3.5-5.1) mmol/L Chloride (98-107) mmol/L Carbon Dioxide (22-30) mmol/L Anion Gap (5-15) MEQ/L BUN (9-20) mg/dL Creatinine (0.66-1.25) mg/dL Estimated GFR ML/MIN Glucose (74-106) mg/dL POC Glucometer (74 to 106) mg/dL Lactic Acid 3.0 H (0.4-2.0) Calcium (8.4-10.2) mg/dL Total Bilirubin (0.2-1.3) mg/dL AST (17-59) U/L ALT (0-50) U/L Alkaline Phosphatase (38-126) U/L Troponin I 0.012 (0.000-0.034) ng/mL Serum Total Protein (6.3-8.2) g/dL Albumin (3.5-5.0) g/dL Procalcitonin 0.063 (0.030-0.080) ng/mL Urinalys Dipstick Clnc Urine Color (YELLOW) Urine Appearance (CLEAR) Urine pH (5-6) Ur Specific [place] (1.005-1.025) POC Urine Protein Conf (Negative) Urine Ketones (NEGATIVE) Urine Nitrite (NEGATIVE) Urine Bilirubin (NEGATIVE) Urine Urobilinogen (0-1) mg/dL Urine Leukocytes (NEGATIVE) Urine WBC (Auto) (0-5) /HPF Urine RBC (Auto) (0-2) /HPF U Hyaline Cast (Auto) (0-2) /LPF U Epithel Cells (Auto) (FEW) /HPF Urine Bacteria (Auto) (NEGATIVE) /HPF Urine RBC (0-5) Rajeev/ul Urine Mucus (Auto) (NEGATIVE) /HPF Ur Culture Indicated? Urine Glucose (NEGATIVE) mg/dL Influenza Type A Ag (NEGATIVE) Influenza Type B Ag (NEGATIVE) RSV (PCR) (Negative) SARS-CoV-2 (PCR) (NEGATIVE) 11/03/21 11/03/21 11/03/21 Range/Units 16:15 16:15 16:15 WBC 7.4 (4.0-10.5) x10^3/uL RBC 3.86 L (4.1-5.6) x10^6/uL Hgb 11.8 L (12.5-18.0) g/dL Hct 36.6 L (42-50) % MCV 94.8 (78-100) fL MCH 30.6 (26-32) pg MCHC 32.2 (32-36) g/dL RDW 14.6 H (11.5-14.0) % Plt Count 258 (150-450) x10^3/uL MPV 9.9 (7.5-11.0) fL Gran % 67.2 H (36.0-66.0) % Immature Gran % (Auto) 0.3 (0.00-0.4) % Nucleat RBC Rel Count 0.0 (0.00-0.1) % Eos # (Auto) 0.30 (0-0.5) x10^3/uL Immature Gran # (Auto) 0.02 (0.00-0.03) x10^3u/L Absolute Lymphs (auto) 1.22 (1.0-4.6) x10^3/uL Absolute Monos (auto) 0.79 (0.0-1.3) x10^3/uL Absolute Nucleated RBC 0.00 (0.00-0.01) x10^3u/L Lymphocytes % 16.4 L (24.0-44.0) % Monocytes % 10.6 (0.0-12.0) % Eosinophils % 4.0 (0.00-5.0) % Basophils % 1.5 (0.0-0.4) % Absolute Granulocytes 4.99 (1.4-6.9) x10^3/uL Basophils # 0.11 (0-0.4) x10^3/uL PT 11.4 (9.4-12.5) SECONDS INR 1.08 (0.8-3.0) APTT 26.5 (25.1-36.5) SECONDS Sodium 139 (137-145) mmol/L Potassium 4.0 (3.5-5.1) mmol/L Chloride 105 (98-107) mmol/L Carbon Dioxide 22 (22-30) mmol/L Anion Gap 16.5 H (5-15) MEQ/L BUN 33 H (9-20) mg/dL Creatinine 1.78 H (0.66-1.25) mg/dL Estimated GFR 39.6 ML/MIN Glucose 81 (74-106) mg/dL POC Glucometer (74 to 106) mg/dL Lactic Acid (0.4-2.0) Calcium 8.9 (8.4-10.2) mg/dL Total Bilirubin 0.80 (0.2-1.3) mg/dL AST 29 (17-59) U/L ALT 11 (0-50) U/L Alkaline Phosphatase 80 (38-126) U/L Troponin I (0.000-0.034) ng/mL Serum Total Protein 7.1 (6.3-8.2) g/dL Albumin 3.8 (3.5-5.0) g/dL Procalcitonin (0.030-0.080) ng/mL Urinalys Dipstick Clnc Urine Color (YELLOW) Urine Appearance (CLEAR) Urine pH (5-6) Ur Specific [place] (1.005-1.025) POC Urine Protein Conf (Negative) Urine Ketones (NEGATIVE) Urine Nitrite (NEGATIVE) Urine Bilirubin (NEGATIVE) Urine Urobilinogen (0-1) mg/dL Urine Leukocytes (NEGATIVE) Urine WBC (Auto) (0-5) /HPF Urine RBC (Auto) (0-2) /HPF U Hyaline Cast (Auto) (0-2) /LPF U Epithel Cells (Auto) (FEW) /HPF Urine Bacteria (Auto) (NEGATIVE) /HPF Urine RBC (0-5) Rajeev/ul Urine Mucus (Auto) (NEGATIVE) /HPF Ur Culture Indicated? Urine Glucose (NEGATIVE) mg/dL Influenza Type A Ag (NEGATIVE) Influenza Type B Ag (NEGATIVE) RSV (PCR) (Negative) SARS-CoV-2 (PCR) (NEGATIVE) 11/03/21 Range/Units 16:11 WBC (4.0-10.5) x10^3/uL RBC (4.1-5.6) x10^6/uL Hgb (12.5-18.0) g/dL Hct (42-50) % MCV (78-100) fL MCH (26-32) pg MCHC (32-36) g/dL RDW (11.5-14.0) % Plt Count (150-450) x10^3/uL MPV (7.5-11.0) fL Gran % (36.0-66.0) % Immature Gran % (Auto) (0.00-0.4) % Nucleat RBC Rel Count (0.00-0.1) % Eos # (Auto) (0-0.5) x10^3/uL Immature Gran # (Auto) (0.00-0.03) x10^3u/L Absolute Lymphs (auto) (1.0-4.6) x10^3/uL Absolute Monos (auto) (0.0-1.3) x10^3/uL Absolute Nucleated RBC (0.00-0.01) x10^3u/L Lymphocytes % (24.0-44.0) % Monocytes % (0.0-12.0) % Eosinophils % (0.00-5.0) % Basophils % (0.0-0.4) % Absolute Granulocytes (1.4-6.9) x10^3/uL Basophils # (0-0.4) x10^3/uL PT (9.4-12.5) SECONDS INR (0.8-3.0) APTT (25.1-36.5) SECONDS Sodium (137-145) mmol/L Potassium (3.5-5.1) mmol/L Chloride (98-107) mmol/L Carbon Dioxide (22-30) mmol/L Anion Gap (5-15) MEQ/L BUN (9-20) mg/dL Creatinine (0.66-1.25) mg/dL Estimated GFR ML/MIN Glucose (74-106) mg/dL POC Glucometer 79 (74 to 106) mg/dL Lactic Acid (0.4-2.0) Calcium (8.4-10.2) mg/dL Total Bilirubin (0.2-1.3) mg/dL AST (17-59) U/L ALT (0-50) U/L Alkaline Phosphatase (38-126) U/L Troponin I (0.000-0.034) ng/mL Serum Total Protein (6.3-8.2) g/dL Albumin (3.5-5.0) g/dL Procalcitonin (0.030-0.080) ng/mL Urinalys Dipstick Clnc Urine Color (YELLOW) Urine Appearance (CLEAR) Urine pH (5-6) Ur Specific [place] (1.005-1.025) POC Urine Protein Conf (Negative) Urine Ketones (NEGATIVE) Urine Nitrite (NEGATIVE) Urine Bilirubin (NEGATIVE) Urine Urobilinogen (0-1) mg/dL Urine Leukocytes (NEGATIVE) Urine WBC (Auto) (0-5) /HPF Urine RBC (Auto) (0-2) /HPF U Hyaline Cast (Auto) (0-2) /LPF U Epithel Cells (Auto) (FEW) /HPF Urine Bacteria (Auto) (NEGATIVE) /HPF Urine RBC (0-5) Rajeev/ul Urine Mucus (Auto) (NEGATIVE) /HPF Ur Culture Indicated? Urine Glucose (NEGATIVE) mg/dL Influenza Type A Ag (NEGATIVE) Influenza Type B Ag (NEGATIVE) RSV (PCR) (Negative) SARS-CoV-2 (PCR) (NEGATIVE) - Progress Progress: improved, re-examined Progress Note: 11/03/21 20:01 76-year-old is evaluated for strokelike symptoms with brain fogginess, not feeling himself with staggering gait. Patient was hypotensive on presentation in the ER, given fluid bolus x2 and blood pressure improved in 130s. Patient is feeling much better. He still have wide-based gait with ataxia more on the left as compared to right. CT head is negative. Has normal white count, chemistries consistent with dehydration and mild worsening of CKD. Does have UTI and given a dose of Rocephin. [facility] neurology consult is obtained, recommended obtaining MRI. No MRI services are available over the weekend, discussed with patient about transfer to facility with MRI services and he does not want to go. Patient rather prefer to stay in here overnight and will have MRI done outpatient on Saturday. I have discussed with and he also recommended keeping him in here and he is well familiar with the patient and we will plan on doing MRI early next week. Discussed with Dr.: Angel, Other (Dr. Baker [facility] neurology) Counseled pt/family regarding: lab results, diagnosis, rad results - Departure Departure Disposition: Observation Clinical Impression: Stroke-like symptoms, Urinary tract infection, Hypotension, SHAKILA (acute kidney injury) Condition: Stable Critical Care Time: Yes Critical Care Time(excluding separately billable procedures): Critical 30-74 mins Referrals: STANLEY ROGERS MD [Primary Care Provider] - Follow up/PCP as directed
[2021-11-03 16:36] LABS: INR 1.08 (0.8-3.0); PROTIME 11.4 SECONDS (9.4-12.5); PTT 26.5 SECONDS (25.1-36.5)
[2021-11-03 16:58] LABS: ALBUMIN 3.8 g/dL (3.5-5.0); ANION GAP 16.5 MEQ/L (5-15); BILIRUBIN,TOTAL 0.8 mg/dL (0.2-1.3); Calcium 8.9 mg/dL (8.4-10.2); Creatinine 1 1.78 mg/dL (0.66-1.25); EST GLOMERULAR FILTRATION RATE 39.6 ML/MIN; Total Protein 7.1 g/dL (6.3-8.2)
[2021-11-03] MEDS: Sodium Chloride 0.9% 1000 ML 1,000 ML IV SCH ×2 (17:08→21:10)
[2021-11-03] MEDS ORDERED: Sodium Chloride 0.9% 1000 ML 1,000 ML IV STA (18:16)
[2021-11-03 18:31] LABS: Bacteria FEW /HPF (NEGATIVE); Epithelial Cells RARE /HPF (FEW); Mucus SLIGHT /HPF (NEGATIVE)
[2021-11-03 18:34] LABS: Appearance SLIGHTLY CLOUDY (CLEAR); Bilirubin NEGATIVE (NEGATIVE); Glucose NEGATIVE (NEGATIVE); Ketones TRACE (NEGATIVE); Specific Gravity >=1.030 (1.005-1.025)
[2021-11-03 18:35] LABS: Dipstick done @ ? MAIN LAB; Nitrite NEGATIVE (NEGATIVE); Ph 5.5 (5-6); Protein,Urine Dip NEGATIVE (Negative); RBC NEGATIVE Ery/ul (0-5); Urine Cultured Indicated? YES; Urobilinogen 0.2 mg/dL (0-1)
[2021-11-03 19:17] LABS: INFLUENZA A NEGATIVE (NEGATIVE); INFLUENZA B NEGATIVE (NEGATIVE); RESPIRATORY SYNCTIAL VIRUS NEGATIVE (Negative); SARS-CoV-2 Xpert Express NEGATIVE (NEGATIVE)
[2021-11-03] MEDS ORDERED: ROCEPHIN 2 Gm-D5w 50ML BAG** 2 G/50 ML IVPB IV STA (19:30)
[2021-11-03] MEDS ORDERED: ROCEPHIN 2 Gm-D5w 50ML BAG** 2 G/50 ML IVPB IV ONE (19:34)
[2021-11-03] MEDS ORDERED: Zofran 4 MG/2 ML VIAL IV PRN (20:08)
[2021-11-03] MEDS ORDERED: TYLENOL 325 MG PO PRN (20:08)
[2021-11-03] MEDS ORDERED: DUONEB 0.5-3 MG/3 ml Neb IH PRN (20:08)
[2021-11-03] MEDS: Pepcid 20 MG VIAL IV SCH (22:00)
[2021-11-03] MEDS ORDERED: DESYREL 50 MG PO SCH (22:00)
[2021-11-03] MEDS ORDERED: SYNTHROID 50 MCG PO SCH (22:00)
[2021-11-03] MEDS: ELIQUIS 2.5 MG TABLET PO SCH (22:00)
[2021-11-03] MEDS: Flomax 0.4 MG PO SCH (22:00)
[2021-11-03] MEDS: NEURONTIN PO SCH (22:00)
[2021-11-04] MEDS ORDERED: Sodium Chloride 0.9% 1000 ML 1,000 ML ONE ×2 (05:38→06:54)
[2021-11-04] MEDS: Sodium Chloride 0.9% 1000 ML 1,000 ML IV SCH (05:41)
[2021-11-04 06:27] LABS: Absolute Neutrophil Ct (ANC) 2.82 x10^3/uL (1.4-6.9); Eosinophil (Absolute #) 0.39 x10^3/uL (0-0.5); Hematocrit 34.9 % (42-50); Hemoglobin 10.7 g/dL (12.5-18.0); Lymphocyte (Absolute #) 1.54 x10^3/uL (1.0-4.6); Lymphocytes % 27.6 % (24.0-44.0); Mean Cell Volume 97.5 fL (78-100); Mean Corpuscular Hemoglobin 29.9 pg (26-32); Mean Corpuscular Hgb Concent. 30.7 g/dL (32-36); Mean Platelet Volume 10.1 fL (7.5-11.0); Monocyte (Absolute #) 0.71 x10^3/uL (0.0-1.3); Monocytes % 12.7 % (0.0-12.0); Neutrophil % 50.5 % (36.0-66.0); Platelet Count 214 x10^3/uL (150-450); Red Blood Count 3.58 x10^6/uL (4.1-5.6); Red Cell Distribution Width 14.6 % (11.5-14.0); White Blood Count 5.6 x10^3/uL (4.0-10.5)
[2021-11-04 06:38] LABS: BILIRUBIN,TOTAL 0.3 mg/dL (0.2-1.3); Calcium 8.2 mg/dL (8.4-10.2); Creatinine 1 1.37 mg/dL (0.66-1.25); EST GLOMERULAR FILTRATION RATE 53.6 ML/MIN; Potassium 4.3 mmol/L (3.5-5.1); Total Protein 5.9 g/dL (6.3-8.2)
[2021-11-04] MEDS: Flomax 0.4 MG PO SCH (09:31)
[2021-11-04] MEDS: NEURONTIN PO SCH (09:31)
[2021-11-04] MEDS: ELIQUIS 2.5 MG TABLET PO SCH (09:31)
[2021-11-04] MEDS: Pepcid 20 MG VIAL IV SCH (09:31)
[2021-11-04] MEDS ORDERED: Cozaar 50 MG PO SCH (10:00)
[2021-11-04] MEDS ORDERED: NON-FORMULARY ITEM (Atorvastatin Calcium [Atorvastatin Calcium] 20 MG Tablet) PO SCH (10:00)
[2021-11-04] MEDS ORDERED: ZOLOFT 50 MG TABLET PO SCH (10:00)
[2021-11-04 12:05] VITALS: BP 135/90; PULSE 66; O2SAT 95
--- NOTE | 2021-11-04 13:10 | PCM.SSS ---
History of Present Illness - Chief Complaint Chief Complaint: weakness, unsteady gait for 6-8 hours History of Present Illness: is a 76 year old male.ith multiple medical problems including colon cancer status post chemoradiation, permanent colostomy, coronary artery disease status post CABG, pacemaker placement, hypertension, hyperlipidemia, neuropathy presented in the ER from primary care office with stroke like symptoms. Patient reports he woke up this morning, has not been acting himself, slow and concentrating thinking and remembering routines, getting wobbly with ambulation despite using cane, generalized weakness without any focal numbness or tingling and some visual disturbance. This has been going on since morning. Also questionable confusion. Denies any chest pain palpitations or shortness of breath. No fever chills reported. Timing/Duration: today, constant, sudden Severity: mild, moderate Character of Deficits: general (difuse), vision problems Deficits: off balance Baseline/Normal Cognition: alert oriented x 3 Current Cognition: alert oriented x 3 Baseline Gait: uses cane Associated Symptoms: confusion, fatigue, weakness, trouble walking, vision efren nges, No loss of consciousness, No vomiting, No slurred speech - Review of Systems Constitutional: Lethargy, Weakness, No Fever, No Chills Eyes: No Symptoms Ears, Nose, & Throat: No Symptoms Respiratory: No Cough, No Short Of Breath Cardiac: No Chest Pain, No Edema, No Syncope Abdominal/Gastrointestinal: No Abdominal Pain, No Nausea, No Vomiting, No Diarrhea Genitourinary Symptoms: No Dysuria Musculoskeletal: No Back Pain, No Neck Pain Skin: No Rash Neurological: Gait Changes, Lethargy, No Dizziness, No Focal Weakness, No Sensory Changes Psychological: No Symptoms Endocrine: No Symptoms Hematologic/Lymphatic: No Symptoms Immunological/Allergic: No Symptoms Medications & Allergies Home Medications: Home Medication List Gabapentin 300 mg PO BID 09/23/13 [History Confirmed 11/03/21] Sertraline HCl 50 mg [Zoloft 50 mg Tablet] 50 mg PO DAILY 09/23/13 [History Confirmed 11/03/21] Tamsulosin HCl 0.4 mg [Flomax 0.4 MG] 0.4 mg PO BID 09/23/13 [History Confirmed 11/03/21] Levothyroxine Sodium 50 mcg PO HS 06/04/17 [History Confirmed 11/03/21] Atorvastatin Calcium 20 mg PO DAILY 06/19/18 [History Confirmed 11/03/21] Apixaban [Eliquis 5 mg Tablet] 5 mg PO BID 11/03/21 [History Confirmed 11/03/21] Cyanocobalamin 1000 Mcg/ml [Cyanocobalamin B-12 1000 MCG/ML] 1,000 mcg IJ UD 11/03/21 [History Confirmed 11/03/21] Losartan Potassium 50 mg [Cozaar 50 MG] 50 mg PO DAILY 11/03/21 [History Confirmed 11/03/21] Trazodone HCl 50 mg [Desyrel 50 mg] 100 mg PO HS 11/03/21 [History Confirmed 11/03/21] Cephalexin Mh 500 mg [Keflex 500 mg] 500 mg PO Q6H 10 Days #40 cap 11/04/21 [Rx] Allergies/Adverse Reactions: Allergies Allergy/AdvReac Type Severity Reaction Status Date / Time No Known Drug Allergies Allergy Verified 11/03/21 16:23 - Past Medical History Past Medical History: Yes Neurological History: Peripheral Neuropathy ENT History: No Pertinent History Cardiac History: Coronary Artery Disease, High Cholesterol Respiratory History: Lung Cancer Endocrine Medical History: Hypothyroidism Musculoskelatal History: Arthritis, Fractures GI Medical History: Colorectal Cancer, Hernia History: Renal Disease, Other Pyscho-Social History: Depression Male Reproductive Disorders: Prostate Problems Comment: self caths 2-3 times a day - Past Surgical History Past Surgical History: Yes Neuro Surgical History: No Pertinent History Cardiac History: CABG, Cardiac Catheterization, Cardiac Stent, Pacemaker Respiratory Surgery: Lobectomy GI Surgical History: Colon Resection, Hernia Repair Genitourinary Surgical Hx: No Pertinent History Musculskeletal Surgical Hx: Joint Replacement Male Surgical History: No Pertinent History Other Surgical History: 5 VESSEL CABG. COLON RESECTION with colostomy, repair to 2 lower bowel blockages. 2 HERNIA. Right lower lobe of lung removed. Right hip replacement. COLO ANAL RESECTION, STAGE [address] LORENA BRENNER. LEFT KNEE REPLACEMENT. COLOSTOMY STOMA RPTURE REPAIR X 2 - Social History Smoking Status: Former smoker Exposure to second hand smoke: No Alcohol: Rarely Drug Use: none - Physical Exam Vital Signs: Vital Signs - 24 hr Temp Pulse Resp BP BP Pulse Ox 11/04/21 12:00 97.1 F 66 16 135/90 95 11/04/21 07:42 97.5 F 69 18 158/93 94 L 11/04/21 04:00 97.3 F 61 18 131/72 95 11/04/21 00:00 97.1 F 60 24 125/63 95 11/03/21 20:40 96.9 F 64 20 130/61 95 11/03/21 20:03 97 11/03/21 19:00 60 16 121/77 95 11/03/21 18:00 68 18 81/46 97 11/03/21 17:00 70 16 90/49 96 11/03/21 16:02 97.5 F 77/42 General Appearance: no apparent distress, alert Neurologic Exam: alert, oriented x 3, cooperative, normal mood/affect, sensation nml, confusion, abnormal gait, No motor deficits Eye Exam: PERRL/EOMI, eyes nml inspection Ears, Nose, Throat Exam: normal ENT inspection, TMs normal, pharynx normal, moist mucous membranes Neck Exam: normal inspection, non-tender, supple, full range of motion Respiratory Exam: normal breath sounds, lungs clear, No respiratory distress Cardiovascular Exam: regular rate/rhythm, normal heart sounds, normal peripheral pulses Gastrointestinal/Abdomen Exam: soft, normal bowel sounds, No tenderness, No mass Back Exam: normal inspection, normal range of motion, No CVA tenderness, No vertebral tenderness Extremity Exam: normal inspection, normal range of motion, pelvis stable Skin Exam: normal color, warm, dry, No rash Lymphatic Exam: No adenopathy Results - Labs Lab/Micro Results: Lab Results-Last 24 Hours 11/03/21 11/03/21 11/03/21 Range/Units 16:11 16:15 16:15 WBC 7.4 (4.0-10.5) x10^3/uL RBC 3.86 L (4.1-5.6) x10^6/uL Hgb 11.8 L (12.5-18.0) g/dL Hct 36.6 L (42-50) % MCV 94.8 (78-100) fL MCH 30.6 (26-32) pg MCHC 32.2 (32-36) g/dL RDW 14.6 H (11.5-14.0) % Plt Count 258 (150-450) x10^3/uL MPV 9.9 (7.5-11.0) fL Gran % 67.2 H (36.0-66.0) % Immature Gran % (Auto) 0.3 (0.00-0.4) % Nucleat RBC Rel Count 0.0 (0.00-0.1) % Eos # (Auto) 0.30 (0-0.5) x10^3/uL Immature Gran # (Auto) 0.02 (0.00-0.03) x10^3u/L Absolute Lymphs (auto) 1.22 (1.0-4.6) x10^3/uL Absolute Monos (auto) 0.79 (0.0-1.3) x10^3/uL Absolute Nucleated RBC 0.00 (0.00-0.01) x10^3u/L Lymphocytes % 16.4 L (24.0-44.0) % Monocytes % 10.6 (0.0-12.0) % Eosinophils % 4.0 (0.00-5.0) % Basophils % 1.5 (0.0-0.4) % Absolute Granulocytes 4.99 (1.4-6.9) x10^3/uL Basophils # 0.11 (0-0.4) x10^3/uL PT (9.4-12.5) SECONDS INR (0.8-3.0) APTT (25.1-36.5) SECONDS Sodium 139 (137-145) mmol/L Potassium 4.0 (3.5-5.1) mmol/L Chloride 105 (98-107) mmol/L Carbon Dioxide 22 (22-30) mmol/L Anion Gap 16.5 H (5-15) MEQ/L BUN 33 H (9-20) mg/dL Creatinine 1.78 H (0.66-1.25) mg/dL Estimated GFR 39.6 ML/MIN Glucose 81 (74-106) mg/dL POC Glucometer 79 (74 to 106) mg/dL Lactic Acid (0.4-2.0) Calcium 8.9 (8.4-10.2) mg/dL Total Bilirubin 0.80 (0.2-1.3) mg/dL AST 29 (17-59) U/L ALT 11 (0-50) U/L Alkaline Phosphatase 80 (38-126) U/L Troponin I (0.000-0.034) ng/mL Serum Total Protein 7.1 (6.3-8.2) g/dL Albumin 3.8 (3.5-5.0) g/dL Procalcitonin (0.030-0.080) ng/mL Urinalys Dipstick Clnc Urine Color (YELLOW) Urine Appearance (CLEAR) Urine pH (5-6) Ur Specific Elbert (1.005-1.025) POC Urine Protein Conf (Negative) Urine Ketones (NEGATIVE) Urine Nitrite (NEGATIVE) Urine Bilirubin (NEGATIVE) Urine Urobilinogen (0-1) mg/dL Urine Leukocytes (NEGATIVE) Urine WBC (Auto) (0-5) /HPF Urine RBC (Auto) (0-2) /HPF U Hyaline Cast (Auto) (0-2) /LPF U Epithel Cells (Auto) (FEW) /HPF Urine Bacteria (Auto) (NEGATIVE) /HPF Urine RBC (0-5) Rajeev/ul Urine Mucus (Auto) (NEGATIVE) /HPF Ur Culture Indicated? Urine Glucose (NEGATIVE) mg/dL Influenza Type A Ag (NEGATIVE) Influenza Type B Ag (NEGATIVE) RSV (PCR) (Negative) SARS-CoV-2 (PCR) (NEGATIVE) 11/03/21 11/03/21 11/03/21 Range/Units 16:15 16:15 17:03 WBC (4.0-10.5) x10^3/uL RBC (4.1-5.6) x10^6/uL Hgb (12.5-18.0) g/dL Hct (42-50) % MCV (78-100) fL MCH (26-32) pg MCHC (32-36) g/dL RDW (11.5-14.0) % Plt Count (150-450) x10^3/uL MPV (7.5-11.0) fL Gran % (36.0-66.0) % Immature Gran % (Auto) (0.00-0.4) % Nucleat RBC Rel Count (0.00-0.1) % Eos # (Auto) (0-0.5) x10^3/uL Immature Gran # (Auto) (0.00-0.03) x10^3u/L Absolute Lymphs (auto) (1.0-4.6) x10^3/uL Absolute Monos (auto) (0.0-1.3) x10^3/uL Absolute Nucleated RBC (0.00-0.01) x10^3u/L Lymphocytes % (24.0-44.0) % Monocytes % (0.0-12.0) % Eosinophils % (0.00-5.0) % Basophils % (0.0-0.4) % Absolute Granulocytes (1.4-6.9) x10^3/uL Basophils # (0-0.4) x10^3/uL PT 11.4 (9.4-12.5) SECONDS INR 1.08 (0.8-3.0) APTT 26.5 (25.1-36.5) SECONDS Sodium (137-145) mmol/L Potassium (3.5-5.1) mmol/L Chloride (98-107) mmol/L Carbon Dioxide (22-30) mmol/L Anion Gap (5-15) MEQ/L BUN (9-20) mg/dL Creatinine (0.66-1.25) mg/dL Estimated GFR ML/MIN Glucose (74-106) mg/dL POC Glucometer (74 to 106) mg/dL Lactic Acid 3.0 H (0.4-2.0) Calcium (8.4-10.2) mg/dL Total Bilirubin (0.2-1.3) mg/dL AST (17-59) U/L ALT (0-50) U/L Alkaline Phosphatase (38-126) U/L Troponin I 0.012 (0.000-0.034) ng/mL Serum Total Protein (6.3-8.2) g/dL Albumin (3.5-5.0) g/dL Procalcitonin (0.030-0.080) ng/mL Urinalys Dipstick Clnc Urine Color (YELLOW) Urine Appearance (CLEAR) Urine pH (5-6) Ur Specific Elbert (1.005-1.025) POC Urine Protein Conf (Negative) Urine Ketones (NEGATIVE) Urine Nitrite (NEGATIVE) Urine Bilirubin (NEGATIVE) Urine Urobilinogen (0-1) mg/dL Urine Leukocytes (NEGATIVE) Urine WBC (Auto) (0-5) /HPF Urine RBC (Auto) (0-2) /HPF U Hyaline Cast (Auto) (0-2) /LPF U Epithel Cells (Auto) (FEW) /HPF Urine Bacteria (Auto) (NEGATIVE) /HPF Urine RBC (0-5) Rajeev/ul Urine Mucus (Auto) (NEGATIVE) /HPF Ur Culture Indicated? Urine Glucose (NEGATIVE) mg/dL Influenza Type A Ag (NEGATIVE) Influenza Type B Ag (NEGATIVE) RSV (PCR) (Negative) SARS-CoV-2 (PCR) (NEGATIVE) 11/03/21 11/03/21 11/03/21 Range/Units 17:25 17:41 18:22 WBC (4.0-10.5) x10^3/uL RBC (4.1-5.6) x10^6/uL Hgb (12.5-18.0) g/dL Hct (42-50) % MCV (78-100) fL MCH (26-32) pg MCHC (32-36) g/dL RDW (11.5-14.0) % Plt Count (150-450) x10^3/uL MPV (7.5-11.0) fL Gran % (36.0-66.0) % Immature Gran % (Auto) (0.00-0.4) % Nucleat RBC Rel Count (0.00-0.1) % Eos # (Auto) (0-0.5) x10^3/uL Immature Gran # (Auto) (0.00-0.03) x10^3u/L Absolute Lymphs (auto) (1.0-4.6) x10^3/uL Absolute Monos (auto) (0.0-1.3) x10^3/uL Absolute Nucleated RBC (0.00-0.01) x10^3u/L Lymphocytes % (24.0-44.0) % Monocytes % (0.0-12.0) % Eosinophils % (0.00-5.0) % Basophils % (0.0-0.4) % Absolute Granulocytes (1.4-6.9) x10^3/uL Basophils # (0-0.4) x10^3/uL PT (9.4-12.5) SECONDS INR (0.8-3.0) APTT (25.1-36.5) SECONDS Sodium (137-145) mmol/L Potassium (3.5-5.1) mmol/L Chloride (98-107) mmol/L Carbon Dioxide (22-30) mmol/L Anion Gap (5-15) MEQ/L BUN (9-20) mg/dL Creatinine (0.66-1.25) mg/dL Estimated GFR ML/MIN Glucose (74-106) mg/dL POC Glucometer (74 to 106) mg/dL Lactic Acid (0.4-2.0) Calcium (8.4-10.2) mg/dL Total Bilirubin (0.2-1.3) mg/dL AST (17-59) U/L ALT (0-50) U/L Alkaline Phosphatase (38-126) U/L Troponin I (0.000-0.034) ng/mL Serum Total Protein (6.3-8.2) g/dL Albumin (3.5-5.0) g/dL Procalcitonin 0.063 (0.030-0.080) ng/mL Urinalys Dipstick Clnc MAIN LAB Urine Color YELLOW (YELLOW) Urine Appearance SLIGHTLY CLOUDY (CLEAR) Urine pH 5.5 (5-6) Ur Specific Elbert >=1.030 (1.005-1.025) POC Urine Protein Conf NEGATIVE (Negative) Urine Ketones TRACE (NEGATIVE) Urine Nitrite NEGATIVE (NEGATIVE) Urine Bilirubin NEGATIVE (NEGATIVE) Urine Urobilinogen 0.2 (0-1) mg/dL Urine Leukocytes SMALL (NEGATIVE) Urine WBC (Auto) 16-25 (0-5) /HPF Urine RBC (Auto) 3-5 (0-2) /HPF U Hyaline Cast (Auto) 3-5 (0-2) /LPF U Epithel Cells (Auto) RARE (FEW) /HPF Urine Bacteria (Auto) FEW (NEGATIVE) /HPF Urine RBC NEGATIVE (0-5) Rajeev/ul Urine Mucus (Auto) SLIGHT (NEGATIVE) /HPF Ur Culture Indicated? YES Urine Glucose NEGATIVE (NEGATIVE) mg/dL Influenza Type A Ag NEGATIVE (NEGATIVE) Influenza Type B Ag NEGATIVE (NEGATIVE) RSV (PCR) NEGATIVE (Negative) SARS-CoV-2 (PCR) NEGATIVE (NEGATIVE) 11/03/21 11/03/21 11/03/21 Range/Units 19:40 19:50 23:10 WBC (4.0-10.5) x10^3/uL RBC (4.1-5.6) x10^6/uL Hgb (12.5-18.0) g/dL Hct (42-50) % MCV (78-100) fL MCH (26-32) pg MCHC (32-36) g/dL RDW (11.5-14.0) % Plt Count (150-450) x10^3/uL MPV (7.5-11.0) fL Gran % (36.0-66.0) % Immature Gran % (Auto) (0.00-0.4) % Nucleat RBC Rel Count (0.00-0.1) % Eos # (Auto) (0-0.5) x10^3/uL Immature Gran # (Auto) (0.00-0.03) x10^3u/L Absolute Lymphs (auto) (1.0-4.6) x10^3/uL Absolute Monos (auto) (0.0-1.3) x10^3/uL Absolute Nucleated RBC (0.00-0.01) x10^3u/L Lymphocytes % (24.0-44.0) % Monocytes % (0.0-12.0) % Eosinophils % (0.00-5.0) % Basophils % (0.0-0.4) % Absolute Granulocytes (1.4-6.9) x10^3/uL Basophils # (0-0.4) x10^3/uL PT (9.4-12.5) SECONDS INR (0.8-3.0) APTT (25.1-36.5) SECONDS Sodium (137-145) mmol/L Potassium (3.5-5.1) mmol/L Chloride (98-107) mmol/L Carbon Dioxide (22-30) mmol/L Anion Gap (5-15) MEQ/L BUN (9-20) mg/dL Creatinine (0.66-1.25) mg/dL Estimated GFR ML/MIN Glucose (74-106) mg/dL POC Glucometer (74 to 106) mg/dL Lactic Acid 1.0 (0.4-2.0) Calcium (8.4-10.2) mg/dL Total Bilirubin (0.2-1.3) mg/dL AST (17-59) U/L ALT (0-50) U/L Alkaline Phosphatase (38-126) U/L Troponin I < 0.012 < 0.012 (0.000-0.034) ng/mL Serum Total Protein (6.3-8.2) g/dL Albumin (3.5-5.0) g/dL Procalcitonin (0.030-0.080) ng/mL Urinalys Dipstick Clnc Urine Color (YELLOW) Urine Appearance (CLEAR) Urine pH (5-6) Ur Specific Elbert (1.005-1.025) POC Urine Protein Conf (Negative) Urine Ketones (NEGATIVE) Urine Nitrite (NEGATIVE) Urine Bilirubin (NEGATIVE) Urine Urobilinogen (0-1) mg/dL Urine Leukocytes (NEGATIVE) Urine WBC (Auto) (0-5) /HPF Urine RBC (Auto) (0-2) /HPF U Hyaline Cast (Auto) (0-2) /LPF U Epithel Cells (Auto) (FEW) /HPF Urine Bacteria (Auto) (NEGATIVE) /HPF Urine RBC (0-5) Rajeev/ul Urine Mucus (Auto) (NEGATIVE) /HPF Ur Culture Indicated? Urine Glucose (NEGATIVE) mg/dL Influenza Type A Ag (NEGATIVE) Influenza Type B Ag (NEGATIVE) RSV (PCR) (Negative) SARS-CoV-2 (PCR) (NEGATIVE) 11/04/21 11/04/21 Range/Units 05:43 05:43 WBC 5.6 (4.0-10.5) x10^3/uL RBC 3.58 L (4.1-5.6) x10^6/uL Hgb 10.7 L (12.5-18.0) g/dL Hct 34.9 L (42-50) % MCV 97.5 (78-100) fL MCH 29.9 (26-32) pg MCHC 30.7 L (32-36) g/dL RDW 14.6 H (11.5-14.0) % Plt Count 214 (150-450) x10^3/uL MPV 10.1 (7.5-11.0) fL Gran % 50.5 (36.0-66.0) % Immature Gran % (Auto) 0.4 (0.00-0.4) % Nucleat RBC Rel Count 0.0 (0.00-0.1) % Eos # (Auto) 0.39 (0-0.5) x10^3/uL Immature Gran # (Auto) 0.02 (0.00-0.03) x10^3u/L Absolute Lymphs (auto) 1.54 (1.0-4.6) x10^3/uL Absolute Monos (auto) 0.71 (0.0-1.3) x10^3/uL Absolute Nucleated RBC 0.00 (0.00-0.01) x10^3u/L Lymphocytes % 27.6 (24.0-44.0) % Monocytes % 12.7 H (0.0-12.0) % Eosinophils % 7.0 H (0.00-5.0) % Basophils % 1.8 (0.0-0.4) % Absolute Granulocytes 2.82 (1.4-6.9) x10^3/uL Basophils # 0.10 (0-0.4) x10^3/uL PT (9.4-12.5) SECONDS INR (0.8-3.0) APTT (25.1-36.5) SECONDS Sodium 139 (137-145) mmol/L Potassium 4.3 (3.5-5.1) mmol/L Chloride 112 H (98-107) mmol/L Carbon Dioxide 23 (22-30) mmol/L Anion Gap 9.0 (5-15) MEQ/L BUN 28 H (9-20) mg/dL Creatinine 1.37 H (0.66-1.25) mg/dL Estimated GFR 53.6 ML/MIN Glucose 85 (74-106) mg/dL POC Glucometer (74 to 106) mg/dL Lactic Acid (0.4-2.0) Calcium 8.2 L (8.4-10.2) mg/dL Total Bilirubin 0.30 (0.2-1.3) mg/dL AST 21 (17-59) U/L ALT 10 (0-50) U/L Alkaline Phosphatase 86 (38-126) U/L Troponin I (0.000-0.034) ng/mL Serum Total Protein 5.9 L (6.3-8.2) g/dL Albumin 3.0 L (3.5-5.0) g/dL Procalcitonin (0.030-0.080) ng/mL Urinalys Dipstick Clnc Urine Color (YELLOW) Urine Appearance (CLEAR) Urine pH (5-6) Ur Specific Elbert (1.005-1.025) POC Urine Protein Conf (Negative) Urine Ketones (NEGATIVE) Urine Nitrite (NEGATIVE) Urine Bilirubin (NEGATIVE) Urine Urobilinogen (0-1) mg/dL Urine Leukocytes (NEGATIVE) Urine WBC (Auto) (0-5) /HPF Urine RBC (Auto) (0-2) /HPF U Hyaline Cast (Auto) (0-2) /LPF U Epithel Cells (Auto) (FEW) /HPF Urine Bacteria (Auto) (NEGATIVE) /HPF Urine RBC (0-5) Rajeev/ul Urine Mucus (Auto) (NEGATIVE) /HPF Ur Culture Indicated? Urine Glucose (NEGATIVE) mg/dL Influenza Type A Ag (NEGATIVE) Influenza Type B Ag (NEGATIVE) RSV (PCR) (Negative) SARS-CoV-2 (PCR) (NEGATIVE) Accuchecks Date 11/03/21 Time 16:18 - Radiology Impressions Radiology Exams & Impressions: Radiology Procedures Category Date Time Status CHEST 1 VIEW (PORTABLE) Stat Exams 11/03/21 15:49 Completed HEAD WITHOUT CONTRAST [CT] Stat Exams 11/03/21 15:43 Completed RAD/CHEST 1 VIEW (PORTABLE) Indication: Patient states "not feeling right." Lethargy and gait issues. Comparison: August 05, 2018 Portable chest unchanged again hyperinflated with chronic right hemidiaphragm elevation, right costophrenic angle blunting, CABG, right pacemaker, and left Port-A-Cath. Heart not enlarged. Bony thorax intact again with osteopenia and degenerative changes. No new/acute findings. CT/HEAD WITHOUT CONTRAST Indication: Patient states "not feeling right." Stroke. Multiple contiguous axial images obtained through the head without contrast. Comparison: May 27, 2020 Again age-appropriate global atrophy and mild periventricular degenerative micro-ischemia bilaterally. No acute intracranial hemorrhage, abnormal extra-axial fluid collection, or mass effect. Fourth ventricle is midline without hydrocephalus. Bony calvarium intact. Minimal mucosal thickening both ethmoid sinuses. Remaining visualized paranasal sinuses and mastoid air cells are clear. Impression: Continued nonacute senile brain. Minimal paranasal sinus disease. Assessment/Plan (1) SHAKILA (acute kidney injury) Status: Resolved Code(s): N17.9 - ACUTE KIDNEY FAILURE, UNSPECIFIED (2) Stroke-like symptoms Status: Resolved Code(s): R29.90 - UNSPECIFIED SYMPTOMS AND SIGNS INVOLVING THE NERVOUS SYSTEM (3) Urinary tract infection Status: Acute Qualifiers: Urinary tract infection type: site unspecified Hematuria presence: without hematuria Qualified Code(s): N39.0 - Urinary tract infection, site not specified Code(s): N39.0 - URINARY TRACT INFECTION, SITE NOT SPECIFIED (4) CAD (coronary artery disease) Status: Chronic Code(s): I25.10 - ATHSCL HEART DISEASE OF [place] CORONARY ARTERY W/O [facility] Summary - Hospital Course Hospital Course: Chief Complaint Diagnosis UTI, SHAKILA, dehydration Allergies Allergy/AdvReac Type Severity Reaction Status Date / Time No Known Drug Allergies Allergy Verified 11/03/21 16:23 Vital Signs (Last 24 hours) Temp Pulse Resp BP BP Pulse Ox 11/04/21 12:00 97.1 F 66 16 135/90 95 11/04/21 07:42 97.5 F 69 18 158/93 94 L 11/04/21 04:00 97.3 F 61 18 131/72 95 11/04/21 00:00 97.1 F 60 24 125/63 95 11/03/21 20:40 96.9 F 64 20 130/61 95 11/03/21 20:03 97 11/03/21 19:00 60 16 121/77 95 11/03/21 18:00 68 18 81/46 97 11/03/21 17:00 70 16 90/49 96 11/03/21 16:02 97.5 F 77/42 Home Medications Medication Instructions Recorded Confirmed Last Taken Type Apixaban [Eliquis 5 mg 5 mg PO BID 11/03/21 11/03/21 11/03/21 History Tablet] Cyanocobalamin 1000 Mcg/ml 1,000 mcg IJ UD 11/03/21 11/03/21 Unknown History [Cyanocobalamin B-12 1000 MCG/ML] Losartan Potassium 50 mg 50 mg PO DAILY 11/03/21 11/03/21 11/03/21 History [Cozaar 50 MG] Trazodone HCl 50 mg [Desyrel 50 100 mg PO HS 11/03/21 11/03/21 11/02/21 History mg] Cephalexin Mh 500 mg [Keflex 500 500 mg PO Q6H 10 Days #40 cap 11/04/21 Unknown Rx mg] Current Medications Discontinued Medications Generic Name Dose Route Start Last Admin Trade Name Freq PRN Reason Stop Dose Admin Acetaminophen 650 mg 11/03/21 20:08 Acetaminophen 325 Mg Tablet PO 12/03/21 20:07 Q4H PRN PRN PAIN AND/OR FEVER Albuterol/Ipratropium 3 ml 11/03/21 20:08 Ipratropium/Albuterol Sulfate 3 Ml Ampul.Neb IH 12/03/21 20:07 Q4HPRN PRN SHORTNESS OF BREATH/WHEEZING Apixaban 5 mg 11/03/21 22:00 11/04/21 09:31 Apixaban 2.5 Mg Tablet PO 12/03/21 21:59 5 mg BID GARY Administration Cyanocobalamin 1,000 mcg 11/25/21 08:45 Cyanocobalamin 1000 Mcg/Ml Vial IJ 12/25/21 08:44 Q30D GARY Famotidine 20 mg 11/03/21 22:00 11/04/21 09:31 Famotidine 20 Mg/1 Vial IV 12/03/21 21:59 20 mg Q12HT GARY Administration Gabapentin 300 mg 11/03/21 22:00 11/04/21 09:31 Gabapentin 300 Mg Capsule PO 12/03/21 21:59 300 mg BID GARY Administration Sodium Chloride 1,000 mls @ 100 mls/hr 11/03/21 16:00 11/04/21 05:41 Sodium Chloride 0.9% 1000 Ml IV 12/03/21 15:59 100 mls/hr .Q10H GARY Administration Sodium Chloride 1,000 mls @ 999 mls/hr 11/03/21 18:16 11/03/21 19:20 Sodium Chloride 0.9% 1000 Ml IV 11/03/21 19:16 Infused .Q1H1M STA Infusion Ceftriaxone Sodium/Dextrose 2 g in 50 mls @ 100 mls/hr 11/03/21 19:30 11/03/21 19:35 Rocephin 2 Gm-D5w 50ml Bag IV 11/03/21 19:59 100 ml/hr STAT STA 100 mls/hr Administration Ceftriaxone Sodium/Dextrose Confirm 11/03/21 19:34 Rocephin 2 Gm-D5w 50ml Bag Administered 11/03/21 19:35 Dose 2 g in 50 mls @ ud IV .STK-MED ONE Ceftriaxone Sodium/Dextrose 1 g in 50 mls @ 100 mls/hr 11/04/21 22:00 Rocephin 1 Gm-D5w 50 Ml Bag IV 11/07/21 21:59 Q24H22 GARY Sodium Chloride Confirm 11/04/21 05:38 Sodium Chloride 0.9% 1000 Ml Administered 11/04/21 05:39 Dose 1,000 mls @ ud .ROUTE .STK-MED ONE Sodium Chloride Confirm 11/04/21 06:54 Sodium Chloride 0.9% 1000 Ml Administered 11/04/21 06:55 Dose 1,000 mls @ ud .ROUTE .STK-MED ONE Levothyroxine Sodium 50 mcg 11/03/21 22:00 11/03/21 22:25 Levothyroxine Sodium 50 Mcg Tablet PO 12/03/21 21:59 50 mcg HS GARY Administration Losartan Potassium 50 mg 11/04/21 10:00 11/04/21 09:31 Losartan Potassium 50 Mg Tablet PO 12/04/21 09:59 50 mg DAILY GARY Administration Ondansetron HCl 4 mg 11/03/21 20:08 Ondansetron Hcl 4 Mg/2 Ml Vial IV 12/03/21 20:07 Q6H PRN PRN NAUSEA/VOMITING Sertraline HCl 50 mg 11/04/21 10:00 11/04/21 09:31 Sertraline Hcl 50 Mg Tab PO 12/04/21 09:59 50 mg DAILY GARY Administration Simvastatin 20 mg 11/04/21 22:00 Simvastatin 20 Mg Tablet PO 12/04/21 21:59 HS GARY Tamsulosin HCl 0.4 mg 11/03/21 22:00 11/04/21 09:31 Tamsulosin Hcl 0.4 Mg Cap PO 12/03/21 21:59 0.4 mg BID GARY Administration Trazodone HCl 100 mg 11/03/21 22:00 11/03/21 22:01 Trazodone Hcl 50 Mg Tablet PO 12/03/21 21:59 100 mg HS GRAY Administration Intake & Output (Last 24 hours) 11/02/21 11/03/21 11/04/21 11/05/21 11:59 11:59 11:59 11:59 Intake Total 1585 Balance 1585 Weight 85.9 kg Microbiology Results (Last 24 hours) 11/03/21 17:41 Clean Catch Midstream Urine Culture - Pending 11/03/21 17:35 Blood Blood Culture Gram Stain - Pending 11/03/21 17:35 Blood Blood Culture - Pending 11/03/21 17:25 Blood Blood Culture Gram Stain - Pending 11/03/21 17:25 Blood Blood Culture - Pending Laboratory Results (Last 24 hours) 11/04/21 11/04/21 11/03/21 05:43 05:43 23:10 WBC 5.6 RBC 3.58 L Hgb 10.7 L Hct 34.9 L MCV 97.5 MCH 29.9 MCHC 30.7 L RDW 14.6 H Plt Count 214 MPV 10.1 Gran % 50.5 Immature Gran % (Auto) 0.4 Nucleat RBC Rel Count 0.0 Eos # (Auto) 0.39 Immature Gran # (Auto) 0.02 Absolute Lymphs (auto) 1.54 Absolute Monos (auto) 0.71 Absolute Nucleated RBC 0.00 Lymphocytes % 27.6 Monocytes % 12.7 H Eosinophils % 7.0 H Basophils % 1.8 Absolute Granulocytes 2.82 Basophils # 0.10 PT INR APTT Sodium 139 Potassium 4.3 Chloride 112 H Carbon Dioxide 23 Anion Gap 9.0 BUN 28 H Creatinine 1.37 H Estimated GFR 53.6 Glucose 85 POC Glucometer Lactic Acid Calcium 8.2 L Total Bilirubin 0.30 AST 21 ALT 10 Alkaline Phosphatase 86 Troponin I < 0.012 Serum Total Protein 5.9 L Albumin 3.0 L Procalcitonin Urinalys Dipstick Clnc Urine Color Urine Appearance Urine pH Ur Specific Elbert POC Urine Protein Conf Urine Ketones Urine Nitrite Urine Bilirubin Urine Urobilinogen Urine Leukocytes Urine WBC (Auto) Urine RBC (Auto) U Hyaline Cast (Auto) U Epithel Cells (Auto) Urine Bacteria (Auto) Urine RBC Urine Mucus (Auto) Ur Culture Indicated? Urine Glucose Influenza Type A Ag Influenza Type B Ag RSV (PCR) SARS-CoV-2 (PCR) 11/03/21 11/03/21 11/03/21 19:50 19:40 18:22 WBC RBC Hgb Hct MCV MCH MCHC RDW Plt Count MPV Gran % Immature Gran % (Auto) Nucleat RBC Rel Count Eos # (Auto) Immature Gran # (Auto) Absolute Lymphs (auto) Absolute Monos (auto) Absolute Nucleated RBC Lymphocytes % Monocytes % Eosinophils % Basophils % Absolute Granulocytes Basophils # PT INR APTT Sodium Potassium Chloride Carbon Dioxide Anion Gap BUN Creatinine Estimated GFR Glucose POC Glucometer Lactic Acid 1.0 Calcium Total Bilirubin AST ALT Alkaline Phosphatase Troponin I < 0.012 Serum Total Protein Albumin Procalcitonin Urinalys Dipstick Clnc Urine Color Urine Appearance Urine pH Ur Specific Elbert POC Urine Protein Conf Urine Ketones Urine Nitrite Urine Bilirubin Urine Urobilinogen Urine Leukocytes Urine WBC (Auto) Urine RBC (Auto) U Hyaline Cast (Auto) U Epithel Cells (Auto) Urine Bacteria (Auto) Urine RBC Urine Mucus (Auto) Ur Culture Indicated? Urine Glucose Influenza Type A Ag NEGATIVE Influenza Type B Ag NEGATIVE RSV (PCR) NEGATIVE SARS-CoV-2 (PCR) NEGATIVE 11/03/21 11/03/21 11/03/21 17:41 17:25 17:03 WBC RBC Hgb Hct MCV MCH MCHC RDW Plt Count MPV Gran % Immature Gran % (Auto) Nucleat RBC Rel Count Eos # (Auto) Immature Gran # (Auto) Absolute Lymphs (auto) Absolute Monos (auto) Absolute Nucleated RBC Lymphocytes % Monocytes % Eosinophils % Basophils % Absolute Granulocytes Basophils # PT INR APTT Sodium Potassium Chloride Carbon Dioxide Anion Gap BUN Creatinine Estimated GFR Glucose POC Glucometer Lactic Acid 3.0 H Calcium Total Bilirubin AST ALT Alkaline Phosphatase Troponin I Serum Total Protein Albumin Procalcitonin 0.063 Urinalys Dipstick Clnc MAIN LAB Urine Color YELLOW Urine Appearance SLIGHTLY CLOUDY Urine pH 5.5 Ur Specific Elbert >=1.030 POC Urine Protein Conf NEGATIVE Urine Ketones TRACE Urine Nitrite NEGATIVE Urine Bilirubin NEGATIVE Urine Urobilinogen 0.2 Urine Leukocytes SMALL Urine WBC (Auto) 16-25 Urine RBC (Auto) 3-5 U Hyaline Cast (Auto) 3-5 U Epithel Cells (Auto) RARE Urine Bacteria (Auto) FEW Urine RBC NEGATIVE Urine Mucus (Auto) SLIGHT Ur Culture Indicated? YES Urine Glucose NEGATIVE Influenza Type A Ag Influenza Type B Ag RSV (PCR) SARS-CoV-2 (PCR) 11/03/21 11/03/21 11/03/21 16:15 16:15 16:15 WBC RBC Hgb Hct MCV MCH MCHC RDW Plt Count MPV Gran % Immature Gran % (Auto) Nucleat RBC Rel Count Eos # (Auto) Immature Gran # (Auto) Absolute Lymphs (auto) Absolute Monos (auto) Absolute Nucleated RBC Lymphocytes % Monocytes % Eosinophils % Basophils % Absolute Granulocytes Basophils # PT 11.4 INR 1.08 APTT 26.5 Sodium 139 Potassium 4.0 Chloride 105 Carbon Dioxide 22 Anion Gap 16.5 H BUN 33 H Creatinine 1.78 H Estimated GFR 39.6 Glucose 81 POC Glucometer Lactic Acid Calcium 8.9 Total Bilirubin 0.80 AST 29 ALT 11 Alkaline Phosphatase 80 Troponin I 0.012 Serum Total Protein 7.1 Albumin 3.8 Procalcitonin Urinalys Dipstick Clnc Urine Color Urine Appearance Urine pH Ur Specific Elbert POC Urine Protein Conf Urine Ketones Urine Nitrite Urine Bilirubin Urine Urobilinogen Urine Leukocytes Urine WBC (Auto) Urine RBC (Auto) U Hyaline Cast (Auto) U Epithel Cells (Auto) Urine Bacteria (Auto) Urine RBC Urine Mucus (Auto) Ur Culture Indicated? Urine Glucose Influenza Type A Ag Influenza Type B Ag RSV (PCR) SARS-CoV-2 (PCR) 11/03/21 11/03/21 16:15 16:11 WBC 7.4 RBC 3.86 L Hgb 11.8 L Hct 36.6 L MCV 94.8 MCH 30.6 MCHC 32.2 RDW 14.6 H Plt Count 258 MPV 9.9 Gran % 67.2 H Immature Gran % (Auto) 0.3 Nucleat RBC Rel Count 0.0 Eos # (Auto) 0.30 Immature Gran # (Auto) 0.02 Absolute Lymphs (auto) 1.22 Absolute Monos (auto) 0.79 Absolute Nucleated RBC 0.00 Lymphocytes % 16.4 L Monocytes % 10.6 Eosinophils % 4.0 Basophils % 1.5 Absolute Granulocytes 4.99 Basophils # 0.11 PT INR APTT Sodium Potassium Chloride Carbon Dioxide Anion Gap BUN Creatinine Estimated GFR Glucose POC Glucometer 79 Lactic Acid Calcium Total Bilirubin AST ALT Alkaline Phosphatase Troponin I Serum Total Protein Albumin Procalcitonin Urinalys Dipstick Clnc Urine Color Urine Appearance Urine pH Ur Specific Elbert POC Urine Protein Conf Urine Ketones Urine Nitrite Urine Bilirubin Urine Urobilinogen Urine Leukocytes Urine WBC (Auto) Urine RBC (Auto) U Hyaline Cast (Auto) U Epithel Cells (Auto) Urine Bacteria (Auto) Urine RBC Urine Mucus (Auto) Ur Culture Indicated? Urine Glucose Influenza Type A Ag Influenza Type B Ag RSV (PCR) SARS-CoV-2 (PCR) Orders (Last 24 hours) Category Date Time Status Bedrest ROUTINE Activity 11/03/21 20:08 Completed Up With Assistance ROUTINE Activity 11/03/21 20:08 Completed Code Status Order ROUTINE Care 11/03/21 20:08 Completed EKG-ER Only STAT Care 11/03/21 15:49 Completed Fall Protocol Q1H Care 11/03/21 20:08 Completed IV Care Q6H Care 11/03/21 20:08 Completed IV Insertion STAT Care 11/03/21 15:49 Completed NPO (ED) STAT Care 11/03/21 15:49 Completed Neuro Checks Q2H Care 11/03/21 20:08 Completed POCT Glucose Check STAT Care 11/03/21 15:[address] in Observation ROUTINE Care 11/03/21 20:08 Completed Sim Morgan, Apply ROUTINE Care 11/03/21 20:08 Completed Weight,Daily 0600 Care 11/03/21 20:08 Completed cath [Cath for Specimen-Straight] STAT Care 11/03/21 17:41 Completed Tele-Health Consult ROUTINE Cons 11/03/21 18:38 Completed Heart-Healthy Diet Diet 11/04/21 Breakfast Completed Nutritional Admission Screen ONCE Diet 11/03/21 20:55 Completed Discharge Routine Discharge 11/04/21 Ordered CHEST 1 VIEW (PORTABLE) Stat Exams 11/03/21 15:49 Completed HEAD WITHOUT CONTRAST [CT] Stat Exams 11/03/21 15:43 Completed BLOOD CULTURE Stat Lab 11/03/21 17:35 Received CBC W DIFF AM.LAB Lab 11/04/21 05:43 Completed CBC W DIFF Stat Lab 11/03/21 16:15 Completed CMP AM.LAB Lab 11/04/21 05:43 Completed CMP Stat Lab 11/03/21 16:15 Completed COVID/FLU/RSV Panel Stat Lab 11/03/21 18:22 Completed CULTURE,URINE Stat Lab 11/03/21 17:41 Received Lactic Acid Routine Lab 11/03/21 19:40 Completed Lactic Acid Stat Lab 11/03/21 17:03 Completed POCT GLUCOSE Stat Lab 11/03/21 16:11 Completed PROCALCITONIN Stat Lab 11/03/21 17:25 Completed PROTIME WITH INR Stat Lab 11/03/21 16:15 Completed PTT Stat Lab 11/03/21 16:15 Completed TROPONIN Q3H Lab 11/03/21 16:15 Completed TROPONIN Q3H Lab 11/03/21 19:50 Completed TROPONIN Q3H Lab 11/03/21 23:10 Completed UA W/RFX CULTURE Stat Lab 11/03/21 17:41 Completed Acetaminophen 325 mg [Tylenol 325 mg] Med 11/03/21 20:08 Discontinued 650 mg PO Q4H PRN PRN Albuterol/Ipratropium 3ml Neb* [DUONEB 0.5-3 MG/3 ml Med 11/03/21 20:08 Discontinued Neb] 3 ml IH Q4HPRN PRN Apixaban [Eliquis 2.5 mg Tablet] Med 11/03/21 22:00 Discontinued 5 mg PO BID Ceftriaxone 1 GM/50 ML PREMIX* [ROCEPHIN 1 Gm-D5w 50 ml Med 11/04/21 22:00 Discontinued Bag] 1 g in 50 ml IV Q24H22 Ceftriaxone 2 GM/50 ML PREMIX* [ROCEPHIN 2 Gm-D5w 50ML Med 11/03/21 19:30 Discontinued BAG] 2 g in 50 ml IV STAT Ceftriaxone 2 GM/50 ML PREMIX* [ROCEPHIN 2 Gm-D5w 50ML Med 11/03/21 19:34 Discontinued BAG] 2 g in 50 ml IV UD Cyanocobalamin 1000 Mcg/ml [Cyanocobalamin B-12 1000 Med 11/25/21 08:45 Discontinued MCG/ML] 1,000 mcg IJ Q30D Famotidine 20 mg Vial [Pepcid 20 MG VIAL] Med 11/03/21 22:00 Discontinued 20 mg IV Q12HT Gabapentin [Neurontin ] Med 11/03/21 22:00 Discontinued 300 mg PO BID Levothyroxine Sodium 50 Mcg [Synthroid 50 Mcg] Med 11/03/21 22:00 Discontinued 50 mcg PO HS Losartan Potassium 50 mg [Cozaar 50 MG] Med 11/04/21 10:00 Discontinued 50 mg PO DAILY NaCl 0.9% 1000 ml [Sodium Chloride 0.9% 1000 ML] 1,000 Med 11/04/21 05:38 Discontinued ml .ROUTE UD NaCl 0.9% 1000 ml [Sodium Chloride 0.9% 1000 ML] 1,000 Med 11/04/21 06:54 Discontinued ml .ROUTE UD NaCl 0.9% 1000 ml [Sodium Chloride 0.9% 1000 ML] 1,000 Med 11/03/21 16:00 Discontinued ml IV 100 mls/hr NaCl 0.9% 1000 ml [Sodium Chloride 0.9% 1000 ML] 1,000 Med 11/03/21 18:16 Discontinued ml IV 999 mls/hr Ondansetron HCl 4 mg/2 ml [Zofran 4 MG/2 ML VIAL] Med 11/03/21 20:08 Discontinued 4 mg IV Q6H PRN PRN Sertraline HCl 50 mg [Zoloft 50 mg Tablet] Med 11/04/21 10:00 Discontinued 50 mg PO DAILY Simvastatin 20Mg [Zocor 20Mg] Med 11/04/21 22:00 Discontinued 20 mg PO HS Tamsulosin HCl 0.4 mg [Flomax 0.4 MG] Med 11/03/21 22:00 Discontinued 0.4 mg PO BID Trazodone HCl 50 mg [Desyrel 50 mg] Med 11/03/21 22:00 Discontinued 100 mg PO HS Patient Care Notes (Last 24 hours) 11/04/21 11:45 (created 11/04/21 12:04) Nursing Note by Elisa Ch ambulated in [place] down to cafeteria, tolerated well. Initialized on 11/04/21 12:04 - END OF NOTE last 24 hours events noted. labs and radiological data reviewed. All pertinent diagnosis and treatment paln d/w patient and his son. - Vitals & Intake/Output Vital Signs: Vital Signs Temperature 97.1 F 11/04/21 12:00 Pulse Rate 66 11/04/21 12:00 Respiratory Rate 16 11/04/21 12:00 Blood Pressure 135/90 11/04/21 12:00 O2 Sat by Pulse Oximetry 95 11/04/21 12:00 Intake & Output: Intake & Output 11/02/21 11/03/21 11/04/21 11/05/21 11:59 11:59 11:59 11:59 Intake Total 1585 Balance 1585 Weight 85.9 kg - Lab Result Diagrams: 11/04/21 05:43 11/04/21 05:43 Lab Results-Last 24 Hrs: Lab Results-Last 24 Hours 11/03/21 11/03/21 11/03/21 Range/Units 16:11 16:15 16:15 WBC 7.4 (4.0-10.5) x10^3/uL RBC 3.86 L (4.1-5.6) x10^6/uL Hgb 11.8 L (12.5-18.0) g/dL Hct 36.6 L (42-50) % MCV 94.8 (78-100) fL MCH 30.6 (26-32) pg MCHC 32.2 (32-36) g/dL RDW 14.6 H (11.5-14.0) % Plt Count 258 (150-450) x10^3/uL MPV 9.9 (7.5-11.0) fL Gran % 67.2 H (36.0-66.0) % Immature Gran % (Auto) 0.3 (0.00-0.4) % Nucleat RBC Rel Count 0.0 (0.00-0.1) % Eos # (Auto) 0.30 (0-0.5) x10^3/uL Immature Gran # (Auto) 0.02 (0.00-0.03) x10^3u/L Absolute Lymphs (auto) 1.22 (1.0-4.6) x10^3/uL Absolute Monos (auto) 0.79 (0.0-1.3) x10^3/uL Absolute Nucleated RBC 0.00 (0.00-0.01) x10^3u/L Lymphocytes % 16.4 L (24.0-44.0) % Monocytes % 10.6 (0.0-12.0) % Eosinophils % 4.0 (0.00-5.0) % Basophils % 1.5 (0.0-0.4) % Absolute Granulocytes 4.99 (1.4-6.9) x10^3/uL Basophils # 0.11 (0-0.4) x10^3/uL PT (9.4-12.5) SECONDS INR (0.8-3.0) APTT (25.1-36.5) SECONDS Sodium 139 (137-145) mmol/L Potassium 4.0 (3.5-5.1) mmol/L Chloride 105 (98-107) mmol/L Carbon Dioxide 22 (22-30) mmol/L Anion Gap 16.5 H (5-15) MEQ/L BUN 33 H (9-20) mg/dL Creatinine 1.78 H (0.66-1.25) mg/dL Estimated GFR 39.6 ML/MIN Glucose 81 (74-106) mg/dL POC Glucometer 79 (74 to 106) mg/dL Lactic Acid (0.4-2.0) Calcium 8.9 (8.4-10.2) mg/dL Total Bilirubin 0.80 (0.2-1.3) mg/dL AST 29 (17-59) U/L ALT 11 (0-50) U/L Alkaline Phosphatase 80 (38-126) U/L Troponin I (0.000-0.034) ng/mL Serum Total Protein 7.1 (6.3-8.2) g/dL Albumin 3.8 (3.5-5.0) g/dL Procalcitonin (0.030-0.080) ng/mL Urinalys Dipstick Clnc Urine Color (YELLOW) Urine Appearance (CLEAR) Urine pH (5-6) Ur Specific Elbert (1.005-1.025) POC Urine Protein Conf (Negative) Urine Ketones (NEGATIVE) Urine Nitrite (NEGATIVE) Urine Bilirubin (NEGATIVE) Urine Urobilinogen (0-1) mg/dL Urine Leukocytes (NEGATIVE) Urine WBC (Auto) (0-5) /HPF Urine RBC (Auto) (0-2) /HPF U Hyaline Cast (Auto) (0-2) /LPF U Epithel Cells (Auto) (FEW) /HPF Urine Bacteria (Auto) (NEGATIVE) /HPF Urine RBC (0-5) Rajeev/ul Urine Mucus (Auto) (NEGATIVE) /HPF Ur Culture Indicated? Urine Glucose (NEGATIVE) mg/dL Influenza Type A Ag (NEGATIVE) Influenza Type B Ag (NEGATIVE) RSV (PCR) (Negative) SARS-CoV-2 (PCR) (NEGATIVE) 11/03/21 11/03/21 11/03/21 Range/Units 16:15 16:15 17:03 WBC (4.0-10.5) x10^3/uL RBC (4.1-5.6) x10^6/uL Hgb (12.5-18.0) g/dL Hct (42-50) % MCV (78-100) fL MCH (26-32) pg MCHC (32-36) g/dL RDW (11.5-14.0) % Plt Count (150-450) x10^3/uL MPV (7.5-11.0) fL Gran % (36.0-66.0) % Immature Gran % (Auto) (0.00-0.4) % Nucleat RBC Rel Count (0.00-0.1) % Eos # (Auto) (0-0.5) x10^3/uL Immature Gran # (Auto) (0.00-0.03) x10^3u/L Absolute Lymphs (auto) (1.0-4.6) x10^3/uL Absolute Monos (auto) (0.0-1.3) x10^3/uL Absolute Nucleated RBC (0.00-0.01) x10^3u/L Lymphocytes % (24.0-44.0) % Monocytes % (0.0-12.0) % Eosinophils % (0.00-5.0) % Basophils % (0.0-0.4) % Absolute Granulocytes (1.4-6.9) x10^3/uL Basophils # (0-0.4) x10^3/uL PT 11.4 (9.4-12.5) SECONDS INR 1.08 (0.8-3.0) APTT 26.5 (25.1-36.5) SECONDS Sodium (137-145) mmol/L Potassium (3.5-5.1) mmol/L Chloride (98-107) mmol/L Carbon Dioxide (22-30) mmol/L Anion Gap (5-15) MEQ/L BUN (9-20) mg/dL Creatinine (0.66-1.25) mg/dL Estimated GFR ML/MIN Glucose (74-106) mg/dL POC Glucometer (74 to 106) mg/dL Lactic Acid 3.0 H (0.4-2.0) Calcium (8.4-10.2) mg/dL Total Bilirubin (0.2-1.3) mg/dL AST (17-59) U/L ALT (0-50) U/L Alkaline Phosphatase (38-126) U/L Troponin I 0.012 (0.000-0.034) ng/mL Serum Total Protein (6.3-8.2) g/dL Albumin (3.5-5.0) g/dL Procalcitonin (0.030-0.080) ng/mL Urinalys Dipstick Clnc Urine Color (YELLOW) Urine Appearance (CLEAR) Urine pH (5-6) Ur Specific Elbert (1.005-1.025) POC Urine Protein Conf (Negative) Urine Ketones (NEGATIVE) Urine Nitrite (NEGATIVE) Urine Bilirubin (NEGATIVE) Urine Urobilinogen (0-1) mg/dL Urine Leukocytes (NEGATIVE) Urine WBC (Auto) (0-5) /HPF Urine RBC (Auto) (0-2) /HPF U Hyaline Cast (Auto) (0-2) /LPF U Epithel Cells (Auto) (FEW) /HPF Urine Bacteria (Auto) (NEGATIVE) /HPF Urine RBC (0-5) Rajeev/ul Urine Mucus (Auto) (NEGATIVE) /HPF Ur Culture Indicated? Urine Glucose (NEGATIVE) mg/dL Influenza Type A Ag (NEGATIVE) Influenza Type B Ag (NEGATIVE) RSV (PCR) (Negative) SARS-CoV-2 (PCR) (NEGATIVE) 11/03/21 11/03/21 11/03/21 Range/Units 17:25 17:41 18:22 WBC (4.0-10.5) x10^3/uL RBC (4.1-5.6) x10^6/uL Hgb (12.5-18.0) g/dL Hct (42-50) % MCV (78-100) fL MCH (26-32) pg MCHC (32-36) g/dL RDW (11.5-14.0) % Plt Count (150-450) x10^3/uL MPV (7.5-11.0) fL Gran % (36.0-66.0) % Immature Gran % (Auto) (0.00-0.4) % Nucleat RBC Rel Count (0.00-0.1) % Eos # (Auto) (0-0.5) x10^3/uL Immature Gran # (Auto) (0.00-0.03) x10^3u/L Absolute Lymphs (auto) (1.0-4.6) x10^3/uL Absolute Monos (auto) (0.0-1.3) x10^3/uL Absolute Nucleated RBC (0.00-0.01) x10^3u/L Lymphocytes % (24.0-44.0) % Monocytes % (0.0-12.0) % Eosinophils % (0.00-5.0) % Basophils % (0.0-0.4) % Absolute Granulocytes (1.4-6.9) x10^3/uL Basophils # (0-0.4) x10^3/uL PT (9.4-12.5) SECONDS INR (0.8-3.0) APTT (25.1-36.5) SECONDS Sodium (137-145) mmol/L Potassium (3.5-5.1) mmol/L Chloride (98-107) mmol/L Carbon Dioxide (22-30) mmol/L Anion Gap (5-15) MEQ/L BUN (9-20) mg/dL Creatinine (0.66-1.25) mg/dL Estimated GFR ML/MIN Glucose (74-106) mg/dL POC Glucometer (74 to 106) mg/dL Lactic Acid (0.4-2.0) Calcium (8.4-10.2) mg/dL Total Bilirubin (0.2-1.3) mg/dL AST (17-59) U/L ALT (0-50) U/L Alkaline Phosphatase (38-126) U/L Troponin I (0.000-0.034) ng/mL Serum Total Protein (6.3-8.2) g/dL Albumin (3.5-5.0) g/dL Procalcitonin 0.063 (0.030-0.080) ng/mL Urinalys Dipstick Clnc MAIN LAB Urine Color YELLOW (YELLOW) Urine Appearance SLIGHTLY CLOUDY (CLEAR) Urine pH 5.5 (5-6) Ur Specific Elbert >=1.030 (1.005-1.025) POC Urine Protein Conf NEGATIVE (Negative) Urine Ketones TRACE (NEGATIVE) Urine Nitrite NEGATIVE (NEGATIVE) Urine Bilirubin NEGATIVE (NEGATIVE) Urine Urobilinogen 0.2 (0-1) mg/dL Urine Leukocytes SMALL (NEGATIVE) Urine WBC (Auto) 16-25 (0-5) /HPF Urine RBC (Auto) 3-5 (0-2) /HPF U Hyaline Cast (Auto) 3-5 (0-2) /LPF U Epithel Cells (Auto) RARE (FEW) /HPF Urine Bacteria (Auto) FEW (NEGATIVE) /HPF Urine RBC NEGATIVE (0-5) Rajeev/ul Urine Mucus (Auto) SLIGHT (NEGATIVE) /HPF Ur Culture Indicated? YES Urine Glucose NEGATIVE (NEGATIVE) mg/dL Influenza Type A Ag NEGATIVE (NEGATIVE) Influenza Type B Ag NEGATIVE (NEGATIVE) RSV (PCR) NEGATIVE (Negative) SARS-CoV-2 (PCR) NEGATIVE (NEGATIVE) 11/03/21 11/03/21 11/03/21 Range/Units 19:40 19:50 23:10 WBC (4.0-10.5) x10^3/uL RBC (4.1-5.6) x10^6/uL Hgb (12.5-18.0) g/dL Hct (42-50) % MCV (78-100) fL MCH (26-32) pg MCHC (32-36) g/dL RDW (11.5-14.0) % Plt Count (150-450) x10^3/uL MPV (7.5-11.0) fL Gran % (36.0-66.0) % Immature Gran % (Auto) (0.00-0.4) % Nucleat RBC Rel Count (0.00-0.1) % Eos # (Auto) (0-0.5) x10^3/uL Immature Gran # (Auto) (0.00-0.03) x10^3u/L Absolute Lymphs (auto) (1.0-4.6) x10^3/uL Absolute Monos (auto) (0.0-1.3) x10^3/uL Absolute Nucleated RBC (0.00-0.01) x10^3u/L Lymphocytes % (24.0-44.0) % Monocytes % (0.0-12.0) % Eosinophils % (0.00-5.0) % Basophils % (0.0-0.4) % Absolute Granulocytes (1.4-6.9) x10^3/uL Basophils # (0-0.4) x10^3/uL PT (9.4-12.5) SECONDS INR (0.8-3.0) APTT (25.1-36.5) SECONDS Sodium (137-145) mmol/L Potassium (3.5-5.1) mmol/L Chloride (98-107) mmol/L Carbon Dioxide (22-30) mmol/L Anion Gap (5-15) MEQ/L BUN (9-20) mg/dL Creatinine (0.66-1.25) mg/dL Estimated GFR ML/MIN Glucose (74-106) mg/dL POC Glucometer (74 to 106) mg/dL Lactic Acid 1.0 (0.4-2.0) Calcium (8.4-10.2) mg/dL Total Bilirubin (0.2-1.3) mg/dL AST (17-59) U/L ALT (0-50) U/L Alkaline Phosphatase (38-126) U/L Troponin I < 0.012 < 0.012 (0.000-0.034) ng/mL Serum Total Protein (6.3-8.2) g/dL Albumin (3.5-5.0) g/dL Procalcitonin (0.030-0.080) ng/mL Urinalys Dipstick Clnc Urine Color (YELLOW) Urine Appearance (CLEAR) Urine pH (5-6) Ur Specific Elbert (1.005-1.025) POC Urine Protein Conf (Negative) Urine Ketones (NEGATIVE) Urine Nitrite (NEGATIVE) Urine Bilirubin (NEGATIVE) Urine Urobilinogen (0-1) mg/dL Urine Leukocytes (NEGATIVE) Urine WBC (Auto) (0-5) /HPF Urine RBC (Auto) (0-2) /HPF U Hyaline Cast (Auto) (0-2) /LPF U Epithel Cells (Auto) (FEW) /HPF Urine Bacteria (Auto) (NEGATIVE) /HPF Urine RBC (0-5) Rajeev/ul Urine Mucus (Auto) (NEGATIVE) /HPF Ur Culture Indicated? Urine Glucose (NEGATIVE) mg/dL Influenza Type A Ag (NEGATIVE) Influenza Type B Ag (NEGATIVE) RSV (PCR) (Negative) SARS-CoV-2 (PCR) (NEGATIVE) 11/04/21 11/04/21 Range/Units 05:43 05:43 WBC 5.6 (4.0-10.5) x10^3/uL RBC 3.58 L (4.1-5.6) x10^6/uL Hgb 10.7 L (12.5-18.0) g/dL Hct 34.9 L (42-50) % MCV 97.5 (78-100) fL MCH 29.9 (26-32) pg MCHC 30.7 L (32-36) g/dL RDW 14.6 H (11.5-14.0) % Plt Count 214 (150-450) x10^3/uL MPV 10.1 (7.5-11.0) fL Gran % 50.5 (36.0-66.0) % Immature Gran % (Auto) 0.4 (0.00-0.4) % Nucleat RBC Rel Count 0.0 (0.00-0.1) % Eos # (Auto) 0.39 (0-0.5) x10^3/uL Immature Gran # (Auto) 0.02 (0.00-0.03) x10^3u/L Absolute Lymphs (auto) 1.54 (1.0-4.6) x10^3/uL Absolute Monos (auto) 0.71 (0.0-1.3) x10^3/uL Absolute Nucleated RBC 0.00 (0.00-0.01) x10^3u/L Lymphocytes % 27.6 (24.0-44.0) % Monocytes % 12.7 H (0.0-12.0) % Eosinophils % 7.0 H (0.00-5.0) % Basophils % 1.8 (0.0-0.4) % Absolute Granulocytes 2.82 (1.4-6.9) x10^3/uL Basophils # 0.10 (0-0.4) x10^3/uL PT (9.4-12.5) SECONDS INR (0.8-3.0) APTT (25.1-36.5) SECONDS Sodium 139 (137-145) mmol/L Potassium 4.3 (3.5-5.1) mmol/L Chloride 112 H (98-107) mmol/L Carbon Dioxide 23 (22-30) mmol/L Anion Gap 9.0 (5-15) MEQ/L BUN 28 H (9-20) mg/dL Creatinine 1.37 H (0.66-1.25) mg/dL Estimated GFR 53.6 ML/MIN Glucose 85 (74-106) mg/dL POC Glucometer (74 to 106) mg/dL Lactic Acid (0.4-2.0) Calcium 8.2 L (8.4-10.2) mg/dL Total Bilirubin 0.30 (0.2-1.3) mg/dL AST 21 (17-59) U/L ALT 10 (0-50) U/L Alkaline Phosphatase 86 (38-126) U/L Troponin I (0.000-0.034) ng/mL Serum Total Protein 5.9 L (6.3-8.2) g/dL Albumin 3.0 L (3.5-5.0) g/dL Procalcitonin (0.030-0.080) ng/mL Urinalys Dipstick Clnc Urine Color (YELLOW) Urine Appearance (CLEAR) Urine pH (5-6) Ur Specific Elbert (1.005-1.025) POC Urine Protein Conf (Negative) Urine Ketones (NEGATIVE) Urine Nitrite (NEGATIVE) Urine Bilirubin (NEGATIVE) Urine Urobilinogen (0-1) mg/dL Urine Leukocytes (NEGATIVE) Urine WBC (Auto) (0-5) /HPF Urine RBC (Auto) (0-2) /HPF U Hyaline Cast (Auto) (0-2) /LPF U Epithel Cells (Auto) (FEW) /HPF Urine Bacteria (Auto) (NEGATIVE) /HPF Urine RBC (0-5) Rajeev/ul Urine Mucus (Auto) (NEGATIVE) /HPF Ur Culture Indicated? Urine Glucose (NEGATIVE) mg/dL Influenza Type A Ag (NEGATIVE) Influenza Type B Ag (NEGATIVE) RSV (PCR) (Negative) SARS-CoV-2 (PCR) (NEGATIVE) Micro Results-Entire Visit: Accuchecks Date 11/03/21 Time 16:18 - Radiology Exams Ordered Rad Exams-Entire Visit: Radiology Procedures Category Date Time Status CHEST 1 VIEW (PORTABLE) Stat Exams 11/03/21 15:49 Completed HEAD WITHOUT CONTRAST [CT] Stat Exams 11/03/21 15:43 Completed - Discharge Discharge Date: 11/04/21 Disposition: Home, Self-Care Condition: Stable Prescriptions: New Cephalexin Mh 500 mg [Keflex 500 mg] 500 mg PO Q6H 10 Days #40 cap Continue Gabapentin 300 mg PO BID Tamsulosin HCl 0.4 mg [Flomax 0.4 MG] 0.4 mg PO BID Sertraline HCl 50 mg [Zoloft 50 mg Tablet] 50 mg PO DAILY Levothyroxine Sodium 50 mcg PO HS Atorvastatin Calcium 20 mg PO DAILY Apixaban [Eliquis 5 mg Tablet] 5 mg PO BID Trazodone HCl 50 mg [Desyrel 50 mg] 100 mg PO HS Losartan Potassium 50 mg [Cozaar 50 MG] 50 mg PO DAILY Cyanocobalamin 1000 Mcg/ml [Cyanocobalamin B-12 1000 MCG/ML] 1,000 mcg IJ UD Instructions: Urinary Tract Infection, Adult (DC), Preventing Falls in Older Adults Follow up with: STANLEY ROGERS MD [Primary Care Provider] - Call for Appointment
[2021-11-04] MEDS ORDERED: ZOCOR 20MG PO SCH (22:00)
[2021-11-04] MEDS ORDERED: ROCEPHIN 1 Gm-D5w 50 ml Bag** 1 G/50 ML IVPB IV SCH (22:00)
[2021-11-25] MEDS ORDERED: Cyanocobalamin B-12 1000 MCG/ML IJ SCH (08:45)
== END 2021-11-04 12:08 | disposition home or self-care (01) ==
LOC: ED 15:42 → MED SURG 20:03
PROVIDERS: ADMIT General Practice; ATTEND General Practice
DX: N17.9 Acute kidney failure, unspecified (principal); R29.90 Unspecified symptoms and signs involving the nervous system; N39.0 Urinary tract infection, site not specified; I25.10 Atherosclerotic heart disease of native coronary artery without angina pectoris; I10 Essential (primary) hypertension; E78.5 Hyperlipidemia, unspecified; R53.83 Other fatigue; Z79.899 Other long term (current) drug therapy; Z20.828 Contact with and (suspected) exposure to other viral communicable diseases; Z85.038 Personal history of other malignant neoplasm of large intestine
CPT/HCPCS: 0241U; 36000; 36415; 70450; 71045; 80053; 81015; 82947; 83605; 84145; 84484; 85025; 85610; 85730; 87040; 87077; 87086; 87186; 93005; 96374; 99285; 99291; P9612; 93268; 96360; 96361; 96365; J0696; A9270-GY; G0378

== ENCOUNTER 2023-01-28 06:17 | Emergency (ER) | payer MEDICARE ==
[2023-01-28 06:26] VITALS: TEMP 96.6
[2023-01-28] MEDS ORDERED: Cardizem IV 50 MG/10 ML IV ONE (06:34)
--- NOTE | 2023-01-28 06:44 | ERPHSYRPT ---
- History of Present Illness Source: patient, family, EMS Hx Tetanus, Diphtheria Vaccination/Date Given: No Hx Influenza Vaccination/Date Given: Yes Hx Pneumococcal Vaccination/Date Given: No <JUAN M ALBARADO - Last Filed: 01/28/23 07:22> - History of Present Illness Exam Limitations: no limitations Timing/Duration: other (3:30 AM) Activities at Onset: sleep Severity of Dyspnea-Max: moderate Severity of Dyspnea-Current: mild Possible Cause: occasional episodes <ZAIRE SHELL - Last Filed: 01/28/23 17:34> - History of Present Illness Physician History: 77 years old male with past medical history of rectal cancer with 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 He has a colostomy for 12 years. History of atrial fibrillation, history of coronary artery disease status post 8 vessel bypass and multiple stents. The patient is brought by EMS to the emergency room because of a chief complaint of shortness of breath that he has been having for the last couple of days but got worse the last of couple of hours while sleeping. He is denying any chest pain , no abdominal pain no nausea or vomiting. The patient is not on home oxygen currently is feeling better when the paramedics placed him in the 100% nonrebreather and currently on the oxygen via nasal cannula. The patient is not coughing he is denying fever or chills. (JUAN M ALBARADO) Assumed care of Mr. Sauer at [address] Albarado. Patient is a 77-year-old gentleman with history of colorectal cancer status post colostomy with recent discovery of mets to his lungs. Patient receiving chemo for his lung mets. Patient came acutely short of breath at 3:30 AM this morning. Patient denies any chest pain at this time and also denies a cough/fever. He has had mild coryza. He has had some mild hematochezia through his colostomy for the last 7 weeks and has had a recent negative EGD per patient's history. Patient also has a significant past medical history of hypertension/A-fib on Eliquis/CABG/stent placement. Patient also smoked a pack and a half a day until 2009. He denies nausea, vomiting, and abdominal pain this time. Patient is not on home oxygen. He is chronically in atrial fibrillation and previous doctor ordered Cardizem which has not given. (ZAIRE SHELL) Allergies/Adverse Reactions: No Known Drug Allergies Allergy (Verified 01/28/23 06:46) Home Medications: Gabapentin 300 mg PO BID 09/23/13 [History] Sertraline HCl 50 mg [Zoloft 50 mg Tablet] 50 mg PO DAILY 09/23/13 [History] Tamsulosin HCl 0.4 mg [Flomax 0.4 MG] 0.4 mg PO BID 09/23/13 [History] Levothyroxine Sodium 50 mcg PO DAILY 06/04/17 [History] Atorvastatin Calcium 20 mg PO DAILY 06/19/18 [History] Apixaban [Eliquis 5 mg Tablet] 5 mg PO DAILY 11/03/21 [History] Cyanocobalamin 1000 Mcg/ml [Cyanocobalamin B-12 1000 MCG/ML] 1,000 mg PO DAILY 11/03/21 [History] Losartan Potassium 50 mg [Cozaar 50 MG] 50 mg PO DAILY 11/03/21 [History] Travel Risk - Vaccine Status Have you recieved a Covid-19 vaccination: Yes Provider Service Representative: Moderna - Vaccination Dates Date of 2cond Vaccination (if applicable): 05/2020 <JUAN M ALBARADO - Last Filed: 01/28/23 07:22> - Review of Systems Constitutional: No Fever, No Chills Eyes: No Symptoms Ears, Nose, & Throat: No Symptoms Respiratory: Dyspnea, No Cough Cardiac: No Chest Pain, No Edema, No Syncope Abdominal/Gastrointestinal: No Abdominal Pain, No Nausea, No Vomiting, No Diarrhea Genitourinary Symptoms: No Dysuria Musculoskeletal: No Back Pain, No Neck Pain Skin: No Rash Neurological: No Dizziness, No Focal Weakness, No Sensory Changes Psychological: No Symptoms Endocrine: No Symptoms All Other Systems: Reviewed and Negative <JUAN M ALBARADO - Last Filed: 01/28/23 07:22> - Past Medical History Pertinent Past Medical History: Yes Neurological History: Peripheral Neuropathy ENT History: No Pertinent History Cardiac History: Coronary Artery Disease Respiratory History: No Pertinent History Endocrine Medical History: Hypothyroidism Musculoskeletal History: Arthritis GI Medical History: Colorectal Cancer, Hernia History: Other Psycho-Social History: Depression Male Reproductive Disorders: Prostate Problems Other Medical History: Colorectal cancer - Past Surgical History Past Surgical History: Yes Neuro Surgical History: No Pertinent History Cardiac: CABG, Cardiac Catheterization, Cardiac Stent Respiratory: No Pertinent History Gastrointestinal: Hernia Repair Genitourinary: No Pertinent History Musculoskeletal: Joint Replacement Male Surgical History: No Pertinent History Other Surgical History: 5 VESSEL CABG. COLON RESECTION with colostomy, repair to 2 lower bowel blockages. 2 HERNIA. Right lower lobe of lung removed. Right hip replacement. COLO ANAL RESECTION, STAGE [address] LORENA BRENNER. LEFT KNEE REPLACEMENT. COLOSTOMY STOMA RPTURE REPAIR X 2 - Social History Smoking Status: Former smoker Exposure to second hand smoke: No Drug Use: none Patient Lives Alone: No <JUAN M ALBARADO - Last Filed: 01/28/23 07:22> - Physical Exam General Appearance: no apparent distress, alert Eye Exam: PERRL/EOMI Ears, Nose, Throat Exam: hearing grossly normal Neck Exam: normal inspection, supple Respiratory Exam: normal breath sounds, lungs clear Cardiovascular/Chest Exam: normal heart sounds, regular rate/rhythm, murmur, tachycardia, irregular Abdominal/Gastrointestinal Exam: soft, other (Colostomy bag), No tenderness, No distention, No mass Extremity Exam: non-tender, normal range of motion, normal inspection, no calf tenderness, no pedal edema Neurologic Exam: alert, oriented x 3, cooperative, 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 nml as tested, sensation nml, No motor deficits Skin Exam: normal color, warm, No dry SpO2: 99 <JUAN M ALBARADO - Last Filed: 01/28/23 07:22> - Nursing Vital Signs Nursing Vital Signs: Initial Vital Signs Temperature 96.6 F 01/28/23 06:18 Respiratory Rate 20 01/28/23 06:18 Blood Pressure 179/139 01/28/23 06:18 O2 Sat by Pulse Oximetry 99 01/28/23 06:18 Pain Scale Pain Intensity 0 - Course Nursing assessment & vital signs reviewed: Yes EKG Interpreted by Me: RATE (110), A-fib (Poor R wave progression V1 through V5), Left Bundle Branch Block, Q-wave <JUAN M ALBARADO - Last Filed: 01/28/23 07:22> - Radiology Exams Chest X-ray Interpretation: Reviewed by me, Teleradiologist Report (Right middle/right lower lobe infiltrate/small right pleural effusion) - CT Exams Chest CT Interpretation: Tele-radiologist Report (CT of chest resulted after patient was transferred and demonstrated bilateral pleural effusions/right upper lobe nodule/right middle lower lobe infiltrates.) <ZAIRE SHELL - Last Filed: 01/28/23 17:34> Ordered Tests: Active Orders 24 hr Category Date Time Status Head Of Transport Logistics STAT Care 01/28/23 06:33 Completed EKG-ER Only STAT Care 01/28/23 06:32 Completed IV Insertion STAT Care 01/28/23 06:32 Completed Oxygen-ED Only Nasal Cannula 3 lpm Care 01/28/23 06:32 Completed Pulse Oximetry (ED) STAT Care 01/28/23 06:32 Completed CHEST 1 VIEW (PORTABLE) Stat Exams 01/28/23 06:33 Completed CHEST WITH CONTRAST [CT] Stat Exams 01/28/23 09:39 Completed ARTERIAL BLOOD GASES Stat Lab 01/28/23 07:45 Completed BLOOD CULTURE Stat Lab 01/28/23 Received CBC W DIFF Stat Lab 01/28/23 07:10 Completed CMP Stat Lab 01/28/23 07:10 Completed D-DIMER QUANTITATIVE Stat Lab 01/28/23 07:10 Completed Lactic Acid Stat Lab 01/28/23 07:45 Completed MAGNESIUM Stat Lab 01/28/23 07:10 Completed NT PRO BNPII Stat Lab 01/28/23 07:10 Completed PROTIME WITH INR Stat Lab 01/28/23 07:10 Completed PTT Stat Lab 01/28/23 07:10 Completed TROPONIN Q4H Lab 01/28/23 07:10 Completed TROPONIN Q4H Lab 01/28/23 09:45 Completed Medication Summary Discontinued Medications Generic Name Dose Route Start Last Admin Trade Name Freq PRN Reason Stop Dose Admin Aspirin 324 mg 01/28/23 10:38 01/28/23 10:40 Aspirin 81 Mg Tab.Chew PO 01/28/23 10:39 324 mg STAT ONE Administration Aspirin Confirm 01/28/23 10:39 Aspirin 81 Mg Tab.Chew Administered 01/28/23 10:40 Dose 324 mg .ROUTE .STK-MED ONE Diltiazem HCl 15 mg 01/28/23 06:34 01/28/23 07:44 Diltiazem Hcl Iv 5 Mg/Ml Vial IV 01/28/23 06:35 Not Given STAT ONE Ceftriaxone Sodium/Dextrose 1 g in 50 mls @ 100 mls/hr 01/28/23 08:44 01/28/23 09:53 Rocephin 1 Gm-D5w 50 Ml Bag IV 01/28/23 09:13 Infused STAT STA Infusion Ceftriaxone Sodium/Dextrose Confirm 01/28/23 08:55 Rocephin 1 Gm-D5w 50 Ml Bag Administered 01/28/23 08:56 Dose 1 g in 50 mls @ ud IV .STK-MED ONE Lab/Rad Data: Laboratory Result Diagrams 01/28/23 07:10 01/28/23 07:10 Laboratory Results 01/28/23 01/28/23 01/28/23 Range/Units 09:45 07:45 07:10 WBC (4.0-10.5) x10^3/uL RBC (4.1-5.6) x10^6/uL Hgb (12.5-18.0) g/dL Hct (42-50) % MCV (78-100) fL MCH (26-32) pg MCHC (32-36) g/dL RDW (11.5-14.0) % Plt Count (150-450) x10^3/uL MPV (7.5-11.0) fL Gran % (36.0-66.0) % Immature Gran % (Auto) (0.00-0.4) % Nucleat RBC Rel Count (0.00-0.1) % Eos # (Auto) (0-0.5) x10^3/uL Immature Gran # (Auto) (0.00-0.03) x10^3u/L Absolute Lymphs (auto) (1.0-4.6) x10^3/uL Absolute Monos (auto) (0.0-1.3) x10^3/uL Absolute Nucleated RBC (0.00-0.01) x10^3u/L Lymphocytes % (24.0-44.0) % Monocytes % (0.0-12.0) % Eosinophils % (0.00-5.0) % Basophils % (0.0-0.4) % Absolute Granulocytes (1.4-6.9) x10^3/uL Basophils # (0-0.4) x10^3/uL PT (9.4-12.5) SECONDS INR (0.8-3.0) APTT (25.1-36.5) SECONDS D-Dimer (0.0-0.50) mg/L Puncture Site RIGHT BRACHIAL pCO2 40 (35-45) mmHg pO2 89 (75-100) mmHg Base Excess 0.7 (-2.0-2.0) O2 Saturation 96.0 (94-100) g/dF ABG pH 7.41 (7.35-7.45) ABG HCO3 25.4 (22-28) ABG O2 Sat (Measured) 98.1 (95-100) % Vipul Test NOT APPLICABLE A-a Gradient 61 a/A Ratio 0.59 Hemoglobin 7.9 Carboxyhemoglobin 1.4 (0.0-6.9) % THgb Methemoglobin 0.7 L (1.4-1.5) % Temperature 37.0 C POC O2 Flow Rate 28 % Sodium (137-145) mmol/L Potassium 4.2 (3.5-5.1) mmol/L Chloride (98-107) mmol/L Carbon Dioxide (22-30) mmol/L Anion Gap (5-15) MEQ/L BUN (9-20) mg/dL Creatinine (0.66-1.25) mg/dL Estimated GFR ML/MIN Glucose (74-106) mg/dL Lactic Acid 1.2 (0.4-2.0) Calcium (8.4-10.2) mg/dL Magnesium (1.6-2.3) mg/dL Total Bilirubin (0.2-1.3) mg/dL AST (17-59) U/L ALT (0-50) U/L Alkaline Phosphatase (38-126) U/L Troponin I 0.271 H* 0.054 H* (0.000-0.034) ng/mL NT-Pro-B Natriuret Pep 6640 (<300) pg/mL Serum Total Protein (6.3-8.2) g/dL Albumin (3.5-5.0) g/dL Influenza Type A Ag (NEGATIVE) Influenza Type B Ag (NEGATIVE) RSV (PCR) (NEGATIVE) SARS-CoV-2 (PCR) (NEGATIVE) Slides for Path Review 01/28/23 01/28/23 01/28/23 Range/Units 07:10 07:10 07:10 WBC 10.5 (4.0-10.5) x10^3/uL RBC 2.49 L (4.1-5.6) x10^6/uL Hgb 8.1 L (12.5-18.0) g/dL Hct 27.0 L (42-50) % MCV 108.4 H (78-100) fL MCH 32.5 H (26-32) pg MCHC 30.0 L (32-36) g/dL RDW 16.7 H (11.5-14.0) % Plt Count 184 (150-450) x10^3/uL MPV 10.4 (7.5-11.0) fL Gran % 84.8 H (36.0-66.0) % Immature Gran % (Auto) 0.5 H (0.00-0.4) % Nucleat RBC Rel Count 0.0 (0.00-0.1) % Eos # (Auto) 0.24 (0-0.5) x10^3/uL Immature Gran # (Auto) 0.05 H (0.00-0.03) x10^3u/L Absolute Lymphs (auto) 0.37 L (1.0-4.6) x10^3/uL Absolute Monos (auto) 0.85 (0.0-1.3) x10^3/uL Absolute Nucleated RBC 0.00 (0.00-0.01) x10^3u/L Lymphocytes % 3.5 L (24.0-44.0) % Monocytes % 8.1 (0.0-12.0) % Eosinophils % 2.3 (0.00-5.0) % Basophils % 0.8 (0.0-0.4) % Absolute Granulocytes 8.93 H (1.4-6.9) x10^3/uL Basophils # 0.08 (0-0.4) x10^3/uL PT 11.6 (9.4-12.5) SECONDS INR 1.07 (0.8-3.0) APTT 25.6 (25.1-36.5) SECONDS D-Dimer 4.71 H* (0.0-0.50) mg/L Puncture Site pCO2 (35-45) mmHg pO2 (75-100) mmHg Base Excess (-2.0-2.0) O2 Saturation (94-100) g/dF ABG pH (7.35-7.45) ABG HCO3 (22-28) ABG O2 Sat (Measured) (95-100) % Vipul Test A-a Gradient a/A Ratio Hemoglobin Carboxyhemoglobin (0.0-6.9) % THgb Methemoglobin (1.4-1.5) % Temperature C POC O2 Flow Rate % Sodium 139 (137-145) mmol/L Potassium 3.9 (3.5-5.1) mmol/L Chloride 107 (98-107) mmol/L Carbon Dioxide 24 (22-30) mmol/L Anion Gap 11.9 (5-15) MEQ/L BUN 27 H (9-20) mg/dL Creatinine 1.00 (0.66-1.25) mg/dL Estimated GFR 77.0 ML/MIN Glucose 160 H (74-106) mg/dL Lactic Acid (0.4-2.0) Calcium 8.6 (8.4-10.2) mg/dL Magnesium 1.6 (1.6-2.3) mg/dL Total Bilirubin 0.40 (0.2-1.3) mg/dL AST 27 (17-59) U/L ALT 14 (0-50) U/L Alkaline Phosphatase 96 (38-126) U/L Troponin I (0.000-0.034) ng/mL NT-Pro-B Natriuret Pep (<300) pg/mL Serum Total Protein 6.4 (6.3-8.2) g/dL Albumin 3.1 L (3.5-5.0) g/dL Influenza Type A Ag (NEGATIVE) Influenza Type B Ag (NEGATIVE) RSV (PCR) (NEGATIVE) SARS-CoV-2 (PCR) (NEGATIVE) Slides for Path Review YES 01/28/23 Range/Units 06:45 WBC (4.0-10.5) x10^3/uL RBC (4.1-5.6) x10^6/uL Hgb (12.5-18.0) g/dL Hct (42-50) % MCV (78-100) fL MCH (26-32) pg MCHC (32-36) g/dL RDW (11.5-14.0) % Plt Count (150-450) x10^3/uL MPV (7.5-11.0) fL Gran % (36.0-66.0) % Immature Gran % (Auto) (0.00-0.4) % Nucleat RBC Rel Count (0.00-0.1) % Eos # (Auto) (0-0.5) x10^3/uL Immature Gran # (Auto) (0.00-0.03) x10^3u/L Absolute Lymphs (auto) (1.0-4.6) x10^3/uL Absolute Monos (auto) (0.0-1.3) x10^3/uL Absolute Nucleated RBC (0.00-0.01) x10^3u/L Lymphocytes % (24.0-44.0) % Monocytes % (0.0-12.0) % Eosinophils % (0.00-5.0) % Basophils % (0.0-0.4) % Absolute Granulocytes (1.4-6.9) x10^3/uL Basophils # (0-0.4) x10^3/uL PT (9.4-12.5) SECONDS INR (0.8-3.0) APTT (25.1-36.5) SECONDS D-Dimer (0.0-0.50) mg/L Puncture Site pCO2 (35-45) mmHg pO2 (75-100) mmHg Base Excess (-2.0-2.0) O2 Saturation (94-100) g/dF ABG pH (7.35-7.45) ABG HCO3 (22-28) ABG O2 Sat (Measured) (95-100) % Vipul Test A-a Gradient a/A Ratio Hemoglobin Carboxyhemoglobin (0.0-6.9) % THgb Methemoglobin (1.4-1.5) % Temperature C POC O2 Flow Rate % Sodium (137-145) mmol/L Potassium (3.5-5.1) mmol/L Chloride (98-107) mmol/L Carbon Dioxide (22-30) mmol/L Anion Gap (5-15) MEQ/L BUN (9-20) mg/dL Creatinine (0.66-1.25) mg/dL Estimated GFR ML/MIN Glucose (74-106) mg/dL Lactic Acid (0.4-2.0) Calcium (8.4-10.2) mg/dL Magnesium (1.6-2.3) mg/dL Total Bilirubin (0.2-1.3) mg/dL AST (17-59) U/L ALT (0-50) U/L Alkaline Phosphatase (38-126) U/L Troponin I (0.000-0.034) ng/mL NT-Pro-B Natriuret Pep (<300) pg/mL Serum Total Protein (6.3-8.2) g/dL Albumin (3.5-5.0) g/dL Influenza Type A Ag NEGATIVE (NEGATIVE) Influenza Type B Ag NEGATIVE (NEGATIVE) RSV (PCR) NEGATIVE (NEGATIVE) SARS-CoV-2 (PCR) NEGATIVE (NEGATIVE) Slides for Path Review <JUAN M ALBARADO - Last Filed: 01/28/23 07:22> - Progress Blood Culture(s) Obtained: Yes Antibiotics given: Yes Counseled pt/family regarding: lab results, diagnosis, need for follow-up, rad results <ZAIRE SHELL - Last Filed: 01/28/23 17:34> - Progress Progress Note: 01/28/23 06:49 77 years old male with past medical history of rectal cancer with metastasis to the right lung that was diagnosed [place] this year currently on chemotherapy every 2 weeks. History of atrial fibrillation, history of coronary artery disease s/p 8 vessels bypass and multiple stents. The patient is brought by EMS to the emergency room because of chief complaint of shortness of breath that has been having for the last couple of days and got worse the last couple of hours. Emergency room course and medical decision making On arrival the patient had an EKG done which revealed atrial fibrillation with rapid ventricular rate at 110 bpm, Q waves in the inferior leads, left bundle branch block, poor R wave progression V1 through V5. For his rapid ventricular rate he will be given Cardizem 15 mg IV. Check CBC, CMP, D-dimer, lactic acid, troponin, serum magnesium and a portable chest x-ray. 01/28/23 07:22 The case will be endorsed to Dr. Shell at the change of shift for further ma nagement and disposition. (JUAN M ALBARADO) 01/28/23 07:56 Assumed care of patient at [address] Albarado. Patient is alert and oriented x 3 and in no apparent distress. He has decreased breath sounds through the right middle and lower lung field with faint rales at the left base. Heart rate is currently 78 and in atrial fibrillation. 01/28/23 08:00 EKG-A-fib, rate 110/left bundle branch block/prolonged QTc 01/28/23 10:[address] Mckinley at [facility]. Patient's initial troponin was mildly elevated 0.054 but patient was not having any chest pain at that time and EKG demonstrated an old left bundle branch block. Patient second opponent came back markedly elevated at 0.2, so aspirin 324 mg p.o. chewable was given and transfer was initiated to [facility]. Patient not heparinize due to being on Eliquis at this time. ETA of chest due to elevated D-dimer and possible pneumonia on chest x-ray result was not back at this time. 01/28/23 17:30 CTA of chest result returned after patient has been transferred which demonstrated right upper lobe mass/right airspace disease/bilateral effusions (ZAIRE SHELL) Medical Desision Making - Diagnostic Testing Diagnostic test were ordered, analyzed, and reviewed by me: Yes Radiological Interpretation: Teleradiologist Report - Risk of complications The pt has a high risk of morbidity or mortality based on: Drug therapy requiring intensive monitoring for toxicity <ZAIRE SHELL - Last Filed: 01/28/23 17:34> - Departure Departure Disposition: In-patient Admission <JUAN M ALBARADO - Last Filed: 01/28/23 07:22> - Departure Departure Disposition: Transfer Critical Care Time: Yes Critical Care Time(excluding separately billable procedures): Critical 30-74 m ins <ZAIRE SHELL - Last Filed: 01/28/23 17:34> - Departure Clinical Impression: Dyspnea, Atrial fibrillation with rapid ventricular response, NSTEMI (non-ST elevated myocardial infarction), Pneumonia Condition: Stable Referrals: STANLEY ROGERS MD [Primary Care Provider] - Follow up/PCP as directed
[2023-01-28 07:27] LABS: INFLUENZA A NEGATIVE (NEGATIVE); INFLUENZA B NEGATIVE (NEGATIVE); RESPIRATORY SYNCTIAL VIRUS NEGATIVE (NEGATIVE); SARS-CoV-2 Xpert Express NEGATIVE (NEGATIVE)
[2023-01-28 07:47] LABS: A-aADO2 61; ABG POTASSIUM 4.2 (3.5-5.1); ARTERIAL BLD GAS O2 SATURATION 98.1 % (95-100); ARTERIAL BLOOD GAS BASE EXCESS 0.7 (-2.0-2.0); ARTERIAL BLOOD GAS FIO2 28 %; ARTERIAL BLOOD GAS PCO2 40 mmHg (35-45); ARTERIAL BLOOD GAS PO2 89 mmHg (75-100); ARTERIAL BLOOD GAS pH 7.41 (7.35-7.45); CARBOXYHEMOGLOBIN 1.4 % THgb (0.0-6.9); HCO3- 25.4 (22-28); Lactic Acid 1.2 (0.4-2.0); Methhemoglobin 0.7 % (1.4-1.5); paO2 pAO1 0.59
[2023-01-28 07:48] LABS: ABG HEMOGLOBIN 7.9; ABG SITE RIGHT BRACHIAL
[2023-01-28 08:11] LABS: Absolute Neutrophil Ct (ANC) 8.93 x10^3/uL (1.4-6.9); BASOPHIL % 0.8 % (0.0-0.4); Basophil (Absolute #) 0.08 x10^3/uL (0-0.4); Eosinophil % 2.3 % (0.00-5.0); Eosinophil (Absolute #) 0.24 x10^3/uL (0-0.5); Hemoglobin 8.1 g/dL (12.5-18.0); IMMATURE GRAN # 0.05 x10^3u/L (0.00-0.03); IMMATURE GRAN % 0.5 % (0.00-0.4); Lymphocyte (Absolute #) 0.37 x10^3/uL (1.0-4.6); Lymphocytes % 3.5 % (24.0-44.0); Mean Cell Volume 108.4 fL (78-100); Mean Corpuscular Hemoglobin 32.5 pg (26-32); Mean Platelet Volume 10.4 fL (7.5-11.0); Monocyte (Absolute #) 0.85 x10^3/uL (0.0-1.3); Monocytes % 8.1 % (0.0-12.0); Neutrophil % 84.8 % (36.0-66.0); Platelet Count 184 x10^3/uL (150-450); Red Blood Count 2.49 x10^6/uL (4.1-5.6); Red Cell Distribution Width 16.7 % (11.5-14.0); White Blood Count 10.5 x10^3/uL (4.0-10.5)
--- NOTE | 2023-01-28 08:13 | XRAY ---
CLINICAL HISTORY:dyspnea COMPARISON:None. TECHNIQUE:X-ray of the chest, AP portable FINDINGS: Midline sternotomy sutures are seen suggesting previous intervention. The chest port is seen in place on the right side with its tip normally in place at atrioocaval junction. A dual-wire pacemaker is seen in place on the right side with intact wires. Patchy air space shadowing is seen in the right mid and lower zones. Obliteration of right costophrenic angle seen. Increase in transverse cardiac diameter. The manuel are normal in size and position. Left costophrenic and cardiophrenic angles are clear. Degenerative changes seen in the visualized spine. IMPRESSION: Patchy air space shadowing seen in right mid and lower zones with blunting of right costophrenic angle likely due to pleural effusion. Findings are likely due to pulmonary infection, would recommend clinical and lab correlation. Cardiomegaly, echocardiography is advised if clinically indicated. Follow up chest x-ray/CT is advised. Electronically Signed by: Jason Jensen MD. (01/28/2023 08:10:10 EST)
[2023-01-28 08:25] LABS: ALBUMIN 3.1 g/dL (3.5-5.0); ANION GAP 11.9 MEQ/L (5-15); BILIRUBIN,TOTAL 0.4 mg/dL (0.2-1.3); Calcium 8.6 mg/dL (8.4-10.2); MAGNESIUM 1.6 mg/dL (1.6-2.3); Potassium 3.9 mmol/L (3.5-5.1); Total Protein 6.4 g/dL (6.3-8.2)
[2023-01-28 08:30] LABS: Slide Review 1 YES
[2023-01-28 08:33] LABS: INR 1.07 (0.8-3.0); PROTIME 11.6 SECONDS (9.4-12.5); PTT 25.6 SECONDS (25.1-36.5)
[2023-01-28 08:35] LABS: D-DIMER QUANTITATIVE 4.71 mg/L (0.0-0.50)
[2023-01-28] MEDS ORDERED: ROCEPHIN 1 Gm-D5w 50 ml Bag** 1 G/50 ML IVPB IV STA (08:44)
[2023-01-28] MEDS ORDERED: ROCEPHIN 1 Gm-D5w 50 ml Bag** 1 G/50 ML IVPB IV ONE (08:55)
[2023-01-28 09:03] LABS: TROPONIN 0.054 ng/mL (0.000-0.034)
[2023-01-28] MEDS ORDERED: BABY ASPIRIN 81 MG CHEW PO ONE (10:38)
[2023-01-28] MEDS ORDERED: BABY ASPIRIN 81 MG CHEW ONE (10:39)
[2023-01-28 11:13] VITALS: BP 143/93; PULSE 69; RESP 18; O2SAT 98
--- NOTE | 2023-01-28 11:44 | XRAY ---
CLINICAL HISTORY:PE STUDY, ELEVATED D-DIMER COMPARISON:Chest x-ray done on same day TECHNIQUE:CT scan of the chest with contrast was done in axial images, Coronal and sagittal images were provided. FINDINGS: No definite evidence of filling defects seen in the pulmonary trunk and its branches. 5.6mm soft tissue density nodule seen in right upper lobe. Patchy air space shadowing seen in right lung predominantly in right mid and lower lobes. Patchy ground glass haze with interstitial septal thickening seen in right lung. Moderate right sided pleural effusion seen. Mild left-sided pleural effusion. Atelectatic band seen in left upper lobe. Mid line sternotomy sutures seen status post intervention. A dual-wire pacemaker is seen in place on the right side with intact wires. Mild cardiomegaly seen. No pathologically enlarged mediastinal, hilar or axillary lymph node was identified. There is no definite mass lesion in the chest wall. Degenerative changes seen in the visualized spine. IMPRESSION: 1. No definite evidence of filling defects seen in the pulmonary trunk and its branches to suggest pulmonary embolism. 2. 5.6mm soft tissue density nodule seen in right upper lobe. LUNG-RADS category 2, continue annual screening with LDCT 3. Patchy air space shadowing seen in right lung predominantly in right mid and lower lobes. Findings may representing airspace infectious process versus pulmonary edema. Please correlate clinically. 4. Possible CHF, moderate right sided and mild left-sided pleural effusion. Electronically Signed by: Jason Jensen MD. (01/28/2023 11:39:27 EST)
== END 2023-01-28 11:37 | disposition short-term general hospital (02) ==
LOC: ED 06:17
DX: I21.4 Non-ST elevation (NSTEMI) myocardial infarction (principal); J18.9 Pneumonia, unspecified organism; I48.20 Chronic atrial fibrillation, unspecified; R06.00 Dyspnea, unspecified; I10 Essential (primary) hypertension; Z79.01 Long term (current) use of anticoagulants; Z79.899 Other long term (current) drug therapy; Z20.828 Contact with and (suspected) exposure to other viral communicable diseases
CPT/HCPCS: 0241U; 36000; 36415; 36600; 71045; 71260; 80053; 82375; 82803; 83605; 83735; 83880; 84484; 85025; 85379; 85610; 85730; 87040; 93005; 93041; 94760; 96365; 99284; 99291; J0696; A9270-GY

== ENCOUNTER 2023-04-30 09:12 | Observation (INO) | payer MEDICARE ==
[2023-04-30] MEDS ORDERED: Sodium Chloride 0.9% 1000 ML 1,000 ML ONE (09:48)
[2023-04-30] MEDS: Sodium Chloride 0.9% 1000 ML 1,000 ML IV STA (09:51)
--- NOTE | 2023-04-30 09:53 | ERPHSYRPT ---
- History of Present Illness Time Seen by Provider: 04/30/23 09:30 Source: patient Exam Limitations: no limitations Patient Subjective Stated Complaint: pt here for weakness and aches or last couple days, just finished chemo treatments, Triage Nursing Assessment: pt alert, arrived per wc, assist of one to get legs in bed, alert, resp easy, skin w/d/p, has multi bruising to both arms, and sores to lips and fingers to fingers Physician History: 78-year-old male with a history of coronary artery disease, 5 vessel CABG cardiac stents currently on chemotherapy for colorectal cancer presents to our emergency department for evaluation of generalized weakness and bodyaches. Symptoms have been ongoing for 5 day. No associated chest pain or shortness of breath. No nausea vomiting or diaphoresis. No fever. Symptoms are progressive symptoms are moderate in intensity. No specific worsening or improving factors. Patient voices no other complaints or concerns at this time. Portions of this note were created with voice recognition technology. There may be grammatical, spelling, punctuation or sound alike errors Timing/Duration: day(s) (5 days) Severity: moderate Modifying Factors: Improves With: nothing Associated Symptoms: weakness, No nausea, No vomiting, No shortness of breath, No cough, No chest pain, No fever, No syncope, No seizure Allergies/Adverse Reactions: No Known Drug Allergies Allergy (Verified 04/30/23 09:27) Home Medications: Gabapentin 300 mg PO BID 09/23/13 [History] Sertraline HCl 50 mg [Zoloft 50 mg Tablet] 50 mg PO DAILY 09/23/13 [History] Tamsulosin HCl 0.4 mg [Flomax 0.4 MG] 0.4 mg PO BID 09/23/13 [History] Levothyroxine Sodium 50 mcg PO DAILY 06/04/17 [History] Atorvastatin Calcium 20 mg PO DAILY 06/19/18 [History] Apixaban [Eliquis 5 mg Tablet] 5 mg PO DAILY 11/03/21 [History] Cyanocobalamin 1000 Mcg/ml [Cyanocobalamin B-12 1000 MCG/ML] 1,000 mg PO DAILY 11/03/21 [History] Losartan Potassium 50 mg [Cozaar 50 MG] 50 mg PO DAILY 11/03/21 [History] Hx Tetanus, Diphtheria Vaccination/Date Given: No Hx Influenza Vaccination/Date Given: Yes Hx Pneumococcal Vaccination/Date Given: Yes Immunizations Up to Date: Yes Travel Risk - International Travel Have you traveled outside of the country in past 3 weeks: No - Coronavirus Screening Are you exhibiting any of the following symptoms?: No Close contact with a COVID-19 positive Pt in past 14-21 Days: No - Vaccine Status Have you recieved a Covid-19 vaccination: Yes 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 - Vaccination Dates Date of 2cond Vaccination (if applicable): 05/2020 - Review of Systems Constitutional: No Symptoms, No Fever, No Chills Eyes: No Symptoms Ears, Nose, & Throat: No Symptoms Respiratory: No Symptoms, No Cough, No Dyspnea Cardiac: No Symptoms, No Chest Pain, No Edema, No Syncope Abdominal/Gastrointestinal: No Symptoms, No Abdominal Pain, No Nausea, No Vomiting, No Diarrhea Genitourinary Symptoms: No Symptoms, No Dysuria Musculoskeletal: No Symptoms, No Back Pain, No Neck Pain Skin: No Symptoms, No Rash Neurological: No Symptoms, No Dizziness, No Focal Weakness, No Sensory Changes Psychological: No Symptoms Endocrine: No Symptoms Hematologic/Lymphatic: No Symptoms Immunological/Allergic: No Symptoms All Other Systems: Reviewed and Negative - Past Medical History Pertinent Past Medical History: Yes Neurological History: Peripheral Neuropathy ENT History: No Pertinent History Cardiac History: Coronary Artery Disease Respiratory History: No Pertinent History Endocrine Medical History: Hypothyroidism Musculoskeletal History: Arthritis GI Medical History: Colorectal Cancer, Hernia History: Other Psycho-Social History: Depression Male Reproductive Disorders: Prostate Problems Other Medical History: Colorectal cancer - Past Surgical History Past Surgical History: Yes Neuro Surgical History: No Pertinent History Cardiac: CABG, Cardiac Catheterization, Cardiac Stent Respiratory: No Pertinent History Gastrointestinal: Hernia Repair Genitourinary: No Pertinent History Musculoskeletal: Joint Replacement Male Surgical History: No Pertinent History Other Surgical History: 5 VESSEL CABG. COLON RESECTION with colostomy, repair to 2 lower bowel blockages. 2 HERNIA. Right lower lobe of lung removed. Right hip replacement. COLO ANAL RESECTION, STAGE [address] LORENA BRENNER. LEFT KNEE REPLACEMENT. COLOSTOMY STOMA RPTURE REPAIR X 2 - Social History Smoking Status: Former smoker Exposure to second hand smoke: No Drug Use: none Patient Lives Alone: No - Nursing Vital Signs Nursing Vital Signs: Initial Vital Signs Temperature 97.5 F 04/30/23 09:21 Pulse Rate 79 04/30/23 09:21 Respiratory Rate 12 04/30/23 09:21 Blood Pressure 96/63 04/30/23 09:21 O2 Sat by Pulse Oximetry 98 04/30/23 09:21 Pain Scale Pain Intensity 5 - Physical Exam General Appearance: no apparent distress, alert, other (Baseline hypotension upon arrival. However patient conversant no acute distress) Eye Exam: PERRL/EOMI, eyes nml inspection Ears, Nose, Throat Exam: normal ENT inspection, TMs normal, pharynx normal, moist mucous membranes Neck Exam: normal inspection, non-tender, supple, full range of motion Respiratory Exam: normal breath sounds, lungs clear, No respiratory distress Cardiovascular Exam: regular rate/rhythm, normal heart sounds, normal peripheral pulses Gastrointestinal/Abdomen Exam: soft, normal bowel sounds, other (Intact colostomy) Back Exam: normal inspection, normal range of motion, No CVA tenderness, No vertebral tenderness Extremity Exam: normal inspection, normal range of motion, pelvis stable Neurologic Exam: alert, oriented x 3, cooperative, normal mood/affect, sensation nml, No motor deficits Skin Exam: normal color, warm, dry, No rash Lymphatic Exam: No adenopathy SpO2 Interpretation: normal SpO2: 98 O2 Delivery: Room Air - Course Nursing assessment & vital signs reviewed: Yes EKG Interpreted by Me: RATE (60), A-fib (A-fib flutter and ventricular paced complexes. Minimal ST depression in anterolateral leads), NORMAL AXIS, NORMAL INTERVALS Ordered Tests: Active Orders 24 hr Category Date Time Status Front Desk Auxiliary STAT Care 04/30/23 09:46 Active EKG-ER Only STAT Care 04/30/23 09:45 Active IV Insertion STAT Care 04/30/23 09:45 Active Pulse Oximetry (ED) STAT Care 04/30/23 09:45 Active CBC W DIFF Stat Lab 04/30/23 09:45 Completed CMP Stat Lab 04/30/23 09:45 Completed Manual Differential NC Stat Lab 04/30/23 09:45 Completed TROPONIN Q4H Lab 04/30/23 09:45 Completed TROPONIN Q4H Lab 04/30/23 14:00 Ordered TROPONIN Q4H Lab 04/30/23 18:00 Ordered Medication Summary Generic Name Dose Route Start Last Admin Trade Name Freq PRN Reason Stop Dose Admin Sodium Chloride 1,000 mls @ 999 mls/hr 04/30/23 09:45 04/30/23 09:51 Sodium Chloride 0.9% 1000 Ml IV 04/30/23 10:45 999 mls/hr .Q1H1M STA Administration Discontinued Medications Generic Name Dose Route Start Last Admin Trade Name Rodney PRN Reason Stop Dose Admin Sodium Chloride Confirm 04/30/23 09:48 Sodium Chloride 0.9% 1000 Ml Administered 04/30/23 09:49 Dose 1,000 mls @ ud .ROUTE .STK-MED ONE Lab/Rad Data: Laboratory Result Diagrams 04/30/23 09:45 04/30/23 09:45 Laboratory Results 04/30/23 04/30/23 04/30/23 Range/Units 09:45 09:45 09:45 WBC 1.9 L* (4.0-10.5) x10^3/uL RBC 2.22 L (4.1-5.6) x10^6/uL Hgb 7.1 L (12.5-18.0) g/dL Hct 22.6 L (42-50) % MCV 101.8 H (78-100) fL MCH 32.0 (26-32) pg MCHC 31.4 L (32-36) g/dL RDW 23.8 H (11.5-14.0) % Plt Count 112 L (150-450) x10^3/uL MPV 10.2 (7.5-11.0) fL Sodium 141 (137-145) mmol/L Potassium 4.3 (3.5-5.1) mmol/L Chloride 106 (98-107) mmol/L Carbon Dioxide 29 (22-30) mmol/L Anion Gap 9.7 (5-15) MEQ/L BUN 41 H (9-20) mg/dL Creatinine 1.13 (0.66-1.25) mg/dL Estimated GFR 66.1 ML/MIN Glucose 148 H (74-106) mg/dL Calcium 8.2 L (8.4-10.2) mg/dL Total Bilirubin 0.40 (0.2-1.3) mg/dL AST 25 (17-59) U/L ALT 15 (0-50) U/L Alkaline Phosphatase 65 (38-126) U/L Troponin I 0.024 (0.000-0.034) ng/mL Serum Total Protein 6.1 L (6.3-8.2) g/dL Albumin 3.0 L (3.5-5.0) g/dL - Progress Progress: improved Progress Note: I spoke to Dr. Humphries our patient's oncologist who advises moving forward with transfusion. Spoke to Dr. Humphries at approximately 10:30 AM 04/30/23 10:[address] Godinez at 10:42 AM. He accepts patient to observation. Plan of care discussed with patient. He agrees to admission to [facility] for further evaluation and treatment. 04/30/23 10:41 78-year-old male history of metastatic colon cancer on chemotherapy presents to our ED for 5-day history of progressive generalized weakness and bodyaches. Patient advises that he has had a significant amount of weight loss over the past 2 months. Patient BMI currently 21.2. Physical exam reveals dry oral mucous membranes. Upon arrival patient's systolic blood pressure was in the high 80s. MAP is 65. Patient received normal saline bolus blood pressure systolic at 135. Laboratory workup reveals a macrocytic anemia at 7.1. Patient is leukopenic at 1.9. After discussion with patient's oncologist the decision was made to admit for blood transfusion and hydration. Plan of care discussed with patient. He agrees to admission at [facility] for further evaluation and treatment. Portions of this note were created with voice recognition technology. There may be grammatical, spelling, punctuation or sound alike errors Complexity problem addressed is high, threat to bodily function as patient was hypotensive upon arrival. COPA (number of complexity of problem addressed) Minimal, Straight forward, one self limited or minor problem Low. Acute uncomplicated stable +/- admission, Any acute or chronic illness, 2 or more self-limited or minor problems. Moderate. Acute, complicated or with systemic illness. Chronic illness with exacerbation, New diagnosis with uncertain prognosis. 2 or more chronic stable illnesses. High. Any severe exacerbation or threat to bodily function, Any treatment side effects Critical care time is 1 hour and 30 minutes. Patient requires transfusion for symptomatic anemia. Patient hypotensive upon arrival. Immediate action indicated to prevent further deterioration Complex of data reviewed and analyzed is extensive. Test ordered test reviewed. Results analyzed and correlated clinically with history and physical examination. Management discussed with patient's oncologist and hospitalist Risk of complication and or risk of morbidity/mortality of patient management is high. Patient requires hospitalization for further evaluation and treatment. Vital stable. Time spent to admit patient is approximately 20 minutes. Plan of care established for shared decision making. 04/30/23 10:46 Discussed with : Zach Will see patient in: hospital (observation) Counseled pt/family regarding: lab results, diagnosis, rad results - Departure Departure Disposition: Observation Clinical Impression: Symptomatic macrocytic anemia, Leukopenia, Thrombocytopenia, Generalized weakness, Hypotension, Dehydration Condition: Stable Critical Care Time: No Referrals: STANLEY ROGERS MD [Primary Care Provider] - Follow up/PCP as directed
[2023-04-30 10:03] LABS: Hematocrit 22.6 % (42-50); Hemoglobin 7.1 g/dL (12.5-18.0); Mean Cell Volume 101.8 fL (78-100); Mean Corpuscular Hgb Concent. 31.4 g/dL (32-36); Mean Platelet Volume 10.2 fL (7.5-11.0); Platelet Count 112 x10^3/uL (150-450); Red Blood Count 2.22 x10^6/uL (4.1-5.6); Red Cell Distribution Width 23.8 % (11.5-14.0)
[2023-04-30 10:06] LABS: White Blood Count 1.9 x10^3/uL (4.0-10.5)
[2023-04-30 10:17] LABS: ANION GAP 9.7 MEQ/L (5-15); BILIRUBIN,TOTAL 0.4 mg/dL (0.2-1.3); Calcium 8.2 mg/dL (8.4-10.2); Creatinine 1 1.13 mg/dL (0.66-1.25); EST GLOMERULAR FILTRATION RATE 66.1 ML/MIN; Potassium 4.3 mmol/L (3.5-5.1); Total Protein 6.1 g/dL (6.3-8.2)
[2023-04-30 10:40] LABS: Basophil 1 % (0.0-1.0); Eosinophil 11 % (0.00-3.0); Lymphocytes 15 % (24-44); Monocyte 4 % (0.0-12.0); Neutrophils 69 % (36.-66.); Nucleated Red Blood Cell 1 %; Total Cells Counted 100
[2023-04-30 10:41] LABS: Platelet Estimate DECREASED (NORMAL)
[2023-04-30 10:42] LABS: ANISOCYTOSIS 2+; Hypochromia 1+
[2023-04-30 10:55] LABS: INFLUENZA A NEGATIVE (NEGATIVE); INFLUENZA B NEGATIVE (NEGATIVE); RESPIRATORY SYNCTIAL VIRUS NEGATIVE (NEGATIVE); SARS-CoV-2 Xpert Express NEGATIVE (NEGATIVE)
[2023-04-30 11:41] LABS: ABO TYPING O; Antibody Screen NEGATIVE (NEGATIVE); RH TYPING POSITIVE
[2023-04-30 11:43] LABS: CROSS MATCH (PRBC) COMPATIBLE (COMPATIBLE)
--- NOTE | 2023-04-30 13:09 | PCM.HP ---
History of Present Illness - Chief Complaint Chief Complaint: Anemia Date: 04/30/23 History of Present Illness: is a 78 year old male with a PMHX of hypothyroidism, depression, BPH, coronary artery disease, 5 vessel CABG cardiac stents currently on chemotherapy for metastatic colorectal cancer with colostomy. He presented to the emergency department for evaluation of generalized weakness and body aches. Symptoms have been ongoing for 5 day. No associated chest pain or shortness of breath. No nausea vomiting or diaphoresis. No fever. Symptoms are progressive symptoms are moderate in intensity. No specific worsening or improving factors. Hgb was found to be 7.1. Oncology consulted in ER and recommend 2 units PRBC and IVF. He admits to + blood in urine at the end of self cathing. He does have a hx of BPH. will order UA with culture. Most likely d/c in AM. - Review of Systems Constitutional: Malaise, Weakness, No Fever, No Chills Eyes: No Symptoms Ears, Nose, & Throat: No Symptoms Respiratory: No Cough, No Short Of Breath Cardiac: No Chest Pain, No Edema, No Syncope Abdominal/Gastrointestinal: No Abdominal Pain, No Nausea, No Vomiting, No Diarrhea Genitourinary Symptoms: Hematuria, No Dysuria Musculoskeletal: No Back Pain, No Neck Pain Skin: No Rash Neurological: No Dizziness, No Focal Weakness, No Sensory Changes Psychological: No Symptoms Endocrine: No Symptoms Hematologic/Lymphatic: No Symptoms Immunological/Allergic: No Symptoms Medications & Allergies Home Medications: Home Medication List Gabapentin 300 mg PO BID 09/23/13 [History Confirmed 04/30/23] Sertraline HCl 50 mg [Zoloft 50 mg Tablet] 50 mg PO DAILY 09/23/13 [History Confirmed 04/30/23] Tamsulosin HCl 0.4 mg [Flomax 0.4 MG] 0.4 mg PO BID 09/23/13 [History Confirmed 04/30/23] Levothyroxine Sodium 50 mcg PO DAILY 06/04/17 [History Confirmed 04/30/23] Atorvastatin Calcium 20 mg PO DAILY 06/19/18 [History Confirmed 04/30/23] Apixaban [Eliquis 5 mg Tablet] 5 mg PO BID 11/03/21 [History Confirmed 04/30/23] Cyanocobalamin 1000 Mcg/ml [Cyanocobalamin B-12 1000 MCG/ML] 1,000 mg PO UD 11/03/21 [History Confirmed 04/30/23] Losartan Potassium 50 mg [Cozaar 50 MG] 50 mg PO DAILY 11/03/21 [History Confirmed 04/30/23] Ferrous Sulfate 325 mg [Feosol 325 mg] 325 mg PO DAILY 04/30/23 [History Confirmed 04/30/23] Finasteride 5 mg [Proscar 5 MG] 5 mg PO DAILY 04/30/23 [History Confirmed 04/30/23] Multivitamin 1 each PO DAILY 04/30/23 [History Confirmed 04/30/23] Naproxen Sodium [Aleve] 2 - 3 each PO UD PRN 04/30/23 [History Confirmed 04/30/23] Trazodone HCl 50 mg [Desyrel 50 mg] 100 mg PO QHS 04/30/23 [History Confirmed 04/30/23] Allergies/Adverse Reactions: Allergies Allergy/AdvReac Type Severity Reaction Status Date / Time No Known Drug Allergies Allergy Verified 04/30/23 09:27 - Past Medical History Past Medical History: Yes Neurological History: Peripheral Neuropathy ENT History: No Pertinent History Cardiac History: Coronary Artery Disease Respiratory History: No Pertinent History Endocrine Medical History: Hypothyroidism Musculoskelatal History: Arthritis GI Medical History: Colorectal Cancer, Hernia History: Other Pyscho-Social History: Depression Male Reproductive Disorders: Prostate Problems Comment: Colorectal cancer - Past Surgical History Past Surgical History: Yes Neuro Surgical History: No Pertinent History Cardiac History: CABG, Cardiac Catheterization, Cardiac Stent Respiratory Surgery: No Pertinent History GI Surgical History: Hernia Repair Genitourinary Surgical Hx: No Pertinent History Musculskeletal Surgical Hx: Joint Replacement Male Surgical History: No Pertinent History Other Surgical History: 5 VESSEL CABG. COLON RESECTION with colostomy, repair to 2 lower bowel blockages. 2 HERNIA. Right lower lobe of lung removed. Right hip replacement. COLO ANAL RESECTION, STAGE [address] LORENA BRENNER. LEFT KNEE REPLACEMENT. COLOSTOMY STOMA RPTURE REPAIR X 2 - Social History Smoking Status: Former smoker Exposure to second hand smoke: No Alcohol: Rarely Drug Use: none - Social Determinants of Health Will the patient participate in the screening: Yes Do you worry about a steady place to live?: No Do you have any problems with any of the following?: No known problems In the past 12 months,have you had to go without utilities?: No Have you or anyone in your house had to go without enough: No Transportation Issues: No Has anyone in your support network made you feel unsafe?: No Does the patient want assistance with any of the above?: No - Physical Exam Vital Signs: Vital Signs - 24 hr Temp Pulse Resp BP BP Pulse Ox 04/30/23 11:11 97.7 F 61 18 123/67 96 04/30/23 11:10 97.7 F 67 17 123/67 96 04/30/23 10:52 98 04/30/23 10:00 159 H 22 88/56 97 04/30/23 09:58 78 22 92/52 04/30/23 09:51 99 04/30/23 09:30 23 87/55 97 04/30/23 09:21 97.5 F 79 12 96/63 98 General Appearance: no apparent distress, alert Neurologic Exam: alert, oriented x 3, cooperative, normal mood/affect, nml cerebellar function, nml station & gait, sensation nml, No motor deficits Eye Exam: PERRL/EOMI, eyes nml inspection Ears, Nose, Throat Exam: normal ENT inspection, TMs normal, pharynx normal, moist mucous membranes Neck Exam: normal inspection, non-tender, supple, full range of motion Respiratory Exam: normal breath sounds, lungs clear, No respiratory distress Cardiovascular Exam: regular rate/rhythm, normal heart sounds, normal peripheral pulses Gastrointestinal/Abdomen Exam: soft, normal bowel sounds, No tenderness, No mass Back Exam: normal inspection, normal range of motion, No CVA tenderness, No traci tebral tenderness Extremity Exam: normal inspection, normal range of motion, pelvis stable Skin Exam: normal color, warm, dry, No rash Lymphatic Exam: No adenopathy Results - Labs Lab/Micro Results: Lab Results-Last 24 Hours 04/30/23 04/30/23 04/30/23 Range/Units 09:45 09:45 09:45 WBC 1.9 L* (4.0-10.5) x10^3/uL RBC 2.22 L (4.1-5.6) x10^6/uL Hgb 7.1 L (12.5-18.0) g/dL Hct 22.6 L (42-50) % MCV 101.8 H (78-100) fL MCH 32.0 (26-32) pg MCHC 31.4 L (32-36) g/dL RDW 23.8 H (11.5-14.0) % Plt Count 112 L (150-450) x10^3/uL MPV 10.2 (7.5-11.0) fL Segmented Neutrophils 69 H (36.-66.) % Lymphocytes (Manual) 15 L (24-44) % Monocytes (Manual) 4 (0.0-12.0) % Eosinophils (Manual) 11 H (0.00-3.0) % Basophils (Manual) 1 (0.0-1.0) % Nucleated RBCs 1 % Hypochromia 1+ Platelet Estimate DECREASED (NORMAL) RBC Morphology ABNORMAL Anisocytosis 2+ Smear Path Review Pending Sodium 141 (137-145) mmol/L Potassium 4.3 (3.5-5.1) mmol/L Chloride 106 (98-107) mmol/L Carbon Dioxide 29 (22-30) mmol/L Anion Gap 9.7 (5-15) MEQ/L BUN 41 H (9-20) mg/dL Creatinine 1.13 (0.66-1.25) mg/dL Estimated GFR 66.1 ML/MIN Glucose 148 H (74-106) mg/dL Calcium 8.2 L (8.4-10.2) mg/dL Total Bilirubin 0.40 (0.2-1.3) mg/dL AST 25 (17-59) U/L ALT 15 (0-50) U/L Alkaline Phosphatase 65 (38-126) U/L Troponin I 0.024 (0.000-0.034) ng/mL Serum Total Protein 6.1 L (6.3-8.2) g/dL Albumin 3.0 L (3.5-5.0) g/dL ABO Group Rh Factor Antibody Screen (NEGATIVE) Crossmatch (COMPATIBLE) 04/30/23 04/30/23 04/30/23 Range/Units 10:45 10:45 10:45 WBC (4.0-10.5) x10^3/uL RBC (4.1-5.6) x10^6/uL Hgb (12.5-18.0) g/dL Hct (42-50) % MCV (78-100) fL MCH (26-32) pg MCHC (32-36) g/dL RDW (11.5-14.0) % Plt Count (150-450) x10^3/uL MPV (7.5-11.0) fL Segmented Neutrophils (36.-66.) % Lymphocytes (Manual) (24-44) % Monocytes (Manual) (0.0-12.0) % Eosinophils (Manual) (0.00-3.0) % Basophils (Manual) (0.0-1.0) % Nucleated RBCs % Hypochromia Platelet Estimate (NORMAL) RBC Morphology Anisocytosis Smear Path Review Sodium (137-145) mmol/L Potassium (3.5-5.1) mmol/L Chloride (98-107) mmol/L Carbon Dioxide (22-30) mmol/L Anion Gap (5-15) MEQ/L BUN (9-20) mg/dL Creatinine (0.66-1.25) mg/dL Estimated GFR ML/MIN Glucose (74-106) mg/dL Calcium (8.4-10.2) mg/dL Total Bilirubin (0.2-1.3) mg/dL AST (17-59) U/L ALT (0-50) U/L Alkaline Phosphatase (38-126) U/L Troponin I 0.025 (0.000-0.034) ng/mL Serum Total Protein (6.3-8.2) g/dL Albumin (3.5-5.0) g/dL ABO Group O Rh Factor POSITIVE Antibody Screen NEGATIVE (NEGATIVE) Crossmatch COMPATIBLE COMPATIBLE (COMPATIBLE) Assessment/Plan (1) Anemia Current Visit: Yes Status: Acute Assessment & Plan: - 2:2 chemo for colon cancer with mets - 2 Units of PRBC - oncology consulted in ER - UA- pt admits to some urine at end of stream when self cath - denies dark or bloody stools, no vomiting blood. Code(s): D64.9 - ANEMIA, UNSPECIFIED (2) Weakness Current Visit: Yes Status: Acute Assessment & Plan: - 2:2 Colon cancer, chemo treatment, anemia - PT eval - CM for any home needs - IVF gave in ER - tele - repeat CBC after 2 units per protocol - UA - EKG Code(s): R53.1 - WEAKNESS (3) Leukopenia Current Visit: Yes Status: Acute Assessment & Plan: - 2:2 chemo for colon ca - WBC 1.9 Code(s): D72.819 - DECREASED WHITE BLOOD CELL COUNT, UNSPECIFIED (4) History of colon cancer Current Visit: No Status: Chronic Assessment & Plan: - receiving chemo treatment with Dr. Stapleton - with mets Code(s): Z85.038 - PERSONAL HISTORY OF MALIGNANT NEOPLASM OF LARGE INTESTINE (5) Depression Current Visit: Yes Status: Chronic Assessment & Plan: - continue home meds Code(s): F32.A - DEPRESSION, UNSPECIFIED (6) BPH (benign prostatic hyperplasia) Current Visit: Yes Status: Acute Assessment & Plan: - continue flomax Code(s): N40.0 - BENIGN PROSTATIC HYPERPLASIA WITHOUT LOWER URINRY TRACT SYMP (7) HTN (hypertension) Current Visit: Yes Status: Chronic Assessment & Plan: - Continue home meds - BP stable Code(s): I10 - ESSENTIAL (PRIMARY) HYPERTENSION (8) prison (current) use of anticoagulants Current Visit: Yes Status: Chronic Assessment & Plan: - continue Eliquis - Hx of CABG and stent placement - No active bleeding Code(s): Z79.01 - SPEARER (CURRENT) USE OF ANTICOAGULANTS (9) Hypothyroidism Current Visit: Yes Status: Chronic Assessment & Plan: - continue synthroid VTE: Eliquis Next of Kin: Chelo Sauer, Spouse [phone] D/C plan: tomorrow Code status: Full Code(s): E03.9 - HYPOTHYROIDISM, UNSPECIFIED
[2023-04-30 20:01] LABS: Hematocrit 32.6 % (42-50)
[2023-04-30 20:02] LABS: Hemoglobin 10.2 g/dL (12.5-18.0)
[2023-04-30] MEDS ORDERED: NON-FORMULARY ITEM (Apixaban*** [Eliquis 5 Mg Tablet***] 5 MG Tablet) PO SCH (22:00)
[2023-04-30] MEDS: DESYREL 50 MG PO SCH (22:52)
[2023-04-30] MEDS: Flomax 0.4 MG PO SCH (22:52)
[2023-04-30] MEDS: NEURONTIN PO SCH (22:52)
[2023-04-30] MEDS: ELIQUIS 2.5 MG TABLET PO SCH (22:52)
[2023-05-01] MEDS: TYLENOL 325 MG PO PRN (00:24)
[2023-05-01 05:31] LABS: Hematocrit 27.6 % (42-50); Hemoglobin 8.7 g/dL (12.5-18.0); Mean Cell Volume 97.5 fL (78-100); Mean Corpuscular Hemoglobin 30.7 pg (26-32); Mean Corpuscular Hgb Concent. 31.5 g/dL (32-36); Mean Platelet Volume 9.7 fL (7.5-11.0); Platelet Count 93 x10^3/uL (150-450); Red Blood Count 2.83 x10^6/uL (4.1-5.6); Red Cell Distribution Width 22.3 % (11.5-14.0)
[2023-05-01 06:04] LABS: White Blood Count 1.7 x10^3/uL (4.0-10.5)
[2023-05-01 06:31] LABS: ALBUMIN 2.7 g/dL (3.5-5.0); ANION GAP 6.7 MEQ/L (5-15); BILIRUBIN,TOTAL 0.7 mg/dL (0.2-1.3); Calcium 8.1 mg/dL (8.4-10.2); Creatinine 1 0.98 mg/dL (0.66-1.25); EST GLOMERULAR FILTRATION RATE 78.4 ML/MIN; Potassium 4.4 mmol/L (3.5-5.1); Total Protein 5.8 g/dL (6.3-8.2)
[2023-05-01] MEDS: ZOCOR 20MG PO SCH (08:44)
[2023-05-01] MEDS: ZOLOFT 50 MG TABLET PO SCH (08:44)
[2023-05-01] MEDS: SYNTHROID 50 MCG PO SCH (08:45)
[2023-05-01] MEDS: Cozaar 50 MG PO SCH (08:45)
[2023-05-01] MEDS: FEOSOL 325 MG PO SCH (08:45)
[2023-05-01] MEDS: THERAGRAN MULTIVITAMIN PO SCH (08:45)
[2023-05-01] MEDS: Proscar 5 MG PO SCH (08:47)
[2023-05-01 09:09] LABS: Slide Review YES
[2023-05-01] MEDS ORDERED: NON-FORMULARY ITEM (Multivitamin [Multivitamin] 1 EACH Tablet) PO SCH (10:00)
[2023-05-01] MEDS ORDERED: NON-FORMULARY ITEM (Atorvastatin Calcium [Atorvastatin Calcium] 20 MG Tablet) PO SCH (10:00)
[2023-05-01 10:38] LABS: Appearance Turbid (Clear); Bacteria Many /HPF (None Seen); Bilirubin Negative (Negative); Blood Moderate (Negative); Epithelial Cells None Seen /HPF (None Seen); Glucose, Urine Negative (Negative); Hyaline Casts NONE SEEN /LPF (0-2); Ketones Trace (Negative); Leukocyte Esterase Large (Negative); Nitrite Negative (Negative); Ph 5.5 (4.6-8.0); Protein,Urine Dip 100 (Negative); Specific Gravity 1.015 (1.005-1.030); WBC >100 /HPF (0-5)
[2023-05-01 10:39] LABS: ADD URINE CULTURE? ORDERED SEPARATELY (NO)
--- NOTE | 2023-05-01 10:50 | PCM.DS ---
Discharge Summary Date of Admission: 04/30/23 11:05 Date of Discharge: 05/01/23 Admitting Physician: VALERIE LAUREN MD Primary Care Provider: STANLEY ROGERS Allergies Allergies No Known Drug Allergies Allergy (Verified 04/30/23 09:27) Hospital Summary - Hospital Course Hospital Course: 04/30/23 is a 78 year old male with a PMHX of hypothyroidism, depression, BPH, coronary artery disease, 5 vessel CABG cardiac stents currently on chemotherapy for metastatic colorectal cancer with colostomy. He presented to the emergency department for evaluation of generalized weakness and body aches. Symptoms have been ongoing for 5 day. No associated chest pain or shortness of breath. No nausea vomiting or diaphoresis. No fever. Symptoms are progressive symptoms are moderate in intensity. No specific worsening or improving factors. Hgb was found to be 7.1. Oncology consulted in ER and recommend 2 units PRBC and IVF. He admits to + blood in urine at the end of self cathing. He does have a hx of BPH. will order UA with culture. Most likely d/c in AM. 05/01/23 Pt resting in bed. He states he feels much better and would like to go home to day. He is declining PT or any home needs. UA + for UTI. Will d/c with antibiotics and continue to follow culture OP. He will need to f/u with PCP and oncology OP. He denies any further concerns at this time. - Vitals & Intake/Output Vital Signs: Vital Signs Temperature 98.2 F 05/01/23 04:00 Pulse Rate 73 05/01/23 04:00 Respiratory Rate 18 05/01/23 04:00 Blood Pressure 121/62 05/01/23 04:00 O2 Sat by Pulse Oximetry 96 05/01/23 04:00 Intake & Output: Intake & Output 04/28/23 04/29/23 04/30/23 05/01/23 11:59 11:59 11:59 11:59 Intake Total 1015 Output Total 1175 Balance -160 Weight 66.3 kg - Lab Result Diagrams: 05/01/23 05:11 05/01/23 05:11 Lab Results-Last 24 Hrs: Lab Results-Last 24 Hours 04/30/23 04/30/23 04/30/23 Range/Units 09:45 09:58 10:09 WBC 1.9 L* (4.0-10.5) x10^3/uL RBC 2.22 L (4.1-5.6) x10^6/uL Hgb 7.1 L (12.5-18.0) g/dL Hct 22.6 L (42-50) % MCV 101.8 H (78-100) fL MCH 32.0 (26-32) pg MCHC 31.4 L (32-36) g/dL RDW 23.8 H (11.5-14.0) % Plt Count 112 L (150-450) x10^3/uL MPV 10.2 (7.5-11.0) fL Segmented Neutrophils 69 H (36.-66.) % Lymphocytes (Manual) 15 L (24-44) % Monocytes (Manual) 4 (0.0-12.0) % Eosinophils (Manual) 11 H (0.00-3.0) % Basophils (Manual) 1 (0.0-1.0) % Nucleated RBCs 1 % Hypochromia 1+ Platelet Estimate DECREASED (NORMAL) RBC Morphology ABNORMAL Anisocytosis 2+ Smear Path Review Pending Sodium (137-145) mmol/L Potassium (3.5-5.1) mmol/L Chloride (98-107) mmol/L Carbon Dioxide (22-30) mmol/L Anion Gap (5-15) MEQ/L BUN (9-20) mg/dL Creatinine (0.66-1.25) mg/dL Estimated GFR ML/MIN Glucose (74-106) mg/dL Calcium (8.4-10.2) mg/dL Total Bilirubin (0.2-1.3) mg/dL AST (17-59) U/L ALT (0-50) U/L Alkaline Phosphatase (38-126) U/L Troponin I (0.000-0.034) ng/mL Serum Total Protein (6.3-8.2) g/dL Albumin (3.5-5.0) g/dL Urine Color Yellow (Yellow) Urine Appearance Turbid A (Clear) Urine pH 5.5 (4.6-8.0) Ur Specific [place] Gap 1.015 (1.005-1.030) Urine Protein 100 A (Negative) Urine Glucose (UA) Negative (Negative) mg/dL Urine Ketones Trace A (Negative) Urine Blood Moderate A (Negative) Urine Nitrite Negative (Negative) Urine Bilirubin Negative (Negative) Urine Urobilinogen 1.0 A (0.2) mg/dL Ur Leukocyte Esterase Large A (Negative) U Hyaline Cast (Auto) NONE SEEN (0-2) /LPF Urine Microscopic RBC 6-10 A (0-5) /HPF Urine Microscopic WBC >100 A (0-5) /HPF Ur Epithelial Cells None Seen (None Seen) /HPF Urine Bacteria Many A (None Seen) /HPF Urine Culture Reflexed ORDERED SEPARATELY (NO) Influenza Type A Ag NEGATIVE (NEGATIVE) Influenza Type B Ag NEGATIVE (NEGATIVE) RSV (PCR) NEGATIVE (NEGATIVE) SARS-CoV-2 (PCR) NEGATIVE (NEGATIVE) Slides for Path Review ABO Group Rh Factor Antibody Screen (NEGATIVE) Crossmatch (COMPATIBLE) 04/30/23 04/30/23 04/30/23 Range/Units 10:45 10:45 10:45 WBC (4.0-10.5) x10^3/uL RBC (4.1-5.6) x10^6/uL Hgb (12.5-18.0) g/dL Hct (42-50) % MCV (78-100) fL MCH (26-32) pg MCHC (32-36) g/dL RDW (11.5-14.0) % Plt Count (150-450) x10^3/uL MPV (7.5-11.0) fL Segmented Neutrophils (36.-66.) % Lymphocytes (Manual) (24-44) % Monocytes (Manual) (0.0-12.0) % Eosinophils (Manual) (0.00-3.0) % Basophils (Manual) (0.0-1.0) % Nucleated RBCs % Hypochromia Platelet Estimate (NORMAL) RBC Morphology Anisocytosis Smear Path Review Sodium (137-145) mmol/L Potassium (3.5-5.1) mmol/L Chloride (98-107) mmol/L Carbon Dioxide (22-30) mmol/L Anion Gap (5-15) MEQ/L BUN (9-20) mg/dL Creatinine (0.66-1.25) mg/dL Estimated GFR ML/MIN Glucose (74-106) mg/dL Calcium (8.4-10.2) mg/dL Total Bilirubin (0.2-1.3) mg/dL AST (17-59) U/L ALT (0-50) U/L Alkaline Phosphatase (38-126) U/L Troponin I 0.025 (0.000-0.034) ng/mL Serum Total Protein (6.3-8.2) g/dL Albumin (3.5-5.0) g/dL Urine Color (Yellow) Urine Appearance (Clear) Urine pH (4.6-8.0) Ur Specific [place] Gap (1.005-1.030) Urine Protein (Negative) Urine Glucose (UA) (Negative) mg/dL Urine Ketones (Negative) Urine Blood (Negative) Urine Nitrite (Negative) Urine Bilirubin (Negative) Urine Urobilinogen (0.2) mg/dL Ur Leukocyte Esterase (Negative) U Hyaline Cast (Auto) (0-2) /LPF Urine Microscopic RBC (0-5) /HPF Urine Microscopic WBC (0-5) /HPF Ur Epithelial Cells (None Seen) /HPF Urine Bacteria (None Seen) /HPF Urine Culture Reflexed (NO) Influenza Type A Ag (NEGATIVE) Influenza Type B Ag (NEGATIVE) RSV (PCR) (NEGATIVE) SARS-CoV-2 (PCR) (NEGATIVE) Slides for Path Review ABO Group O Rh Factor POSITIVE Antibody Screen NEGATIVE (NEGATIVE) Crossmatch COMPATIBLE COMPATIBLE (COMPATIBLE) 04/30/23 04/30/23 05/01/23 Range/Units 19:52 19:52 05:11 WBC 1.7 L* (4.0-10.5) x10^3/uL RBC 2.83 L (4.1-5.6) x10^6/uL Hgb 10.2 L D 8.7 L (12.5-18.0) g/dL Hct 32.6 L 27.6 L (42-50) % MCV 97.5 (78-100) fL MCH 30.7 (26-32) pg MCHC 31.5 L (32-36) g/dL RDW 22.3 H (11.5-14.0) % Plt Count 93 L (150-450) x10^3/uL MPV 9.7 (7.5-11.0) fL Segmented Neutrophils (36.-66.) % Lymphocytes (Manual) (24-44) % Monocytes (Manual) (0.0-12.0) % Eosinophils (Manual) (0.00-3.0) % Basophils (Manual) (0.0-1.0) % Nucleated RBCs % Hypochromia Platelet Estimate (NORMAL) RBC Morphology Anisocytosis Smear Path Review Sodium (137-145) mmol/L Potassium (3.5-5.1) mmol/L Chloride (98-107) mmol/L Carbon Dioxide (22-30) mmol/L Anion Gap (5-15) MEQ/L BUN (9-20) mg/dL Creatinine (0.66-1.25) mg/dL Estimated GFR ML/MIN Glucose (74-106) mg/dL Calcium (8.4-10.2) mg/dL Total Bilirubin (0.2-1.3) mg/dL AST (17-59) U/L ALT (0-50) U/L Alkaline Phosphatase (38-126) U/L Troponin I 0.031 (0.000-0.034) ng/mL Serum Total Protein (6.3-8.2) g/dL Albumin (3.5-5.0) g/dL Urine Color (Yellow) Urine Appearance (Clear) Urine pH (4.6-8.0) Ur Specific [place] Gap (1.005-1.030) Urine Protein (Negative) Urine Glucose (UA) (Negative) mg/dL Urine Ketones (Negative) Urine Blood (Negative) Urine Nitrite (Negative) Urine Bilirubin (Negative) Urine Urobilinogen (0.2) mg/dL Ur Leukocyte Esterase (Negative) U Hyaline Cast (Auto) (0-2) /LPF Urine Microscopic RBC (0-5) /HPF Urine Microscopic WBC (0-5) /HPF Ur Epithelial Cells (None Seen) /HPF Urine Bacteria (None Seen) /HPF Urine Culture Reflexed (NO) Influenza Type A Ag (NEGATIVE) Influenza Type B Ag (NEGATIVE) RSV (PCR) (NEGATIVE) SARS-CoV-2 (PCR) (NEGATIVE) Slides for Path Review YES ABO Group Rh Factor Antibody Screen (NEGATIVE) Crossmatch (COMPATIBLE) 05/01/23 Range/Units 05:11 WBC (4.0-10.5) x10^3/uL RBC (4.1-5.6) x10^6/uL Hgb (12.5-18.0) g/dL Hct (42-50) % MCV (78-100) fL MCH (26-32) pg MCHC (32-36) g/dL RDW (11.5-14.0) % Plt Count (150-450) x10^3/uL MPV (7.5-11.0) fL Segmented Neutrophils (36.-66.) % Lymphocytes (Manual) (24-44) % Monocytes (Manual) (0.0-12.0) % Eosinophils (Manual) (0.00-3.0) % Basophils (Manual) (0.0-1.0) % Nucleated RBCs % Hypochromia Platelet Estimate (NORMAL) RBC Morphology Anisocytosis Smear Path Review Sodium 140 (137-145) mmol/L Potassium 4.4 (3.5-5.1) mmol/L Chloride 113 H (98-107) mmol/L Carbon Dioxide 24 (22-30) mmol/L Anion Gap 6.7 (5-15) MEQ/L BUN 35 H (9-20) mg/dL Creatinine 0.98 (0.66-1.25) mg/dL Estimated GFR 78.4 ML/MIN Glucose 78 (74-106) mg/dL Calcium 8.1 L (8.4-10.2) mg/dL Total Bilirubin 0.70 (0.2-1.3) mg/dL AST 28 (17-59) U/L ALT 11 (0-50) U/L Alkaline Phosphatase 60 (38-126) U/L Troponin I (0.000-0.034) ng/mL Serum Total Protein 5.8 L (6.3-8.2) g/dL Albumin 2.7 L (3.5-5.0) g/dL Urine Color (Yellow) Urine Appearance (Clear) Urine pH (4.6-8.0) Ur Specific [place] Gap (1.005-1.030) Urine Protein (Negative) Urine Glucose (UA) (Negative) mg/dL Urine Ketones (Negative) Urine Blood (Negative) Urine Nitrite (Negative) Urine Bilirubin (Negative) Urine Urobilinogen (0.2) mg/dL Ur Leukocyte Esterase (Negative) U Hyaline Cast (Auto) (0-2) /LPF Urine Microscopic RBC (0-5) /HPF Urine Microscopic WBC (0-5) /HPF Ur Epithelial Cells (None Seen) /HPF Urine Bacteria (None Seen) /HPF Urine Culture Reflexed (NO) Influenza Type A Ag (NEGATIVE) Influenza Type B Ag (NEGATIVE) RSV (PCR) (NEGATIVE) SARS-CoV-2 (PCR) (NEGATIVE) Slides for Path Review ABO Group Rh Factor Antibody Screen (NEGATIVE) Crossmatch (COMPATIBLE) - Procedures and Test Procedures and Tests throughout Hospitalization: Therapy Orders & Screens 04/30/23 13:10 PT Eval & Treat ( Order) ONCE Reason for Eval:: weakness 2:2 colon cancer, anemia Diagnosis: Anemia 04/30/23 14:07 EKG STAT Comment: Diagnosis: Anemia Discharge Exam General Appearance: no apparent distress, alert Neurologic Exam: alert, oriented x 3, cooperative, normal mood/affect, nml cerebellar function, sensation nml, No motor deficits Eye Exam: PERRL, EOMI, eyes nml inspection Ears, Nose, Throat Exam: normal ENT inspection, pharynx normal, moist mucous membranes Neck Exam: normal inspection, non-tender, supple, full range of motion Respiratory Exam: normal breath sounds, lungs clear, No respiratory distress Cardiovascular Exam: regular rate/rhythm, normal heart sounds Gastrointestinal/Abdomen Exam: soft, No tenderness, No mass Male Genitalia Exam: deferred Rectal Exam: deferred Back Exam: normal inspection, normal range of motion, No CVA tenderness, No vertebral tenderness Extremity Exam: normal inspection, normal range of motion Skin Exam: normal color, warm, dry Final Diagnosis/Problem List - Final Discharge Diagnosis/Problem (1) Anemia Current Visit: Yes Status: Acute Code(s): D64.9 - ANEMIA, UNSPECIFIED (2) Weakness Current Visit: Yes Status: Acute Code(s): R53.1 - WEAKNESS (3) Leukopenia Current Visit: Yes Status: Acute Code(s): D72.819 - DECREASED WHITE BLOOD CELL COUNT, UNSPECIFIED (4) History of colon cancer Current Visit: No Status: Chronic Code(s): Z85.038 - PERSONAL HISTORY OF MALIGNANT NEOPLASM OF LARGE INTESTINE (5) Depression Current Visit: Yes Status: Chronic Code(s): F32.A - DEPRESSION, UNSPECIFIED (6) BPH (benign prostatic hyperplasia) Current Visit: Yes Status: Acute Code(s): N40.0 - BENIGN PROSTATIC HYPERPLASIA WITHOUT LOWER URINRY TRACT SYMP (7) HTN (hypertension) Current Visit: Yes Status: Chronic Code(s): I10 - ESSENTIAL (PRIMARY) HYPERTENSION (8) custodial (current) use of anticoagulants Current Visit: Yes Status: Chronic Code(s): Z79.01 - MCC (CURRENT) USE OF ANTICOAGULANTS (9) Hypothyroidism Current Visit: Yes Status: Chronic Code(s): E03.9 - HYPOTHYROIDISM, UNSPECIFIED (10) Urinary tract infection Current Visit: Yes Status: Acute Assessment & Plan: (1) Anemia Current Visit: Yes Status: Acute Assessment & Plan: - 2:2 chemo for colon cancer with mets - 2 Units of PRBC - oncology consulted in ER - UA- pt admits to some urine at end of stream when self cath - denies dark or bloody stools, no vomiting blood. 05/01 - Hgb stable 8.7 Code(s): D64.9 - ANEMIA, UNSPECIFIED (2) Weakness Current Visit: Yes Status: Acute Assessment & Plan: - 2:2 Colon cancer, chemo treatment, anemia - PT eval - CM for any home needs - IVF gave in ER - tele - repeat CBC after 2 units per protocol - UA - EKG 05/01 - imporved - refused PT and any home needs Code(s): R53.1 - WEAKNESS (3) Leukopenia Current Visit: Yes Status: Acute Assessment & Plan: - 2:2 chemo for colon ca - WBC 1.9 - isolation 05/01 -WBC 1.7 Code(s): D72.819 - DECREASED WHITE BLOOD CELL COUNT, UNSPECIFIED (4) History of colon cancer Current Visit: No Status: Chronic Assessment & Plan: - receiving chemo treatment with Dr. Stapleton - with mets- unsure where no radiology results to review Code(s): Z85.038 - PERSONAL HISTORY OF MALIGNANT NEOPLASM OF LARGE INTESTINE (5) Depression Current Visit: Yes Status: Chronic Assessment & Plan: - continue home meds Code(s): F32.A - DEPRESSION, UNSPECIFIED (6) BPH (benign prostatic hyperplasia) Current Visit: Yes Status: Acute Assessment & Plan: - continue flomax Code(s): N40.0 - BENIGN PROSTATIC HYPERPLASIA WITHOUT LOWER URINRY TRACT SYMP (7) HTN (hypertension) Current Visit: Yes Status: Chronic Assessment & Plan: - Continue home meds - BP stable Code(s): I10 - ESSENTIAL (PRIMARY) HYPERTENSION (8) custodial (current) use of anticoagulants Current Visit: Yes Status: Chronic Assessment & Plan: - continue Eliquis - Hx of CABG and stent placement - No active bleeding Code(s): Z79.01 - 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 UTI - complicated as pt self caths - reviewed old UC results - will d/c with cefuroxime - Will continue to follow UC OP and call if changes are needed - will need to f/u with PCP OP for repeat UA. Code(s): N39.0 - URINARY TRACT INFECTION, SITE NOT SPECIFIED - Discharge Discharge Date: 05/01/23 Disposition: Home, Self-Care Condition: Stable Prescriptions: Continue Gabapentin 300 mg PO BID Tamsulosin HCl 0.4 mg [Flomax 0.4 MG] 0.4 mg PO BID Sertraline HCl 50 mg [Zoloft 50 mg Tablet] 50 mg PO DAILY Levothyroxine Sodium 50 mcg PO DAILY Atorvastatin Calcium 20 mg PO DAILY Apixaban [Eliquis 5 mg Tablet] 5 mg PO BID Losartan Potassium 50 mg [Cozaar 50 MG] 50 mg PO DAILY Cyanocobalamin 1000 Mcg/ml [Cyanocobalamin B-12 1000 MCG/ML] 1,000 mg PO UD Trazodone HCl 50 mg [Desyrel 50 mg] 100 mg PO QHS Multivitamin 1 each PO DAILY Naproxen Sodium [Aleve] 2 - 3 each PO UD PRN PRN Reason: Pain Finasteride 5 mg [Proscar 5 MG] 5 mg PO DAILY Ferrous Sulfate 325 mg [Feosol 325 mg] 325 mg PO DAILY Follow up with: STANLEY ROGERS MD [Primary Care Provider] - 05/07/23 1:45 pm ([facility])
[2023-05-01 12:19] VITALS: BP 109/62; PULSE 78; RESP 17; TEMP 97.7; O2SAT 95
== END 2023-05-01 12:58 | disposition home or self-care (01) ==
LOC: ED 09:12 → MED SURG 11:05
PROVIDERS: ADMIT Internal Medicine; ATTEND Internal Medicine
DX: D64.9 Anemia, unspecified (principal); R53.1 Weakness; D72.819 Decreased white blood cell count, unspecified; Z85.038 Personal history of other malignant neoplasm of large intestine; F32.A Depression, unspecified; N40.0 Benign prostatic hyperplasia without lower urinary tract symptoms; I10 Essential (primary) hypertension; E03.9 Hypothyroidism, unspecified; N39.0 Urinary tract infection, site not specified; I25.10 Atherosclerotic heart disease of native coronary artery without angina pectoris; Z79.01 Long term (current) use of anticoagulants; Z79.899 Other long term (current) drug therapy; Z20.828 Contact with and (suspected) exposure to other viral communicable diseases; Z95.0 Presence of cardiac pacemaker
CPT/HCPCS: 0241U; 36415; 36430; 80053; 81001; 84484; 85014; 85018; 85025; 85027; 86850; 86900; 86901; 86922; 87086; 93005; 93041; 94760; 97161; 99284; P9016; Q3014; 93268; J1642; A9270-GY; G0378

== ENCOUNTER 2023-06-02 17:42 | Inpatient (IN) | payer MEDICARE ==
--- NOTE | 2023-06-02 19:10 | ERPHSYRPT ---
- History of Present Illness Time Seen by Provider: 06/02/23 18:56 Source: patient Exam Limitations: no limitations Patient Subjective Stated Complaint: Weakness Triage Nursing Assessment: Patient brought back to ED via w/c and transferred to bed with assist of 1. Patient A+O x 3. Patient's skin pale, warm and dry. Patient complains of increased weakness since yesterday. Patient states he felt fine yesteday and was out and about doing errands. Patient states today he is unable to walk or stand up and is very weak. Patient denies pain or discomfort. Patient has colostomy and states his stool has been liquid the past few days. Physician History: Pt c/o generalized weakness, fatigue and feeling cold for the past 10 hours with liquid stool in his colostomy bag for the past 2 days; denies chest pain, shortness of air, abdominal pain. Allergies/Adverse Reactions: No Known Drug Allergies Allergy (Verified 06/02/23 18:45) Home Medications: Gabapentin 300 mg PO BID 09/23/13 [History] Sertraline HCl 50 mg [Zoloft 50 mg Tablet] 50 mg PO DAILY 09/23/13 [History] Tamsulosin HCl 0.4 mg [Flomax 0.4 MG] 0.4 mg PO BID 09/23/13 [History] Levothyroxine Sodium 50 mcg PO DAILY 06/04/17 [History] Atorvastatin Calcium 20 mg PO DAILY 06/19/18 [History] Apixaban [Eliquis 5 mg Tablet] 5 mg PO BID 11/03/21 [History] Cyanocobalamin 1000 Mcg/ml [Cyanocobalamin B-12 1000 MCG/ML] 1,000 mg PO UD 11/03/21 [History] Losartan Potassium 50 mg [Cozaar 50 MG] 50 mg PO DAILY 11/03/21 [History] Ferrous Sulfate 325 mg [Feosol 325 mg] 325 mg PO DAILY 04/30/23 [History] Finasteride 5 mg [Proscar 5 MG] 5 mg PO DAILY 04/30/23 [History] Multivitamin 1 each PO DAILY 04/30/23 [History] Naproxen Sodium [Aleve] 2 - 3 each PO BID PRN 04/30/23 [History] Trazodone HCl 50 mg [Desyrel 50 mg] 100 mg PO QHS 04/30/23 [History] Hx Tetanus, Diphtheria Vaccination/Date Given: No Hx Influenza Vaccination/Date Given: Yes Hx Pneumococcal Vaccination/Date Given: Yes Travel Risk - International Travel Have you traveled outside of the country in past 3 weeks: No - Emerging Infectious Disease Are you exhibiting symptoms associated with any current EIDs: No - Review of Systems Constitutional: No Fever Respiratory: No Dyspnea Cardiac: No Chest Pain Abdominal/Gastrointestinal: No Abdominal Pain, No Nausea, No Vomiting Neurological: Other (generalized weakness today; chronic weakness of lower extremities.), No Headache - Past Medical History Pertinent Past Medical History: Yes Neurological History: Peripheral Neuropathy ENT History: No Pertinent History Cardiac History: Coronary Artery Disease Respiratory History: No Pertinent History Endocrine Medical History: Hypothyroidism Musculoskeletal History: Arthritis GI Medical History: Colorectal Cancer, Hernia History: Other Psycho-Social History: Depression Male Reproductive Disorders: Prostate Problems Other Medical History: Colorectal cancer - Past Surgical History Past Surgical History: Yes Neuro Surgical History: No Pertinent History Cardiac: CABG, Cardiac Catheterization, Cardiac Stent Respiratory: No Pertinent History Gastrointestinal: Hernia Repair Genitourinary: No Pertinent History Musculoskeletal: Joint Replacement Male Surgical History: No Pertinent History Other Surgical History: 5 VESSEL CABG. COLON RESECTION with colostomy, repair to 2 lower bowel blockages. 2 HERNIA. Right lower lobe of lung removed. Right hip replacement. COLO ANAL RESECTION, STAGE [address] LORENA BRENNER. LEFT KNEE REPLACEMENT. COLOSTOMY STOMA RPTURE REPAIR X 2 - Social History Smoking Status: Former smoker Exposure to second hand smoke: No Drug Use: none Patient Lives Alone: No - Nursing Vital Signs Nursing Vital Signs: Initial Vital Signs Temperature 98.3 F 06/02/23 18:45 Pulse Rate 74 06/02/23 18:45 Respiratory Rate 18 06/02/23 18:45 Blood Pressure 122/66 06/02/23 18:45 O2 Sat by Pulse Oximetry 96 06/02/23 18:45 Pain Scale Pain Intensity 0 - Physical Exam General Appearance: alert Eye Exam: eyes nml inspection Ears, Nose, Throat Exam: TMs normal, pharynx normal Neck Exam: normal inspection Respiratory Exam: lungs clear Cardiovascular Exam: murmur (2/6 systolic murmur) Gastrointestinal/Abdomen Exam: soft, normal bowel sounds, other (colostomy bag LLQ without surrounding erythema) Back Exam: normal inspection Extremity Exam: pedal edema (+2 lower leg/ankle/foot edema) Neurologic Exam: alert, oriented x 3, cooperative, motor weakness (lower extremities(ongoing)) SpO2 Interpretation: normal SpO2: 96 O2 Delivery: Room Air - Course Nursing assessment & vital signs reviewed: Yes EKG Interpreted by Me: RATE (79), A-fib, Other (QTc = 532) - Radiology Exams Chest X-ray Interpretation: Teleradiologist Report (nonacute chest with chronic features.) Ordered Tests: Medication Summary Discontinued Medications Generic Name Dose Route Start Last Admin Trade Name Freq PRN Reason Stop Dose Admin Acetaminophen 650 mg 06/04/23 00:37 06/05/23 22:00 Acetaminophen 325 Mg Tablet PO 07/04/23 00:36 650 mg Q6H PRN PRN Administration PAIN AND/OR FEVER Apixaban 5 mg 06/08/23 10:00 Apixaban 2.5 Mg Tablet PO 07/08/23 09:59 BID GARY Diclofenac Sodium 4 gm 06/04/23 01:38 06/05/23 09:48 Diclofenac Sodium 100 Gm Gel..Gram. TP 07/04/23 01:37 4 gm Q6HPRN PRN Administration PAIN Diclofenac Sodium 4 gm 06/05/23 12:04 06/05/23 21:52 Diclofenac Sodium 100 Gm Gel..Gram. TP 07/05/23 12:02 4 gm Q4HPRN PRN Administration PAIN Docusate Sodium 100 mg 06/06/23 08:15 06/06/23 08:20 Docusate Sodium 100 Mg Capsule PO 06/06/23 08:16 100 mg ONCE ONE Administration Etomidate Confirm 06/03/23 14:18 Etomidate 20 Mg/10 Ml Amp Administered 06/03/23 14:19 Dose 20 mg IV .STK-MED ONE Ferrous Sulfate 325 mg 06/04/23 13:00 06/06/23 09:56 Ferrous Sulfate 325 Mg Tablet PO 07/04/23 12:59 325 mg DAILY GARY Administration Finasteride 5 mg 06/04/23 13:00 06/06/23 09:56 Finasteride 5 Mg Tablet PO 07/04/23 12:59 5 mg DAILY GARY Administration Furosemide 40 mg 06/04/23 09:15 06/04/23 11:02 Furosemide 40 Mg/4 Ml Vial IV 06/04/23 09:16 40 mg STAT ONE Administration Furosemide 40 mg 06/04/23 17:00 Furosemide 40 Mg/4 Ml Vial IV 07/04/23 16:59 BID DIURETIC GARY Furosemide 40 mg 06/04/23 14:00 06/06/23 05:51 Furosemide 40 Mg/4 Ml Vial IV 07/04/23 13:59 40 mg Q8HT GARY Administration Gabapentin 300 mg 06/04/23 13:00 06/06/23 09:56 Gabapentin 300 Mg Capsule PO 07/04/23 12:59 300 mg BID GARY Administration Sodium Chloride 1,000 mls @ 100 mls/hr 06/02/23 19:30 06/02/23 19:31 Sodium Chloride 0.9% 1000 Ml IV 07/02/23 19:29 100 mls/hr .Q10H GARY Administration Sodium Chloride Confirm 06/02/23 19:27 Sodium Chloride 0.9% 1000 Ml Administered 06/02/23 19:28 Dose 1,000 mls @ ud .ROUTE .STK-MED ONE Sodium Chloride 1,000 mls @ 100 mls/hr 06/03/23 01:17 06/04/23 06:04 Sodium Chloride 0.9% 1000 Ml IV 07/03/23 01:16 100 mls/hr .Q10H GARY Administration Sodium Chloride Confirm 06/03/23 11:36 Sodium Chloride 0.9% 500 Ml Administered 06/03/23 11:37 Dose 500 mls @ ud IV .STK-MED ONE Ceftriaxone Sodium/Dextrose 2 g in 50 mls @ 100 mls/hr 06/04/23 10:00 06/04/23 11:10 Rocephin 2 Gm-D5w 50ml Bag IV 06/07/23 09:59 100 mls/hr DAILY GARY Administration Azithromycin 500 mg in 250 mls @ 250 mls/hr 06/04/23 11:00 06/06/23 09:57 Zithromax 500 Mg/ 250 Ml Nacl Premix IV 07/04/23 10:59 Not Given Q24H10 GARY Cefepime HCl 1 g/ Dextrose 100 mls @ 200 mls/hr 06/05/23 07:00 06/06/23 05:51 IV 07/05/23 06:59 200 mls/hr Q8HT GARY Administration Sodium Chloride 1,000 mls @ 50 mls/hr 06/05/23 09:30 06/06/23 06:47 Sodium Chloride 0.9% 1000 Ml IV 07/05/23 09:29 Not Given .Q20H GARY Levothyroxine Sodium 50 mcg 06/04/23 13:00 06/06/23 09:56 Levothyroxine Sodium 50 Mcg Tablet PO 07/04/23 12:59 50 mcg DAILY GARY Administration Lidocaine HCl Confirm 06/03/23 14:18 Lidocaine - Mpf 2% 5 Ml Vial Administered 06/03/23 14:19 Dose 5 ml .ROUTE .STK-MED ONE Losartan Potassium 50 mg 06/04/23 13:00 06/06/23 09:57 Losartan Potassium 50 Mg Tablet PO 07/04/23 12:59 Not Given DAILY GARY Miscellaneous Information 1 misc 06/03/23 14:30 06/03/23 19:35 Medication On Hold: See Note MC 06/07/23 14:31 Not Given Q4D GARY Morphine Sulfate 2 mg 06/03/23 00:47 06/03/23 00:53 Morphine Sulfate 2 Mg/Ml Inj IV 06/03/23 00:48 2 mg STAT ONE Administration Morphine Sulfate Confirm 06/03/23 00:50 Morphine Sulfate 2 Mg/Ml Inj Administered 06/03/23 00:51 Dose 2 mg .ROUTE .STK-MED ONE Multivitamins Therapeutic 1 tab 06/05/23 10:00 06/06/23 09:56 Multivitamins,Therapeutic 1 Tab Tab PO 07/05/23 09:59 1 tab DAILY GARY Administration Ondansetron HCl 4 mg 06/03/23 00:04 06/03/23 00:09 Ondansetron Hcl 4 Mg/2 Ml Vial IV 06/03/23 00:05 4 mg STAT ONE Administration Ondansetron HCl Confirm 06/03/23 00:06 Ondansetron Hcl 4 Mg/2 Ml Vial Administered 06/03/23 00:07 Dose 4 mg .ROUTE .STK-MED ONE Ondansetron HCl 4 mg 06/03/23 01:17 06/04/23 14:42 Ondansetron Hcl 4 Mg/2 Ml Vial IV 07/03/23 01:16 4 mg Q6H PRN PRN Administration NAUSEA/VOMITING Pantoprazole Sodium 40 mg 06/03/23 10:00 06/03/23 11:10 Pantoprazole 40 Mg Vial IV 07/03/23 09:59 40 mg Q24H GARY Administration Pantoprazole Sodium 40 mg 06/03/23 22:00 06/06/23 09:56 Protonix (Pantoprazole) 40 Mg Tablet PO 07/03/23 21:59 40 mg BID GARY Administration Polyethylene Glycol 17 gm 06/05/23 18:01 06/05/23 18:06 Polyethylene Glycol 3350 17 Gm Packet PO 06/05/23 18:02 17 gm ONCE ONE Administration Potassium Chloride 20 meq 06/05/23 07:30 06/05/23 13:20 Potassium Chloride Tab 10 Meq Tab PO 06/05/23 13:31 20 meq Q2H GARY Administration Prochlorperazine Edisylate 10 mg 06/04/23 16:41 06/04/23 16:47 Prochlorperazine Edisylate 10 Mg/2 Ml Vial IV 07/04/23 16:40 10 mg Q6H PRN PRN Administration NAUSEA/VOMITING Propofol Confirm 06/03/23 14:18 Propofol 10 Mg/Ml 20ml Vial Administered 06/03/23 14:19 Dose 200 mg IV .STK-MED ONE Sertraline HCl 50 mg 06/04/23 13:00 06/06/23 09:56 Sertraline Hcl 50 Mg Tab PO 07/04/23 12:59 50 mg DAILY GARY Administration Simvastatin 20 mg 06/04/23 13:00 06/06/23 09:56 Simvastatin 20 Mg Tablet PO 07/04/23 12:59 20 mg DAILY GARY Administration Tamsulosin HCl 0.4 mg 06/04/23 13:00 06/06/23 09:57 Tamsulosin Hcl 0.4 Mg Cap PO 07/04/23 12:59 Not Given BID GARY Trazodone HCl 100 mg 06/04/23 22:00 06/05/23 21:51 Trazodone Hcl 50 Mg Tablet PO 07/04/23 21:59 100 mg QHS GARY Administration Lab/Rad Data: Laboratory Result Diagrams 06/03/23 04:12 06/03/23 04:12 Laboratory Results 06/03/23 06/03/23 06/03/23 Range/Units 04:12 04:12 04:12 WBC 11.5 H (4.0-10.5) x10^3/uL RBC 2.25 L (4.1-5.6) x10^6/uL Hgb 6.9 L* D (12.5-18.0) g/dL Hct 22.3 L (42-50) % MCV 99.1 D (78-100) fL MCH 30.7 (26-32) pg MCHC 30.9 L (32-36) g/dL RDW 23.9 H (11.5-14.0) % Plt Count 244 (150-450) x10^3/uL MPV 9.9 (7.5-11.0) fL Gran % 82.2 H (36.0-66.0) % Immature Gran % (Auto) 0.8 H (0.00-0.4) % Nucleat RBC Rel Count 0.2 H (0.00-0.1) % Eos # (Auto) 0.20 (0-0.5) x10^3/uL Immature Gran # (Auto) 0.09 H (0.00-0.03) x10^3u/L Absolute Lymphs (auto) 0.60 L (1.0-4.6) x10^3/uL Absolute Monos (auto) 1.11 (0.0-1.3) x10^3/uL Absolute Nucleated RBC 0.02 H (0.00-0.01) x10^3u/L Lymphocytes % 5.2 L (24.0-44.0) % Monocytes % 9.7 (0.0-12.0) % Eosinophils % 1.7 (0.00-5.0) % Basophils % 0.4 (0.0-0.4) % Absolute Granulocytes 9.45 H (1.4-6.9) x10^3/uL Basophils # 0.05 (0-0.4) x10^3/uL PT 11.0 (9.4-12.5) SECONDS INR 1.01 (0.8-3.0) APTT 27.5 (25.1-36.5) SECONDS Sodium 139 (135-145) mmol/L Potassium 4.1 (3.5-5.1) mmol/L Chloride 108 H (98-107) mmol/L Carbon Dioxide 25 (22-30) mmol/L Anion Gap 9.4 (5-15) MEQ/L BUN 40 H (9-20) mg/dL Creatinine 1.07 (0.66-1.25) mg/dL Estimated GFR 70.6 ML/MIN Glucose 101 (74-106) mg/dL Calcium 8.2 L (8.4-10.2) mg/dL Total Bilirubin 0.20 (0.2-1.3) mg/dL AST 34 (17-59) U/L ALT 20 (0-50) U/L Alkaline Phosphatase 100 (38-126) U/L Troponin I (0.000-0.034) ng/mL Serum Total Protein 6.4 (6.3-8.2) g/dL Albumin 2.7 L (3.5-5.0) g/dL Amylase (30-110) U/L Lipase (23-300) U/L Urine Color (Yellow) Urine Appearance (Clear) Urine pH (4.6-8.0) Ur Specific [place] (1.005-1.030) Urine Protein (Negative) Urine Glucose (UA) (Negative) mg/dL Urine Ketones (Negative) Urine Blood (Negative) Urine Nitrite (Negative) Urine Bilirubin (Negative) Urine Urobilinogen (0.2) mg/dL Ur Leukocyte Esterase (Negative) U Hyaline Cast (Auto) (0-2) /LPF Urine Microscopic RBC (0-5) /HPF Urine Microscopic WBC (0-5) /HPF Ur Epithelial Cells (None Seen) /HPF Urine Bacteria (None Seen) /HPF Urine Culture Reflexed (NO) Stl Occult Blood (IFOB) (NEGATIVE) Slides for Path Review YES ABO Group Rh Factor Antibody Screen (NEGATIVE) Crossmatch (COMPATIBLE) 06/03/23 06/03/23 06/02/23 Range/Units 04:12 02:40 22:05 WBC (4.0-10.5) x10^3/uL RBC (4.1-5.6) x10^6/uL Hgb (12.5-18.0) g/dL Hct (42-50) % MCV (78-100) fL MCH (26-32) pg MCHC (32-36) g/dL RDW (11.5-14.0) % Plt Count (150-450) x10^3/uL MPV (7.5-11.0) fL Gran % (36.0-66.0) % Immature Gran % (Auto) (0.00-0.4) % Nucleat RBC Rel Count (0.00-0.1) % Eos # (Auto) (0-0.5) x10^3/uL Immature Gran # (Auto) (0.00-0.03) x10^3u/L Absolute Lymphs (auto) (1.0-4.6) x10^3/uL Absolute Monos (auto) (0.0-1.3) x10^3/uL Absolute Nucleated RBC (0.00-0.01) x10^3u/L Lymphocytes % (24.0-44.0) % Monocytes % (0.0-12.0) % Eosinophils % (0.00-5.0) % Basophils % (0.0-0.4) % Absolute Granulocytes (1.4-6.9) x10^3/uL Basophils # (0-0.4) x10^3/uL PT (9.4-12.5) SECONDS INR (0.8-3.0) APTT (25.1-36.5) SECONDS Sodium (135-145) mmol/L Potassium (3.5-5.1) mmol/L Chloride (98-107) mmol/L Carbon Dioxide (22-30) mmol/L Anion Gap (5-15) MEQ/L BUN (9-20) mg/dL Creatinine (0.66-1.25) mg/dL Estimated GFR ML/MIN Glucose (74-106) mg/dL Calcium (8.4-10.2) mg/dL Total Bilirubin (0.2-1.3) mg/dL AST (17-59) U/L ALT (0-50) U/L Alkaline Phosphatase (38-126) U/L Troponin I 0.021 (0.000-0.034) ng/mL Serum Total Protein (6.3-8.2) g/dL Albumin (3.5-5.0) g/dL Amylase (30-110) U/L Lipase (23-300) U/L Urine Color Yellow (Yellow) Urine Appearance Clear (Clear) Urine pH 6.0 (4.6-8.0) Ur Specific [place] 1.015 (1.005-1.030) Urine Protein Negative (Negative) Urine Glucose (UA) Negative (Negative) mg/dL Urine Ketones Negative (Negative) Urine Blood Negative (Negative) Urine Nitrite Negative (Negative) Urine Bilirubin Negative (Negative) Urine Urobilinogen 1.0 A (0.2) mg/dL Ur Leukocyte Esterase Moderate A (Negative) U Hyaline Cast (Auto) NONE SEEN (0-2) /LPF Urine Microscopic RBC 0-2 (0-5) /HPF Urine Microscopic WBC 51-100 A (0-5) /HPF Ur Epithelial Cells None Seen (None Seen) /HPF Urine Bacteria Many A (None Seen) /HPF Urine Culture Reflexed ORDERED SEPARATELY (NO) Stl Occult Blood (IFOB) POSITIVE A (NEGATIVE) Slides for Path Review ABO Group Rh Factor Antibody Screen (NEGATIVE) Crossmatch (COMPATIBLE) 06/02/23 06/02/23 06/02/23 Range/Units 21:30 19:58 19:57 WBC (4.0-10.5) x10^3/uL RBC (4.1-5.6) x10^6/uL Hgb (12.5-18.0) g/dL Hct (42-50) % MCV (78-100) fL MCH (26-32) pg MCHC (32-36) g/dL RDW (11.5-14.0) % Plt Count (150-450) x10^3/uL MPV (7.5-11.0) fL Gran % (36.0-66.0) % Immature Gran % (Auto) (0.00-0.4) % Nucleat RBC Rel Count (0.00-0.1) % Eos # (Auto) (0-0.5) x10^3/uL Immature Gran # (Auto) (0.00-0.03) x10^3u/L Absolute Lymphs (auto) (1.0-4.6) x10^3/uL Absolute Monos (auto) (0.0-1.3) x10^3/uL Absolute Nucleated RBC (0.00-0.01) x10^3u/L Lymphocytes % (24.0-44.0) % Monocytes % (0.0-12.0) % Eosinophils % (0.00-5.0) % Basophils % (0.0-0.4) % Absolute Granulocytes (1.4-6.9) x10^3/uL Basophils # (0-0.4) x10^3/uL PT (9.4-12.5) SECONDS INR (0.8-3.0) APTT (25.1-36.5) SECONDS Sodium (135-145) mmol/L Potassium (3.5-5.1) mmol/L Chloride (98-107) mmol/L Carbon Dioxide (22-30) mmol/L Anion Gap (5-15) MEQ/L BUN (9-20) mg/dL Creatinine (0.66-1.25) mg/dL Estimated GFR ML/MIN Glucose (74-106) mg/dL Calcium (8.4-10.2) mg/dL Total Bilirubin (0.2-1.3) mg/dL AST (17-59) U/L ALT (0-50) U/L Alkaline Phosphatase (38-126) U/L Troponin I 0.021 (0.000-0.034) ng/mL Serum Total Protein (6.3-8.2) g/dL Albumin (3.5-5.0) g/dL Amylase (30-110) U/L Lipase (23-300) U/L Urine Color (Yellow) Urine Appearance (Clear) Urine pH (4.6-8.0) Ur Specific [place] (1.005-1.030) Urine Protein (Negative) Urine Glucose (UA) (Negative) mg/dL Urine Ketones (Negative) Urine Blood (Negative) Urine Nitrite (Negative) Urine Bilirubin (Negative) Urine Urobilinogen (0.2) mg/dL Ur Leukocyte Esterase (Negative) U Hyaline Cast (Auto) (0-2) /LPF Urine Microscopic RBC (0-5) /HPF Urine Microscopic WBC (0-5) /HPF Ur Epithelial Cells (None Seen) /HPF Urine Bacteria (None Seen) /HPF Urine Culture Reflexed (NO) Stl Occult Blood (IFOB) (NEGATIVE) Slides for Path Review ABO Group Rh Factor Antibody Screen (NEGATIVE) Crossmatch COMPATIBLE COMPATIBLE (COMPATIBLE) 06/02/23 06/02/23 06/02/23 Range/Units 18:55 18:55 18:55 WBC (4.0-10.5) x10^3/uL RBC (4.1-5.6) x10^6/uL Hgb (12.5-18.0) g/dL Hct (42-50) % MCV (78-100) fL MCH (26-32) pg MCHC (32-36) g/dL RDW (11.5-14.0) % Plt Count (150-450) x10^3/uL MPV (7.5-11.0) fL Gran % (36.0-66.0) % Immature Gran % (Auto) (0.00-0.4) % Nucleat RBC Rel Count (0.00-0.1) % Eos # (Auto) (0-0.5) x10^3/uL Immature Gran # (Auto) (0.00-0.03) x10^3u/L Absolute Lymphs (auto) (1.0-4.6) x10^3/uL Absolute Monos (auto) (0.0-1.3) x10^3/uL Absolute Nucleated RBC (0.00-0.01) x10^3u/L Lymphocytes % (24.0-44.0) % Monocytes % (0.0-12.0) % Eosinophils % (0.00-5.0) % Basophils % (0.0-0.4) % Absolute Granulocytes (1.4-6.9) x10^3/uL Basophils # (0-0.4) x10^3/uL PT 11.8 (9.4-12.5) SECONDS INR 1.09 (0.8-3.0) APTT 27.2 (25.1-36.5) SECONDS Sodium (135-145) mmol/L Potassium (3.5-5.1) mmol/L Chloride (98-107) mmol/L Carbon Dioxide (22-30) mmol/L Anion Gap (5-15) MEQ/L BUN (9-20) mg/dL Creatinine (0.66-1.25) mg/dL Estimated GFR ML/MIN Glucose (74-106) mg/dL Calcium (8.4-10.2) mg/dL Total Bilirubin (0.2-1.3) mg/dL AST (17-59) U/L ALT (0-50) U/L Alkaline Phosphatase (38-126) U/L Troponin I 0.024 (0.000-0.034) ng/mL Serum Total Protein (6.3-8.2) g/dL Albumin (3.5-5.0) g/dL Amylase (30-110) U/L Lipase (23-300) U/L Urine Color (Yellow) Urine Appearance (Clear) Urine pH (4.6-8.0) Ur Specific [place] (1.005-1.030) Urine Protein (Negative) Urine Glucose (UA) (Negative) mg/dL Urine Ketones (Negative) Urine Blood (Negative) Urine Nitrite (Negative) Urine Bilirubin (Negative) Urine Urobilinogen (0.2) mg/dL Ur Leukocyte Esterase (Negative) U Hyaline Cast (Auto) (0-2) /LPF Urine Microscopic RBC (0-5) /HPF Urine Microscopic WBC (0-5) /HPF Ur Epithelial Cells (None Seen) /HPF Urine Bacteria (None Seen) /HPF Urine Culture Reflexed (NO) Stl Occult Blood (IFOB) (NEGATIVE) Slides for Path Review ABO Group O Rh Factor POSITIVE Antibody Screen NEGATIVE (NEGATIVE) Crossmatch (COMPATIBLE) 06/02/23 06/02/23 Range/Units 18:55 18:55 WBC 8.9 (4.0-10.5) x10^3/uL RBC 1.57 L (4.1-5.6) x10^6/uL Hgb 5.0 L* (12.5-18.0) g/dL Hct 16.8 L (42-50) % MCV 107.0 H (78-100) fL MCH 31.8 (26-32) pg MCHC 29.8 L (32-36) g/dL RDW 22.4 H (11.5-14.0) % Plt Count 288 (150-450) x10^3/uL MPV 9.8 (7.5-11.0) fL Gran % 76.3 H (36.0-66.0) % Immature Gran % (Auto) 1.5 H (0.00-0.4) % Nucleat RBC Rel Count 0.2 H (0.00-0.1) % Eos # (Auto) 0.13 (0-0.5) x10^3/uL Immature Gran # (Auto) 0.13 H (0.00-0.03) x10^3u/L Absolute Lymphs (auto) 0.63 L (1.0-4.6) x10^3/uL Absolute Monos (auto) 1.18 (0.0-1.3) x10^3/uL Absolute Nucleated RBC 0.02 H (0.00-0.01) x10^3u/L Lymphocytes % 7.1 L (24.0-44.0) % Monocytes % 13.2 H (0.0-12.0) % Eosinophils % 1.5 (0.00-5.0) % Basophils % 0.4 (0.0-0.4) % Absolute Granulocytes 6.82 (1.4-6.9) x10^3/uL Basophils # 0.04 (0-0.4) x10^3/uL PT (9.4-12.5) SECONDS INR (0.8-3.0) APTT (25.1-36.5) SECONDS Sodium 140 (135-145) mmol/L Potassium 4.2 (3.5-5.1) mmol/L Chloride 108 H (98-107) mmol/L Carbon Dioxide 26 (22-30) mmol/L Anion Gap 11.1 (5-15) MEQ/L BUN 49 H (9-20) mg/dL Creatinine 1.17 (0.66-1.25) mg/dL Estimated GFR 63.4 ML/MIN Glucose 118 H (74-106) mg/dL Calcium 8.5 (8.4-10.2) mg/dL Total Bilirubin 0.20 (0.2-1.3) mg/dL AST 39 (17-59) U/L ALT 22 (0-50) U/L Alkaline Phosphatase 100 (38-126) U/L Troponin I (0.000-0.034) ng/mL Serum Total Protein 6.7 (6.3-8.2) g/dL Albumin 2.8 L (3.5-5.0) g/dL Amylase 61 (30-110) U/L Lipase 37 (23-300) U/L Urine Color (Yellow) Urine Appearance (Clear) Urine pH (4.6-8.0) Ur Specific [place] (1.005-1.030) Urine Protein (Negative) Urine Glucose (UA) (Negative) mg/dL Urine Ketones (Negative) Urine Blood (Negative) Urine Nitrite (Negative) Urine Bilirubin (Negative) Urine Urobilinogen (0.2) mg/dL Ur Leukocyte Esterase (Negative) U Hyaline Cast (Auto) (0-2) /LPF Urine Microscopic RBC (0-5) /HPF Urine Microscopic WBC (0-5) /HPF Ur Epithelial Cells (None Seen) /HPF Urine Bacteria (None Seen) /HPF Urine Culture Reflexed (NO) Stl Occult Blood (IFOB) (NEGATIVE) Slides for Path Review YES ABO Group Rh Factor Antibody Screen (NEGATIVE) Crossmatch (COMPATIBLE) - Progress Progress Note: 06/02/23 22:34 Repeat EKG at 2213: A. fib, rate = 78, QTc = 421. - Departure Clinical Impression: GI bleed, Anemia, Generalized weakness Condition: Stable
[2023-06-02 19:27] LABS: Absolute Neutrophil Ct (ANC) 6.82 x10^3/uL (1.4-6.9); BASOPHIL % 0.4 % (0.0-0.4); Basophil (Absolute #) 0.04 x10^3/uL (0-0.4); Eosinophil % 1.5 % (0.00-5.0); Eosinophil (Absolute #) 0.13 x10^3/uL (0-0.5); Hematocrit 16.8 % (42-50); IMMATURE GRAN # 0.13 x10^3u/L (0.00-0.03); IMMATURE GRAN % 1.5 % (0.00-0.4); Lymphocyte (Absolute #) 0.63 x10^3/uL (1.0-4.6); Lymphocytes % 7.1 % (24.0-44.0); Mean Corpuscular Hemoglobin 31.8 pg (26-32); Mean Corpuscular Hgb Concent. 29.8 g/dL (32-36); Mean Platelet Volume 9.8 fL (7.5-11.0); Monocyte (Absolute #) 1.18 x10^3/uL (0.0-1.3); Monocytes % 13.2 % (0.0-12.0); NUCLEATED RBC # 0.02 x10^3u/L (0.00-0.01); NUCLEATED RBC % 0.2 % (0.00-0.1); Neutrophil % 76.3 % (36.0-66.0); Platelet Count 288 x10^3/uL (150-450); Red Blood Count 1.57 x10^6/uL (4.1-5.6); Red Cell Distribution Width 22.4 % (11.5-14.0); White Blood Count 8.9 x10^3/uL (4.0-10.5)
[2023-06-02] MEDS ORDERED: Sodium Chloride 0.9% 1000 ML 1,000 ML ONE (19:27)
[2023-06-02] MEDS: Sodium Chloride 0.9% 1000 ML 1,000 ML IV SCH (19:31)
[2023-06-02 19:35] LABS: ALBUMIN 2.8 g/dL (3.5-5.0); ANION GAP 11.1 MEQ/L (5-15); BILIRUBIN,TOTAL 0.2 mg/dL (0.2-1.3); Calcium 8.5 mg/dL (8.4-10.2); Creatinine 1 1.17 mg/dL (0.66-1.25); EST GLOMERULAR FILTRATION RATE 63.4 ML/MIN; Potassium 4.2 mmol/L (3.5-5.1); Total Protein 6.7 g/dL (6.3-8.2)
[2023-06-02 19:37] LABS: INR 1.09 (0.8-3.0); PROTIME 11.8 SECONDS (9.4-12.5); PTT 27.2 SECONDS (25.1-36.5)
--- NOTE | 2023-06-02 20:03 | XRAY ---
Indication: Weakness. Comparison: January 28, 2023 Portable chest again hyperinflated with chronic right hemidiaphragm elevation. Lungs are now clear. Heart not enlarged for AP portable technique again with CABG, right pacemaker, and bilateral central venous access catheters. Bony thorax intact again with osteopenia and degenerative changes. Impression: Nonacute chest with chronic features.
[2023-06-02 20:15] LABS: ABO TYPING O; Antibody Screen NEGATIVE (NEGATIVE); RH TYPING POSITIVE
[2023-06-02 20:16] LABS: CROSS MATCH (PRBC) COMPATIBLE (COMPATIBLE)
[2023-06-02 21:02] LABS: Slide Review 1 YES
[2023-06-02 22:14] LABS: IFOB TEST RESULTS POSITIVE (NEGATIVE)
--- NOTE | 2023-06-02 23:13 | PCM.HP ---
History of Present Illness - Chief Complaint Chief Complaint: Symptomatic Anemia, Occult GI Bleed History of Present Illness: is a 78 year old male with history of colon cancer s/p resection and colostomy, CAD s/p CABG who presents with generalized weakness today and found to have a Hgb of 5. Denies overt bleeding in the stool/ostomy but had a positive blood test in the ED. No fevers, chills, nausea, vomiting. Stool has been loose for the past few days. - Review of Systems Constitutional: Fatigue, No Fever, No Chills Eyes: No Symptoms Ears, Nose, & Throat: No Symptoms Respiratory: No Cough, No Short Of Breath Cardiac: No Chest Pain, No Edema, No Syncope Abdominal/Gastrointestinal: No Abdominal Pain, No Nausea, No Vomiting, No Diarrhea Genitourinary Symptoms: No Dysuria Musculoskeletal: No Back Pain, No Neck Pain Skin: No Rash Neurological: No Dizziness, No Focal Weakness, No Sensory Changes Psychological: No Symptoms Endocrine: No Symptoms Hematologic/Lymphatic: No Symptoms Immunological/Allergic: No Symptoms Medications & Allergies Home Medications: Home Medication List Gabapentin 300 mg PO BID 09/23/13 [History Confirmed 06/02/23] Sertraline HCl 50 mg [Zoloft 50 mg Tablet] 50 mg PO DAILY 09/23/13 [History Confirmed 06/02/23] Tamsulosin HCl 0.4 mg [Flomax 0.4 MG] 0.4 mg PO BID 09/23/13 [History Confirmed 06/02/23] Levothyroxine Sodium 50 mcg PO DAILY 06/04/17 [History Confirmed 06/02/23] Atorvastatin Calcium 20 mg PO DAILY 06/19/18 [History Confirmed 06/02/23] Apixaban [Eliquis 5 mg Tablet] 5 mg PO BID 11/03/21 [History Confirmed 06/02/23] Cyanocobalamin 1000 Mcg/ml [Cyanocobalamin B-12 1000 MCG/ML] 1,000 mg PO UD 11/03/21 [History Confirmed 06/02/23] Losartan Potassium 50 mg [Cozaar 50 MG] 50 mg PO DAILY 11/03/21 [History Confirmed 06/02/23] Ferrous Sulfate 325 mg [Feosol 325 mg] 325 mg PO DAILY 04/30/23 [History Confirmed 06/02/23] Finasteride 5 mg [Proscar 5 MG] 5 mg PO DAILY 04/30/23 [History Confirmed 06/02/23] Multivitamin 1 each PO DAILY 04/30/23 [History Confirmed 06/02/23] Naproxen Sodium [Aleve] 2 - 3 each PO BID PRN 04/30/23 [History Confirmed 06/02/23] Trazodone HCl 50 mg [Desyrel 50 mg] 100 mg PO QHS 04/30/23 [History Confirmed 06/02/23] Allergies/Adverse Reactions: Allergies Allergy/AdvReac Type Severity Reaction Status Date / Time No Known Drug Allergies Allergy Verified 06/02/23 18:45 - Past Medical History Past Medical History: Yes Neurological History: Peripheral Neuropathy ENT History: No Pertinent History Cardiac History: Coronary Artery Disease Respiratory History: No Pertinent History Endocrine Medical History: Hypothyroidism Musculoskelatal History: Arthritis GI Medical History: Colorectal Cancer, Hernia History: Other Pyscho-Social History: Depression Male Reproductive Disorders: Prostate Problems Comment: Colorectal cancer - Past Surgical History Past Surgical History: Yes Neuro Surgical History: No Pertinent History Cardiac History: CABG, Cardiac Catheterization, Cardiac Stent Respiratory Surgery: No Pertinent History GI Surgical History: Hernia Repair Genitourinary Surgical Hx: No Pertinent History Musculskeletal Surgical Hx: Joint Replacement Male Surgical History: No Pertinent History Other Surgical History: 5 VESSEL CABG. COLON RESECTION with colostomy, repair to 2 lower bowel blockages. 2 HERNIA. Right lower lobe of lung removed. Right hip replacement. COLO ANAL RESECTION, STAGE [address] LORENA BRENNER. LEFT KNEE REPLACEMENT. COLOSTOMY STOMA RPTURE REPAIR X 2 - Social History Smoking Status: Former smoker Exposure to second hand smoke: No Alcohol: Rarely Drug Use: none - Social Determinants of Health Will the patient participate in the screening: Declined to provide Do you worry about a steady place to live?: No In the past 12 months,have you had to go without utilities?: No Have you or anyone in your house had to go without enough: No Transportation Issues: No Has anyone in your support network made you feel unsafe?: No Does the patient want assistance with any of the above?: No - Physical Exam Vital Signs: Vital Signs - 24 hr Temp Pulse Resp BP BP Pulse Ox 06/02/23 22:36 96 06/02/23 22:00 98.3 F 83 20 132/67 96 06/02/23 21:30 98.2 F 94 H 26 H 126/60 96 06/02/23 21:15 78 27 H 117/56 97 06/02/23 21:00 81 27 H 128/62 93 L 06/02/23 20:38 119/72 91 L 06/02/23 20:30 78 12 122/66 95 06/02/23 20:00 81 30 H 114/59 93 L 06/02/23 19:30 79 29 H 111/58 94 L 06/02/23 19:00 73 25 H 98/52 97 06/02/23 18:45 98.3 F 84 18 122/66 122/33 96 General Appearance: no apparent distress, alert Neurologic Exam: alert, oriented x 3, cooperative, normal mood/affect, nml cerebellar function, nml station & gait, sensation nml, No motor deficits Eye Exam: PERRL/EOMI, eyes nml inspection Ears, Nose, Throat Exam: normal ENT inspection, TMs normal, pharynx normal, moist mucous membranes Neck Exam: normal inspection, non-tender, supple, full range of motion Respiratory Exam: normal breath sounds, lungs clear, No respiratory distress Cardiovascular Exam: regular rate/rhythm, normal heart sounds, normal peripheral pulses Gastrointestinal/Abdomen Exam: soft, normal bowel sounds, No tenderness, No mass Back Exam: normal inspection, normal range of motion, No CVA tenderness, No vertebral tenderness Extremity Exam: normal inspection, normal range of motion, pelvis stable Skin Exam: normal color, warm, dry, No rash Lymphatic Exam: No adenopathy Results - Labs Lab/Micro Results: Lab Results-Last 24 Hours 06/02/23 06/02/23 06/02/23 Range/Units 18:55 18:55 18:55 WBC 8.9 (4.0-10.5) x10^3/uL RBC 1.57 L (4.1-5.6) x10^6/uL Hgb 5.0 L* (12.5-18.0) g/dL Hct 16.8 L (42-50) % MCV 107.0 H (78-100) fL MCH 31.8 (26-32) pg MCHC 29.8 L (32-36) g/dL RDW 22.4 H (11.5-14.0) % Plt Count 288 (150-450) x10^3/uL MPV 9.8 (7.5-11.0) fL Gran % 76.3 H (36.0-66.0) % Immature Gran % (Auto) 1.5 H (0.00-0.4) % Nucleat RBC Rel Count 0.2 H (0.00-0.1) % Eos # (Auto) 0.13 (0-0.5) x10^3/uL Immature Gran # (Auto) 0.13 H (0.00-0.03) x10^3u/L Absolute Lymphs (auto) 0.63 L (1.0-4.6) x10^3/uL Absolute Monos (auto) 1.18 (0.0-1.3) x10^3/uL Absolute Nucleated RBC 0.02 H (0.00-0.01) x10^3u/L Lymphocytes % 7.1 L (24.0-44.0) % Monocytes % 13.2 H (0.0-12.0) % Eosinophils % 1.5 (0.00-5.0) % Basophils % 0.4 (0.0-0.4) % Absolute Granulocytes 6.82 (1.4-6.9) x10^3/uL Basophils # 0.04 (0-0.4) x10^3/uL PT 11.8 (9.4-12.5) SECONDS INR 1.09 (0.8-3.0) APTT 27.2 (25.1-36.5) SECONDS Sodium 140 (135-145) mmol/L Potassium 4.2 (3.5-5.1) mmol/L Chloride 108 H (98-107) mmol/L Carbon Dioxide 26 (22-30) mmol/L Anion Gap 11.1 (5-15) MEQ/L BUN 49 H (9-20) mg/dL Creatinine 1.17 (0.66-1.25) mg/dL Estimated GFR 63.4 ML/MIN Glucose 118 H (74-106) mg/dL Calcium 8.5 (8.4-10.2) mg/dL Total Bilirubin 0.20 (0.2-1.3) mg/dL AST 39 (17-59) U/L ALT 22 (0-50) U/L Alkaline Phosphatase 100 (38-126) U/L Troponin I (0.000-0.034) ng/mL Serum Total Protein 6.7 (6.3-8.2) g/dL Albumin 2.8 L (3.5-5.0) g/dL Amylase 61 (30-110) U/L Lipase 37 (23-300) U/L Stl Occult Blood (IFOB) (NEGATIVE) Slides for Path Review YES ABO Group Rh Factor Antibody Screen (NEGATIVE) Crossmatch (COMPATIBLE) 06/02/23 06/02/23 06/02/23 Range/Units 18:55 18:55 19:57 WBC (4.0-10.5) x10^3/uL RBC (4.1-5.6) x10^6/uL Hgb (12.5-18.0) g/dL Hct (42-50) % MCV (78-100) fL MCH (26-32) pg MCHC (32-36) g/dL RDW (11.5-14.0) % Plt Count (150-450) x10^3/uL MPV (7.5-11.0) fL Gran % (36.0-66.0) % Immature Gran % (Auto) (0.00-0.4) % Nucleat RBC Rel Count (0.00-0.1) % Eos # (Auto) (0-0.5) x10^3/uL Immature Gran # (Auto) (0.00-0.03) x10^3u/L Absolute Lymphs (auto) (1.0-4.6) x10^3/uL Absolute Monos (auto) (0.0-1.3) x10^3/uL Absolute Nucleated RBC (0.00-0.01) x10^3u/L Lymphocytes % (24.0-44.0) % Monocytes % (0.0-12.0) % Eosinophils % (0.00-5.0) % Basophils % (0.0-0.4) % Absolute Granulocytes (1.4-6.9) x10^3/uL Basophils # (0-0.4) x10^3/uL PT (9.4-12.5) SECONDS INR (0.8-3.0) APTT (25.1-36.5) SECONDS Sodium (135-145) mmol/L Potassium (3.5-5.1) mmol/L Chloride (98-107) mmol/L Carbon Dioxide (22-30) mmol/L Anion Gap (5-15) MEQ/L BUN (9-20) mg/dL Creatinine (0.66-1.25) mg/dL Estimated GFR ML/MIN Glucose (74-106) mg/dL Calcium (8.4-10.2) mg/dL Total Bilirubin (0.2-1.3) mg/dL AST (17-59) U/L ALT (0-50) U/L Alkaline Phosphatase (38-126) U/L Troponin I 0.024 (0.000-0.034) ng/mL Serum Total Protein (6.3-8.2) g/dL Albumin (3.5-5.0) g/dL Amylase (30-110) U/L Lipase (23-300) U/L Stl Occult Blood (IFOB) (NEGATIVE) Slides for Path Review ABO Group O Rh Factor POSITIVE Antibody Screen NEGATIVE (NEGATIVE) Crossmatch COMPATIBLE (COMPATIBLE) 06/02/23 06/02/23 06/02/23 Range/Units 19:58 21:30 22:05 WBC (4.0-10.5) x10^3/uL RBC (4.1-5.6) x10^6/uL Hgb (12.5-18.0) g/dL Hct (42-50) % MCV (78-100) fL MCH (26-32) pg MCHC (32-36) g/dL RDW (11.5-14.0) % Plt Count (150-450) x10^3/uL MPV (7.5-11.0) fL Gran % (36.0-66.0) % Immature Gran % (Auto) (0.00-0.4) % Nucleat RBC Rel Count (0.00-0.1) % Eos # (Auto) (0-0.5) x10^3/uL Immature Gran # (Auto) (0.00-0.03) x10^3u/L Absolute Lymphs (auto) (1.0-4.6) x10^3/uL Absolute Monos (auto) (0.0-1.3) x10^3/uL Absolute Nucleated RBC (0.00-0.01) x10^3u/L Lymphocytes % (24.0-44.0) % Monocytes % (0.0-12.0) % Eosinophils % (0.00-5.0) % Basophils % (0.0-0.4) % Absolute Granulocytes (1.4-6.9) x10^3/uL Basophils # (0-0.4) x10^3/uL PT (9.4-12.5) SECONDS INR (0.8-3.0) APTT (25.1-36.5) SECONDS Sodium (135-145) mmol/L Potassium (3.5-5.1) mmol/L Chloride (98-107) mmol/L Carbon Dioxide (22-30) mmol/L Anion Gap (5-15) MEQ/L BUN (9-20) mg/dL Creatinine (0.66-1.25) mg/dL Estimated GFR ML/MIN Glucose (74-106) mg/dL Calcium (8.4-10.2) mg/dL Total Bilirubin (0.2-1.3) mg/dL AST (17-59) U/L ALT (0-50) U/L Alkaline Phosphatase (38-126) U/L Troponin I 0.021 (0.000-0.034) ng/mL Serum Total Protein (6.3-8.2) g/dL Albumin (3.5-5.0) g/dL Amylase (30-110) U/L Lipase (23-300) U/L Stl Occult Blood (IFOB) POSITIVE A (NEGATIVE) Slides for Path Review ABO Group Rh Factor Antibody Screen (NEGATIVE) Crossmatch COMPATIBLE (COMPATIBLE) - Radiology Impressions Radiology Exams & Impressions: Radiology Procedures Category Date Time Status CHEST 1 VIEW (PORTABLE) Stat Exams 06/02/23 19:19 Completed Assessment/Plan (1) Anemia Current Visit: No Status: Acute Assessment & Plan: 1. Likely GI source, keep NPO. Consult for a scope 2. ED ordered 2 units of blood 3. Hold anticoagulation/aspirin for tonight Code(s): D64.9 - ANEMIA, UNSPECIFIED Telemedicine Encounter - Telemedicine Encounter Telemedicine Encounter: The entirety of this encounter was performed via Telemedicine"
[2023-06-03] MEDS ORDERED: Zofran 4 MG/2 ML VIAL ONE (00:06)
[2023-06-03] MEDS: Zofran 4 MG/2 ML VIAL IV ONE (00:09)
[2023-06-03] MEDS ORDERED: MORPHINE SULFATE 2 MG INJ ONE (00:50)
[2023-06-03] MEDS: MORPHINE SULFATE 2 MG INJ IV ONE (00:53)
[2023-06-03] MEDS: Sodium Chloride 0.9% 1000 ML 1,000 ML IV SCH (02:37)
[2023-06-03 04:13] LABS: Appearance Clear (Clear); Bacteria Many /HPF (None Seen); Bilirubin Negative (Negative); Blood Negative (Negative); Epithelial Cells None Seen /HPF (None Seen); Glucose, Urine Negative (Negative); Hyaline Casts NONE SEEN /LPF (0-2); Ketones Negative (Negative); Leukocyte Esterase Moderate (Negative); Nitrite Negative (Negative); Protein,Urine Dip Negative (Negative); RBC 0-2 /HPF (0-5); Specific Gravity 1.015 (1.005-1.030); WBC 51-100 /HPF (0-5)
[2023-06-03 04:14] LABS: ADD URINE CULTURE? ORDERED SEPARATELY (NO)
[2023-06-03 05:16] LABS: Absolute Neutrophil Ct (ANC) 9.45 x10^3/uL (1.4-6.9); BASOPHIL % 0.4 % (0.0-0.4); Basophil (Absolute #) 0.05 x10^3/uL (0-0.4); Eosinophil % 1.7 % (0.00-5.0); Hematocrit 22.3 % (42-50); IMMATURE GRAN # 0.09 x10^3u/L (0.00-0.03); IMMATURE GRAN % 0.8 % (0.00-0.4); Lymphocytes % 5.2 % (24.0-44.0); Mean Corpuscular Hemoglobin 30.7 pg (26-32); Mean Corpuscular Hgb Concent. 30.9 g/dL (32-36); Mean Platelet Volume 9.9 fL (7.5-11.0); Monocyte (Absolute #) 1.11 x10^3/uL (0.0-1.3); Monocytes % 9.7 % (0.0-12.0); NUCLEATED RBC # 0.02 x10^3u/L (0.00-0.01); NUCLEATED RBC % 0.2 % (0.00-0.1); Neutrophil % 82.2 % (36.0-66.0); Platelet Count 244 x10^3/uL (150-450); Red Blood Count 2.25 x10^6/uL (4.1-5.6); Red Cell Distribution Width 23.9 % (11.5-14.0); White Blood Count 11.5 x10^3/uL (4.0-10.5)
[2023-06-03 05:32] LABS: ALBUMIN 2.7 g/dL (3.5-5.0); ANION GAP 9.4 MEQ/L (5-15); BILIRUBIN,TOTAL 0.2 mg/dL (0.2-1.3); Calcium 8.2 mg/dL (8.4-10.2); Creatinine 1 1.07 mg/dL (0.66-1.25); EST GLOMERULAR FILTRATION RATE 70.6 ML/MIN; Potassium 4.1 mmol/L (3.5-5.1); Total Protein 6.4 g/dL (6.3-8.2)
[2023-06-03 05:33] LABS: INR 1.01 (0.8-3.0); PTT 27.5 SECONDS (25.1-36.5)
[2023-06-03 05:47] LABS: Hemoglobin 6.9 g/dL (12.5-18.0); Mean Cell Volume 99.1 fL (78-100)
--- NOTE | 2023-06-03 05:51 | PCM.NOTE ---
Date and Time: 06/03/23 0543 Subjective Assessment: is a 78 year old male with history of colon cancer s/p resection and colostomy, CAD s/p CABG, peripheral neuropathy, and hypothyroidism who presented to ED 06/02/23 with complaints of generalized weakness admitted with symptomatic anemia. Labs remarkable for hgb of 5.0, occult stools positive. 06/03/23: Met with patient bedside. Endorses improvement of weakness s/p blood transfusion, received 2 units 06/02/23, now at 6.9, will receive an additional unit today. Patient states he sees Dr. Stapleton (oncology) and is due for a PET scan next week for treatment evaluation as he has recently finished a course of chemotherapy/radiation. Plan for EGD today. Denies fever,cough, sob, cp, abdominal pain, BAEZ, dizziness, N/V/D. - Review of Systems Constitutional: Weakness Eyes: No Symptoms Ears, Nose, & Throat: No Symptoms Respiratory: No Symptoms Cardiac: No Symptoms Abdominal/Gastrointestinal: No Symptoms Genitourinary Symptoms: No Symptoms Musculoskeletal: Joint Pain Skin: No Symptoms Neurological: No Symptoms Psychological: No Symptoms Endocrine: No Symptoms Hematologic/Lymphatic: No Symptoms Immunological/Allergic: No Symptoms Objective Exam General Appearance: no apparent distress Neurologic Exam: alert, oriented x 3, cooperative Skin Exam: pale Eye Exam: PERRL Ears, Nose, Throat Exam: normal ENT inspection Neck Exam: normal inspection Respiratory Exam: normal breath sounds, lungs clear Cardiovascular Exam: regular rate/rhythm, normal heart sounds Gastrointestinal/Abdomen Exam: soft, normal bowel sounds, other (colostomy) Extremity Exam: normal inspection Back Exam: normal inspection Male Genitalia Exam: deferred Rectal Exam: deferred Objective Data Vital Signs: Vital Signs - 24 hr Temp Pulse Resp BP BP Pulse Ox 06/03/23 04:00 65 06/03/23 01:38 98.1 F 71 24 165/87 98 06/03/23 01:17 67 06/03/23 01:00 79 31 H 146/86 98 06/03/23 00:42 85 30 H 144/82 98 06/03/23 00:30 81 20 143/78 99 06/03/23 00:21 81 36 H 125/71 91 L 06/03/23 00:00 88 22 148/82 91 L 06/02/23 23:53 81 26 H 144/86 91 L 06/02/23 23:30 78 30 H 124/67 93 L 06/02/23 23:23 98.2 F 77 24 131/82 96 06/02/23 23:22 81 34 H 94 L 06/02/23 23:20 74 20 95 06/02/23 23:15 73 22 95 06/02/23 22:36 96 06/02/23 22:30 118/73 06/02/23 22:00 98.3 F 83 20 132/67 96 06/02/23 21:30 98.2 F 94 H 26 H 126/60 96 06/02/23 21:15 78 27 H 117/56 97 06/02/23 21:00 81 27 H 128/62 93 L 06/02/23 20:38 119/72 91 L 06/02/23 20:30 78 12 122/66 95 06/02/23 20:00 81 30 H 114/59 93 L 06/02/23 19:30 79 29 H 111/58 94 L 06/02/23 19:00 73 25 H 98/52 97 06/02/23 18:45 98.3 F 84 18 122/66 122/33 96 Pain Assessment - Last Documented Pain Intensity 0 Pain Scale Used 0-10 Pain Scale Intake and Output: Intake & Output 05/31/23 06/01/23 06/02/23 06/03/23 11:59 11:59 11:59 11:59 Output Total 800 Balance -800 Weight 70.3 kg Lab Results: Lab Results-Last 24 Hours 06/02/23 06/02/23 06/02/23 Range/Units 18:55 18:55 18:55 WBC 8.9 (4.0-10.5) x10^3/uL RBC 1.57 L (4.1-5.6) x10^6/uL Hgb 5.0 L* (12.5-18.0) g/dL Hct 16.8 L (42-50) % MCV 107.0 H (78-100) fL MCH 31.8 (26-32) pg MCHC 29.8 L (32-36) g/dL RDW 22.4 H (11.5-14.0) % Plt Count 288 (150-450) x10^3/uL MPV 9.8 (7.5-11.0) fL Gran % 76.3 H (36.0-66.0) % Immature Gran % (Auto) 1.5 H (0.00-0.4) % Nucleat RBC Rel Count 0.2 H (0.00-0.1) % Eos # (Auto) 0.13 (0-0.5) x10^3/uL Immature Gran # (Auto) 0.13 H (0.00-0.03) x10^3u/L Absolute Lymphs (auto) 0.63 L (1.0-4.6) x10^3/uL Absolute Monos (auto) 1.18 (0.0-1.3) x10^3/uL Absolute Nucleated RBC 0.02 H (0.00-0.01) x10^3u/L Lymphocytes % 7.1 L (24.0-44.0) % Monocytes % 13.2 H (0.0-12.0) % Eosinophils % 1.5 (0.00-5.0) % Basophils % 0.4 (0.0-0.4) % Absolute Granulocytes 6.82 (1.4-6.9) x10^3/uL Basophils # 0.04 (0-0.4) x10^3/uL PT 11.8 (9.4-12.5) SECONDS INR 1.09 (0.8-3.0) APTT 27.2 (25.1-36.5) SECONDS Sodium 140 (135-145) mmol/L Potassium 4.2 (3.5-5.1) mmol/L Chloride 108 H (98-107) mmol/L Carbon Dioxide 26 (22-30) mmol/L Anion Gap 11.1 (5-15) MEQ/L BUN 49 H (9-20) mg/dL Creatinine 1.17 (0.66-1.25) mg/dL Estimated GFR 63.4 ML/MIN Glucose 118 H (74-106) mg/dL Calcium 8.5 (8.4-10.2) mg/dL Total Bilirubin 0.20 (0.2-1.3) mg/dL AST 39 (17-59) U/L ALT 22 (0-50) U/L Alkaline Phosphatase 100 (38-126) U/L Troponin I (0.000-0.034) ng/mL Serum Total Protein 6.7 (6.3-8.2) g/dL Albumin 2.8 L (3.5-5.0) g/dL Amylase 61 (30-110) U/L Lipase 37 (23-300) U/L Urine Color (Yellow) Urine Appearance (Clear) Urine pH (4.6-8.0) Ur Specific [place] (1.005-1.030) Urine Protein (Negative) Urine Glucose (UA) (Negative) mg/dL Urine Ketones (Negative) Urine Blood (Negative) Urine Nitrite (Negative) Urine Bilirubin (Negative) Urine Urobilinogen (0.2) mg/dL Ur Leukocyte Esterase (Negative) U Hyaline Cast (Auto) (0-2) /LPF Urine Microscopic RBC (0-5) /HPF Urine Microscopic WBC (0-5) /HPF Ur Epithelial Cells (None Seen) /HPF Urine Bacteria (None Seen) /HPF Urine Culture Reflexed (NO) Stl Occult Blood (IFOB) (NEGATIVE) Slides for Path Review YES ABO Group Rh Factor Antibody Screen (NEGATIVE) Crossmatch (COMPATIBLE) 06/02/23 06/02/23 06/02/23 Range/Units 18:55 18:55 19:57 WBC (4.0-10.5) x10^3/uL RBC (4.1-5.6) x10^6/uL Hgb (12.5-18.0) g/dL Hct (42-50) % MCV (78-100) fL MCH (26-32) pg MCHC (32-36) g/dL RDW (11.5-14.0) % Plt Count (150-450) x10^3/uL MPV (7.5-11.0) fL Gran % (36.0-66.0) % Immature Gran % (Auto) (0.00-0.4) % Nucleat RBC Rel Count (0.00-0.1) % Eos # (Auto) (0-0.5) x10^3/uL Immature Gran # (Auto) (0.00-0.03) x10^3u/L Absolute Lymphs (auto) (1.0-4.6) x10^3/uL Absolute Monos (auto) (0.0-1.3) x10^3/uL Absolute Nucleated RBC (0.00-0.01) x10^3u/L Lymphocytes % (24.0-44.0) % Monocytes % (0.0-12.0) % Eosinophils % (0.00-5.0) % Basophils % (0.0-0.4) % Absolute Granulocytes (1.4-6.9) x10^3/uL Basophils # (0-0.4) x10^3/uL PT (9.4-12.5) SECONDS INR (0.8-3.0) APTT (25.1-36.5) SECONDS Sodium (135-145) mmol/L Potassium (3.5-5.1) mmol/L Chloride (98-107) mmol/L Carbon Dioxide (22-30) mmol/L Anion Gap (5-15) MEQ/L BUN (9-20) mg/dL Creatinine (0.66-1.25) mg/dL Estimated GFR ML/MIN Glucose (74-106) mg/dL Calcium (8.4-10.2) mg/dL Total Bilirubin (0.2-1.3) mg/dL AST (17-59) U/L ALT (0-50) U/L Alkaline Phosphatase (38-126) U/L Troponin I 0.024 (0.000-0.034) ng/mL Serum Total Protein (6.3-8.2) g/dL Albumin (3.5-5.0) g/dL Amylase (30-110) U/L Lipase (23-300) U/L Urine Color (Yellow) Urine Appearance (Clear) Urine pH (4.6-8.0) Ur Specific [place] (1.005-1.030) Urine Protein (Negative) Urine Glucose (UA) (Negative) mg/dL Urine Ketones (Negative) Urine Blood (Negative) Urine Nitrite (Negative) Urine Bilirubin (Negative) Urine Urobilinogen (0.2) mg/dL Ur Leukocyte Esterase (Negative) U Hyaline Cast (Auto) (0-2) /LPF Urine Microscopic RBC (0-5) /HPF Urine Microscopic WBC (0-5) /HPF Ur Epithelial Cells (None Seen) /HPF Urine Bacteria (None Seen) /HPF Urine Culture Reflexed (NO) Stl Occult Blood (IFOB) (NEGATIVE) Slides for Path Review ABO Group O Rh Factor POSITIVE Antibody Screen NEGATIVE (NEGATIVE) Crossmatch COMPATIBLE (COMPATIBLE) 06/02/23 06/02/23 06/02/23 Range/Units 19:58 21:30 22:05 WBC (4.0-10.5) x10^3/uL RBC (4.1-5.6) x10^6/uL Hgb (12.5-18.0) g/dL Hct (42-50) % MCV (78-100) fL MCH (26-32) pg MCHC (32-36) g/dL RDW (11.5-14.0) % Plt Count (150-450) x10^3/uL MPV (7.5-11.0) fL Gran % (36.0-66.0) % Immature Gran % (Auto) (0.00-0.4) % Nucleat RBC Rel Count (0.00-0.1) % Eos # (Auto) (0-0.5) x10^3/uL Immature Gran # (Auto) (0.00-0.03) x10^3u/L Absolute Lymphs (auto) (1.0-4.6) x10^3/uL Absolute Monos (auto) (0.0-1.3) x10^3/uL Absolute Nucleated RBC (0.00-0.01) x10^3u/L Lymphocytes % (24.0-44.0) % Monocytes % (0.0-12.0) % Eosinophils % (0.00-5.0) % Basophils % (0.0-0.4) % Absolute Granulocytes (1.4-6.9) x10^3/uL Basophils # (0-0.4) x10^3/uL PT (9.4-12.5) SECONDS INR (0.8-3.0) APTT (25.1-36.5) SECONDS Sodium (135-145) mmol/L Potassium (3.5-5.1) mmol/L Chloride (98-107) mmol/L Carbon Dioxide (22-30) mmol/L Anion Gap (5-15) MEQ/L BUN (9-20) mg/dL Creatinine (0.66-1.25) mg/dL Estimated GFR ML/MIN Glucose (74-106) mg/dL Calcium (8.4-10.2) mg/dL Total Bilirubin (0.2-1.3) mg/dL AST (17-59) U/L ALT (0-50) U/L Alkaline Phosphatase (38-126) U/L Troponin I 0.021 (0.000-0.034) ng/mL Serum Total Protein (6.3-8.2) g/dL Albumin (3.5-5.0) g/dL Amylase (30-110) U/L Lipase (23-300) U/L Urine Color (Yellow) Urine Appearance (Clear) Urine pH (4.6-8.0) Ur Specific [place] (1.005-1.030) Urine Protein (Negative) Urine Glucose (UA) (Negative) mg/dL Urine Ketones (Negative) Urine Blood (Negative) Urine Nitrite (Negative) Urine Bilirubin (Negative) Urine Urobilinogen (0.2) mg/dL Ur Leukocyte Esterase (Negative) U Hyaline Cast (Auto) (0-2) /LPF Urine Microscopic RBC (0-5) /HPF Urine Microscopic WBC (0-5) /HPF Ur Epithelial Cells (None Seen) /HPF Urine Bacteria (None Seen) /HPF Urine Culture Reflexed (NO) Stl Occult Blood (IFOB) POSITIVE A (NEGATIVE) Slides for Path Review ABO Group Rh Factor Antibody Screen (NEGATIVE) Crossmatch COMPATIBLE (COMPATIBLE) 06/03/23 Range/Units 02:40 WBC (4.0-10.5) x10^3/uL RBC (4.1-5.6) x10^6/uL Hgb (12.5-18.0) g/dL Hct (42-50) % MCV (78-100) fL MCH (26-32) pg MCHC (32-36) g/dL RDW (11.5-14.0) % Plt Count (150-450) x10^3/uL MPV (7.5-11.0) fL Gran % (36.0-66.0) % Immature Gran % (Auto) (0.00-0.4) % Nucleat RBC Rel Count (0.00-0.1) % Eos # (Auto) (0-0.5) x10^3/uL Immature Gran # (Auto) (0.00-0.03) x10^3u/L Absolute Lymphs (auto) (1.0-4.6) x10^3/uL Absolute Monos (auto) (0.0-1.3) x10^3/uL Absolute Nucleated RBC (0.00-0.01) x10^3u/L Lymphocytes % (24.0-44.0) % Monocytes % (0.0-12.0) % Eosinophils % (0.00-5.0) % Basophils % (0.0-0.4) % Absolute Granulocytes (1.4-6.9) x10^3/uL Basophils # (0-0.4) x10^3/uL PT (9.4-12.5) SECONDS INR (0.8-3.0) APTT (25.1-36.5) SECONDS Sodium (135-145) mmol/L Potassium (3.5-5.1) mmol/L Chloride (98-107) mmol/L Carbon Dioxide (22-30) mmol/L Anion Gap (5-15) MEQ/L BUN (9-20) mg/dL Creatinine (0.66-1.25) mg/dL Estimated GFR ML/MIN Glucose (74-106) mg/dL Calcium (8.4-10.2) mg/dL Total Bilirubin (0.2-1.3) mg/dL AST (17-59) U/L ALT (0-50) U/L Alkaline Phosphatase (38-126) U/L Troponin I (0.000-0.034) ng/mL Serum Total Protein (6.3-8.2) g/dL Albumin (3.5-5.0) g/dL Amylase (30-110) U/L Lipase (23-300) U/L Urine Color Yellow (Yellow) Urine Appearance Clear (Clear) Urine pH 6.0 (4.6-8.0) Ur Specific [place] 1.015 (1.005-1.030) Urine Protein Negative (Negative) Urine Glucose (UA) Negative (Negative) mg/dL Urine Ketones Negative (Negative) Urine Blood Negative (Negative) Urine Nitrite Negative (Negative) Urine Bilirubin Negative (Negative) Urine Urobilinogen 1.0 A (0.2) mg/dL Ur Leukocyte Esterase Moderate A (Negative) U Hyaline Cast (Auto) NONE SEEN (0-2) /LPF Urine Microscopic RBC 0-2 (0-5) /HPF Urine Microscopic WBC 51-100 A (0-5) /HPF Ur Epithelial Cells None Seen (None Seen) /HPF Urine Bacteria Many A (None Seen) /HPF Urine Culture Reflexed ORDERED SEPARATELY (NO) Stl Occult Blood (IFOB) (NEGATIVE) Slides for Path Review ABO Group Rh Factor Antibody Screen (NEGATIVE) Crossmatch (COMPATIBLE) Radiology Exams: Radiology Procedures Category Date Time Status CHEST 1 VIEW (PORTABLE) Stat Exams 06/02/23 19:19 Completed Assessment/Plan (1) Symptomatic anemia Current Visit: Yes Status: Acute Assessment & Plan: -Most likely GI source, keep NPO. Consult for a scope planed for today -2 untits transfused, hgb at 6.9, will transfuse one more unit -Hold anticoagulation/aspirin -Continue to monitor and replace if hgb <7 Code(s): D64.9 - ANEMIA, UNSPECIFIED (2) GI bleed Current Visit: Yes Status: Acute Assessment & Plan: -NPO -IVF -Tele -PPI - Protonix -Monitor H&H Q8H -Surgery consulted in ED, appreciate recs -Avoid NSAIDS/ASA Code(s): K92.2 - GASTROINTESTINAL HEMORRHAGE, UNSPECIFIED (3) Generalized weakness Current Visit: Yes Status: Acute Assessment & Plan: -PT/OT -Most likely secondary to anemia Code(s): R53.1 - WEAKNESS (4) BPH (benign prostatic hyperplasia) Current Visit: No Status: Acute Assessment & Plan: -Continue home meds Code(s): N40.0 - BENIGN PROSTATIC HYPERPLASIA WITHOUT LOWER URINRY TRACT SYMP (5) History of colon cancer Current Visit: No Status: Chronic Assessment & Plan: -Noted s/p resection and colostomy Code(s): Z85.038 - PERSONAL HISTORY OF MALIGNANT NEOPLASM OF LARGE INTESTINE
[2023-06-03 07:49] LABS: Slide Review 1 YES
[2023-06-03 09:08] LABS: CROSS MATCH (PRBC) COMPATIBLE (COMPATIBLE)
[2023-06-03] MEDS: PROTONIX 40 MG IV IV SCH (11:10)
[2023-06-03] MEDS ORDERED: Sodium Chloride 0.9% 500 ML 500 ML IV ONE (11:36)
--- NOTE | 2023-06-03 13:26 | CONS ---
CONSULT DATE: 06/03/2023 HISTORY: This patient was seen for Dr. Agapito Perez who was called last night. The patient has weakness and anemia. He had some dark stools out of his ostomy. The patient has a history of some colorectal cancer in the past. His hemoglobin was 5 when he initially came in. He did have a colonoscopy at [facility] by myself back on 01/31/2023. He had a friable colon but no polyps or masses. The biopsy was benign. He had GI doctor I think Dr. Emmett Perez did upper scope on him in the past where he had erosive gastritis. Otherwise, he has received some transfusion. I do not see his latest hemoglobin on the chart at this point. He said it is up above 6. PAST MEDICAL HISTORY: Colorectal cancer. Heart disease in the past. PAST SURGICAL HISTORY: Resection for colon cancer and colostomy in the past. Port in the past. Cardiac stents in the past. Coronary artery bypass graft. Bowel blockages in the past. Right hip replacement. Colorectal resection in [address] Kyara Reynolds. Left knee replacement. Colostomy stoma rupture repair x2. HOME MEDICATIONS: Gabapentin, Sertraline, tamsulosin, levothyroxine, atorvastatin. He had been on Eliquis, which he said he has not had for two in a half to three days. He is on cyanocobalamin and B12 in the past. Losartan, ferrous sulfate, finasteride, multivitamin, Naprosyn, trazodone. ALLERGIES: NKDA. FAMILY HISTORY: Negative in regards to this specific problem. SOCIAL HISTORY: Former smoker. REVIEW OF SYSTEMS: Twelve systems reviewed per admission assessment, consistent with chart. He was weak, feeling a little bit better after the blood. PHYSICAL EXAMINATION: GENERAL: A chronically ill gentleman in no acute distress. HEENT: Sclera nonicteric. NECK: No JVD. CHEST: Equal excursion, nonlabored breathing. CVS: Regular rhythm and pulse. ABDOMEN: Soft. EXTREMITIES: No edema. NEURO: Moving extremities grossly symmetrically. Alert. PSYCH: Appropriate mood and affect. IMPRESSION: History of some dark stools out of ostomy. History of anemia. He is in need of upper endoscopy to evaluate for gastritis, ulcer disease or other etiology. If completely negative, may need to consideration of bleeding scan or consider doing a colonoscopy. I believe he just had one about three to four months ago and no masses at that time. Will proceed with EGD possible biopsy when OR time available. General risk of bleeding or infection, risk of bowel injury or perforation but not limited to, risk of sedation but not limited to, consent obtained. Will proceed with EGD possible biopsy when OR time available
[2023-06-03] MEDS ORDERED: DIPRIVAN 200 MG/20 ML IV ONE (14:18)
[2023-06-03] MEDS ORDERED: Xylocaine-Mpf 2% 5 Ml Vial ONE (14:18)
[2023-06-03] MEDS ORDERED: Amidate 20 MG/10 ML IV ONE (14:18)
--- NOTE | 2023-06-03 15:02 | OP ---
SURGERY DATE/TIME: 06/03/2023 1422 PREOPERATIVE DIAGNOSIS: History of severe anemia, history of GI bleed. POSTOPERATIVE DIAGNOSES: 1) Prepyloric ulcer. No current active bleeding. 2) Erosive gastritis. No current active bleeding. PROCEDURES: EGD with cold biopsy of antrum. SURGEON: Dr. Enrico Novoa. ANESTHESIA: MAC. ESTIMATED BLOOD LOSS: Minimal. INDICATIONS: As noted above. Risks and benefits explained in detail and not limited to and consent obtained. DESCRIPTION OF PROCEDURE AND FINDINGS: The patient is taken to the endoscopy suite. MAC anesthesia introduced. After official time out and no disagreement with planned procedure, a bite block positioned. Video gastroscope easily passed down the esophagus through the patent pylorus to the junction of the third and fourth portion of the duodenum. There are no signs of any fresh or old blood in the duodenum. No signs of any obvious ulcers in the visualized duodenum. Scope pulled back in the stomach. There was a prepyloric ulcer 1.5 cm or so of the pylorus. He had some erosive gastritis but no current active bleeding. No fresh or old blood in the stomach. On retroflex gastroesophageal junction fairly snug against the scope. Cold biopsy had been taken in the antrum for Helicobacter pylori, appeared to have hemostasis. He has been off his Eliquis for two and a half to three days or so. Scope pulled back to gastroesophageal junction. Z-line was crisp. No signs of any esophagitis. No evidence of esophageal signs of any damage. The scope is withdrawn. The patient tolerated the procedure well. There were no immediate complications. It was felt there is good probability that he could have had some bleeding on his Eliquis at this ulcer and erosive gastritis although he is not currently actively bleeding. If his hemoglobin keeps dropping could consider doing a colonoscopy but he just had one three to four months ago with no signs of any large polyps or masses. I recommend continuing on b.i.d. proton pump inhibitor. Otherwise, advance diet. DISPOSITION: Hold his Eliquis four to seven days if it is okay with his medical physician to have less chance of recurrent bleeding. There was no family out in the waiting room to discuss the findings with.
[2023-06-03 17:15] LABS: Hematocrit 29.3 % (42-50)
[2023-06-03 17:16] LABS: Hemoglobin 9.1 g/dL (12.5-18.0)
[2023-06-03] MEDS: MEDICATION ON HOLD MC SCH (19:35)
[2023-06-03] MEDS: Protonix 40MG Tablet PO SCH (21:32)
[2023-06-04] MEDS: TYLENOL 325 MG PO PRN (00:40)
[2023-06-04] MEDS: DICLOFENAC SODIUM TP PRN (01:52)
[2023-06-04 04:46] LABS: Absolute Neutrophil Ct (ANC) 6.39 x10^3/uL (1.4-6.9); BASOPHIL % 0.6 % (0.0-0.4); Basophil (Absolute #) 0.05 x10^3/uL (0-0.4); Eosinophil (Absolute #) 0.34 x10^3/uL (0-0.5); Hematocrit 24.8 % (42-50); Hemoglobin 7.5 g/dL (12.5-18.0); IMMATURE GRAN # 0.08 x10^3u/L (0.00-0.03); IMMATURE GRAN % 0.9 % (0.00-0.4); Lymphocyte (Absolute #) 0.54 x10^3/uL (1.0-4.6); Lymphocytes % 6.3 % (24.0-44.0); Mean Cell Volume 98.4 fL (78-100); Mean Corpuscular Hemoglobin 29.8 pg (26-32); Mean Corpuscular Hgb Concent. 30.2 g/dL (32-36); Mean Platelet Volume 9.9 fL (7.5-11.0); Monocyte (Absolute #) 1.19 x10^3/uL (0.0-1.3); Monocytes % 13.9 % (0.0-12.0); Neutrophil % 74.3 % (36.0-66.0); Platelet Count 235 x10^3/uL (150-450); Red Blood Count 2.52 x10^6/uL (4.1-5.6); Red Cell Distribution Width 23.7 % (11.5-14.0); White Blood Count 8.6 x10^3/uL (4.0-10.5)
[2023-06-04 05:10] LABS: ALBUMIN 2.5 g/dL (3.5-5.0); ANION GAP 7.9 MEQ/L (5-15); BILIRUBIN,TOTAL 0.5 mg/dL (0.2-1.3); Calcium 7.9 mg/dL (8.4-10.2); Creatinine 1 0.91 mg/dL (0.66-1.25); EST GLOMERULAR FILTRATION RATE 85.7 ML/MIN; Total Protein 5.8 g/dL (6.3-8.2)
[2023-06-04 05:12] LABS: Slide Review 1 YES
--- NOTE | 2023-06-04 09:32 | XRAY ---
Indication: Right lung crackles. Comparison: June 02, 2023 Portable chest now demonstrates cardiomegaly, central vascular congestion, and large right/small effusions worrisome for cardiac decompensation/CHF versus fluid overload. Superimposed pneumonia not completely excluded. Again incidental CABG, right pacemaker, and bilateral central venous access catheters.
[2023-06-04 10:11] LABS: Hematocrit 26.5 % (42-50); Hemoglobin 8.2 g/dL (12.5-18.0)
--- NOTE | 2023-06-04 10:16 | XRAY ---
Indication: Left arm swelling. Two-dimensional sonogram and color Doppler imaging major venous vessels left upper extremity performed. Comparison: August 02, 2012 Visualized left basilic vein is not compressible suggesting thrombosis. Remaining left internal jugular, subclavian, axillary, brachial, median cubital, radial, and ulnar veins again negative for thrombosis. Patent veins demonstrate demonstrate normal compressibility and normal venous waveforms. Impression: Thrombosis left basilic vein.
[2023-06-04] MEDS: Lasix 40 MG/4 ML IV ONE (11:02)
--- NOTE | 2023-06-04 11:08 | PCM.NOTE ---
Date and Time: 06/04/23 1102 Subjective Assessment: is a 78 year old male with history of colon cancer s/p resection and colostomy, CAD s/p CABG, peripheral neuropathy, and hypothyroidism who presented to ED 06/02/23 with complaints of generalized weakness admitted with symptomatic anemia. Labs remarkable for hgb of 5.0, occult stools positive. 06/03/23: Met with patient bedside. Endorses improvement of weakness s/p blood transfusion, received 2 units 06/02/23, now at 6.9, will receive an additional unit today. Patient states he sees Dr. Stapleton (oncology) and is due for a PET scan next week for treatment evaluation as he has recently finished a course of chemotherapy/radiation. Plan for EGD today. Denies fever,cough, sob, cp, abdominal pain, BAEZ, dizziness, N/V/D. 06/04/23: Patient endorsing increased shortness of breath this morning as well as edema in his LUE. Lung sounds are coarse on auscultation. CXR consistent with fluid overload/possilbility of superimposed pneumonia. Hemoglobin also down to 7.5 this morning. Plan for diuresis. Will start empiric antibiotics as well. May need to transfer to higher level of care for GI if hgb does not stabilize. <JAMILA RUSHING - Last Filed: 06/04/23 11:36> Date and Time: 06/04/23 1918 <PAU THURMAN - Last Filed: 06/04/23 19:21> - Review of Systems Constitutional: Weakness Eyes: No Symptoms Ears, Nose, & Throat: No Symptoms Respiratory: Short Of Breath Cardiac: Edema Abdominal/Gastrointestinal: No Symptoms Genitourinary Symptoms: No Symptoms Musculoskeletal: No Symptoms Skin: No Symptoms Neurological: No Symptoms Psychological: No Symptoms Endocrine: No Symptoms <JAMILA RUSHING - Last Filed: 06/04/23 11:36> Objective Exam General Appearance: no apparent distress Neurologic Exam: alert, oriented x 3, cooperative Skin Exam: normal color Eye Exam: PERRL Ears, Nose, Throat Exam: normal ENT inspection Neck Exam: normal inspection Respiratory Exam: crackles/rales Cardiovascular Exam: regular rate/rhythm, normal heart sounds Gastrointestinal/Abdomen Exam: soft, normal bowel sounds Extremity Exam: other (RUE edema +2) Back Exam: normal inspection Male Genitalia Exam: deferred Rectal Exam: deferred <JAMILA RUSHING - Last Filed: 06/04/23 11:36> Objective Data Vital Signs: Vital Signs - 24 hr Temp Pulse Resp BP BP BP Pulse Ox 06/04/23 08:11 95 06/04/23 06:48 96.8 F 67 22 131/77 97 06/04/23 04:00 97.6 F 67 24 130/73 97 06/04/23 00:00 98.1 F 61 18 131/63 97 06/03/23 20:00 97.5 F 74 24 142/73 97 06/03/23 19:03 88 L 06/03/23 17:55 97.2 F 68 15 137/72 96 06/03/23 16:55 76 115/60 06/03/23 16:25 75 123/65 06/03/23 15:55 97.3 F 60 144/67 06/03/23 15:40 91 H 158/70 06/03/23 15:25 97.4 F 74 15 130/62 98 06/03/23 15:10 97.3 F 60 16 148/74 99 06/03/23 12:46 96.8 F 66 18 126/60 99 06/03/23 11:46 96.8 F 66 18 126/60 99 Pain Assessment - Last Documented Pain Intensity 0 Pain Scale Used 0-10 Pain Scale Intake and Output: Intake & Output 06/01/23 06/02/23 06/03/23 06/04/23 11:59 11:59 11:59 11:59 Intake Total 0 4059 Output Total 800 Balance -800 4059 Weight 70.3 kg 70.3 kg Lab Results: Lab Results-Last 24 Hours 06/03/23 06/04/23 06/04/23 Range/Units 17:10 04:09 04:09 WBC 8.6 (4.0-10.5) x10^3/uL RBC 2.52 L (4.1-5.6) x10^6/uL Hgb 9.1 L D 7.5 L (12.5-18.0) g/dL Hct 29.3 L 24.8 L (42-50) % MCV 98.4 (78-100) fL MCH 29.8 (26-32) pg MCHC 30.2 L (32-36) g/dL RDW 23.7 H (11.5-14.0) % Plt Count 235 (150-450) x10^3/uL MPV 9.9 (7.5-11.0) fL Gran % 74.3 H (36.0-66.0) % Immature Gran % (Auto) 0.9 H (0.00-0.4) % Nucleat RBC Rel Count 0.0 (0.00-0.1) % Eos # (Auto) 0.34 (0-0.5) x10^3/uL Immature Gran # (Auto) 0.08 H (0.00-0.03) x10^3u/L Absolute Lymphs (auto) 0.54 L (1.0-4.6) x10^3/uL Absolute Monos (auto) 1.19 (0.0-1.3) x10^3/uL Absolute Nucleated RBC 0.00 (0.00-0.01) x10^3u/L Lymphocytes % 6.3 L (24.0-44.0) % Monocytes % 13.9 H (0.0-12.0) % Eosinophils % 4.0 (0.00-5.0) % Basophils % 0.6 (0.0-0.4) % Absolute Granulocytes 6.39 (1.4-6.9) x10^3/uL Basophils # 0.05 (0-0.4) x10^3/uL Sodium 137 (135-145) mmol/L Potassium 4.0 (3.5-5.1) mmol/L Chloride 110 H (98-107) mmol/L Carbon Dioxide 24 (22-30) mmol/L Anion Gap 7.9 (5-15) MEQ/L BUN 27 H (9-20) mg/dL Creatinine 0.91 (0.66-1.25) mg/dL Estimated GFR 85.7 ML/MIN Glucose 86 (74-106) mg/dL Calcium 7.9 L (8.4-10.2) mg/dL Total Bilirubin 0.50 (0.2-1.3) mg/dL AST 27 (17-59) U/L ALT 16 (0-50) U/L Alkaline Phosphatase 89 (38-126) U/L Serum Total Protein 5.8 L (6.3-8.2) g/dL Albumin 2.5 L (3.5-5.0) g/dL Slides for Path Review YES 06/04/23 Range/Units 09:59 WBC (4.0-10.5) x10^3/uL RBC (4.1-5.6) x10^6/uL Hgb 8.2 L (12.5-18.0) g/dL Hct 26.5 L (42-50) % MCV (78-100) fL MCH (26-32) pg MCHC (32-36) g/dL RDW (11.5-14.0) % Plt Count (150-450) x10^3/uL MPV (7.5-11.0) fL Gran % (36.0-66.0) % Immature Gran % (Auto) (0.00-0.4) % Nucleat RBC Rel Count (0.00-0.1) % Eos # (Auto) (0-0.5) x10^3/uL Immature Gran # (Auto) (0.00-0.03) x10^3u/L Absolute Lymphs (auto) (1.0-4.6) x10^3/uL Absolute Monos (auto) (0.0-1.3) x10^3/uL Absolute Nucleated RBC (0.00-0.01) x10^3u/L Lymphocytes % (24.0-44.0) % Monocytes % (0.0-12.0) % Eosinophils % (0.00-5.0) % Basophils % (0.0-0.4) % Absolute Granulocytes (1.4-6.9) x10^3/uL Basophils # (0-0.4) x10^3/uL Sodium (135-145) mmol/L Potassium (3.5-5.1) mmol/L Chloride (98-107) mmol/L Carbon Dioxide (22-30) mmol/L Anion Gap (5-15) MEQ/L BUN (9-20) mg/dL Creatinine (0.66-1.25) mg/dL Estimated GFR ML/MIN Glucose (74-106) mg/dL Calcium (8.4-10.2) mg/dL Total Bilirubin (0.2-1.3) mg/dL AST (17-59) U/L ALT (0-50) U/L Alkaline Phosphatase (38-126) U/L Serum Total Protein (6.3-8.2) g/dL Albumin (3.5-5.0) g/dL Slides for Path Review Radiology Exams: Radiology Procedures Category Date Time Status CHEST 1 VIEW (PORTABLE) Stat Exams 06/02/23 19:19 Completed CHEST 1 VIEW (PORTABLE) Stat Exams 06/04/23 08:52 Completed Ultrasound Unilateral Extremities [VENOUS UNILAT/ Exams 06/04/23 08:51 Complet ed LIMITED EXTREMIT] [US] Stat Multi-Disciplinary Progress Notes: Multi-Disciplinary Progress Notes 06/03/23 14:57 Case Management Note by Cordelia Thakur [facility] [employer] HAS ACCEPTED PATIENT Initialized on 06/03/23 14:57 - END OF NOTE 06/03/23 13:14 Case Management Note by Cordelia Thakur REFERRAL FAXED TO [employer]. THEY WILL NEED NOTIFIED OF DC AT [phone]. THEY WILL NEED FAXED THE DC INSTRUCTIONS, DC MED LIST AND DC SUMMARY TO [phone] Initialized on 06/03/23 13:14 - END OF NOTE <JAMILA RUSHING - Last Filed: 06/04/23 11:36> Vital Signs: Vital Signs - 24 hr Temp Pulse Resp BP BP Pulse Ox 06/04/23 16:00 97.8 F 79 18 121/58 95 06/04/23 11:58 97.3 F 71 21 142/65 99 06/04/23 08:11 95 06/04/23 06:48 96.8 F 67 22 131/77 97 06/04/23 04:00 97.6 F 67 24 130/73 97 06/04/23 00:00 98.1 F 61 18 131/63 97 06/03/23 20:00 97.5 F 74 24 142/73 97 Pain Assessment - Last Documented Pain Intensity 0 Pain Scale Used 0-10 Pain Scale Intake and Output: Intake & Output 06/02/23 06/03/23 06/04/23 06/05/23 11:59 11:59 11:59 11:59 Intake Total 0 4059 810 Output Total 800 7350 Balance -800 4059 -5923 Weight 70.3 kg 70.3 kg Lab Results: Lab Results-Last 24 Hours 06/04/23 06/04/23 06/04/23 Range/Units 04:09 04:09 09:59 WBC 8.6 (4.0-10.5) x10^3/uL RBC 2.52 L (4.1-5.6) x10^6/uL Hgb 7.5 L 8.2 L (12.5-18.0) g/dL Hct 24.8 L 26.5 L (42-50) % MCV 98.4 (78-100) fL MCH 29.8 (26-32) pg MCHC 30.2 L (32-36) g/dL RDW 23.7 H (11.5-14.0) % Plt Count 235 (150-450) x10^3/uL MPV 9.9 (7.5-11.0) fL Gran % 74.3 H (36.0-66.0) % Immature Gran % (Auto) 0.9 H (0.00-0.4) % Nucleat RBC Rel Count 0.0 (0.00-0.1) % Eos # (Auto) 0.34 (0-0.5) x10^3/uL Immature Gran # (Auto) 0.08 H (0.00-0.03) x10^3u/L Absolute Lymphs (auto) 0.54 L (1.0-4.6) x10^3/uL Absolute Monos (auto) 1.19 (0.0-1.3) x10^3/uL Absolute Nucleated RBC 0.00 (0.00-0.01) x10^3u/L Lymphocytes % 6.3 L (24.0-44.0) % Monocytes % 13.9 H (0.0-12.0) % Eosinophils % 4.0 (0.00-5.0) % Basophils % 0.6 (0.0-0.4) % Absolute Granulocytes 6.39 (1.4-6.9) x10^3/uL Basophils # 0.05 (0-0.4) x10^3/uL Sodium 137 (135-145) mmol/L Potassium 4.0 (3.5-5.1) mmol/L Chloride 110 H (98-107) mmol/L Carbon Dioxide 24 (22-30) mmol/L Anion Gap 7.9 (5-15) MEQ/L BUN 27 H (9-20) mg/dL Creatinine 0.91 (0.66-1.25) mg/dL Estimated GFR 85.7 ML/MIN Glucose 86 (74-106) mg/dL Calcium 7.9 L (8.4-10.2) mg/dL Total Bilirubin 0.50 (0.2-1.3) mg/dL AST 27 (17-59) U/L ALT 16 (0-50) U/L Alkaline Phosphatase 89 (38-126) U/L Serum Total Protein 5.8 L (6.3-8.2) g/dL Albumin 2.5 L (3.5-5.0) g/dL Slides for Path Review YES Radiology Exams: Radiology Procedures Category Date Time Status CHEST 1 VIEW (PORTABLE) Stat Exams 06/02/23 19:19 Completed CHEST 1 VIEW (PORTABLE) Stat Exams 06/04/23 08:52 Completed Ultrasound Unilateral Extremities [VENOUS UNILAT/ Exams 06/04/23 08:51 Completed LIMITED EXTREMIT] [US] Stat Multi-Disciplinary Progress Notes: Multi-Disciplinary Progress Notes 06/04/23 13:39 Case Management Note by Cordelia Thakur S/W PATIENT- HE CONTINUES TO PLAN TO DC HOME TO HIS PLF AT TIME OF DC. HE HAS A WALKER AND A CANE. HHC HAS BEEN SET UP. HE CONTINUES TO REFUSE REHAB PLACEMENT AT THIS TIME. DENIES ANY OTHER NEW NEEDS AT THIS TIME Initialized on 06/04/23 13:39 - END OF NOTE <PAU THURMAN - Last Filed: 06/04/23 19:21> Assessment/Plan (1) Symptomatic anemia Current Visit: Yes Status: Acute Assessment & Plan: -Most likely GI source, keep NPO. Consult for a scope planed for today -2 untits transfused, hgb at 6.9, will transfuse one more unit -Hold anticoagulation/aspirin -Continue to monitor and replace if hgb <7 4/2: -Hgb at 7.5 today, will continue to monitor H&H Q6H and replace if <7 -May need transfer for GI consult Code(s): D64.9 - ANEMIA, UNSPECIFIED (2) GI bleed Current Visit: Yes Status: Acute Assessment & Plan: -NPO -IVF -Tele -PPI - Protonix -Monitor H&H Q8H -Surgery consulted in ED, appreciate recs -Avoid NSAIDS/ASA /: -EGD noting prepylonic ulcer and erosive gastritis - no active bleed -recs for colonoscopy/bleeding scan if unable to maintain hgb Code(s): K92.2 - GASTROINTESTINAL HEMORRHAGE, UNSPECIFIED (3) Generalized weakness Current Visit: Yes Status: Acute Assessment & Plan: -PT/OT -Most likely secondary to anemia -deconditioning with cancer diagnosis Code(s): R53.1 - WEAKNESS (4) BPH (benign prostatic hyperplasia) Current Visit: No Status: Acute Assessment & Plan: -Continue home meds -self caths Code(s): N40.0 - BENIGN PROSTATIC HYPERPLASIA WITHOUT LOWER URINRY TRACT SYMP (5) History of colon cancer Current Visit: No Status: Chronic Assessment & Plan: -Noted s/p resection and colostomy (6) Pleural effusion -CXR showing cardiomegaly, central vascular congestion, and large right/small effusions worrisome for cardiac decompensation/CHF versus fluid overload. Superimposed pneumonia not completely excluded. -Lasix 40 TID -IS -Supplemental oxygen for goal spo2 > 92% (7) Pneumonia -CXR showing possible superimposed pneumonia, already taking ceftriaxone for UTI, will add azithromycin (8) UTI -Ucult showing gram -, will continue ceftriaxone, follow cultures (9) left basilic vein thrombosis -Patient at high risk for DVT, will resume eliquis Code(s): D64.9 - ANEMIA, UNSPECIFIED (2) GI bleed Current Visit: Yes Status: Acute Code(s): K92.2 - GASTROINTESTINAL HEMORRHAGE, UNSPECIFIED (3) Generalized weakness Current Visit: Yes Status: Acute Code(s): R53.1 - WEAKNESS (4) BPH (benign prostatic hyperplasia) Current Visit: No Status: Acute Code(s): N40.0 - BENIGN PROSTATIC HYPERPLASIA WITHOUT LOWER URINRY TRACT SYMP (5) History of colon cancer Current Visit: No Status: Chronic Code(s): Z85.038 - PERSONAL HISTORY OF MALIGNANT NEOPLASM OF LARGE INTESTINE (6) Pleural effusion Current Visit: Yes Status: Acute Code(s): J90 - PLEURAL EFFUSION, NOT ELSEWHERE CLASSIFIED (7) Pneumonia Current Visit: Yes Status: Acute Code(s): J18.9 - PNEUMONIA, UNSPECIFIED ORGANISM (8) UTI (urinary tract infection) Current Visit: Yes Status: Acute Code(s): N39.0 - URINARY TRACT INFECTION, SITE NOT SPECIFIED (9) Acute thrombosis of left basilic vein Current Visit: Yes Status: Acute Code(s): I82.612 - ACUTE EMBOLISM AND THO MBOS OF SUPERFIC VEINS OF L UP EXTREM <JAMILA RUSHING - Last Filed: 06/04/23 11:36> REJI Encounter - REJI Encounter Attestation REJI Encounter Attestation: "IhavepersonallyseenandexaminedBODINE,ZAIRE BERNARD andhavediscussed pertinent aspects of their care with Jamila Jacinto agree with the history, phys ical exam (any modifications based on my personal exam will be noted below), assessment, and plan as outlined in original note. Please see immediately below for my summary of findings and additional assessment and plan along with any meaningful corrections/explanations to the Subjective/Objective portions of the REJI note will be noted." My portion of the encounter took place via telemedicine. -Patient now with CHF exacerbation due to volume overload from the blood transfusions. Initiated on IV lasix. EGD did not reveal a source of bleeding (non bleeding ulcer, gastritis). When stable from CHF point of view, will need to transfer to higher level of care for further GI evaluation Left basilic vein thrombosis- resume eliquis as patient is high risk for DVT/PE <PAU THURMAN - Last Filed: 06/04/23 19:21>
[2023-06-04] MEDS: ROCEPHIN 2 Gm-D5w 50ML BAG** 2 G/50 ML IVPB IV SCH (11:10)
[2023-06-04] MEDS: Zithromax 500 MG/ 250 ML NaCl Premix 500 MG/250 ML IVPB IV SCH (12:05)
[2023-06-04] MEDS: NEURONTIN PO SCH (13:23)
[2023-06-04] MEDS: ZOCOR 20MG PO SCH (13:23)
[2023-06-04] MEDS: Flomax 0.4 MG PO SCH (13:23)
[2023-06-04] MEDS: ZOLOFT 50 MG TABLET PO SCH (13:23)
[2023-06-04] MEDS: SYNTHROID 50 MCG PO SCH (13:23)
[2023-06-04] MEDS: FEOSOL 325 MG PO SCH (13:23)
[2023-06-04] MEDS: Cozaar 50 MG PO SCH (13:23)
[2023-06-04] MEDS: Proscar 5 MG PO SCH (13:24)
[2023-06-04] MEDS: Lasix 40 MG/4 ML IV SCH (14:42)
[2023-06-04] MEDS: Zofran 4 MG/2 ML VIAL IV PRN (14:42)
[2023-06-04] MEDS: Compazine 10 MG/2 ML IV PRN (16:47)
[2023-06-04] MEDS ORDERED: Lasix 40 MG/4 ML IV SCH (17:00)
[2023-06-04] MEDS: DESYREL 50 MG PO SCH (21:47)
[2023-06-04] MEDS ORDERED: NON-FORMULARY ITEM (Apixaban*** [Eliquis 5 Mg Tablet***] 5 MG Tablet) PO SCH (22:00)
[2023-06-05 04:53] LABS: ALBUMIN 2.4 g/dL (3.5-5.0); ANION GAP 6.1 MEQ/L (5-15); BILIRUBIN,TOTAL 0.4 mg/dL (0.2-1.3); Creatinine 1 1.01 mg/dL (0.66-1.25); EST GLOMERULAR FILTRATION RATE 75.7 ML/MIN; Potassium 3.3 mmol/L (3.5-5.1); Total Protein 5.7 g/dL (6.3-8.2)
[2023-06-05 04:57] LABS: BASOPHIL % 0.8 % (0.0-0.4); Basophil (Absolute #) 0.06 x10^3/uL (0-0.4); Eosinophil % 5.8 % (0.00-5.0); Eosinophil (Absolute #) 0.42 x10^3/uL (0-0.5); Hematocrit 23.1 % (42-50); Hemoglobin 7.3 g/dL (12.5-18.0); IMMATURE GRAN # 0.05 x10^3u/L (0.00-0.03); IMMATURE GRAN % 0.7 % (0.00-0.4); Lymphocyte (Absolute #) 0.46 x10^3/uL (1.0-4.6); Lymphocytes % 6.3 % (24.0-44.0); Mean Cell Volume 95.5 fL (78-100); Mean Corpuscular Hemoglobin 30.2 pg (26-32); Mean Corpuscular Hgb Concent. 31.6 g/dL (32-36); Mean Platelet Volume 9.8 fL (7.5-11.0); Monocyte (Absolute #) 0.99 x10^3/uL (0.0-1.3); Monocytes % 13.6 % (0.0-12.0); Neutrophil % 72.8 % (36.0-66.0); Platelet Count 234 x10^3/uL (150-450); Red Blood Count 2.42 x10^6/uL (4.1-5.6); White Blood Count 7.3 x10^3/uL (4.0-10.5)
[2023-06-05 07:16] LABS: Slide Review 1 YES
[2023-06-05] MEDS: Klor Con PO SCH (07:23)
[2023-06-05] MEDS: MAXIPIME 1 GM** 1 G in Dextrose 5%/Water IV Soln. 100ML PLUS BAG 100 ML IV SCH (07:28)
[2023-06-05] MEDS: THERAGRAN MULTIVITAMIN PO SCH (09:33)
[2023-06-05] MEDS ORDERED: NON-FORMULARY ITEM (Multivitamin [Multivitamin] 1 EACH Tablet) PO SCH (10:00)
[2023-06-05] MEDS ORDERED: NON-FORMULARY ITEM (Atorvastatin Calcium [Atorvastatin Calcium] 20 MG Tablet) PO SCH (10:00)
[2023-06-05] MEDS ORDERED: MAXIPIME 1 GM IV SCH (10:00)
[2023-06-05 10:41] LABS: ABO TYPING O; Antibody Screen NEGATIVE (NEGATIVE); RH TYPING POSITIVE
[2023-06-05 10:42] LABS: CROSS MATCH (PRBC) COMPATIBLE (COMPATIBLE)
[2023-06-05] MEDS: Sodium Chloride 0.9% 1000 ML 1,000 ML IV SCH (10:45)
--- NOTE | 2023-06-05 13:08 | PCM.DS ---
Discharge Summary Date of Admission: 06/03/23 08:00 Date of Discharge: 06/05/23 Admitting Physician: ROSETTE PEREZ MD Consults: Consults on Case 06/03/23 01:17 Consult Surgery ROUTINE Primary Care Provider: SUE,STANLEY Allergies Allergies No Known Drug Allergies Allergy (Verified 06/02/23 18:45) Hospital Summary - Hospital Course Hospital Course: is a 78 year old male with history of colon cancer with metastasis to the lung s/p resection and colostomy, CAD s/p CABG, peripheral neuropathy, and hypothyroidism who presented to ED 06/02/23 with complaints of generalized weakness admitted with symptomatic anemia. Labs remarkable for hgb of 5.0 upon arrival, occult stools positive. EGD did not reveal a source of bleeding (non bleeding ulcer, gastritis). Patient received a total of 4 units of blood during hospital course and CHF exacerbation secondary volume overload with the tr ansfusions. Patient was found to have left basillic vein thrombosis and is on Eliquis as he is at high risk for DVT/PE. UTI with enterobacter clocae complex on cefepime. CHF exacerbation now stable, plan to transfer to higher level of car for further GI evaluation. He has been accepted at [facility]. Discharge Note Latest Assessment & Plan (1) Symptomatic anemia Current Visit: Yes Status: Acute Assessment & Plan: -Most likely GI source, keep NPO. Consult for a scope planed for today -2 untits transfused, hgb at 6.9, will transfuse one more unit -Hold anticoagulation/aspirin -Continue to monitor and replace if hgb <7 4/2: -Hgb at 7.5 today, will continue to monitor H&H Q6H and replace if <7 -May need transfer for GI consult 4/3: -Transfuse 1 unit for 7.3 hgb Code(s): D64.9 - ANEMIA, UNSPECIFIED (2) GI bleed Current Visit: Yes Status: Acute Assessment & Plan: -NPO -IVF -Tele -PPI - Protonix -Monitor H&H Q8H -Surgery consulted in ED, appreciate recs -Avoid NSAIDS/ASA 4/2: -EGD noting prepylonic ulcer and erosive gastritis - no active bleed -recs for colonoscopy/bleeding scan if unable to maintain hgb 4/3: -transfer for GI evaluation Code(s): K92.2 - GASTROINTESTINAL HEMORRHAGE, UNSPECIFIED (3) Generalized weakness Current Visit: Yes Status: Acute Assessment & Plan: -PT/OT -Most likely secondary to anemia -deconditioning with cancer diagnosis Code(s): R53.1 - WEAKNESS (4) BPH (benign prostatic hyperplasia) Current Visit: No Status: Acute Assessment & Plan: -Continue home meds -self caths Code(s): N40.0 - BENIGN PROSTATIC HYPERPLASIA WITHOUT LOWER URINRY TRACT SYMP (5) History of colon cancer Current Visit: No Status: Chronic Assessment & Plan: -Noted s/p resection and colostomy (6) Pleural effusion -CXR showing cardiomegaly, central vascular congestion, and large right/small effusions worrisome for cardiac decompensation/CHF versus fluid overload. Superimposed pneumonia not completely excluded. -Lasix 40 TID -IS -Supplemental oxygen for goal spo2 > 92% 43: -continue lasix (7) Pneumonia -CXR showing possible superimposed pneumonia, already taking ceftriaxone for UTI, will add azithromycin (8) UTI -Ucult showing gram -, will continue ceftriaxone, follow cultures 3: -enterobacter clocae complex on culture, resistant to ceftriaxone - will continue with cefepime (9) left basilic vein thrombosis -Patient at high risk for DVT, will resume eliquis I spent 35 minutes [id number] with the patient on the day of discharge per forming discharge exam, discussing hospital stay and discharge instructions with patient and caregivers, preparation of discharge records, prescriptions & referral forms and addressing any questions/concerns the patient had as documented above. - Vitals & Intake/Output Vital Signs: Vital Signs Temperature 98.3 F 06/05/23 11:39 Pulse Rate 85 06/05/23 11:39 Respiratory Rate 22 06/05/23 11:39 Blood Pressure 83/51 06/05/23 11:39 O2 Sat by Pulse Oximetry 94 L 06/05/23 11:39 Intake & Output: Intake & Output 06/03/23 06/04/23 06/05/23 06/06/23 11:59 11:59 11:59 11:59 Intake Total 0 4059 1350 Output Total 800 83259 Balance -800 4058 -90028 Weight 70.3 kg 70.3 kg - Lab Result Diagrams: 06/05/23 04:20 04/03/24 09:44 Lab Results-Last 24 Hrs: Lab Results-Last 24 Hours 06/05/23 06/05/23 06/05/23 Range/Units 04:20 04:20 04:20 WBC 7.3 (4.0-10.5) x10^3/uL RBC 2.42 L (4.1-5.6) x10^6/uL Hgb 7.3 L (12.5-18.0) g/dL Hct 23.1 L (42-50) % MCV 95.5 (78-100) fL MCH 30.2 (26-32) pg MCHC 31.6 L (32-36) g/dL RDW 23.0 H (11.5-14.0) % Plt Count 234 (150-450) x10^3/uL MPV 9.8 (7.5-11.0) fL Gran % 72.8 H (36.0-66.0) % Immature Gran % (Auto) 0.7 H (0.00-0.4) % Nucleat RBC Rel Count 0.0 (0.00-0.1) % Eos # (Auto) 0.42 (0-0.5) x10^3/uL Immature Gran # (Auto) 0.05 H (0.00-0.03) x10^3u/L Absolute Lymphs (auto) 0.46 L (1.0-4.6) x10^3/uL Absolute Monos (auto) 0.99 (0.0-1.3) x10^3/uL Absolute Nucleated RBC 0.00 (0.00-0.01) x10^3u/L Lymphocytes % 6.3 L (24.0-44.0) % Monocytes % 13.6 H (0.0-12.0) % Eosinophils % 5.8 H (0.00-5.0) % Basophils % 0.8 (0.0-0.4) % Absolute Granulocytes 5.30 (1.4-6.9) x10^3/uL Basophils # 0.06 (0-0.4) x10^3/uL Sodium 137 (135-145) mmol/L Potassium 3.3 L (3.5-5.1) mmol/L Chloride 104 (98-107) mmol/L Carbon Dioxide 30 (22-30) mmol/L Anion Gap 6.1 (5-15) MEQ/L BUN 22 H (9-20) mg/dL Creatinine 1.01 (0.66-1.25) mg/dL Estimated GFR 75.7 ML/MIN Glucose 83 (74-106) mg/dL Calcium 8.0 L (8.4-10.2) mg/dL Magnesium 1.7 (1.6-2.3) mg/dL Total Bilirubin 0.40 (0.2-1.3) mg/dL AST 25 (17-59) U/L ALT 14 (0-50) U/L Alkaline Phosphatase 82 (38-126) U/L Serum Total Protein 5.7 L (6.3-8.2) g/dL Albumin 2.4 L (3.5-5.0) g/dL Slides for Path Review YES ABO Group Rh Factor Antibody Screen (NEGATIVE) Crossmatch (COMPATIBLE) 06/05/23 06/05/23 Range/Units 09:44 09:44 WBC (4.0-10.5) x10^3/uL RBC (4.1-5.6) x10^6/uL Hgb (12.5-18.0) g/dL Hct (42-50) % MCV (78-100) fL MCH (26-32) pg MCHC (32-36) g/dL RDW (11.5-14.0) % Plt Count (150-450) x10^3/uL MPV (7.5-11.0) fL Gran % (36.0-66.0) % Immature Gran % (Auto) (0.00-0.4) % Nucleat RBC Rel Count (0.00-0.1) % Eos # (Auto) (0-0.5) x10^3/uL Immature Gran # (Auto) (0.00-0.03) x10^3u/L Absolute Lymphs (auto) (1.0-4.6) x10^3/uL Absolute Monos (auto) (0.0-1.3) x10^3/uL Absolute Nucleated RBC (0.00-0.01) x10^3u/L Lymphocytes % (24.0-44.0) % Monocytes % (0.0-12.0) % Eosinophils % (0.00-5.0) % Basophils % (0.0-0.4) % Absolute Granulocytes (1.4-6.9) x10^3/uL Basophils # (0-0.4) x10^3/uL Sodium (135-145) mmol/L Potassium 3.4 L (3.5-5.1) mmol/L Chloride (98-107) mmol/L Carbon Dioxide (22-30) mmol/L Anion Gap (5-15) MEQ/L BUN (9-20) mg/dL Creatinine (0.66-1.25) mg/dL Estimated GFR ML/MIN Glucose (74-106) mg/dL Calcium (8.4-10.2) mg/dL Magnesium (1.6-2.3) mg/dL Total Bilirubin (0.2-1.3) mg/dL AST (17-59) U/L ALT (0-50) U/L Alkaline Phosphatase (38-126) U/L Serum Total Protein (6.3-8.2) g/dL Albumin (3.5-5.0) g/dL Slides for Path Review ABO Group O Rh Factor POSITIVE Antibody Screen NEGATIVE (NEGATIVE) Crossmatch COMPATIBLE (COMPATIBLE) Micro Results-Entire Visit: Microbiology 06/02/23 02:40 Urine Culture - Final Catherized Enterobacter Clocae Complex - Radiology Exams Ordered Rad Exams-Entire Visit: Radiology Procedures Category Date Time Status CHEST 1 VIEW (PORTABLE) Stat Exams 06/04/23 08:52 Completed Ultrasound Unilateral Extremities [VENOUS UNILAT/ Exams 06/04/23 08:51 Completed LIMITED EXTREMIT] [US] Stat - Procedures and Test Procedures and Tests throughout Hospitalization: Therapy Orders & Screens 06/03/23 01:17 EKG REPEAT IN AM Comment: Diagnosis: Symptomatic Anemia, Occult GI Bleed 06/03/23 04:28 Oxygen Nasal Cannula 2 lpm Comment: Diagnosis: Symptomatic Anemia, Occult GI Bleed 06/04/23 08:52 Incentive Spirometry TID Comment: Diagnosis: Symptomatic Anemia, Occult GI Bleed 06/04/23 13:41 PT Eval & Treat ( Order) ONCE Reason for Eval:: weakness Diagnosis: Symptomatic Anemia, Occult GI Bleed Discharge Exam General Appearance: no apparent distress Neurologic Exam: alert, oriented x 3, cooperative Eye Exam: PERRL Ears, Nose, Throat Exam: normal ENT inspection Neck Exam: normal inspection Respiratory Exam: crackles/rales Cardiovascular Exam: regular rate/rhythm, normal heart sounds Gastrointestinal/Abdomen Exam: soft, normal bowel sounds, other (colostomy) Rectal Exam: deferred Back Exam: normal inspection Extremity Exam: normal inspection Skin Exam: normal color Final Diagnosis/Problem List - Final Discharge Diagnosis/Problem (1) Symptomatic anemia Current Visit: Yes Status: Acute Code(s): D64.9 - ANEMIA, UNSPECIFIED (2) GI bleed Current Visit: Yes Status: Acute Code(s): K92.2 - GASTROINTESTINAL HEMORRHAGE, UNSPECIFIED (3) Generalized weakness Current Visit: Yes Status: Acute Code(s): R53.1 - WEAKNESS (4) BPH (benign prostatic hyperplasia) Current Visit: No Status: Acute Code(s): N40.0 - BENIGN PROSTATIC HYPERPLASIA WITHOUT LOWER URINRY TRACT SYMP (5) History of colon cancer Current Visit: No Status: Chronic Code(s): Z85.038 - PERSONAL HISTORY OF MALIGNANT NEOPLASM OF LARGE INTESTINE (6) Pleural effusion Current Visit: Yes Status: Acute Code(s): J90 - PLEURAL EFFUSION, NOT ELSEWHERE CLASSIFIED (7) Pneumonia Current Visit: Yes Status: Acute Code(s): J18.9 - PNEUMONIA, UNSPECIFIED ORGANISM (8) UTI (urinary tract infection) Current Visit: Yes Status: Acute Code(s): N39.0 - URINARY TRACT INFECTION, SITE NOT SPECIFIED (9) Acute thrombosis of left basilic vein Current Visit: Yes Status: Acute Code(s): I82.612 - ACUTE EMBOLISM AND THOMBOS OF SUPERFIC VEINS OF L UP EXTREM - Discharge Disposition: Home, Self-Care Condition: Stable Prescriptions: New Diclofenac Sodium 4 gm TP Q4HPRN PRN PRN Reason: Pain Furosemide 40 mg/4 ml [Lasix 40 MG/4 ML] 40 mg IV Q8HT Cefepime HCl 1 gm [Maxipime 1 gm] 1 g IV Q8HT Acetaminophen 325 mg [Tylenol 325 mg] 650 mg PO Q6H PRN PRN tablet PRN Reason: Pain And/Or Fever Azithromycin 500 mg/250 ml [Zithromax 500 MG/ 250 ML NaCl Premix] 500 mg IV Q24H10 iv piggy Continue Gabapentin 300 mg PO BID Tamsulosin HCl 0.4 mg [Flomax 0.4 MG] 0.4 mg PO BID Sertraline HCl 50 mg [Zoloft 50 mg Tablet] 50 mg PO DAILY Levothyroxine Sodium 50 mcg PO DAILY Atorvastatin Calcium 20 mg PO DAILY Apixaban [Eliquis 5 mg Tablet] 5 mg PO BID Losartan Potassium 50 mg [Cozaar 50 MG] 50 mg PO DAILY Cyanocobalamin 1000 Mcg/ml [Cyanocobalamin B-12 1000 MCG/ML] 1,000 mg PO UD Trazodone HCl 50 mg [Desyrel 50 mg] 100 mg PO QHS Multivitamin 1 each PO DAILY Naproxen Sodium [Aleve] 2 - 3 each PO BID PRN Finasteride 5 mg [Proscar 5 MG] 5 mg PO DAILY Ferrous Sulfate 325 mg [Feosol 325 mg] 325 mg PO DAILY Additional Instructions: [employer] [facility] HAS BEEN ARRANGE FOR YOU. THEY WILL CALL YOU TO ARRANGE A TIME TO COME SEE YOU. THEIR PHONE NUMBER [phone] IF YOU NEED ANYTHING BEFORE THEIR FIRST VISIT Follow up with: STANLEY ROGERS MD [Primary Care Provider] -
[2023-06-05] MEDS: DICLOFENAC SODIUM TP PRN (15:18)
[2023-06-05 15:56] LABS: Hematocrit 27.2 % (42-50); Hemoglobin 8.5 g/dL (12.5-18.0)
[2023-06-05] MEDS: Miralax Powder 17GM PACKET PO ONE (18:06)
[2023-06-06 04:45] LABS: Absolute Neutrophil Ct (ANC) 5.37 x10^3/uL (1.4-6.9); BASOPHIL % 0.5 % (0.0-0.4); Basophil (Absolute #) 0.04 x10^3/uL (0-0.4); Eosinophil % 7.6 % (0.00-5.0); Eosinophil (Absolute #) 0.58 x10^3/uL (0-0.5); Hematocrit 26.5 % (42-50); Hemoglobin 8.6 g/dL (12.5-18.0); IMMATURE GRAN # 0.04 x10^3u/L (0.00-0.03); IMMATURE GRAN % 0.5 % (0.00-0.4); Lymphocyte (Absolute #) 0.53 x10^3/uL (1.0-4.6); Mean Cell Volume 94.3 fL (78-100); Mean Corpuscular Hemoglobin 30.6 pg (26-32); Mean Corpuscular Hgb Concent. 32.5 g/dL (32-36); Mean Platelet Volume 9.4 fL (7.5-11.0); Monocyte (Absolute #) 1.06 x10^3/uL (0.0-1.3); Monocytes % 13.9 % (0.0-12.0); Neutrophil % 70.5 % (36.0-66.0); Platelet Count 234 x10^3/uL (150-450); Red Blood Count 2.81 x10^6/uL (4.1-5.6); Red Cell Distribution Width 22.1 % (11.5-14.0); White Blood Count 7.6 x10^3/uL (4.0-10.5)
[2023-06-06 04:52] LABS: ALBUMIN 2.5 g/dL (3.5-5.0); ANION GAP 7.4 MEQ/L (5-15); BILIRUBIN,TOTAL 0.5 mg/dL (0.2-1.3); Calcium 8.2 mg/dL (8.4-10.2); Creatinine 1 1.13 mg/dL (0.66-1.25); EST GLOMERULAR FILTRATION RATE 66.1 ML/MIN; Potassium 4.1 mmol/L (3.5-5.1); Total Protein 6.1 g/dL (6.3-8.2)
[2023-06-06 06:20] LABS: Slide Review 1 YES
[2023-06-06 06:51] VITALS: BP 112/72; PULSE 77; RESP 16; TEMP 98.1; O2SAT 96
[2023-06-06] MEDS: Docusate Sodium 100 MG PO ONE (08:20)
--- NOTE | 2023-06-06 09:59 | PCM.DS ---
Discharge Summary Date of Admission: 06/03/23 08:00 Date of Discharge: 06/06/23 Admitting Physician: ROSETTE PEREZ MD Consults: Consults on Case 06/03/23 01:17 Consult Surgery ROUTINE Primary Care Provider: SUE,STANLEY Allergies Allergies No Known Drug Allergies Allergy (Verified 06/02/23 18:45) Hospital Summary - Hospital Course Hospital Course: is a 78 year old male with history of colon cancer with metastasis to the lung s/p resection and colostomy, CAD s/p CABG, peripheral neuropathy, and hypothyroidism who presented to ED 06/02/23 with complaints of generalized weakness admitted with symptomatic anemia. Labs remarkable for hgb of 5.0 upon arrival, occult stools positive. EGD did not reveal a source of bleeding (non bleeding ulcer, gastritis). Patient received a total of 4 units of blood during hospital course and CHF exacerbation secondary volume overload with the tr ansfusions. Patient was found to have left basillic vein thrombosis and is on Eliquis as he is at high risk for DVT/PE. UTI with enterobacter clocae complex on cefepime. CHF exacerbation now stable, plan to transfer to higher level of car for further GI evaluation. He has been accepted at [facility]. Discharge Note Latest Assessment & Plan (1) Symptomatic anemia Current Visit: Yes Status: Acute Assessment & Plan: -Most likely GI source, keep NPO. Consult for a scope planed for today -2 untits transfused, hgb at 6.9, will transfuse one more unit -Hold anticoagulation/aspirin -Continue to monitor and replace if hgb <7 4/2: -Hgb at 7.5 today, will continue to monitor H&H Q6H and replace if <7 -May need transfer for GI consult 4/3: -Transfuse 1 unit for 7.3 hgb Code(s): D64.9 - ANEMIA, UNSPECIFIED (2) GI bleed Current Visit: Yes Status: Acute Assessment & Plan: -NPO -IVF -Tele -PPI - Protonix -Monitor H&H Q8H -Surgery consulted in ED, appreciate recs -Avoid NSAIDS/ASA 4/2: -EGD noting prepylonic ulcer and erosive gastritis - no active bleed -recs for colonoscopy/bleeding scan if unable to maintain hgb 4/3: -transfer for GI evaluation Code(s): K92.2 - GASTROINTESTINAL HEMORRHAGE, UNSPECIFIED (3) Generalized weakness Current Visit: Yes Status: Acute Assessment & Plan: -PT/OT -Most likely secondary to anemia -deconditioning with cancer diagnosis Code(s): R53.1 - WEAKNESS (4) BPH (benign prostatic hyperplasia) Current Visit: No Status: Acute Assessment & Plan: -Continue home meds -self caths Code(s): N40.0 - BENIGN PROSTATIC HYPERPLASIA WITHOUT LOWER URINRY TRACT SYMP (5) History of colon cancer Current Visit: No Status: Chronic Assessment & Plan: -Noted s/p resection and colostomy (6) Pleural effusion -CXR showing cardiomegaly, central vascular congestion, and large right/small effusions worrisome for cardiac decompensation/CHF versus fluid overload. Superimposed pneumonia not completely excluded. -Lasix 40 TID -IS -Supplemental oxygen for goal spo2 > 92% 43: -continue lasix (7) Pneumonia -CXR showing possible superimposed pneumonia, already taking ceftriaxone for UTI, will add azithromycin (8) UTI -Ucult showing gram -, will continue ceftriaxone, follow cultures 06/04: -enterobacter clocae complex on culture, resistant to ceftriaxone - will continue with cefepime (9) left basilic vein thrombosis -Patient at high risk for DVT, will resume eliquis I spent 35 minutes [id number] with the patient on the day of discharge performing discharge exam, discussing hospital stay and discharge instructions with patient and caregivers, preparation of discharge records, prescriptions & referral forms and addressing any questions/concerns the patient had as documented above. - Vitals & Intake/Output Vital Signs: Vital Signs Temperature 98.1 F 06/06/23 06:50 Pulse Rate 77 06/06/23 06:50 Respiratory Rate 16 06/06/23 06:50 Blood Pressure 112/72 06/06/23 06:50 O2 Sat by Pulse Oximetry 96 06/06/23 06:50 Intake & Output: Intake & Output 06/03/23 06/04/23 06/05/23 06/06/23 11:59 11:59 11:59 11:59 Intake Total 0 4059 1350 1735 Output Total 800 24102 0615 Balance -800 3411 -61904 -5170 Weight 70.3 kg 70.3 kg - Lab Result Diagrams: 06/06/23 04:25 06/06/23 04:25 Lab Results-Last 24 Hrs: Lab Results-Last 24 Hours 06/05/23 06/05/23 06/05/23 Range/Units 09:44 09:44 13:40 WBC (4.0-10.5) x10^3/uL RBC (4.1-5.6) x10^6/uL Hgb (12.5-18.0) g/dL Hct (42-50) % MCV (78-100) fL MCH (26-32) pg MCHC (32-36) g/dL RDW (11.5-14.0) % Plt Count (150-450) x10^3/uL MPV (7.5-11.0) fL Gran % (36.0-66.0) % Immature Gran % (Auto) (0.00-0.4) % Nucleat RBC Rel Count (0.00-0.1) % Eos # (Auto) (0-0.5) x10^3/uL Immature Gran # (Auto) (0.00-0.03) x10^3u/L Absolute Lymphs (auto) (1.0-4.6) x10^3/uL Absolute Monos (auto) (0.0-1.3) x10^3/uL Absolute Nucleated RBC (0.00-0.01) x10^3u/L Lymphocytes % (24.0-44.0) % Monocytes % (0.0-12.0) % Eosinophils % (0.00-5.0) % Basophils % (0.0-0.4) % Absolute Granulocytes (1.4-6.9) x10^3/uL Basophils # (0-0.4) x10^3/uL Sodium (135-145) mmol/L Potassium 3.4 L 3.9 (3.5-5.1) mmol/L Chloride (98-107) mmol/L Carbon Dioxide (22-30) mmol/L Anion Gap (5-15) MEQ/L BUN (9-20) mg/dL Creatinine (0.66-1.25) mg/dL Estimated GFR ML/MIN Glucose (74-106) mg/dL Calcium (8.4-10.2) mg/dL Total Bilirubin (0.2-1.3) mg/dL AST (17-59) U/L ALT (0-50) U/L Alkaline Phosphatase (38-126) U/L Serum Total Protein (6.3-8.2) g/dL Albumin (3.5-5.0) g/dL Slides for Path Review ABO Group O Rh Factor POSITIVE Antibody Screen NEGATIVE (NEGATIVE) Crossmatch COMPATIBLE (COMPATIBLE) 06/05/23 06/06/23 06/06/23 Range/Units 15:52 04:25 04:25 WBC 7.6 (4.0-10.5) x10^3/uL RBC 2.81 L (4.1-5.6) x10^6/uL Hgb 8.5 L 8.6 L (12.5-18.0) g/dL Hct 27.2 L 26.5 L (42-50) % MCV 94.3 (78-100) fL MCH 30.6 (26-32) pg MCHC 32.5 (32-36) g/dL RDW 22.1 H (11.5-14.0) % Plt Count 234 (150-450) x10^3/uL MPV 9.4 (7.5-11.0) fL Gran % 70.5 H (36.0-66.0) % Immature Gran % (Auto) 0.5 H (0.00-0.4) % Nucleat RBC Rel Count 0.0 (0.00-0.1) % Eos # (Auto) 0.58 H (0-0.5) x10^3/uL Immature Gran # (Auto) 0.04 H (0.00-0.03) x10^3u/L Absolute Lymphs (auto) 0.53 L (1.0-4.6) x10^3/uL Absolute Monos (auto) 1.06 (0.0-1.3) x10^3/uL Absolute Nucleated RBC 0.00 (0.00-0.01) x10^3u/L Lymphocytes % 7.0 L (24.0-44.0) % Monocytes % 13.9 H (0.0-12.0) % Eosinophils % 7.6 H (0.00-5.0) % Basophils % 0.5 (0.0-0.4) % Absolute Granulocytes 5.37 (1.4-6.9) x10^3/uL Basophils # 0.04 (0-0.4) x10^3/uL Sodium 138 (135-145) mmol/L Potassium 4.1 (3.5-5.1) mmol/L Chloride 101 (98-107) mmol/L Carbon Dioxide 34 H (22-30) mmol/L Anion Gap 7.4 (5-15) MEQ/L BUN 29 H (9-20) mg/dL Creatinine 1.13 (0.66-1.25) mg/dL Estimated GFR 66.1 ML/MIN Glucose 89 (74-106) mg/dL Calcium 8.2 L (8.4-10.2) mg/dL Total Bilirubin 0.50 (0.2-1.3) mg/dL AST 21 (17-59) U/L ALT 15 (0-50) U/L Alkaline Phosphatase 84 (38-126) U/L Serum Total Protein 6.1 L (6.3-8.2) g/dL Albumin 2.5 L (3.5-5.0) g/dL Slides for Path Review YES ABO Group Rh Factor Antibody Screen (NEGATIVE) Crossmatch (COMPATIBLE) Micro Results-Entire Visit: Microbiology 06/02/23 02:40 Urine Culture - Final Catherized Enterobacter Clocae Complex - Procedures and Test Procedures and Tests throughout Hospitalization: Therapy Orders & Screens 06/03/23 01:17 EKG REPEAT IN AM Comment: Diagnosis: Symptomatic Anemia, Occult GI Bleed 06/03/23 04:28 Oxygen Nasal Cannula 2 lpm Comment: Diagnosis: Symptomatic Anemia, Occult GI Bleed 06/04/23 08:52 Incentive Spirometry TID Comment: Diagnosis: Symptomatic Anemia, Occult GI Bleed 06/04/23 13:41 PT Eval & Treat ( Order) ONCE Reason for Eval:: weakness Diagnosis: Symptomatic Anemia, Occult GI Bleed Final Diagnosis/Problem List - Final Discharge Diagnosis/Problem (1) Symptomatic anemia Current Visit: Yes Status: Acute Code(s): D64.9 - ANEMIA, UNSPECIFIED (2) GI bleed Current Visit: Yes Status: Acute Code(s): K92.2 - GASTROINTESTINAL HEMORRHAGE, UNSPECIFIED (3) Generalized weakness Current Visit: Yes Status: Acute Code(s): R53.1 - WEAKNESS (4) BPH (benign prostatic hyperplasia) Current Visit: No Status: Acute Code(s): N40.0 - BENIGN PROSTATIC HYPERPLASIA WITHOUT LOWER URINRY TRACT SYMP (5) History of colon cancer Current Visit: No Status: Chronic Code(s): Z85.038 - PERSONAL HISTORY OF MALIGNANT NEOPLASM OF LARGE INTESTINE (6) Pleural effusion Current Visit: Yes Status: Acute Code(s): J90 - PLEURAL EFFUSION, NOT ELSEWHERE CLASSIFIED (7) Pneumonia Current Visit: Yes Status: Acute Code(s): J18.9 - PNEUMONIA, UNSPECIFIED ORGANISM (8) UTI (urinary tract infection) Current Visit: Yes Status: Acute Code(s): N39.0 - URINARY TRACT INFECTION, SITE NOT SPECIFIED (9) Acute thrombosis of left basilic vein Current Visit: Yes Status: Acute Code(s): I82.612 - ACUTE EMBOLISM AND THOMBOS OF SUPERFIC VEINS OF L UP EXTREM - Discharge Disposition: DC TO OTHER HOSP Condition: Stable Prescriptions: New Diclofenac Sodium 4 gm TP Q4HPRN PRN PRN Reason: Pain Furosemide 40 mg/4 ml [Lasix 40 MG/4 ML] 40 mg IV Q8HT Cefepime HCl 1 gm [Maxipime 1 gm] 1 g IV Q8HT Acetaminophen 325 mg [Tylenol 325 mg] 650 mg PO Q6H PRN PRN tablet PRN Reason: Pain And/Or Fever Azithromycin 500 mg/250 ml [Zithromax 500 MG/ 250 ML NaCl Premix] 500 mg IV Q24H10 iv piggy Continue Gabapentin 300 mg PO BID Tamsulosin HCl 0.4 mg [Flomax 0.4 MG] 0.4 mg PO BID Sertraline HCl 50 mg [Zoloft 50 mg Tablet] 50 mg PO DAILY Levothyroxine Sodium 50 mcg PO DAILY Atorvastatin Calcium 20 mg PO DAILY Apixaban [Eliquis 5 mg Tablet] 5 mg PO BID Losartan Potassium 50 mg [Cozaar 50 MG] 50 mg PO DAILY Cyanocobalamin 1000 Mcg/ml [Cyanocobalamin B-12 1000 MCG/ML] 1,000 mg PO UD Trazodone HCl 50 mg [Desyrel 50 mg] 100 mg PO QHS Multivitamin 1 each PO DAILY Naproxen Sodium [Aleve] 2 - 3 each PO BID PRN Finasteride 5 mg [Proscar 5 MG] 5 mg PO DAILY Ferrous Sulfate 325 mg [Feosol 325 mg] 325 mg PO DAILY Additional Instructions: [facility] HAS BEEN ARRANGE FOR YOU. THEY WILL CALL YOU TO ARRANGE A TIME TO COME SEE YOU. THEIR PHONE NUMBER [phone] IF YOU NEED ANYTHING BEFORE THEIR FIRST VISIT Follow up with: STANLEY ROGERS MD [Primary Care Provider] -
[2023-06-08] MEDS ORDERED: ELIQUIS 2.5 MG TABLET PO SCH (10:00)
== END 2023-06-06 10:15 | DRG 811 ==
LOC: ED 17:42 → MED SURG 06-03 01:12 → OBSVTOIN 06-03 08:00
PROVIDERS: ADMIT Student in an Organized Health Care Education/Training Program; ATTEND Student in an Organized Health Care Education/Training Program
PROC: 0DB68ZX Excision of Stomach, Via Natural or Artificial Opening Endoscopic, Diagnostic (ICD-10-PCS; principal; 2023-06-03)
DX: D64.9 Anemia, unspecified (principal); J18.9 Pneumonia, unspecified organism; N39.0 Urinary tract infection, site not specified; I82.612 Acute embolism and thrombosis of superficial veins of left upper extremity; R53.1 Weakness; N40.0 Benign prostatic hyperplasia without lower urinary tract symptoms; I25.10 Atherosclerotic heart disease of native coronary artery without angina pectoris; E03.9 Hypothyroidism, unspecified; K29.70 Gastritis, unspecified, without bleeding; Z95.0 Presence of cardiac pacemaker; Z79.899 Other long term (current) drug therapy; Z85.038 Personal history of other malignant neoplasm of large intestine; Z79.01 Long term (current) use of anticoagulants
CPT/HCPCS: 00731; 36000; 36415; 36430; 43239; 71045; 80053; 81001; 82150; 83690; 83735; 84132; 84484; 85014; 85018; 85025; 85610; 85730; 86850; 86900; 86901; 86922; 87077; 87086; 87186; 93005; 93041; 93971; 94760; 94762; 96374; 96375; 97161; 99100; 99140; 99285; G0328; P9016; Q3014; 82274; J0456; J0692; J0696; J1940; J2270; J2405; J2704; A9270-GY

== ENCOUNTER 2023-09-01 22:12 | Observation (INO) | payer MEDICARE ==
--- NOTE | 2023-09-01 22:19 | ERPHSYRPT ---
- History of Present Illness Time Seen by Provider: 09/01/23 22:17 Source: patient, family, EMS Exam Limitations: no limitations Physician History: This is a 78-year-old white male patient of Dr. Rogers who was brought into the emergency department by the paramedics because of pain in his left knee. There was no acute fall today. However in discussing with this patient he states that he did fall approximately 7 to 10 days ago. In reviewing the patient's medication list it appears he has Tylenol and naproxen that he takes for pain. He denies having any narcotics at this time. Patient was given a prescription of 5/325 [place] No. 20 tablets on 08/22/2023. The patient has not had a fever. Patient is on Eliquis. He has no cough and he has no sore throat. The patient's pain is primarily lateral to the left knee and the anterior left knee. Patient is on Eliquis, has hypothyroidism, hypertension, coronary disease (CABG, stent placement), peripheral neuropathy, prostate issues and hyperlipidemia. Method of Injury: other (no injury) Quality: aching Severity of Pain-Max: mild (To moderate) Severity of Pain-Current: mild (To moderate) Lower Extremities Pain: knee: left (Anterior knee and lateral knee) Modifying Factors: Improves With: movement Associated Symptoms: other (To bear weight) Allergies/Adverse Reactions: No Known Drug Allergies Allergy (Verified 06/02/23 18:45) Home Medications: Gabapentin 300 mg PO BID 09/23/13 [History] Sertraline HCl 50 mg [Zoloft 50 mg Tablet] 50 mg PO DAILY 09/23/13 [History] Tamsulosin HCl 0.4 mg [Flomax 0.4 MG] 0.4 mg PO BID 09/23/13 [History] Levothyroxine Sodium 50 mcg PO DAILY 06/04/17 [History] Atorvastatin Calcium 20 mg PO DAILY 06/19/18 [History] Apixaban [Eliquis 5 mg Tablet] 5 mg PO BID 11/03/21 [History] Cyanocobalamin 1000 Mcg/ml [Cyanocobalamin B-12 1000 MCG/ML] 1,000 mg PO UD 11/03/21 [History] Losartan Potassium 50 mg [Cozaar 50 MG] 50 mg PO DAILY 11/03/21 [History] Ferrous Sulfate 325 mg [Feosol 325 mg] 325 mg PO DAILY 04/30/23 [History] Finasteride 5 mg [Proscar 5 MG] 5 mg PO DAILY 04/30/23 [History] Multivitamin 1 each PO DAILY 04/30/23 [History] Naproxen Sodium [Aleve] 2 - 3 each PO BID PRN 04/30/23 [History] Trazodone HCl 50 mg [Desyrel 50 mg] 100 mg PO QHS 04/30/23 [History] Hx Tetanus, Diphtheria Vaccination/Date Given: No Hx Influenza Vaccination/Date Given: Yes Hx Pneumococcal Vaccination/Date Given: Yes Travel Risk - International Travel Have you traveled outside of the country in past 3 weeks: No - Emerging Infectious Disease Are you exhibiting symptoms associated with any current EIDs: No - Review of Systems Constitutional: No Symptoms Eyes: No Symptoms Ears, Nose, & Throat: No Symptoms Respiratory: No Symptoms Cardiac: No Symptoms Abdominal/Gastrointestinal: No Symptoms Genitourinary Symptoms: No Symptoms Musculoskeletal: Fall (No recent fall but did fall 7 to 10 days ago), Joint Pain (Left knee) Skin: No Symptoms Neurological: No Symptoms Psychological: No Symptoms Endocrine: No Symptoms Hematologic/Lymphatic: No Symptoms Immunological/Allergic: No Symptoms All Other Systems: Reviewed and Negative - Past Medical History Pertinent Past Medical History: Yes Neurological History: Peripheral Neuropathy ENT History: No Pertinent History Cardiac History: Coronary Artery Disease Respiratory History: No Pertinent History Endocrine Medical History: Hypothyroidism Musculoskeletal History: Arthritis GI Medical History: Colorectal Cancer, Hernia History: Other Psycho-Social History: Depression Male Reproductive Disorders: Prostate Problems Other Medical History: Colorectal cancer - Past Surgical History Past Surgical History: Yes Neuro Surgical History: No Pertinent History Cardiac: CABG, Cardiac Catheterization, Cardiac Stent Respiratory: No Pertinent History Gastrointestinal: Hernia Repair Genitourinary: No Pertinent History Musculoskeletal: Joint Replacement Male Surgical History: No Pertinent History Other Surgical History: 5 VESSEL CABG. COLON RESECTION with colostomy, repair to 2 lower bowel blockages. 2 HERNIA. Right lower lobe of lung removed. Right hip replacement. COLO ANAL RESECTION, STAGE [address] LORENA BRENNER. LEFT KNEE REPLACEMENT. COLOSTOMY STOMA RPTURE REPAIR X 2 - Social History Smoking Status: Former smoker Exposure to second hand smoke: No Drug Use: none Patient Lives Alone: No - Social Determinants of Health Will the patient participate in the screening: Declined to provide Do you worry about a steady place to live?: No In the past 12 months,have you had to go without utilities?: No Transportation Issues: No Has anyone in your support network made you feel unsafe?: No Have you or anyone in your house had to go without enough: No - Nursing Vital Signs Nursing Vital Signs: Initial Vital Signs Temperature 98.1 F 09/01/23 22:14 Pulse Rate 74 09/01/23 22:14 Respiratory Rate 16 09/01/23 22:14 Blood Pressure 142/89 09/01/23 22:14 O2 Sat by Pulse Oximetry 99 09/01/23 22:14 Pain Scale Pain Intensity 4 - Physical Exam General Appearance: no apparent distress, alert, anxiety, thin Eyes, Ears, Nose, Throat Exam: normal ENT inspection, moist mucous membranes Neck Exam: normal inspection, non-tender, supple, full range of motion Cardiovascular/Respiratory Exam: chest non-tender, no respiratory distress Gastrointestinal/Abdominal Exam: non-tender Back Exam: normal inspection, normal range of motion, No CVA tenderness, No vertebral tenderness Hips Exam: bilateral: non-tender, normal inspection, normal range of motion, no evidence of injury Legs Exam: bilateral leg: non-tender, normal inspection, normal range of motion, no evidence of injury Knees Exam: right knee: non-tender, left knee: bone tenderness, soft tissue tenderness, bilateral knee: normal inspection, normal range of motion, no evidence of injury Ankle Exam: bilateral ankle: non-tender, normal inspection, normal range of motion, no evidence of injury Foot Exam: bilateral foot: non-tender, normal inspection, normal range of [place] on, no evidence of injury Neuro/Tendon Exam: normal sensation, normal motor functions, normal tendon functions, responds to pain, no evidence tendon injury Mental Status Exam: alert, oriented x 3, cooperative Skin Exam: normal color, warm, dry SpO2 Interpretation: normal O2 Delivery: Room Air - Course Nursing assessment & vital signs reviewed: Yes Ordered Tests: Active Orders 24 hr Category Date Time Status KNEE (3 VIEWS) Stat Exams 09/01/23 22:42 Taken - Progress Progress: improved, pain not gone completely Progress Note: 09/01/23 22:50 My medical decision making and the assignment of low complexity to this patient's medical issue today is based on review of the patient's past medical history, review the patient's medication list, review of patient drug allergy list, history present illness and physical findings on examination. The workup in this patient includes x-ray of the patient's left knee. 09/01/23 22:52 Differential diagnosis includes but is not limited to muscle skeletal pain, left knee dislocation, left knee fracture 09/01/23 23:06 I interpreted the patient's preliminary left knee x-ray. There is no evidence of any acute fracture or dislocation. The surgical hardware that is in place appears to be in good position. This patient does not have cellulitis, the patient is already being treated with Eliquis for his cardiac issues and I have very low suspicion that he has a DVT, he has palpable pedal pulses. The patient is no evidence of any acute fracture or dislocation. Counseled pt/family regarding: diagnosis, need for follow-up, rad results Medical Desision Making - Independent Historian Additional History obtained from: Family - Diagnostic Testing Diagnostic test were ordered, analyzed, and reviewed by me: Yes Radiological Interpretation: Interpreted by me - Risk of complications Low Risk: Low risk of morbidity from additional dx testing or treatment - Departure Departure Disposition: Home Clinical Impression: Left knee pain Condition: Stable Critical Care Time: No Referrals: STANLEY ROGERS MD [Primary Care Provider] - Follow up/PCP as directed Additional Instructions: Take your medications as prescribed. May also apply ice to tender areas 3 times a day for the next 48 hours. Call your prescribing provider tomorrow, 09/02/2023 to make arrangements for further evaluation follow-up appointment to be seen in the next 3 days.
[2023-09-01] MEDS ORDERED: NORCO 5/325 MG ONE (23:16)
[2023-09-01] MEDS: NORCO 5/325 MG PO ONE ×2 (23:21→23:22)
--- NOTE | 2023-09-02 00:57 | PCM.HP ---
History of Present Illness - Chief Complaint Chief Complaint: L knee pain Date: 09/02/23 History of Present Illness: Mr. ROWE is a 78 year old male with a past medical history significant for hypertension, hyperlipidemia, hypothyroidism and coronary artery disease status post CABG who presents to the hospital with complaints of L knee pain. He notes that he had about 3-4 falls and has been dealing with the pain through a combination of tylenol/NSAIDs but his symptoms worsened, and he is unable to sleep. He rates his pain about a 3 at baseline but then spikes up to 17.5 when he twists it. 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 He is resting in bed, awake/alert. No fever/chills. No chest pain or shortness of breath. No nausea, vomiting or diarrhea. No dysuria, hematuria or urgency. - Review of Systems Constitutional: No Fever, No Chills, No Fatigue Eyes: No Vision Changes Ears, Nose, & Throat: No Epistaxis Respiratory: No Cough, No Orthopnea, No Short Of Breath Cardiac: No Chest Pain, No Edema, No Palpitations Abdominal/Gastrointestinal: Nausea, No Abdominal Pain, No Vomiting, No Diarrhea Genitourinary Symptoms: No Dysuria, No Frequency, No Hematuria Musculoskeletal: Joint Pain, Joint Swelling Skin: No Rash Neurological: No Headache Psychological: No Suicidal Ideations Endocrine: No Polyuria, No Polydipsia Medications & Allergies Home Medications: Home Medication List Gabapentin 300 mg PO BID 09/23/13 [History Confirmed 06/02/23] Sertraline HCl 50 mg [Zoloft 50 mg Tablet] 50 mg PO DAILY 09/23/13 [History Confirmed 06/02/23] Tamsulosin HCl 0.4 mg [Flomax 0.4 MG] 0.4 mg PO BID 09/23/13 [History Confirmed 06/02/23] Levothyroxine Sodium 50 mcg PO DAILY 06/04/17 [History Confirmed 06/02/23] Atorvastatin Calcium 20 mg PO DAILY 06/19/18 [History Confirmed 06/02/23] Apixaban [Eliquis 5 mg Tablet] 5 mg PO BID 11/03/21 [History Confirmed 06/02/23] Cyanocobalamin 1000 Mcg/ml [Cyanocobalamin B-12 1000 MCG/ML] 1,000 mg PO UD 11/03/21 [History Confirmed 06/02/23] Losartan Potassium 50 mg [Cozaar 50 MG] 50 mg PO DAILY 11/03/21 [History Confirmed 06/02/23] Ferrous Sulfate 325 mg [Feosol 325 mg] 325 mg PO DAILY 04/30/23 [History Confirmed 06/02/23] Finasteride 5 mg [Proscar 5 MG] 5 mg PO DAILY 04/30/23 [History Confirmed 06/02/23] Multivitamin 1 each PO DAILY 04/30/23 [History Confirmed 06/02/23] Naproxen Sodium [Aleve] 2 - 3 each PO BID PRN 04/30/23 [History Confirmed 06/02/23] Trazodone HCl 50 mg [Desyrel 50 mg] 100 mg PO QHS 04/30/23 [History Confir med 06/02/23] Acetaminophen 325 mg [Tylenol 325 mg] 650 mg PO Q6H PRN PRN tablet 06/05/23 [Rx] Azithromycin 500 mg/250 ml [Zithromax 500 MG/ 250 ML NaCl Premix] 500 mg IV Q24H10 iv piggy 06/05/23 [Rx] Cefepime HCl 1 gm [Maxipime 1 gm] 1 g IV Q8HT 06/05/23 [Rx] Diclofenac Sodium 4 gm TP Q4HPRN PRN 06/05/23 [Rx] Furosemide 40 mg/4 ml [Lasix 40 MG/4 ML] 40 mg IV Q8HT 06/05/23 [Rx] Allergies/Adverse Reactions: Allergies Allergy/AdvReac Type Severity Reaction Status Date / Time No Known Drug Allergies Allergy Verified 06/02/23 18:45 - Past Medical History Past Medical History: Yes Neurological History: Peripheral Neuropathy ENT History: No Pertinent History Cardiac History: Coronary Artery Disease Respiratory History: No Pertinent History Endocrine Medical History: Hypothyroidism Musculoskelatal History: Arthritis GI Medical History: Colorectal Cancer, Hernia History: Other Pyscho-Social History: Depression Male Reproductive Disorders: Prostate Problems Comment: Colorectal cancer - Past Surgical History Past Surgical History: Yes Neuro Surgical History: No Pertinent History Cardiac History: CABG, Cardiac Catheterization, Cardiac Stent Respiratory Surgery: No Pertinent History GI Surgical History: Hernia Repair Genitourinary Surgical Hx: No Pertinent History Musculskeletal Surgical Hx: Joint Replacement Male Surgical History: No Pertinent History Other Surgical History: 5 VESSEL CABG. COLON RESECTION with colostomy, repair to 2 lower bowel blockages. 2 HERNIA. Right lower lobe of lung removed. Right hip replacement. COLO ANAL RESECTION, STAGE [address] LORENA BRENNER. LEFT KNEE REPLACEMENT. COLOSTOMY STOMA RPTURE REPAIR X 2 - Social History Smoking Status: Former smoker Exposure to second hand smoke: No Alcohol: None Drug Use: none - Social Determinants of Health Will the patient participate in the screening: Declined to provide Do you worry about a steady place to live?: No In the past 12 months,have you had to go without utilities?: No Have you or anyone in your house had to go without enough: No Transportation Issues: No Has anyone in your support network made you feel unsafe?: No Does the patient want assistance with any of the above?: No - Physical Exam Vital Signs: Vital Signs - 24 hr Temp Pulse Resp BP BP Pulse Ox 09/01/23 23:30 67 18 176/103 97 09/01/23 23:00 67 168/91 98 09/01/23 22:30 66 159/86 94 L 09/01/23 22:18 69 142/89 98 09/01/23 22:14 98.1 F 74 16 142/89 99 General Appearance: mild distress Neurologic Exam: alert Ears, Nose, Throat Exam: dry mucous membranes Neck Exam: supple Respiratory Exam: No respiratory distress Cardiovascular Exam: regular rate/rhythm Gastrointestinal/Abdomen Exam: soft Extremity Exam: No pedal edema, No swelling Skin Exam: normal color, No rash Results - Radiology Impressions Radiology Exams & Impressions: Radiology Procedures Category Date Time Status KNEE (3 VIEWS) Stat Exams 09/01/23 22:42 Taken Assessment/Plan (1) Left knee pain Current Visit: Yes Status: Acute Assessment & Plan: Secondary to falls with history of L knee replacement, unable to ambulate with degree pain and unable to provide care to his 1. Admit to hospital under observation status 2. Pain control 3. PT/OT eval 4. Social work consult to help with care of his 5. Rehab? 6. GI/DVT prophylaxis Code(s): M25.562 - PAIN IN LEFT KNEE (2) BPH (benign prostatic hyperplasia) Current Visit: No Status: Acute Qualifiers: Lower urinary tract symptom presence: symptoms present Lower urinary tract symptom detail: incomplete bladder emptying Qualified Code(s): N40.1 - Benign prostatic hyperplasia with lower urinary tract symptoms; R39.14 - Feeling of incomplete bladder emptying Assessment & Plan: BPH on Flomax 1. Continue meds 2. Monitor I/Os 3. Watch kidney function Code(s): N40.0 - BENIGN PROSTATIC HYPERPLASIA WITHOUT LOWER URINRY TRACT SYMP (3) HTN (hypertension) Current Visit: No Status: Chronic Qualifiers: Hypertension type: primary hypertension Qualified Code(s): I10 - Essential (primary) hypertension Assessment & Plan: Under reasonable control with target bp 130/80 1. Continue Losartan 2. Low Na diet 3. Monitor blood pressure readings Code(s): I10 - ESSENTIAL (PRIMARY) HYPERTENSION (4) Hypothyroidism Current Visit: No Status: Chronic Assessment & Plan: On replacement 1. Continue thyroid medicine 2. Check TSH Code(s): E03.9 - HYPOTHYROIDISM, UNSPECIFIED Telemedicine Encounter - Telemedicine Encounter Telemedicine Encounter: The entirety of this encounter was performed via Telemedicine"
[2023-09-02] MEDS ORDERED: ZOFRAN ODT 4 MG PO PRN (01:15)
--- NOTE | 2023-09-02 08:38 | XRAY ---
Indication: Pain. Comparison: None 3 view left knee demonstrates osteopenia, total knee arthroplasty with intact articulation/prosthesis, and scattered vascular calcifications. 2.5 x 0.6 cm suprapatella heterotopic ossification either degenerative versus sequela old injury. No other bony, articular, or soft tissue abnormalities.
--- NOTE | 2023-09-02 09:20 | PCM.CONS ---
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 No pain at rest. His pain if he tries to lift the leg or walk.He does not know of an injury but he did have several syncopal spells and could have injured it then.He says over the last 6 weeks he [facility] [place]. He said he did have a high creatinine.He says he was unconscious for several weeks.He has no chest pain shortness of breath fevers or chills. He has no swelling in the knee. The knee does give way.He does have some swelling in his legs and is on Eliquis.Not complain of any numbness or tingling.He did have some left groin pain but more at the kneePatient has history of hypothyroidism, hypertension, coronary artery disease with CABG and stent placement, peripheral neuropathy, prostate issues and hyperlipidemia.He had the knee replaced about 10 years ago in [facility] by Dr. Dominguez. He says he cannot get back there for follow-up due to distance.He lives at home but takes care of her with dementia and does not want to leave her. His son who is nearbyDoes not get jessica ng with him. - Review of Systems Additional Findings: See HPI Medications & Allergies Home Medications: Home Medication List Gabapentin 300 mg PO BID 09/23/13 [History Confirmed 09/02/23] Sertraline HCl 50 mg [Zoloft 50 mg Tablet] 50 mg PO DAILY 09/23/13 [History Confirmed 09/02/23] Tamsulosin HCl 0.4 mg [Flomax 0.4 MG] 0.4 mg PO BID 09/23/13 [History Confirmed 09/02/23] Levothyroxine Sodium 50 mcg PO DAILY 06/04/17 [History Confirmed 09/02/23] Atorvastatin Calcium 20 mg PO DAILY 06/19/18 [History Confirmed 09/02/23] Apixaban [Eliquis 5 mg Tablet] 5 mg PO BID 11/03/21 [History Confirmed 09/02/23] Cyanocobalamin 1000 Mcg/ml [Cyanocobalamin B-12 1000 MCG/ML] 1,000 mg PO UD 11/03/21 [History Confirmed 09/02/23] Losartan Potassium 50 mg [Cozaar 50 MG] 50 mg PO DAILY 11/03/21 [History Confirmed 09/02/23] Ferrous Sulfate 325 mg [Feosol 325 mg] 325 mg PO DAILY 04/30/23 [History Confirmed 09/02/23] Multivitamin 1 each PO DAILY 04/30/23 [History Confirmed 09/02/23] Naproxen Sodium [Aleve] 2 - 3 each PO BID PRN PRN 04/30/23 [History Confirmed 09/02/23] Acetaminophen 325 mg [Tylenol 325 mg] 650 mg PO Q6H PRN PRN tablet 06/05/23 [Rx Confirmed 09/02/23] Diclofenac Sodium 4 gm TP Q4HPRN PRN 06/05/23 [Rx] Allergies/Adverse Reactions: Allergies Allergy/AdvReac Type Severity Reaction Status Date / Time No Known Drug Allergies Allergy Verified 06/02/23 18:45 - Past Medical History Past Medical History: Yes Neurological History: Peripheral Neuropathy ENT History: No Pertinent History Cardiac History: Coronary Artery Disease Respiratory History: No Pertinent History Endocrine Medical History: Hypothyroidism Musculoskelatal History: Arthritis GI Medical History: Colorectal Cancer, Hernia History: Other Pyscho-Social History: Depression Male Reproductive Disorders: Prostate Problems Comment: Colorectal cancer - Past Surgical History Past Surgical History: Yes Neuro Surgical History: No Pertinent History Cardiac History: CABG, Cardiac Catheterization, Cardiac Stent Respiratory Surgery: No Pertinent History GI Surgical History: Hernia Repair Genitourinary Surgical Hx: No Pertinent History Musculskeletal Surgical Hx: Joint Replacement Male Surgical History: No Pertinent History Other Surgical History: 5 VESSEL CABG. COLON RESECTION with colostomy, repair to 2 lower bowel blockages. 2 HERNIA. Right lower lobe of lung removed. Right hip replacement. COLO ANAL RESECTION, STAGE [address] LORENA BRENNER. LEFT KNEE REPLACEMENT. COLOSTOMY STOMA RPTURE REPAIR X 2 - Social History Smoking Status: Former smoker Exposure to second hand smoke: No Alcohol: None Drug Use: none - Social Determinants of Health Will the patient participate in the screening: Declined to provide Do you worry about a steady place to live?: No Do you have any problems with any of the following?: No known problems In the past 12 months,have you had to go without utilities?: No Have you or anyone in your house had to go without enough: No Transportation Issues: No Has anyone in your support network made you feel unsafe?: No Does the patient want assistance with any of the above?: No - Nursing Vital Signs Nursing Vital Signs: Vital Signs - 24 hr Temp Pulse Resp BP BP Pulse Ox 09/02/23 01:15 97.3 F 63 17 163/68 95 09/01/23 23:30 67 18 176/103 97 09/01/23 23:00 67 168/91 98 09/01/23 22:30 66 159/86 94 L 09/01/23 22:18 69 142/89 98 09/01/23 22:14 98.1 F 74 16 142/89 99 - Physical Exam SpO2: 95 - Narrative Narrative Physical Exam: Ortho Physical Exam Pleasant male, no apparent distress, alert and orient x 3, lying in bed, normal height and weight Left knee shows no bruising swelling masses erythema or effusion. Has a midline anterior scar well-healed. Patient can flex about 0-110. Tender when flexing. Patient is able to actively extend the knee against resistance with some moderate pain in the lateral suprapatellar knee.No groin pain with hip internal or external rotation or flexion. No deformity to the thigh.No gap felt in the quadriceps tendonPatient has 2+ edema distally. Cannot feel distal pulses. Has good sensation. 5/5 dorsiflexion plantarflexion great toe. Knee is stable to varus and valgus. X-ray of left knee reviewed by me shows a cemented PS type knee with good alignment. Patella is been resurfaced. There is aWafer of bone in the suprapatellar region about 20 mm x 5 mm which appears old. Patellar height appears okay No labs or other x-rays available Assessment/Plan (1) Left knee pain Current Visit: Yes Status: Acute Assessment & Plan: Left knee pain,Possibilities include a low-grade infection, a Partial quadriceps tendon tear,An occult fracture Around the knee prosthesis Plan:Will obtain CBC and BMP from preoperative needed. Also had a history of recent high creatinineAnd has been on blood thinners. Will obtain ESR and CRP to look for signs of infection Patient consented to aspiration of the knee which was done by me with an 18- gauge needle through the lateral suprapatellar pouch. Obtained 4 cc of clear fluid sent for cell count with differential and culture. Will x-ray the femur to look for more proximal fracture Will MRI the knee to look for partial quadriceps tear Will start physical therapy to work on range of motion and mobility. Code(s): M25.562 - PAIN IN LEFT KNEE Results - Radiology Impressions Radiology Exams & Impressions: Radiology Procedures Category Date Time Status FEMUR Routine Exams 09/02/23 09:06 Ordered KNEE (3 VIEWS) Stat Exams 09/01/23 22:42 Completed MRI LOW EXT JOINT W/O CONTRAST [MRI] Routine Exams 09/02/23 09:08 Ordered
[2023-09-02 09:46] LABS: Absolute Neutrophil Ct (ANC) 3.94 x10^3/uL (1.78-5.38); BASOPHIL % 1.6 % (0.2-1.2); Basophil (Absolute #) 0.09 x10^3/uL (0.01-0.08); Eosinophil % 5.4 % (0.8-7.0); Hematocrit 27.8 % (40.1-51.0); Hemoglobin 8.7 g/dL (13.7-17.5); IMMATURE GRAN # 0.01 x10^3u/L (0.001-0.031); IMMATURE GRAN % 0.2 % (0.001-0.429); Lymphocyte (Absolute #) 0.59 x10^3/uL (1.32-3.57); Lymphocytes % 10.7 % (21.8-53.1); Mean Cell Volume 93.3 fL (79.0-92.2); Mean Corpuscular Hemoglobin 29.2 pg (25.7-32.2); Mean Corpuscular Hgb Concent. 31.3 g/dL (32.3-36.5); Mean Platelet Volume 9.3 fL (9.4-12.4); Monocytes % 10.8 % (5.3-12.2); Neutrophil % 71.3 % (34.0-67.9); Platelet Count 254 x10^3/uL (163-337); Red Blood Count 2.98 x10^6/uL (4.63-6.08); Red Cell Distribution Width 16.7 % (11.6-14.4); White Blood Count 5.5 x10^3/uL (4.23-9.07)
[2023-09-02 10:01] LABS: ANION GAP 6.9 MEQ/L (5-15); Calcium 8.9 mg/dL (8.4-10.2); Creatinine 1 0.89 mg/dL (0.66-1.25); EST GLOMERULAR FILTRATION RATE 87.2 ML/MIN; Potassium 3.7 mmol/L (3.5-5.1)
--- NOTE | 2023-09-02 10:06 | XRAY ---
Indication: Pain for weeks. No known injury. Comparison: None 2 view left hip demonstrates total hip arthroplasty with bipolar prosthesis/acetabular screw. Acetabular prosthesis demonstrates surrounding radiolucency with curvilinear heterotopic ossifications, possibly due to loosening. Elsewhere osteopenia, mild lower lumbar degenerative changes, mild scattered vascular calcifications, and incompletely visualized left mid abdomen ventral hernia mesh graft.
[2023-09-02 10:49] LABS: BF CLARITY SL HAZY (CLEAR); BF SPECIMEN TYPE SYNOVIAL; BF-COLOR COLORLESS (COLORLESS); BODY FLUID CELL COUNT RBC 0.004 x10^6u/L
[2023-09-02] MEDS: NEURONTIN PO SCH (10:55)
[2023-09-02] MEDS: Proscar 5 MG PO SCH (10:55)
[2023-09-02] MEDS: Pepcid 20 MG PO SCH (10:55)
[2023-09-02] MEDS: TYLENOL 325 MG PO PRN (10:55)
[2023-09-02] MEDS: FEOSOL 325 MG PO SCH (10:55)
[2023-09-02] MEDS: ELIQUIS 2.5 MG TABLET PO SCH (10:55)
[2023-09-02] MEDS: Flomax 0.4 MG PO SCH (10:55)
[2023-09-02] MEDS: ZOLOFT 50 MG TABLET PO SCH (10:56)
[2023-09-02] MEDS: Cozaar 50 MG PO SCH (10:56)
[2023-09-02] MEDS: ZOCOR 20MG PO SCH (10:56)
[2023-09-02] MEDS: SYNTHROID 50 MCG PO SCH (10:56)
[2023-09-02 11:09] LABS: Slide Review 1 YES
[2023-09-02] MEDS: NORCO 5/325 MG PO PRN (12:20)
--- NOTE | 2023-09-02 13:10 | PCM.NOTE ---
Date and Time: 09/02/23 1306 Subjective Assessment: X-ray left femur reviewed with some mild intramedullary lucencies. There is a vertically oriented Cup On aPress-fit total hipWith some mild medial wall lucency. 1 single screw.There is a smallSoft tissue lucency along the medial proximal femoral shaft distal to the hip prosthesis The total knee appears the same on the femur film as it does on the knee film CBC shows anemia CMP shows mildly increased BUN ESR is elevated at 31 with a normal is 0-15 CRP is pending Patient cannot have MRI due to pacemaker which is incompatible with according to his family doctor. Family doctor also says patient has metastatic cancer but did not say what type. Will obtain bone scan to look forStress fracture or metastatic lesions throughout the skeleton Objective Data Vital Signs: Vital Signs - 24 hr Temp Pulse Resp BP BP Pulse Ox 09/02/23 12:00 98.6 F 60 16 109/59 99 09/02/23 09:23 95 09/02/23 08:00 97.6 F 60 16 100/56 96 09/02/23 01:15 97.3 F 63 17 163/68 95 09/01/23 23:30 67 18 176/103 97 09/01/23 23:00 67 168/91 98 09/01/23 22:30 66 159/86 94 L 09/01/23 22:18 69 142/89 98 09/01/23 22:14 98.1 F 74 16 142/89 99 Pain Assessment - Last Documented Pain Intensity 10 Pain Scale Used 0-10 Pain Scale Intake and Output: Intake & Output 08/31/23 09/01/23 09/02/23 09/03/23 11:59 11:59 11:59 11:59 Intake Total 360 Output Total 1725 Balance -1365 Weight 63.8 kg Lab Results: Lab Results-Last 24 Hours 09/02/23 09/02/23 09/02/23 Range/Units 09:00 09:44 09:44 Specimen Type SYNOVIAL WBC 5.5 (4.23-9.07) x10^3/uL RBC 2.98 L (4.63-6.08) x10^6/uL Hgb 8.7 L (13.7-17.5) g/dL Hct 27.8 L (40.1-51.0) % MCV 93.3 H (79.0-92.2) fL MCH 29.2 (25.7-32.2) pg MCHC 31.3 L (32.3-36.5) g/dL RDW 16.7 H (11.6-14.4) % Plt Count 254 (163-337) x10^3/uL MPV 9.3 L (9.4-12.4) fL Gran % 71.3 H (34.0-67.9) % Immature Gran % (Auto) 0.2 (0.001-0.429) % Nucleat RBC Rel Count 0.0 (0.00-0.2) % Eos # (Auto) 0.30 (0.04-0.54) x10^3/uL Immature Gran # (Auto) 0.01 (0.001-0.031) x10^3u/L Absolute Lymphs (auto) 0.59 L (1.32-3.57) x10^3/uL Absolute Monos (auto) 0.60 (0.30-0.82) x10^3/uL Absolute Nucleated RBC 0.00 (0.00-0.012) x10^3u/L Lymphocytes % 10.7 L (21.8-53.1) % Monocytes % 10.8 (5.3-12.2) % Eosinophils % 5.4 (0.8-7.0) % Basophils % 1.6 H (0.2-1.2) % Absolute Granulocytes 3.94 (1.78-5.38) x10^3/uL Basophils # 0.09 H (0.01-0.08) x10^3/uL ESR (0-15) mm/hr Sodium 137 (135-145) mmol/L Potassium 3.7 (3.5-5.1) mmol/L Chloride 105 (98-107) mmol/L Carbon Dioxide 29 (22-30) mmol/L Anion Gap 6.9 (5-15) MEQ/L BUN 23 H (9-20) mg/dL Creatinine 0.89 (0.66-1.25) mg/dL Estimated GFR 87.2 ML/MIN Glucose 149 H (74-106) mg/dL Calcium 8.9 (8.4-10.2) mg/dL Fluid Color COLORLESS (COLORLESS) Fluid Clarity SL HAZY A (CLEAR) Fluid WBC (Auto) 290.000 u/L Fluid RBC (Auto) 0.004 x10^6u/L Fld Polynuclear WBCs % 70.300 % Fl Mononuclear % Auto 29.700 % Slides for Path Review YES 09/02/23 Range/Units 09:44 Specimen Type WBC (4.23-9.07) x10^3/uL RBC (4.63-6.08) x10^6/uL Hgb (13.7-17.5) g/dL Hct (40.1-51.0) % MCV (79.0-92.2) fL MCH (25.7-32.2) pg MCHC (32.3-36.5) g/dL RDW (11.6-14.4) % Plt Count (163-337) x10^3/uL MPV (9.4-12.4) fL Gran % (34.0-67.9) % Immature Gran % (Auto) (0.001-0.429) % Nucleat RBC Rel Count (0.00-0.2) % Eos # (Auto) (0.04-0.54) x10^3/uL Immature Gran # (Auto) (0.001-0.031) x10^3u/L Absolute Lymphs (auto) (1.32-3.57) x10^3/uL Absolute Monos (auto) (0.30-0.82) x10^3/uL Absolute Nucleated RBC (0.00-0.012) x10^3u/L Lymphocytes % (21.8-53.1) % Monocytes % (5.3-12.2) % Eosinophils % (0.8-7.0) % Basophils % (0.2-1.2) % Absolute Granulocytes (1.78-5.38) x10^3/uL Basophils # (0.01-0.08) x10^3/uL ESR 33 H (0-15) mm/hr Sodium (135-145) mmol/L Potassium (3.5-5.1) mmol/L Chloride (98-107) mmol/L Carbon Dioxide (22-30) mmol/L Anion Gap (5-15) MEQ/L BUN (9-20) mg/dL Creatinine (0.66-1.25) mg/dL Estimated GFR ML/MIN Glucose (74-106) mg/dL Calcium (8.4-10.2) mg/dL Fluid Color (COLORLESS) Fluid Clarity (CLEAR) Fluid WBC (Auto) u/L Fluid RBC (Auto) x10^6u/L Fld Polynuclear WBCs % % Fl Mononuclear % Auto % Slides for Path Review Radiology Exams: Radiology Procedures Category Date Time Status FEMUR Routine Exams 09/02/23 09:06 Completed HIP (1V) INCL PEL IF DONE Routine Exams 09/02/23 10:35 Stop Req KNEE (3 VIEWS) Stat Exams 09/01/23 22:42 Completed Multi-Disciplinary Progress Notes: Multi-Disciplinary Progress Notes 09/02/23 11:07 Case Management Note by Cordelia Thakur S/W DAUGHTER AMILCAR- SHE WOULD LIKE REFERRAL SENT TO [facility] FOR MENTAL HEALTH HER BROTHER MADDY WILL BE COMING UP TO GET PATIENT'S PATIENT AGREEABLE TO WHATEVER NEEDS TO BE DONE FOR HIS CARE. HE REPORTS HE HAS LIFE INSURANCE THAT CAN BE CASHED OUT. 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 HE VOICED BEING "TIRED OF DEALING WITH IT ALL" AND JUST WANTS IT TAKEN CARE OF FOR HIM. Initialized on 09/02/23 11:07 - END OF NOTE 09/02/23 09:01 Case Management Note by Cordelia Thakur CALLED SON MADDY AND DAUGHTER AMILCAR TO DISCUSS NEEDS FOR PATIENT AND HIS CURRENTLY WITH HIM- NO ANSWER-LM Initialized on 09/02/23 09:01 - END OF NOTE
[2023-09-02] MEDS: DESYREL 50 MG PO SCH (20:50)
[2023-09-03 04:59] LABS: Hematocrit 25.6 % (40.1-51.0); Hemoglobin 7.9 g/dL (13.7-17.5); Mean Cell Volume 94.5 fL (79.0-92.2); Mean Corpuscular Hemoglobin 29.2 pg (25.7-32.2); Mean Corpuscular Hgb Concent. 30.9 g/dL (32.3-36.5); Mean Platelet Volume 9.2 fL (9.4-12.4); Platelet Count 231 x10^3/uL (163-337); Red Blood Count 2.71 x10^6/uL (4.63-6.08); Red Cell Distribution Width 16.6 % (11.6-14.4); White Blood Count 4.5 x10^3/uL (4.23-9.07)
[2023-09-03 05:33] LABS: ALBUMIN 2.4 g/dL (3.5-5.0); ANION GAP 6.4 MEQ/L (5-15); BILIRUBIN,TOTAL 0.4 mg/dL (0.2-1.3); Calcium 8.3 mg/dL (8.4-10.2); Creatinine 1 0.95 mg/dL (0.66-1.25); EST GLOMERULAR FILTRATION RATE 81.4 ML/MIN; Potassium 3.8 mmol/L (3.5-5.1); Total Protein 5.4 g/dL (6.3-8.2)
--- NOTE | 2023-09-03 07:48 | PCM.NOTE ---
Date and Time: 09/03/23 0748 Subjective Assessment: Left knee pain slightly better. 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 He gets chemotherapy in [place] Objective Exam Comments: 09/03/23 07:49 Alert and oriented x 3. Left knee shows no bruising swelling masses erythema or effusion. Still has some tenderness in the suprapatellar region. Has some tenderness with range of motion.When flexing, had pain in the mid thigh. MRI not obtainable due to pacemaker Culture pending Objective Data Vital Signs: Vital Signs - 24 hr Temp Pulse Resp BP Pulse Ox 09/03/23 04:00 97.8 F 72 18 88/51 92 L 09/02/23 19:59 97.6 F 64 16 123/65 94 L 09/02/23 16:00 97.8 F 60 16 115/60 95 09/02/23 12:00 98.6 F 60 16 109/59 99 09/02/23 09:23 95 09/02/23 08:00 97.6 F 60 16 100/56 96 Pain Assessment - Last Documented Pain Intensity 7 Pain Scale Used 0-10 Pain Scale Intake and Output: Intake & Output 08/31/23 09/01/23 09/02/23 09/03/23 11:59 11:59 11:59 11:59 Intake Total 360 390 Output Total 1725 Balance -1365 390 Weight 63.8 kg Lab Results: Lab Results-Last 24 Hours 09/02/23 09/02/23 09/02/23 Range/Units 09:00 09:44 09:44 Specimen Type SYNOVIAL WBC 5.5 (4.23-9.07) x10^3/uL RBC 2.98 L (4.63-6.08) x10^6/uL Hgb 8.7 L (13.7-17.5) g/dL Hct 27.8 L (40.1-51.0) % MCV 93.3 H (79.0-92.2) fL MCH 29.2 (25.7-32.2) pg MCHC 31.3 L (32.3-36.5) g/dL RDW 16.7 H (11.6-14.4) % Plt Count 254 (163-337) x10^3/uL MPV 9.3 L (9.4-12.4) fL Gran % 71.3 H (34.0-67.9) % Immature Gran % (Auto) 0.2 (0.001-0.429) % Nucleat RBC Rel Count 0.0 (0.00-0.2) % Eos # (Auto) 0.30 (0.04-0.54) x10^3/uL Immature Gran # (Auto) 0.01 (0.001-0.031) x10^3u/L Absolute Lymphs (auto) 0.59 L (1.32-3.57) x10^3/uL Absolute Monos (auto) 0.60 (0.30-0.82) x10^3/uL Absolute Nucleated RBC 0.00 (0.00-0.012) x10^3u/L Lymphocytes % 10.7 L (21.8-53.1) % Monocytes % 10.8 (5.3-12.2) % Eosinophils % 5.4 (0.8-7.0) % Basophils % 1.6 H (0.2-1.2) % Absolute Granulocytes 3.94 (1.78-5.38) x10^3/uL Basophils # 0.09 H (0.01-0.08) x10^3/uL ESR (0-15) mm/hr Sodium 137 (135-145) mmol/L Potassium 3.7 (3.5-5.1) mmol/L Chloride 105 (98-107) mmol/L Carbon Dioxide 29 (22-30) mmol/L Anion Gap 6.9 (5-15) MEQ/L BUN 23 H (9-20) mg/dL Creatinine 0.89 (0.66-1.25) mg/dL Estimated GFR 87.2 ML/MIN Glucose 149 H (74-106) mg/dL Calcium 8.9 (8.4-10.2) mg/dL Total Bilirubin (0.2-1.3) mg/dL AST (17-59) U/L ALT (0-50) U/L Alkaline Phosphatase (38-126) U/L Serum Total Protein (6.3-8.2) g/dL Albumin (3.5-5.0) g/dL Fluid Color COLORLESS (COLORLESS) Fluid Clarity SL HAZY A (CLEAR) Fluid WBC (Auto) 290.000 u/L Fluid RBC (Auto) 0.004 x10^6u/L Fld Polynuclear WBCs % 70.300 % Fl Mononuclear % Auto 29.700 % Slides for Path Review YES 09/02/23 09/03/23 09/03/23 Range/Units 09:44 04:30 04:30 Specimen Type WBC 4.5 (4.23-9.07) x10^3/uL RBC 2.71 L (4.63-6.08) x10^6/uL Hgb 7.9 L (13.7-17.5) g/dL Hct 25.6 L (40.1-51.0) % MCV 94.5 H (79.0-92.2) fL MCH 29.2 (25.7-32.2) pg MCHC 30.9 L (32.3-36.5) g/dL RDW 16.6 H (11.6-14.4) % Plt Count 231 (163-337) x10^3/uL MPV 9.2 L (9.4-12.4) fL Gran % (34.0-67.9) % Immature Gran % (Auto) (0.001-0.429) % Nucleat RBC Rel Count (0.00-0.2) % Eos # (Auto) (0.04-0.54) x10^3/uL Immature Gran # (Auto) (0.001-0.031) x10^3u/L Absolute Lymphs (auto) (1.32-3.57) x10^3/uL Absolute Monos (auto) (0.30-0.82) x10^3/uL Absolute Nucleated RBC (0.00-0.012) x10^3u/L Lymphocytes % (21.8-53.1) % Monocytes % (5.3-12.2) % Eosinophils % (0.8-7.0) % Basophils % (0.2-1.2) % Absolute Granulocytes (1.78-5.38) x10^3/uL Basophils # (0.01-0.08) x10^3/uL ESR 33 H (0-15) mm/hr Sodium 135 (135-145) mmol/L Potassium 3.8 (3.5-5.1) mmol/L Chloride 105 (98-107) mmol/L Carbon Dioxide 28 (22-30) mmol/L Anion Gap 6.4 (5-15) MEQ/L BUN 22 H (9-20) mg/dL Creatinine 0.95 (0.66-1.25) mg/dL Estimated GFR 81.4 ML/MIN Glucose 88 (74-106) mg/dL Calcium 8.3 L (8.4-10.2) mg/dL Total Bilirubin 0.40 (0.2-1.3) mg/dL AST 19 (17-59) U/L ALT 8 (0-50) U/L Alkaline Phosphatase 78 (38-126) U/L Serum Total Protein 5.4 L (6.3-8.2) g/dL Albumin 2.4 L (3.5-5.0) g/dL Fluid Color (COLORLESS) Fluid Clarity (CLEAR) Fluid WBC (Auto) u/L Fluid RBC (Auto) x10^6u/L Fld Polynuclear WBCs % % Fl Mononuclear % Auto % Slides for Path Review Radiology Exams: Radiology Procedures Category Date Time Status BONE THREE PHASE [NUCMED] Routine Exams 09/02/23 13:10 Ordered FEMUR Routine Exams 09/02/23 09:06 Completed KNEE (3 VIEWS) Stat Exams 09/01/23 22:42 Completed Multi-Disciplinary Progress Notes: Multi-Disciplinary Progress Notes 09/02/23 13:18 Occupational Therapy Note by Stefani Harrison OT held discussion with PT, Linh Mckee. OT will hold therapy at this time as patient was refusing to move out of bed due to pain. PT received evaluation orders as well, so OT will follow up once PT eval completed for indication of PT eval. Initialized on 09/02/23 13:18 - END OF NOTE 09/02/23 12:30 (created 09/02/23 13:51) Case Management Note by Cordelia Thakur REFERRAL WAS SENT TO [facility]- S/W JOSSY- SHE RECEIVED PAPERWORK AND WILL WORK WITH PATIENT AND FAMILY TO GET FINANCIAL INFORMATION TO START MEDICAID PENDING PROCESS. S/W DAUGHTER LINH- SHE WAS NOTIFIED THEY WILL NEED ALL OF THIS INFORMATION IN ORDER TO GET THINGS IN ORDER. SHE VERIFIED UNDERSTANDING. Initialized on 09/02/23 13:51 - END OF NOTE 09/02/23 11:07 Case Management Note by Cordelia Thakur S/W DAUGHTER LINH- SHE WOULD LIKE REFERRAL SENT TO [facility] HER BROTHER MADDY WILL BE COMING UP TO GET PATIENT'S PATIENT AGREEABLE TO WHATEVER NEEDS TO BE DONE FOR HIS CARE. HE REPORTS HE HAS LIFE INSURANCE THAT CAN BE CASHED OUT. 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 HE VOICED BEING "TIRED OF DEALING WITH IT ALL" AND JUST WANTS IT TAKEN CARE OF FOR HIM. Initialized on 09/02/23 11:07 - END OF NOTE 09/02/23 09:01 Case Management Note by Cordelia Thakur CALLED SON MADDY AND DAUGHTER LINH TO DISCUSS NEEDS FOR PATIENT AND HIS CURR ENTLY WITH HIM- NO ANSWER-LM Initialized on 09/02/23 09:01 - END OF NOTE Assessment/Plan (1) Left knee pain Current Visit: Yes Status: Acute Assessment & Plan: Left knee pain, possible quadriceps tendinitis, Possible stress fracture or metastatic lesions, Less likely infection Since patient cannot have MRI, we will obtain bone scan which cannot be obtained until Saturday Patient may continue physical therapy with range of motion weightbearing as tolerated on the knee Will await culture results on left knee Nurse practitioner hospitalist Aware of patient being on previous chemotherapy And will check into whether he needs to be on this now Code(s): M25.562 - PAIN IN LEFT KNEE
--- NOTE | 2023-09-03 12:38 | PCM.NOTE ---
Date and Time: 09/03/23 1232 Subjective Assessment: 09/03/23 Mr. ROWE is a 78 year old male with a past medical history significant for Colon cancer with mets, hypertension, hyperlipidemia, hypothyroidism and coronary artery disease status post CABG. He presented to the hospital with complaints of L knee pain. He notes that he had about 3-4 falls and has been dealing with the pain through a combination of tylenol/NSAIDs but his symptoms worsened, and he is unable to sleep. He rates his pain about a 3 at baseline but then spikes up to 17.5 when he twists it. He was unable to transfer from ER wheelchair back to his vehicle due to the pain, so he was recommended for admission on 09/01 for symptomatic control and social work help. 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 He is resting in bed, awake/alert. No fever/chills. No chest pain or shortness of breath. No nausea, vomiting or diarrhea. No dysuria, hematuria or urgency. Pain is well controlled with norco. Ortho drained fluid from left knee yesterday. An MRI was recommended but his pacemaker is not MRI compatible per PCP. Ortho recomended a bone scna and this cannot be done until Saturday. Per ortho this can be done OP. he reports he has not had chemo in some time as he keeps being admitted to the hospital. He is awaiting placement to [facility] in [place] for rehab. He is agreeable to this plan. His son came and picked up from hospital yesterday. The son plans on taking care of pt's needs at d/c. He denies any further concerns at this time. - Review of Systems Constitutional: No Fever, No Chills Eyes: No Symptoms Ears, Nose, & Throat: No Symptoms Respiratory: No Cough, No Short Of Breath Cardiac: No Chest Pain, No Edema, No Syncope Abdominal/Gastrointestinal: No Abdominal Pain, No Nausea, No Vomiting, No Diarrhea Genitourinary Symptoms: No Dysuria Musculoskeletal: Joint Pain (left knee pain), No Back Pain, No Neck Pain Skin: No Rash Neurological: No Dizziness, No Focal Weakness, No Sensory Changes Psychological: No Symptoms Endocrine: No Symptoms Hematologic/Lymphatic: No Symptoms Immunological/Allergic: No Symptoms Objective Exam General Appearance: no apparent distress, alert, thin Neurologic Exam: alert, oriented x 3, cooperative, normal mood/affect, nml cerebellar function, sensation nml, No motor deficits Skin Exam: normal color, warm, dry Eye Exam: PERRL, EOMI, eyes nml inspection Ears, Nose, Throat Exam: normal ENT inspection, pharynx normal, moist mucous membranes Neck Exam: normal inspection, non-tender, supple, full range of motion Respiratory Exam: normal breath sounds, lungs clear, No respiratory distress Cardiovascular Exam: regular rate/rhythm, normal heart sounds Gastrointestinal/Abdomen Exam: soft, No tenderness, No mass Extremity Exam: normal inspection, normal range of motion, tenderness (left knee with decreased ROM) Back Exam: normal inspection, normal range of motion, No CVA tenderness, No vertebral tenderness Male Genitalia Exam: deferred Rectal Exam: deferred Objective Data Vital Signs: Vital Signs - 24 hr Temp Pulse Resp BP Pulse Ox 09/03/23 11:56 97.6 F 58 L 20 90/62 96 09/03/23 08:00 97.6 F 61 16 92/50 97 09/03/23 04:00 97.8 F 72 18 88/51 92 L 09/02/23 19:59 97.6 F 64 16 123/65 94 L 09/02/23 16:00 97.8 F 60 16 115/60 95 Pain Assessment - Last Documented Pain Intensity 5 Pain Scale Used 0-10 Pain Scale Intake and Output: Intake & Output 09/01/23 09/02/23 09/03/23 09/04/23 11:59 11:59 11:59 11:59 Intake Total 360 770 Output Total 1725 Balance -1365 770 Weight 63.8 kg Lab Results: Lab Results-Last 24 Hours 09/03/23 09/03/23 Range/Units 04:30 04:30 WBC 4.5 (4.23-9.07) x10^3/uL RBC 2.71 L (4.63-6.08) x10^6/uL Hgb 7.9 L (13.7-17.5) g/dL Hct 25.6 L (40.1-51.0) % MCV 94.5 H (79.0-92.2) fL MCH 29.2 (25.7-32.2) pg MCHC 30.9 L (32.3-36.5) g/dL RDW 16.6 H (11.6-14.4) % Plt Count 231 (163-337) x10^3/uL MPV 9.2 L (9.4-12.4) fL Sodium 135 (135-145) mmol/L Potassium 3.8 (3.5-5.1) mmol/L Chloride 105 (98-107) mmol/L Carbon Dioxide 28 (22-30) mmol/L Anion Gap 6.4 (5-15) MEQ/L BUN 22 H (9-20) mg/dL Creatinine 0.95 (0.66-1.25) mg/dL Estimated GFR 81.4 ML/MIN Glucose 88 (74-106) mg/dL Calcium 8.3 L (8.4-10.2) mg/dL Total Bilirubin 0.40 (0.2-1.3) mg/dL AST 19 (17-59) U/L ALT 8 (0-50) U/L Alkaline Phosphatase 78 (38-126) U/L Serum Total Protein 5.4 L (6.3-8.2) g/dL Albumin 2.4 L (3.5-5.0) g/dL Radiology Exams: Radiology Procedures Category Date Time Status BONE THREE PHASE [NUCMED] Routine Exams 09/02/23 13:10 Ordered FEMUR Routine Exams 09/02/23 09:06 Completed KNEE (3 VIEWS) Stat Exams 09/01/23 22:42 Completed Multi-Disciplinary Progress Notes: Multi-Disciplinary Progress Notes 09/03/23 11:32 Case Management Note by Cordelia Thakur PATIENT STILL AGREEABLE TO GO TO [facility]. S/W JOSSY AT [facility]- SHE IS STILL TRYING TO GET PATIENT'S FINANCIAL INFORMATION FOR MEDICAID REJI. PASRR PAPERWORK DONE- NO LEVEL II REQUIRE. COPIES PLACED IN CHART AND FAXED TO [facility]. Initialized on 09/03/23 11:32 - END OF NOTE 09/02/23 13:18 Occupational Therapy Note by Stefani Harrison OT held discussion with PT, Linh Mckee. OT will hold therapy at this time as patient was refusing to move out of bed due to pain. PT received evaluation orders as well, so OT will follow up once PT eval completed for indication of PT eval. Initialized on 09/02/23 13:18 - END OF NOTE Assessment/Plan (1) Left knee pain Current Visit: Yes Status: Acute Assessment & Plan: - Pain control - PT/OT eval - Social work consult to help with care of his - Rehab - GI/DVT prophylaxis - narcotic pain control Code(s): M25.562 - PAIN IN LEFT KNEE (2) BPH (benign prostatic hyperplasia) Current Visit: No Status: Chronic Qualifiers: Lower urinary tract symptom presence: symptoms present Lower urinary tract symptom detail: incomplete bladder emptying Qualified Code(s): N40.1 - Benign prostatic hyperplasia with lower urinary tract symptoms; R39.14 - Feeling of incomplete bladder emptying Assessment & Plan: - BPH on Flomax - Continue meds - Monitor I/Os - Watch kidney function Code(s): N40.0 - BENIGN PROSTATIC HYPERPLASIA WITHOUT LOWER URINRY TRACT SYMP (3) HTN (hypertension) Current Visit: No Status: Chronic Qualifiers: Hypertension type: primary hypertension Qualified Code(s): I10 - Essential (primary) hypertension Assessment & Plan: -Under reasonable control with target bp 130/80 - Continue Losartan - Low Na diet - Monitor blood pressure readings Code(s): I10 - ESSENTIAL (PRIMARY) HYPERTENSION (4) Hypothyroidism Current Visit: No Status: Chronic Assessment & Plan: -On replacement - Continue thyroid medicine - Check TSH Code(s): E03.9 - HYPOTHYROIDISM, UNSPECIFIED (5) Colon cancer Current Visit: Yes Status: Chronic Assessment & Plan: - With mets per PCP - reports has not had chemo in some time d/t repeat hospital admissions. VTE: Eliquis PPI: Isamar Next of KIN: SON or daughter D/C plan: tomorrow Code status: Full
[2023-09-04] MEDS: MORPHINE SULFATE 2 MG INJ IM PRN (01:10)
[2023-09-04 04:51] LABS: Hematocrit 25.2 % (40.1-51.0); Hemoglobin 7.9 g/dL (13.7-17.5); Mean Cell Volume 93.7 fL (79.0-92.2); Mean Corpuscular Hemoglobin 29.4 pg (25.7-32.2); Mean Corpuscular Hgb Concent. 31.3 g/dL (32.3-36.5); Mean Platelet Volume 9.5 fL (9.4-12.4); Platelet Count 243 x10^3/uL (163-337); Red Blood Count 2.69 x10^6/uL (4.63-6.08); Red Cell Distribution Width 16.7 % (11.6-14.4); White Blood Count 5.1 x10^3/uL (4.23-9.07)
[2023-09-04 05:22] LABS: ALBUMIN 2.3 g/dL (3.5-5.0); ANION GAP 5.1 MEQ/L (5-15); BILIRUBIN,TOTAL 0.3 mg/dL (0.2-1.3); Calcium 8.4 mg/dL (8.4-10.2); EST GLOMERULAR FILTRATION RATE 76.6 ML/MIN; Potassium 4.4 mmol/L (3.5-5.1); Total Protein 5.1 g/dL (6.3-8.2)
[2023-09-04 09:07] VITALS: RESP 15
--- NOTE | 2023-09-04 10:53 | PCM.DS ---
Discharge Summary Date of Admission: 09/02/23 01:12 Date of Discharge: 09/04/23 Admitting Physician: RADHA COTTON MD Consults: Consults on Case 09/02/23 07:45 Consult Ortho ROUTINE Primary Care Provider: SUE,STANLEY Allergies Allergies No Known Drug Allergies Allergy (Verified 06/02/23 18:45) Hospital Summary - Hospital Course Hospital Course: 09/03/23 Mr. ROWE is a 78 year old male with a past medical history significant for Colon cancer with mets, hypertension, hyperlipidemia, hypothyroidism and coronary artery disease status post CABG. He presented to the hospital with complaints of L knee pain. He notes that he had about 3-4 falls and has been dealing with the pain through a combination of tylenol/NSAIDs but his symptoms worsened, and he is unable to sleep. He rates his pain about a 3 at baseline but then spikes up to 17.5 when he twists it. He was unable to transfer from ER wheelchair back to his vehicle due to the pain, so he was recommended for admission on 09/01 for symptomatic control and social work help. 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 He is resting in bed, awake/alert. No fever/chills. No chest pain or shortness of breath. No nausea, vomiting or diarrhea. No dysuria, hematuria or urgency. Pain is well controlled with norco. Ortho drained fluid from left knee yesterday. An MRI was recommended but his pacemaker is not MRI compatible per PCP. Ortho recommended a bone scan and this cannot be done until Saturday. Per ortho this can be done OP. He reports he has not had chemo in some time as he keeps being admitted to the hospital. He is awaiting placement to [facility] in [place] for rehab. He is agreeable to this plan. His son came and picked up from hospital yesterday. The son plans on taking care of pt's needs at d/c. He denies any further concerns at this time. 09/04/23 Pt resting in bed. Pain of right knee well controlled today. Plan is to d/c to rehab today. His son is coming to pick him up and he has been accepted at the facility. He denies any further concerns at this time. Pt will need to f/u for bone scan [facility] OP. - Vitals & Intake/Output Vital Signs: Vital Signs Temperature 97.8 F 09/04/23 08:00 Pulse Rate 92 H 09/04/23 08:00 Respiratory Rate 15 09/04/23 08:00 Blood Pressure 90/54 09/04/23 08:00 O2 Sat by Pulse Oximetry 94 L 09/04/23 08:00 Intake & Output: Intake & Output 09/01/23 09/02/23 09/03/23 09/04/23 11:59 11:59 11:59 11:59 Intake Total 600 828 5825 Output Total 1725 1200 Balance -1365 770 170 Weight 63.8 kg - Lab Result Diagrams: 09/04/23 04:22 09/04/23 04:22 Lab Results-Last 24 Hrs: Lab Results-Last 24 Hours 09/02/23 09/04/23 09/04/23 Range/Units 09:44 04:22 04:22 WBC 5.1 (4.23-9.07) x10^3/uL RBC 2.69 L (4.63-6.08) x10^6/uL Hgb 7.9 L (13.7-17.5) g/dL Hct 25.2 L (40.1-51.0) % MCV 93.7 H (79.0-92.2) fL MCH 29.4 (25.7-32.2) pg MCHC 31.3 L (32.3-36.5) g/dL RDW 16.7 H (11.6-14.4) % Plt Count 243 (163-337) x10^3/uL MPV 9.5 (9.4-12.4) fL Sodium (135-145) mmol/L Potassium (3.5-5.1) mmol/L Chloride (98-107) mmol/L Carbon Dioxide (22-30) mmol/L Anion Gap (5-15) MEQ/L BUN (9-20) mg/dL Creatinine (0.66-1.25) mg/dL Estimated GFR ML/MIN Glucose (74-106) mg/dL Calcium (8.4-10.2) mg/dL Total Bilirubin (0.2-1.3) mg/dL AST (17-59) U/L ALT (0-50) U/L Alkaline Phosphatase (38-126) U/L C-Reactive Prot, Quant 19 H (0-10) mg/L Serum Total Protein (6.3-8.2) g/dL Albumin (3.5-5.0) g/dL TSH 3rd Generation 4.102 (0.470-4.680) mIU/L 09/04/23 Range/Units 04:22 WBC (4.23-9.07) x10^3/uL RBC (4.63-6.08) x10^6/uL Hgb (13.7-17.5) g/dL Hct (40.1-51.0) % MCV (79.0-92.2) fL MCH (25.7-32.2) pg MCHC (32.3-36.5) g/dL RDW (11.6-14.4) % Plt Count (163-337) x10^3/uL MPV (9.4-12.4) fL Sodium 136 (135-145) mmol/L Potassium 4.4 (3.5-5.1) mmol/L Chloride 104 (98-107) mmol/L Carbon Dioxide 31 H (22-30) mmol/L Anion Gap 5.1 (5-15) MEQ/L BUN 24 H (9-20) mg/dL Creatinine 1.00 (0.66-1.25) mg/dL Estimated GFR 76.6 ML/MIN Glucose 87 (74-106) mg/dL Calcium 8.4 (8.4-10.2) mg/dL Total Bilirubin 0.30 (0.2-1.3) mg/dL AST 17 (17-59) U/L ALT 8 (0-50) U/L Alkaline Phosphatase 78 (38-126) U/L C-Reactive Prot, Quant (0-10) mg/L Serum Total Protein 5.1 L (6.3-8.2) g/dL Albumin 2.3 L (3.5-5.0) g/dL TSH 3rd Generation (0.470-4.680) mIU/L - Radiology Exams Ordered Rad Exams-Entire Visit: Radiology Procedures Category Date Time Status BONE THREE PHASE [NUCMED] Routine Exams 09/06/23 08:00 Ordered - Procedures and Test Procedures and Tests throughout Hospitalization: Therapy Orders & Screens 09/02/23 01:15 PT Eval & Treat ( Order) ONCE Reason for Eval:: Transfer and movement, Weight-bear as tolerated Diagnosis: Left knee pain 09/02/23 01:25 OT Eval and Treat ( Order) ONCE Comment: Physician Instructions: Reason For Exam: Diagnosis: L knee pain 09/02/23 02:20 OT Screen per Nursing Assess ONCE Comment: Protocol Order Physician Instructions: Greater than 3 points order OT Admission Screening Reason For Exam: Triggered on Admission Diagnosis: L knee pain Open Wound/Cellutlitis/Pressure Ulcers: No Acute Fx/ORIF/Change in wt bearing status: Yes Severe MUSCULOSKELETAL pain: Yes ADL Dysfunction: Yes Acute CVA w/Hemiparesis/Hemiplegia: No Decreased Functional Mobility/Strength: Yes Sprain/Strain: No Acute Post-op Mobility Dysfunction: No Total Points: 14 PT Screen per Nursing Assess ONCE Comment: Protocol Order Physician Instructions: Greater than 3 points order PT Admission Screenin Reason For Exam: Triggered on Admission Diagnosis: L knee pain Open Wound/Cellutlitis/Pressure Ulcers: No Acute Fx/ORIF/Change in wt bearing status: Yes Severe MUSCULOSKELETAL pain: Yes ADL Dysfunction: Yes Acute CVA w/Hemiparesis/Hemiplegia: No Decreased Functional Mobility/Strength: Yes Sprain/Strain: No Acute Post-op Mobility Dysfunction: No Total Points: 14 Discharge Exam General Appearance: no apparent distress, alert Neurologic Exam: alert, oriented x 3, cooperative, normal mood/affect, nml cerebellar function, sensation nml, No motor deficits Eye Exam: PERRL, EOMI, eyes nml inspection Ears, Nose, Throat Exam: normal ENT inspection, pharynx normal, moist mucous membranes Neck Exam: normal inspection, non-tender, supple, full range of motion Respiratory Exam: normal breath sounds, lungs clear, No respiratory distress Cardiovascular Exam: regular rate/rhythm, normal heart sounds Gastrointestinal/Abdomen Exam: soft, No tenderness, No mass Male Genitalia Exam: deferred Rectal Exam: deferred Back Exam: normal inspection, normal range of motion, No CVA tenderness, No vertebral tenderness Extremity Exam: normal inspection, normal range of motion, limited range of motion (left knee) Skin Exam: normal color, warm, dry Wound Assessment: Skin/Wound Assessment Wound/Incision Assessment Start: 09/04/23 10:27 Text: Status: Active Freq: Protocol: Document 09/04/23 10:28 EK (Rec: 09/04/23 10:29 EK [id number]) Wound/Incision Assessment Posterior Other Wound Assessment New Finding 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 Drainage Amount None Surrounding Tissue [place],Blanched/Dull Topical Solution/Irrigant Saline Irrigant Comment BARRIER CREAM AND OPEN TO AIR Final Diagnosis/Problem List - Final Discharge Diagnosis/Problem (1) Left knee pain Current Visit: Yes Status: Acute Code(s): M25.562 - PAIN IN LEFT KNEE (2) BPH (benign prostatic hyperplasia) Current Visit: No Status: Chronic Code(s): N40.0 - BENIGN PROSTATIC HYPERPLASIA WITHOUT LOWER URINRY TRACT SYMP (3) HTN (hypertension) Current Visit: No Status: Chronic Code(s): I10 - ESSENTIAL (PRIMARY) HYPERTENSION (4) Hypothyroidism Current Visit: No Status: Chronic Code(s): E03.9 - HYPOTHYROIDISM, UNSPECIFIED (5) Colon cancer Current Visit: Yes Status: Chronic Assessment & Plan: (1) Left knee pain Current Visit: Yes Status: Acute Assessment & Plan: - Pain control - PT/OT eval - Social work consult to help with care of his - Rehab - GI/DVT prophylaxis - narcotic pain control 09/03 - D/c to rehab today - pain well controlled Code(s): M25.562 - PAIN IN LEFT KNEE (2) BPH (benign prostatic hyperplasia) Current Visit: No Status: Chronic Qualifiers: Lower urinary tract symptom presence: symptoms present Lower urinary tract symptom detail: incomplete bladder emptying Qualified Code(s): N40.1 - Benign prostatic hyperplasia with lower urinary tract symptoms; R39.14 - Feeling of incomplete bladder emptying Assessment & Plan: - BPH on Flomax - Continue meds - Monitor I/Os - Watch kidney function - self caths - bladder scan PRN Code(s): N40.0 - BENIGN PROSTATIC HYPERPLASIA WITHOUT LOWER URINRY TRACT SYMP (3) HTN (hypertension) Current Visit: No Status: Chronic Qualifiers: Hypertension type: primary hypertension Qualified Code(s): I10 - Essential (primary) hypertension Assessment & Plan: - Controlled - Continue Losartan - Low Na+ diet - Monitor blood pressure readings Code(s): I10 - ESSENTIAL (PRIMARY) HYPERTENSION (4) Hypothyroidism Current Visit: No Status: Chronic Assessment & Plan: -On replacement - Continue thyroid medicine - Check TSH 4.102- stable Code(s): E03.9 - HYPOTHYROIDISM, UNSPECIFIED (5) Colon cancer Current Visit: Yes Status: Chronic Assessment & Plan: - With mets per PCP - reports has not had chemo in some time d/t repeat hospital admissions. - Discharge Discharge Date: 09/04/23 Disposition: Home, Self-Care Condition: Stable Prescriptions: Continue Gabapentin 300 mg PO BID Tamsulosin HCl 0.4 mg [Flomax 0.4 MG] 0.4 mg PO BID Sertraline HCl 50 mg [Zoloft 50 mg Tablet] 50 mg PO DAILY Levothyroxine Sodium 50 mcg PO DAILY Atorvastatin Calcium 20 mg PO DAILY Apixaban [Eliquis 5 mg Tablet] 5 mg PO BID Losartan Potassium 50 mg [Cozaar 50 MG] 50 mg PO DAILY Cyanocobalamin 1000 Mcg/ml [Cyanocobalamin B-12 1000 MCG/ML] 1,000 mg PO UD Multivitamin 1 each PO DAILY Naproxen Sodium [Aleve] 2 - 3 each PO BID PRN PRN PRN Reason: Pain Ferrous Sulfate 325 mg [Feosol 325 mg] 325 mg PO DAILY Diclofenac Sodium 4 gm TP Q4HPRN PRN PRN Reason: Pain Acetaminophen 325 mg [Tylenol 325 mg] 650 mg PO Q6H PRN PRN tablet PRN Reason: Pain And/Or Fever Additional Instructions: GROUP HOME ORDERS: HEART HEALTHY DIET ROUTINE OSTOMY CARE STRAIGHT CATH PER PATIENT'S HOME ROUTINE PATIENT NEEDS BONE SCAN OF LEFT KNEE- SEE ATTACHED ORDER - PLEASE ARRANGE APT FOR A FACILITY IN [place] SEE ATTACHED MED LIST Follow up with: SALIMA SANTANA MD [CONSULTING PHYSICIAN] - STANLEY ROGERS MD [Primary Care Provider] -
[2023-09-04 12:16] VITALS: BP 85/52; PULSE 75; TEMP 97.6; O2SAT 93
== END 2023-09-04 13:44 ==
LOC: ED 22:12 → MED SURG 09-02 01:12
PROVIDERS: ADMIT Internal Medicine Nephrology; ATTEND Internal Medicine Nephrology
DX: M25.562 Pain in left knee (principal); N40.0 Benign prostatic hyperplasia without lower urinary tract symptoms; I10 Essential (primary) hypertension; E03.9 Hypothyroidism, unspecified; R39.14 Feeling of incomplete bladder emptying; E78.5 Hyperlipidemia, unspecified; W19.XXXD Unspecified fall, subsequent encounter; C18.9 Malignant neoplasm of colon, unspecified; Z95.0 Presence of cardiac pacemaker; Z79.899 Other long term (current) drug therapy; Z79.01 Long term (current) use of anticoagulants
CPT/HCPCS: 36415; 73552; 73562; 80048; 80053; 84443; 85025; 85027; 85652; 86140; 87070; 87075; 87205; 89051; 97161; 97530; 99284; G0378; Q3014; J2270; A9270-GY